=== PATIENT | male | born 1940 | race Caucasian/White ===

== ENCOUNTER → 2019-12-05 09:11 | Outpatient (BNVA) | payer MEDICARE, OTHER, SELFPAY | PROVIDERS: Family Provider Family Medicine; PCP Family Medicine; Visit Provider Internal Medicine Cardiovascular Disease | DX: I48.91 Unspecified atrial fibrillation (principal) | CPT/HCPCS: 85610 ==

== ENCOUNTER → 2019-12-12 08:08 | Outpatient (BNVA) | payer MEDICARE, OTHER, SELFPAY | PROVIDERS: Family Provider Family Medicine; PCP Family Medicine; Visit Provider Internal Medicine Cardiovascular Disease | DX: I48.91 Unspecified atrial fibrillation (principal) | CPT/HCPCS: 85610 ==

== ENCOUNTER → 2019-12-19 08:15 | Outpatient (BNVA) | payer MEDICARE, OTHER, SELFPAY | PROVIDERS: Family Provider Family Medicine; PCP Family Medicine; Visit Provider Internal Medicine Cardiovascular Disease | DX: I48.91 Unspecified atrial fibrillation (principal) | CPT/HCPCS: 85610 ==

== ENCOUNTER → 2020-01-09 08:13 | Outpatient (BNVA) | payer MEDICARE, OTHER, SELFPAY | PROVIDERS: Family Provider Family Medicine; PCP Family Medicine; Visit Provider Internal Medicine Cardiovascular Disease | DX: I48.91 Unspecified atrial fibrillation (principal) | CPT/HCPCS: 85610 ==

== ENCOUNTER → 2020-01-23 08:30 | Outpatient (BNVA) | payer MEDICARE, OTHER, SELFPAY | PROVIDERS: Family Provider Family Medicine; PCP Family Medicine; Visit Provider Internal Medicine Cardiovascular Disease | DX: I48.91 Unspecified atrial fibrillation (principal); Z79.01 Long term (current) use of anticoagulants | CPT/HCPCS: 85610 ==

== ENCOUNTER → 2020-05-21 08:57 | Outpatient (BNVA) | payer MEDICARE, OTHER, SELFPAY | PROVIDERS: Family Provider Family Medicine; PCP Family Medicine; Visit Provider Internal Medicine Cardiovascular Disease | DX: I48.91 Unspecified atrial fibrillation (principal); Z79.01 Long term (current) use of anticoagulants | CPT/HCPCS: 85610 ==

== ENCOUNTER 2020-05-26 08:16 | Outpatient (CLI) | payer MEDICARE, OTHER, SELFPAY ==
--- NOTE | 2020-05-26 | US_ITS ---
WS: [id number] ULTRASOUND ABDOMEN CLINICAL INFORMATION: ABD PAIN COMPARISON: None. FINDINGS: Hepatic cyst measuring 1.7 x 1.5 cm Size: Normal. Craniocaudal length: 17.1 cm. Echogenicity: Normal. Surface nodularity: None. Mass (size and location): None. Bile ducts Intrahepatic ducts: Normal. Common bile duct diameter: 0.6 cm. Gallbladder Removed Pancreas Not well seen Spleen Splenomegaly: None. Craniocaudal length: 9.2 cm. Right kidney: Normal. Hydronephrosis: None. Size: 11.2 cm x 6.0 cm x 5.4 cm Left kidney: Normal. Hydronephrosis: None. Size: 12.8 cm x 6.4 cm x 5.8 cm. Abdominal aorta and IVC Visualized portions are normal. Ascites: None. US/US abdomen complete* [id number] IMPRESSION: 1. Hepatic cyst measuring 1.7 x 1.5 CM. 2. Cholecystectomy. 3. No hydronephrosis in either kidney. 4. Normal spleen.
== END 2020-05-26 08:17 | disposition home or self-care (01) ==
LOC: RAD 08:20
PROVIDERS: PCP Family Medicine; Visit Provider Family Medicine
DX: R10.84 Generalized abdominal pain (principal)
CPT/HCPCS: 76700

== ENCOUNTER → 2020-06-04 08:39 | Outpatient (BNVA) | payer MEDICARE, OTHER, SELFPAY | PROVIDERS: PCP Family Medicine; Visit Provider Internal Medicine Cardiovascular Disease | DX: I48.91 Unspecified atrial fibrillation (principal) | CPT/HCPCS: 85610 ==

== ENCOUNTER 2020-06-08 10:21 | Inpatient (IN) | payer MEDICARE, OTHER, SELFPAY ==
[2020-06-08] VITALS (10 sets, daily range): BP systolic 93–128; BP diastolic 60–78; PULSE 90–116; RESP 15–24; TEMP 36.6; O2SAT 92–97; BMI 27.4
--- NOTE | 2020-06-08 10:38 | XRR_ITS ---
PROCEDURE INFORMATION: Exam: XR Chest, 1 View Exam date and time: 06/08/2020 10:55 AM Age: 80 years old Clinical indication: Chest pain; Type not specified; Prior surgery; Surgery date: 6+ months; Surgery type: 3x bypass in 2004; Additional info: Cp TECHNIQUE: Imaging protocol: XR of the chest Views: 1 view. COMPARISON: CR Chest 2 views* [id number] 08/31/2018 12:47 PM FINDINGS: Tubes, catheters and devices: There is a pacemaker present over the left chest . Lungs: No consolidation. Pleural space: No pleural effusion. No pneumothorax. Heart/Mediastinum: Previous CABG. Diaphragm: Chronic elevation of the right hemidiaphragm. Bones/joints: Previous median sternotomy. XR/XR chest 1V portable [id number] IMPRESSION: No acute findings.
--- NOTE | 2020-06-08 10:38 | ECG_ITS ---
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 Measurements Intervals [place] Rate: 114 P: 64 AL: 178 QRS: -6 QRSD: 77 T: 44 QT: 332 QTc: 458 Interpretive Statements SINUS TACHYCARDIA NONSPECIFIC ST & T-WAVE ABNORMALITY ABNORMAL RHYTHM ECG Compared to ECG 02/05/2019 21:29:30 T-wave abnormality now present Sinus rhythm no longer present Electronically Signed On 06-08-2020 19:05:16 CDT by Shawn Brown M.D. [id number]
--- NOTE | 2020-06-08 10:45 | ED_ITS ---
HPI - Chest Pain General: Chief Complaint: Chest Pain Stated Complaint: cp Time Seen by Provider: 06/08/20 10:27 History of Present Illness: HPI narrative: Patient complains of substernal chest pain that radiates to both shoulders and down both arms. There was some shortness of breath. Patient denies nausea and diaphoresis. Patient has a remote history of CABG and states that the pain he is experiencing now is identical to before his bypass. MD complaint: chest pain, chest heaviness and chest discomfort Pertinent past history: coronary artery disease and CABG Onset (ago): day(s) (1) Timing of current episode: constant Prior episodes: No Onset: during rest and during exertion Pain location: substernal Pain radiation: right arm and left arm Severity: severe Quality: tightness and heaviness Relieving factors: nothing Exacerbating factors: exertion Review of Systems General: Reports: 10 or more systems reviewed and unremarkable except in HPI and below PFSH ED PFSH: Medical History Atrial fibrillation Surgical History S/P CABG (coronary artery bypass graft) S/P cardiac pacemaker procedure Physical Exam Const: COMMON NORMALS: no acute distress, patient oriented x3, no limitations and alert HENMT: COMMON NORMALS: normocephalic, atraumatic, external ears normal and Normal external nose present HEAD & SCALP: normocephalic and atraumatic FACE & SINUS: normal facial exam NOSE: Normal external nose present EXTERNAL EAR: Yes external ears normal MOUTH: Normal oral and palatal mucosa present Neck/C-Spine: COMMON NORMALS: full ROM, no lymphadenopathy, supple, no meningeal signs and no JVD GENERAL: Yes normal visual inspection Resp: COMMON NORMALS: normal respiratory effort, No retractions, No use of accessory muscles and clear to auscultation bilaterally AUSCULTATION: clear to auscultation bilaterally Cardio: COMMON NORMALS: no JVD, regular rate and regular rhythm RATE: regular rate RHYTHM: regular rhythm GI: COMMON NORMALS: Normal to inspection, nondistended, normoactive bowel sounds present, Soft to palpation, non-tender, No hepatosplenomegaly present and no masses INSPECTION: Yes normal to inspection AUSCULTATION: Yes normoactive bowel sounds PALPATION: Yes Soft to palpation and Yes No hepatosplenomegaly present PERCUSSION: normal to percussion : COMMON NORMALS: Yes no CVA tenderness BLADDER/KIDNEY EXAM: Yes no CVA tenderness Back/Pelvis: COMMON NORMALS: no CVA tenderness, thoracic and lumbar spine normal to inspection, no thoracic nor lumbar tenderness, thoraco-lumbar ROM normal and straight leg raise negative bilaterally Extremity: COMMON NORMALS: normal to inspection, full ROM, capillary refill normal, no joint enlargement, no clubbing, cyanosis or edema, no calf tenderness and no pedal edema Neuro: COMMON NORMALS: patient oriented x3, moves all extremities, no focal motor deficits and no sensory deficits noted SENSORIUM/ORIENTATION: Yes alert MENINGEAL SIGNS: Yes no meningeal signs Psych: COMMON NORMALS: mental status grossly normal, Normal thought process present, cooperative, normal affect and speech normal SPEECH: Yes normal speech THOUGHT PROCESS: Normal thought process present Skin: COMMON NORMALS: no rashes or lesions noted, no wounds, turgor normal, no jaundice, no petechiae and no mottling GENERAL SKIN EXAM: no rashes or lesions noted and turgor normal Course Vital Signs: Vital signs: Vital Signs Temperature 97.9 F 06/08/20 10:25 Pulse Rate 116 H 06/08/20 10:25 Respiratory Rate 24 H 06/08/20 10:25 Blood Pressure 107/68 06/08/20 10:25 Pulse Oximetry 96 06/08/20 10:25 MDM - Chest Pain Lab Data: Labs: Lab Results 06/08/20 06/08/20 06/08/20 Range/Units 10:46 10:46 10:46 WBC 7.9 (4.0-10.0) 10^3/ uL RBC 5.16 (4.1-5.3) 10^6/u L Hgb 15.3 (11.7-16.6) g/dL Hct 47.4 (42.0-52.0) % MCV 91.9 (80-94) fL MCH 29.7 (28.0-34.0) pg MCHC 32.3 (30.0-36.0) g/dL RDW 13.3 (12.1-15.1) % Plt Count 204 (130-400) 10^3/c mm MPV 10.1 (7.4-10.4) fL Neut % (Auto) 45.9 % Lymph % (Auto) 36.5 % [place] % (Auto) 8.8 % Eos % (Auto) 8.0 % Baso % (Auto) 0.5 % Neut # (Auto) 3.62 (1.8-7.7) 10^3/u L Lymph # (Auto) 2.9 (0.8-4.8) 10^3/u L [place] # (Auto) 0.7 (0.2-0.9) 10^3/u L Eos # (Auto) 0.6 (0.0-0.8) 10^3/u L Baso # (Auto) 0.0 (0.0-0.1) 10^3/u L Nucleated RBC % (a uto) 0 % Nucleated RBCs # 0.0 /100WBC PT 23.10 H (10.5-13.3) SECO NDS INR 1.97 H (0.8-1.2) Sodium 137 (136-145) mmol/L Potassium 3.8 (3.5-5.1) mmol/L Chloride 100 (98-107) mmol/L Carbon Dioxide 25 (22-29) mmol/L Anion Gap 15.8 (5-19) BUN 15 (8-23) mg/dL Creatinine 1.1 (0.7-1.2) mg/dL Glucose 125 H (65-115) mg/dL Calculated Osmolal ity 282 L (285-295) mOsm/k g Calcium 9.6 (8.5-10.5) mg/dL Total Bilirubin 0.4 (0.15-1.2) mg/dL AST 22 (0-40) U/L ALT 22 (0-41) U/L Alkaline Phosphata se 67 (40-130) IU/L Troponin T Baselin e (0-15) ng/L NT-Pro-B Natriuret Pep 260 (0-450) pg/mL Total Protein 7.1 (6.6-8.7) g/dL Albumin 4.2 (3.5-5.2) g/dL Globulin 2.9 (1.3-4.6) g/dL 06/08/20 Range/Units 10:46 WBC (4.0-10.0) 10^3/ uL RBC (4.1-5.3) 10^6/u L Hgb (11.7-16.6) g/dL Hct (42.0-52.0) % MCV (80-94) fL MCH (28.0-34.0) pg MCHC (30.0-36.0) g/dL RDW (12.1-15.1) % Plt Count (130-400) 10^3/c mm MPV (7.4-10.4) fL Neut % (Auto) % Lymph % (Auto) % [place] % (Auto) % Eos % (Auto) % Baso % (Auto) % Neut # (Auto) (1.8-7.7) 10^3/u L Lymph # (Auto) (0.8-4.8) 10^3/u L [place] # (Auto) (0.2-0.9) 10^3/u L Eos # (Auto) (0.0-0.8) 10^3/u L Baso # (Auto) (0.0-0.1) 10^3/u L Nucleated RBC % (a uto) % Nucleated RBCs # /100WBC PT (10.5-13.3) SECO NDS INR (0.8-1.2) Sodium (136-145) mmol/L Potassium (3.5-5.1) mmol/L Chloride (98-107) mmol/L Carbon Dioxide (22-29) mmol/L Anion Gap (5-19) BUN (8-23) mg/dL Creatinine (0.7-1.2) mg/dL Glucose (65-115) mg/dL Calculated Osmolal ity (285-295) mOsm/k g Calcium (8.5-10.5) mg/dL Total Bilirubin (0.15-1.2) mg/dL AST (0-40) U/L ALT (0-41) U/L Alkaline Phosphata se (40-130) IU/L Troponin T Baselin e 16 H (0-15) ng/L NT-Pro-B Natriuret Pep (0-450) pg/mL Total Protein (6.6-8.7) g/dL Albumin (3.5-5.2) g/dL Globulin (1.3-4.6) g/dL Discharge Plan Discharge Patient Disposition: Admitted As Inpatient Clinical Impression: Unstable angina pectoris Condition: Fair Referrals: Uziel Iverson MD [Primary Care Provider] - Coding Level of Care Code ED 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
[2020-06-08 10:57] LABS: Basophils % 0.5 %; Eosinophils # 0.6 10^3/uL (0.0-0.8); Hematocrit 47.4 % (42.0-52.0); Hemoglobin 15.3 g/dL (11.7-16.6); Lymphocytes # 2.9 10^3/uL (0.8-4.8); Lymphocytes % 36.5 %; Mean Corpuscular HGB Conc 32.3 g/dL (30.0-36.0); Mean Corpuscular Hemoglobin 29.7 pg (28.0-34.0); Mean Corpuscular Volume 91.9 fL (80-94); Mean Platelet Volume 10.1 fL (7.4-10.4); Monocytes # 0.7 10^3/uL (0.2-0.9); Monocytes % 8.8 %; Neutrophils # 3.62 10^3/uL (1.8-7.7); Neutrophils % 45.9 %; Nucleated Red Blood Cells % 0 %; Platelet Count 204 10^3/cmm (130-400); Red Blood Count 5.16 10^6/uL (4.1-5.3); Red Cell Distribution Width 13.3 % (12.1-15.1); White Blood Count 7.9 10^3/uL (4.0-10.0)
[2020-06-08 11:08] LABS: INR 1.97 (0.8-1.2)
[2020-06-08 11:14] LABS: Troponin(5th) Baseline 16 ng/L (0-15)
[2020-06-08 11:23] LABS: Alanine Aminotransferase 22 U/L (0-41); Albumin Level 4.2 g/dL (3.5-5.2); Alkaline Phosphatase 67 IU/L (40-130); Anion Gap 15.8 (5-19); Aspartate Amino Transferase 22 U/L (0-40); Blood Urea Nitrogen 15 mg/dL (8-23); Calcium 9.6 mg/dL (8.5-10.5); Carbon Dioxide 25 mmol/L (22-29); Chloride 100 mmol/L (98-107); Globulin 2.9 g/dL (1.3-4.6); Glucose 125 mg/dL (65-115); NT Pro B Type Natriuretic Pept 260 pg/mL (0-450); Osmolality Calculated 282 mOsm/kg (285-295); Potassium 3.8 mmol/L (3.5-5.1); Sodium 137 mmol/L (136-145); Total Bilirubin 0.4 mg/dL (0.15-1.2); Total Protein 7.1 g/dL (6.6-8.7)
--- NOTE | 2020-06-08 12:28 | PM.HP ---
Providers/Chief Complaint Primary Care Provider: Uziel Iverson MD Chief Complaint: cp History of Present Illness Toni Quintanilla is a 80 year old male that presents with complaints of chest discomfort. Patient reports he has been having episodes of chest discomfort for the last several weeks. He describes this as sharp, central, with discomfort down both arms. He reports it is a pressure as well. He reports the pain this morning was very severe lasting 15 to 20 minutes, where it normally lasts about 5. This morning the discomfort occurred at rest. It was so severe he could not remember any associated features but does not remember any diaphoresis, shortness of breath or nausea. He denies any issues with reflux lately. He reports no blood in his stool nor black or tarry stools. He reports no fever, cough or exposure to COVID. He reports his discomfort today is very similar to chest discomfort associated with coronary disease he had in the past. He believes his last angiogram was 6 to [address] Phelps but is not absolutely sure. He reports no coronary stenting. Review of Systems General: Reports: 10 or more systems reviewed and unremarkable except in HPI and below Const: Denies: fever(s) or chills Eyes: Denies: change in vision ENMT: Denies: throat pain Card: Reports: chest pain; Denies: palpitations Resp: Reports: dyspnea (Has occasional wheezing but shortness of breath with exertion) GI: Denies: abdominal pain : Denies: flank pain Musc: Denies: neck pain Skin/Breast: Denies: rash Neuro: Denies: headache(s) Psych: Denies: anxiety Endo: Denies: polyuria Jose/Lymph: Denies: easy bruising All/Imm: Denies: urticaria Medications/Allergies Home Medications Medication Instructions Recorded Confirmed Last Taken Type warfarin 1 mg tablet 1 mg PO DAILY tab 12/05/19 06/08/20 06/08/20 History warfarin 5 mg tablet 5 mg PO DAILY tab 12/05/19 06/08/20 06/08/20 History metoprolol succinate 100 mg 100 mg PO DAILY 90 Days #90 tab 12/12/19 06/08/20 06/07/20 Rx tablet,extended release 24 hr aspirin 81 mg tablet,delayed 81 mg PO DAILY 03/03/20 06/08/20 06/08/20 History release bumetanide 1 mg tablet 1 mg PO DAILY 03/03/20 06/08/20 06/08/20 History cholecalciferol (vitamin D3) 10 400 unit PO DAILY 03/03/20 06/08/20 06/07/20 History mcg (400 unit) capsule lisinopril 2.5 mg tablet 2.5 mg PO DAILY 03/03/20 06/08/20 06/07/20 History nitroglycerin 0.4 mg sublingual 0.4 mg SUBLINGUAL Q5M PRN 03/03/20 06/08/20 06/07/20 History tablet omeprazole 20 mg capsule,delayed 20 mg PO DAILY 03/03/20 06/08/20 06/08/20 History release simvastatin 40 mg tablet 40 mg PO DAILY 03/03/20 06/08/20 06/07/20 History spironolactone 25 mg tablet 12.5 mg PO DAILY tab 03/03/20 06/08/20 06/08/20 History Allergies Allergy/AdvReac Type Severity Reaction Status Date / Time No Known Allergies Allergy Verified 06/08/20 11:16 PFSH Acute PFSH: Medical History (Updated 06/08/20 @ 12:40 by Asael Rose MD) Atrial fibrillation BPH (benign prostatic hyperplasia) Coronary artery disease Last echocardiogram January 2019 with EF 55 to 60% GERD (gastroesophageal reflux disease) Hyperlipidemia Hypertension Sick sinus syndrome Surgical History (Updated 06/08/20 @ 12:36 by Asael Rose MD) History of hemorrhoidectomy S/P CABG (coronary artery bypass graft) S/P cardiac pacemaker procedure S/P cholecystectomy S/P TURP Family History (Updated 06/08/20 @ 12:36 by Asael Rose MD) Other CAD (coronary artery disease) Social History (Updated 06/08/20 @ 12:37 by Asael Rose MD) Smoking and tobacco status: former smoker Alcohol intake: never Substance/Drug Use: never Vitals/I&O/Wt Last Vital Signs Temp 97.9 F 06/08/20 10:25 Pulse 116 H 06/08/20 10:25 Resp 24 H 06/08/20 10:25 BP 107/68 06/08/20 10:25 Pulse Ox 96 06/08/20 10:25 Weight last 48 hrs Weight 83.007 kg Physical Exam Narrative: EXAM NARRATIVE: General exam is a white male, no obvious distress HEENT: Pupils equally round. Oropharynx clear. Neck is supple no lymphadenopathy or thyromegaly Cardiovascular regular rate and rhythm with 2/6 systolic murmur Lungs clear but with diminished breath sounds bilaterally. Increased expiratory phase. Abdomen is soft positive bowel sounds. No obvious organomegaly was deferred Extremities no cyanosis clubbing or edema, cap refill brisk Skin no rash Neuro no obvious focal deficits Data : 06/08/20 10:46 06/08/20 10:46 Other data: Chest x-ray demonstrates pacemaker, previous bypass, elevated right hemidiaphragm. EKG demonstrates sinus rhythm, normal axis no acute changes. LFTs are normal Baseline troponin 16, awaiting serials. A&P Assessment and plan (1) Chest pain: History somewhat concerning secondary to exertional component, relief with nitroglycerin. Has known history of coronary disease. We will try to get last angiogram results Serial troponins Repeat echocardiogram for any wall motion abnormalities Hold Coumadin in case angiogram is needed Continue aspirin, statin, beta-geri Arrange for nuclear stress test. Status: Acute (2) Elevated troponin: Serial troponins See notations above Status: Acute (3) Coronary artery disease: See documentations under chest discomfort Status: Acute (4) Atrial fibrillation: Currently sinus History of pacemaker On anticoagulation with near therapeutic INR. Will hold in case angiogram is needed. Status: Acute Additional A&P Information Probable COPD. Start DuoNeb as needed Hypertension. Continue home medications Hyperlipidemia. Continue statin BPH History of sick sinus syndrome/cardiac arrhythmia status post pacemaker placement Lovenox for DVT prophylaxis Full code. Attestations Medical Necessity Statement*: May need less than 2 midnight stay for evaluation of chest discomfort. 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
--- NOTE | 2020-06-08 12:38 | ECG_ITS ---
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 Measurements Intervals [place] Rate: 98 P: 36 MN: 172 QRS: 4 QRSD: 96 T: 38 QT: 359 QTc: 460 Interpretive Statements SINUS RHYTHM WITH OCCASIONAL SUPRAVENTRICULAR PREMATURE COMPLEXES ST DEVIATION AND MODERATE T-WAVE ABNORMALITY, CONSIDER ANTERIOR ISCHEMIA [-0.1+ mV T WAVE IN V3/V4] Compared to ECG 06/08/2020 10:40:40 Possible ischemia now present Sinus tachycardia no longer present T-wave abnormality still present Electronically Signed On 06-08-2020 19:09:57 CDT by Shawn Brown M.D. [id number]
--- NOTE | 2020-06-08 13:14 | USCV_ITS ---
Toni Quintanilla Age: 80 Gender: M : 1940 Exam Date: 06/08/2020 14:37 Ordering Phys: Asael Rose MD Technologist: Julia Guillen Exam Location: [facility] [place] Indication: Chest pain BP: 93 / 78 HR: 100 Rhythm: Sinus Technical Quality: Technically difficult study MEASUREMENTS (Male / Female) Normal Values 2D ECHO LV Diastolic Diameter PLAX 2.9 cm 4.2 - 5.9 / 3.9 - 5.3 cm LV Systolic Diameter PLAX 2.2 cm LV Chamber Size 3.6 cm IVS Diastolic Thickness 1.5 cm 0.6 - 1.0 / 0.6 - 0.9 cm IVS Systolic Thickness 1.6 cm LVPW Diastolic Thickness 1.3 cm 0.6 - 1.0 / 0.6 - 0.9 cm LVPW Systolic Thickness 1.4 cm RV Chamber Size 2.5 cm LVOT Diameter 2.1 cm LV Ejection Fraction 2D Teich 53.9 % LA Diameter 5.3 cm LA Width 2.3 cm LA Height 5.6 cm Aorta at Sinotubular Diameter 2.4 cm M-MODE Aortic Annulus Diameter 3.5 cm LA Ao Ratio MM 1.5 DOPPLER AV Peak Velocity 143.0 cm/s LVOT Peak Velocity 82.0 cm/s AV Area Cont Eq vti 2.2 cm squared AV Area Cont Eq pk 2.0 cm squared MV Area PHT 5.0 cm squared MV E' Velocity 92.0 cm/s TR Peak Velocity 241.0 cm/s TR Peak Gradient 23.3 mmHg TV Peak E Velocity 57.0 cm/s Right Atrial Pressure 3.0 mmHg Pulmonary Artery Systolic Pressu 26.2 mmHg PV Peak Velocity 71.0 cm/s RV Acceleration Time 0.0 s RV Ejection Time 0.2 s RV AcT/ET 0.2 FINDINGS Left Ventricle This is a poor quality study. The ventricle is probably normal in size and function. The ejection fraction is probably in the 55% range. Grade 1 diastolic dysfunction. Unable to assess wall motion disturbances. Right Ventricle Normal right ventricular size and systolic function. Normal right ventricular systolic pressure. Right Atrium Right atrium not well visualized. Left Atrium Mildly increased left atrial size. Mitral Valve Mitral valve not well visualized. Aortic Valve Aortic valve is not well seen. There is some degree of aortic insufficiency however its severity cannot be determined. Tricuspid Valve Tricuspid valve not well visualized. Pulmonic Valve Pulmonic valve not well visualized. Pericardium Normal pericardium without effusion. Aorta Normal ascending aorta dimension. CONCLUSIONS This is a poor quality study. The ventricle is probably normal in size and function. The ejection fraction is probably in the 55% range. Grade 1 diastolic dysfunction. Unable to assess wall motion disturbances. Aortic valve is not well seen. There is some degree of aortic insufficiency however its severity cannot be determined. Previous study dated 02/06/2019 was similarly poor in quality. There appears to be no change. Dr. Shawn Brown MD (Electronically Signed) Final Date: 08 June 2020 19:02 S
--- NOTE | 2020-06-08 13:14 | ECG_ITS ---
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 Interpretive Statements NAME OF STUDY: LEXISCAN SESTAMIBI STRESS TEST INDICATION: Chest Pain NOTE: Please note that this is the electrocardiogram portion of the Lexiscan/Sestamibi stress test. The perfusion scan will be documented separately. DATA: Baseline heart rate was 91 beats per minute. Baseline blood pressure was 156/84 millimeters of mercury. Target heart rate was 142. Maximum heart rate achieved was 104. which was 73 % of the predicted target heart rate. Maximum blood pressure was 156/84 millimeters of mercury. The reason for ending the test was completion of the protocol. The patient did not experience any symptoms. ELECTROCARDIOGRAM: Baseline: Sinus rhythm, normal axis, mild anteroseptal ST depression After Lexiscan injection, more than 1mm anterolateral ST-T depression noted. No arrhythmia noted. CONCLUSION: Please note due to baseline abnormality of the EKG specificity and sensitivity of the EKG portion of LexiScan MIBI stress test will be low 1. EKG is suggestive of ischemia 2. Lexiscan injection unremarkable. 3. Perfusion scan will be documented separately. Electronically Signed On 06-11-2020 20:08:23 CDT by Gabriela Real M.D. [id number]
[2020-06-08 13:27] LABS: Troponin 5 2HR 16.77 ng/L (0-15); Troponin 5 2HR Delta 0.77 ABS# (0-10)
[2020-06-08 14:11] LABS: Thyroid Stimulating Hormone 1.87 uIU/mL (0.27-4.20)
[2020-06-08] MEDS: enoxaparin 40 mg/0.4 mL Syringe SUBCUT (14:13)
--- NOTE | 2020-06-08 16:38 | ECG_ITS ---
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 Measurements Intervals [place] Rate: 98 P: 46 FL: 191 QRS: -25 QRSD: 90 T: 29 QT: 365 QTc: 468 Interpretive Statements SINUS RHYTHM WITH OCCASIONAL VENTRICULAR PREMATURE COMPLEXES WITH OCCASIONAL SUPRAVENTRICULAR PREMATURE COMPLEXES BORDERLINE LEFT AXIS DEVIATION [QRS AXIS < -20] ST & T-WAVE ABNORMALITY, anterior ischemia Compared to ECG 06/08/2020 12:54:48 Ventricular premature complex(es) now present T-wave abnormality still present Electronically Signed On 06-08-2020 19:11:32 CDT by Shawn Brown M.D. [id number]
[2020-06-08 17:11] LABS: Troponin 5 6HR 14.57 ng/L (0-15)
[2020-06-08 17:32] LABS: Troponin 5 6HR Delta -1.43 ng/L (0-12)
[2020-06-08] MEDS: pantoprazole DR 40 mg Tablet PO (19:08)
--- NOTE | 2020-06-08 20:05 | PC.NURSE ---
Pt resting in bed. No complaints of chest pain at this time. Pt states, I feel so much better. States he lives at home with spouse and has no difficulties getting around. Noted mild small unraised rash on face. Pt reports this as a chronic issue at times due to allergies. Denies cough or shortness of breath. Call light in reach. Educated pt to call if he needs any assistance or develops further chest pain.
[2020-06-09] VITALS (8 sets, daily range): BP systolic 77–147; BP diastolic 45–98; PULSE 81–92; RESP 15–23; TEMP 36.4–36.8; O2SAT 94–97
[2020-06-09 04:12] LABS: Basophils # 0.1 10^3/uL (0.0-0.1); Basophils % 0.8 %; Eosinophils # 0.9 10^3/uL (0.0-0.8); Eosinophils % 13.5 %; Hemoglobin 14.5 g/dL (11.7-16.6); Lymphocytes # 2.5 10^3/uL (0.8-4.8); Lymphocytes % 39.2 %; Mean Corpuscular HGB Conc 31.5 g/dL (30.0-36.0); Mean Corpuscular Hemoglobin 29.4 pg (28.0-34.0); Mean Corpuscular Volume 93.1 fL (80-94); Monocytes # 0.6 10^3/uL (0.2-0.9); Monocytes % 9.2 %; Neutrophils # 2.39 10^3/uL (1.8-7.7); Neutrophils % 37.1 %; Nucleated Red Blood Cells % 0 %; Platelet Count 172 10^3/cmm (130-400); Red Blood Count 4.94 10^6/uL (4.1-5.3); Red Cell Distribution Width 13.6 % (12.1-15.1); White Blood Count 6.4 10^3/uL (4.0-10.0)
[2020-06-09 04:23] LABS: INR 1.96 (0.8-1.2)
[2020-06-09 04:32] LABS: Anion Gap 14.8 (5-19); Blood Urea Nitrogen 16 mg/dL (8-23); Calcium 8.8 mg/dL (8.5-10.5); Carbon Dioxide 24 mmol/L (22-29); Chloride 101 mmol/L (98-107); Glucose 113 mg/dL (65-115); Osmolality Calculated 279 mOsm/kg (285-295); Potassium 3.8 mmol/L (3.5-5.1); Sodium 136 mmol/L (136-145)
--- NOTE | 2020-06-09 06:22 | PC.NURSE ---
No acute events through out the night. No chest pain. Stress test today. Pt NPO excepts sips of water since midnight.
--- NOTE | 2020-06-09 07:03 | PM.PN ---
Subjective Subjective: Interval history: Patient still having little bit of chest pain this morning. No fevers or chills. He reports that his pain is similar to his previous cardiac pain prior to his bypass. He has had it for several months but is gotten significantly worse with activity over the past couple weeks. Vitals/I&O/Wt Last Vital Signs Temp 97.5 F L 06/09/20 06:48 Pulse 83 06/09/20 06:48 Resp 18 06/09/20 06:48 BP 119/74 06/09/20 06:48 Pulse Ox 94 06/09/20 06:48 06/08/20 06/09/20 06/09/20 22:59 06:59 14:59 Intake Total 240 / 1516 680 / 1516 Balance 240 / 1516 680 / 1516 Weight last 48 hrs Weight 181 lb 1.6 oz Weight 183 lb Physical Exam Narrative: EXAM NARRATIVE: General: No acute distress, Alert. Well nourished. Heart: Regular rate and rhythm. No murmurs, rubs or gallops. Normal capillary refill. Lungs: Clear to auscultation. No wheezes, rhonchi or rales. Abdomen: Positive bowel sounds. Non-tender, non-distended. No hepatosplenomegaly. No gaurding. Extremities: No clubbing, cyanosis, or edema. Negative Keven's Data : 06/09/20 04:02 06/09/20 04:02 A&P Assessment and plan (1) Coronary artery disease: Status: Acute (2) Elevated troponin: Status: Acute (3) Unstable angina pectoris: -We will go ahead and consult cardiology for angiogram and further treatment and evaluation. Status: Acute (4) S/P CABG (coronary artery bypass graft): Status: Acute Attestations Medical Necessity Statement*: 80-year-old gentleman with known history of coronary disease with unstable angina requiring angiogram and inpatient treatment. 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
--- NOTE | 2020-06-09 07:42 | PC.NURSE ---
Physician Rounding Dr Iverson verbally ordered to hold stress test until Dr. Real sees the pt. Notified Nuc Med and CDL. They are aware. Hilario at [facility] said that pt has been injected with the chemical medicine this morning already. Dr Iverson and Addie notified on this.
--- NOTE | 2020-06-09 07:52 | NMCV_ITS ---
NM ellie perf SPECT r/s* [id number] Toni Quintanilla Age: 80 Gender: M : 1940 Exam Date: 06/09/2020 07:41 Ordering Phys: Gabriela Real MD ([email or web address]) Technologist: CECILIA Chacon Exam Location: [facility] Indications: CHEST PAIN STRESS TEST Please see separate stress test report in [facility] for full findings IMAGE PROTOCOL Rest/Stress 1 Lexiscan Day Radiopharmaceutical Dose (mCi) Administration Site Administered by Rest: Tc-99m 10.9 IV CECILIA Ribera Sestamibi Stress:Tc-99m 32.9 IV CECILIA Ribera Sestamibi Rest: 09-Jun-2020 60 Discovery 630 Stress: 09-Jun-2020 30 Discovery 630 0.4mg Lexiscan. Images obtained in supine and prone position. SPECT RESULTS Technical Quality: Excellent Raw Data Analysis: Normal Image Corrections: No attenuation or motion correction applied Summed Stress Score: 12 Summed Rest Score: 6 Summed Difference Score: 6 PERFUSION FINDINGS Medium-sized area of fixed perfusion defect noted in basal to distal inferior and inferolateral wall surrounded by small area of mild reversibility suggestive of ana m-infarct ischemia in the RCA or circumflex territory. FUNCTIONAL RESULTS (calculated via Gated SPECT) Stress Image LV EF (%): 51 Stress EDV (mL):88 TID: 0.93 Stress ESV (mL):43 Rest Image LV EF (%): 51 FUNCTIONAL FINDINGS: Inferior wall hypokinesis IMPRESSIONS Medium-sized area of old myocardial infarction versus scarring noted basal to distal inferior and inferolateral wall surrounded by small area of mild reversibility suggestive of ana m-infarct ischemia in the RCA or circumflex territory. EKG segment will be documented separately. Gabriela Real MD (Electronically Signed) Final Date: 09 June 2020 17:32 S
--- NOTE | 2020-06-09 08:34 | SUR.PREOP ---
Patient reports no pain or discomfort prior to the start of the procedure.
[2020-06-09] MEDS: regadenoson 0.4 Mg/5 ml Syringe IVP (08:35)
--- NOTE | 2020-06-09 08:56 | PC.NURSE ---
At [facility] for stress test
[2020-06-09] MEDS: metoprolol succinate ER (24 HR) 100 mg Tablet PO (10:07)
[2020-06-09] MEDS: lisinopril 2.5 mg Tablet PO (10:07)
[2020-06-09] MEDS: spironolactone 25 mg Tablet 12.5 MG PO (10:07)
[2020-06-09] MEDS: atorvastatin 40 mg Tablet 20 MG PO (10:07)
[2020-06-09] MEDS: aspirin 81 mg EC Tablet PO (10:08)
[2020-06-09] MEDS: bumetanide 1 mg Tablet PO (10:08)
[2020-06-09] MEDS: pantoprazole DR 40 mg Tablet PO ×2 (10:08→17:22)
--- NOTE | 2020-06-09 10:20 | PC.CHAP ---
Pastoral Care Encounter/Spiritual Assessment Type of Contact [] Declined dry goods inspector visit [] Patient/Family/Request visit [] Outpatient visit [] Follow-up visit [] Physician referral [] Code/Alert [x] Routine visit [] Staff referral [] Actively dying [] Patient sleeping [] Family support [] [] Out of room [] Palliative care [] [] Receiving care in room [] Pre-surgical visit [] Trauma [] Long length of stay [] ICU visit [] Other: Relational/Emotional Strength [] Patient feels connected with others/family/visitors/staff [] Distress [] Loneliness/isolation [] Abandonment Spirituality of Patient [] Person of Rosie [] Attends Lutheran of their Rosie [] Believes in Prayer [] Reads Bible or Methodist materials [] There are Spiritual issues to be addressed Wood Window And Door Craftsman Interventions [] Prayer [] Active listening [] Non-anxious presence [] Spiritual/emotional support [] Crisis/trauma care [] Spiritual counseling [] Bereavement support [] Provided bereavement packet [] Provided Bible/devotional materials [] Provided toy/stuffed animal, coloring book to patient or family member [] Provided Communion [] Anointing/[place] [] Salvation [] Completed spiritual assessment [] Other: Impact on Illness or Injury [] Angry [] Fearful [] Anxious [] Often cries [] Exhaustion [] Unable to work [] Unable to attend episcopalian [] Unable to walk/stand [] Unable to read [] Unable to drive [] Unable to eat/drink [] Unable to sleep [] Unable to be with family [] Patient intubated [] Other: Summary out of room Time spent with patient
--- NOTE | 2020-06-09 12:00 | DCPLANNER ---
Physician Rounding Dr Real in room. Discussion on an angiogram tomorrow at 4 pm. Received verbal orders to give Plavix 300 mg now and Imdur 30 mg first dose now then daily. RBVO to Dr. Real.
--- NOTE | 2020-06-09 12:02 | PC.NURSE ---
Physician notification Notified Dr Iverson to put an order for cardiology consult- Dr. Real. He spoke with him this morning and Dr. Real has seen and assessed the pt at bedside with this nurse. Discussion made for an angiogram tomorrow.
[2020-06-09] MEDS: clopidogrel 300 mg Tablet PO (13:15)
[2020-06-09] MEDS: isosorbide mononitrate ER 30 mg Tablet PO (13:16)
--- NOTE | 2020-06-09 13:17 | PC.NURSE ---
Urvashi Quintanilla would be requested visitor per patient. Phone number is [phone]
[2020-06-09] MEDS: enoxaparin 40 mg/0.4 mL Syringe SUBCUT (13:19)
--- NOTE | 2020-06-09 17:36 | P.CONIM_ITS ---
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 He was ruled out for acute coronary syndrome. He underwent stress test which was suggestive of ischemia in the inferior inferolateral region, ischemic burden is small however patient symptoms are pretty suggestive of angina despite of optimization of medicine. It has been 15 years since his bypass therefore we decided to further explore with left heart cath/angiogram of the graft. I detailed discussion with the patient regarding all risk benefit and alternative for the procedure. He would like to proceed with it. Patient has history of atrial fibrillation for which he is on warfarin today INR is 1.9 we will recheck the INR warfarin is on hold, in case of drug-eluting stent clopidogrel would be used. I will load him with clopidogrel tonight. We will plan to proceed with angiogram 4:30 PM tomorrow since we have pretty booked schedule in the morning. Review of Systems General: Reports: 10 or more systems reviewed and unremarkable except in HPI and below Const: Denies: fever(s) or chills Eyes: Denies: change in vision ENMT: Denies: throat pain Card: Reports: chest pain; Denies: palpitations Resp: Reports: dyspnea (Has occasional wheezing but shortness of breath with exertion) GI: Denies: abdominal pain : Denies: flank pain Musc: Denies: neck pain Skin/Breast: Denies: rash Neuro: Denies: headache(s) Psych: Denies: anxiety Endo: Denies: polyuria Jose/Lymph: Denies: easy bruising All/Imm: Denies: urticaria Meds/Allergies Home Medications and Allergies Home Medications Medication Instructions Recorded Confirmed Last Taken Type warfarin 1 mg tablet 1 mg PO DAILY tab 12/05/19 06/08/20 06/08/20 History warfarin 5 mg tablet 5 mg PO DAILY tab 12/05/19 06/08/20 06/08/20 History metoprolol succinate 100 mg 100 mg PO DAILY 90 Days #90 tab 12/12/19 06/08/20 06/07/20 Rx tablet,extended release 24 hr aspirin 81 mg tablet,delayed 81 mg PO DAILY 03/03/20 06/08/20 06/08/20 History release bumetanide 1 mg tablet 1 mg PO DAILY 03/03/20 06/08/20 06/08/20 History cholecalciferol (vitamin D3) 10 400 unit PO DAILY 03/03/20 06/08/20 06/07/20 History mcg (400 unit) capsule lisinopril 2.5 mg tablet 2.5 mg PO DAILY 03/03/20 06/08/20 06/07/20 History nitroglycerin 0.4 mg sublingual 0.4 mg SUBLINGUAL Q5M PRN 03/03/20 06/08/20 06/07/20 History tablet omeprazole 20 mg capsule,delayed 20 mg PO DAILY 03/03/20 06/08/20 06/08/20 History release simvastatin 40 mg tablet 40 mg PO DAILY 03/03/20 06/08/20 06/07/20 History spironolactone 25 mg tablet 12.5 mg PO DAILY tab 03/03/20 06/08/20 06/08/20 History Allergies Allergy/AdvReac Type Severity Reaction Status Date / Time No Known Allergies Allergy Verified 06/08/20 11:16 Current Medications Current Medications Generic Name Dose Route Start Last Admin Trade Name Freq PRN Reason Stop Dose Admin Aspirin 81 mg 06/09/20 09:00 06/09/20 10:08 Aspirin Ec PO 81 mg DAILY FEDERICO Administration Atorvastatin Calcium 20 mg 06/09/20 09:00 06/09/20 10:07 Lipitor PO 20 mg DAILY FEDERICO Administration Bumetanide 1 mg 06/09/20 09:00 06/09/20 10:08 Bumex PO 1 mg DAILY FEDERICO Administration Enoxaparin Sodium 40 mg 06/08/20 14:00 06/09/20 13:19 Lovenox SUBCUT 40 mg Q24H FEDERICO Administration Isosorbide Mononitrate 30 mg 06/09/20 12:02 06/09/20 13:16 Imdur PO 30 mg DAILY FEDERICO Administration Lisinopril 2.5 mg 06/09/20 09:00 06/09/20 10:07 Prinivil PO 2.5 mg DAILY FEDERICO Administration Metoprolol Succinate 100 mg 06/09/20 09:00 06/09/20 10:07 Toprol Xl PO 100 mg DAILY FEDERICO Administration Pantoprazole Sodium 40 mg 06/08/20 18:00 06/09/20 17:22 Protonix PO 40 mg BID FEDERICO Administration Spironolactone 12.5 mg 06/09/20 09:00 06/09/20 10:07 Aldactone PO 12.5 mg DAILY FEDERICO Administration PFSH Acute PFSH: Medical History (Updated 06/09/20 @ 19:00 by Gabriela Real MD) Atrial fibrillation BPH (benign prostatic hyperplasia) Coronary artery disease Last echocardiogram January 2019 with EF 55 to 60% GERD (gastroesophageal reflux disease) Hyperlipidemia Hypertension Sick sinus syndrome Surgical History (Updated 06/08/20 @ 12:36 by Asael Rose MD) History of hemorrhoidectomy S/P CABG (coronary artery bypass graft) S/P cardiac pacemaker procedure S/P cholecystectomy S/P TURP Family History (Updated 06/08/20 @ 12:36 by Asael Rose MD) Other CAD (coronary artery disease) Social History (Updated 06/08/20 @ 12:37 by Asael Rose MD) Smoking and tobacco status: former smoker Alcohol intake: never Substance/Drug Use: never Vitals/I&O/Wt Last Vital Signs Temp 97.8 F 06/09/20 14:51 Pulse 88 06/09/20 14:51 Resp 19 H 06/09/20 14:51 BP 98/61 06/09/20 14:51 Pulse Ox 94 06/09/20 14:51 06/09/20 06/09/20 06/09/20 06:59 14:59 22:59 Intake Total 680 / 1516 720 / 720 236 / 956 Balance 680 / 1516 720 / 720 236 / 956 Weight last 48 hrs Weight 181 lb 1.6 oz Weight 183 lb Physical Exam Narrative: EXAM NARRATIVE: GENERAL: Patient is alert, awake and oriented x3. NECK: No jugular vein distension. HEENT: No cyanosis. No icterus. No pallor. HEART: Regular S1 and S2. No murmur, rub or gallop. LUNGS: Clear to auscultate bilaterally. ABDOMEN: Soft, nontender and nondistended. Positive bowel sounds. No guarding, rebound or tenderness. CENTRAL NERVOUS SYSTEM: Grossly nonfocal. EXTREMITIES: Lower extremities without edema bilaterally. A&P Assessment and plan (1) Chest pain: Patient has worsening of chest pressure which has increased in frequency and duration over the last few weeks despite of optimization of medicine. Echocardiogram shows normal ejection fraction, stress test is abnormal for ischemia. Patient has prior history of CABG 15 years ago therefore we will proceed with left heart cath in the morning. Patient has been explained all risk benefit and alternative for the procedure. He would like to proceed with it. I will load him with 300 mg of clopidogrel per Status: Acute Qualifiers: Chest pain type: precordial pain Qualified Code(s): R07.2 - Precordial pain (2) S/P CABG (coronary artery bypass graft): History of CABG 15 years ago will ask for CABG report. Status: Acute (3) Atrial fibrillation: Rate controlled on anticoagulation we will hold warfarin. Lovenox on board. Recheck INR in the morning Status: Acute Consult Attestations Medical Necessity Statement: Patient requires continuation of hospitalization for above defined care Coding Level of Care Code New Pt Acute Speech Therapist Early Intervention for Chg Fwd Patient Type New History Expanded Problem Focused Exam Expanded Problem Focused Medical Decision Making Moderate Complexity Diagnoses Chest pain R07.2 Chest pain type: precordial pain S/P CABG (coronary artery bypass graft) Z95.1 Atrial fibrillation I48.91
--- NOTE | 2020-06-09 20:22 | PC.NURSE ---
BEDSIDE REPORT WAS RECEIVED FROM OFF GOING NURSE. PT IS RESTING IN BED AND DENIES PAIN AT THIS TIME. WILL CONTINUE TO MONITOR.
--- NOTE | 2020-06-09 23:46 | PC.NURSE ---
PT BLOOD PRESSURE WAS 77/45. PT IS ASYMPTOMATIC. DR ROWLAND WAS NOTIFIED AND SAID TO CALL DR LORENZO. DR LORENZO WANTS FLUIDS RAN AT 100ML/HR.
[2020-06-10] VITALS (18 sets, daily range): BP systolic 90–118; BP diastolic 55–73; PULSE 71–82; RESP 1–26; TEMP 36.4–36.9; O2SAT 91–98
[2020-06-10] MEDS: sodium chloride 0.9% 1,000 ML 100 ML IV ×2 (02:15→09:14)
--- NOTE | 2020-06-10 02:16 | PC.NURSE ---
IV FLUIDS WERE STARTED ON TIME. COMPUTER DIDN'T SAVE SCAN.
--- NOTE | 2020-06-10 02:17 | PC.NURSE ---
PT BP 92/62 IMPROVING. FOLLOW UP FROM LOW BP.
--- NOTE | 2020-06-10 04:18 | PC.NURSE ---
THIS NURSE AND [facility] ROUTEMAN NURSE NOTICED CRACKLES IN THE RIGHT BASE DURING THE ASSESSMENT. THIS IS A CHANGE FROM EARLIER. DR ROWLAND WAS NOTIFIED OF FINDING AND NO CHANGE TO ORDERS WAS GIVEN.
--- NOTE | 2020-06-10 06:41 | PC.NURSE ---
PT IS IN A PLEASANT MOOD. IV FLUIDS STARTED PER DR ORDER. LAST BP WAS 94/54. WILL GIVE REPORT TO ON COMING NURSE.
--- NOTE | 2020-06-10 07:33 | P.PN_ITS ---
Subjective Subjective: Interval history: Patient had some hypotension overnight. IV fluids was started. No significant chest pain this morning. Scheduled for angiogram later today. Stress test was positive yesterday. No fevers or chills. Vitals/I&O/Wt Last Vital Signs Temp 97.9 F 06/10/20 23:20 Pulse 83 06/11/20 04:29 Resp 18 06/11/20 04:29 BP 106/67 06/11/20 04:00 Pulse Ox 95 06/11/20 04:29 06/10/20 06/11/20 06/11/20 22:59 06:59 14:59 Intake Total 1000 / 1938.333 Output Total 400 / 1100 350 / 1100 Balance -400 / 838.333 650 / 838.333 Physical Exam Narrative: EXAM NARRATIVE: General: No acute distress, Alert. Well nourished. Heart: Regular rate and rhythm. No murmurs, rubs or gallops. Normal capillary refill. Lungs: Clear to auscultation. No wheezes, rhonchi or rales. Abdomen: Positive bowel sounds. Non-tender, non-distended. No hepatosplenomegaly. No gaurding. Extremities: No clubbing, cyanosis, or edema. Negative Keven's Data : 06/09/20 04:02 06/09/20 04:02 A&P Assessment and plan (1) Coronary artery disease: -Appreciate cardiology's consultation. -Proceed with angiogram and further care per cardiology. Status: Acute (2) Elevated troponin: Status: Acute (3) Unstable angina pectoris: Status: Acute (4) S/P CABG (coronary artery bypass graft): Status: Acute Attestations Medical Necessity Statement*: 80-year-old gentleman with unstable angina requiring continued inpatient treatment and angiogram in the inpatient setting. Coding Level of Care Code Acute Bush And Vine Farmer Fruit Crops for Karen Nuñez Diagnoses Coronary artery disease I25.10 Elevated troponin R79.89 Unstable angina pectoris I20.0 S/P CABG (coronary artery bypass graft) Z95.1
[2020-06-10] MEDS: metoprolol succinate ER (24 HR) 100 mg Tablet PO (09:12)
[2020-06-10] MEDS: spironolactone 25 mg Tablet 12.5 MG PO (09:12)
[2020-06-10] MEDS: pantoprazole DR 40 mg Tablet PO ×2 (09:12→19:07)
[2020-06-10] MEDS: isosorbide mononitrate ER 30 mg Tablet PO (09:12)
[2020-06-10] MEDS: aspirin 81 mg EC Tablet PO (09:12)
[2020-06-10] MEDS: bumetanide 1 mg Tablet PO (09:12)
[2020-06-10] MEDS: lisinopril 2.5 mg Tablet PO (09:13)
[2020-06-10] MEDS: atorvastatin 40 mg Tablet 20 MG PO (09:13)
--- NOTE | 2020-06-10 11:24 | PC.CHAP ---
Pastoral Care Encounter/Spiritual Assessment Type of Contact [] Declined paper and prints restorer visit [] Patient/Family/Request visit [] Outpatient visit [] Follow-up visit [] Physician referral [] Code/Alert [x] Routine visit [] Staff referral [] Actively dying [] Patient sleeping [] Family support [] [] Out of room [] Palliative care [] [x] Receiving care in room [] Pre-surgical visit [] Trauma [] Long length of stay [] ICU visit [] Other: Relational/Emotional Strength [x] Patient feels connected with others/family/visitors/staff [] Distress [] Loneliness/isolation [] Abandonment Spirituality of Patient [] Person of Rosie [] Attends Anabaptist of their [place] [] Believes in Prayer [] Reads Bible or Protestant materials [] There are Spiritual issues to be addressed Case Filler Interventions [x Prayer [x] Active listening [x] Non-anxious presence [x] Spiritual/emotional support [] Crisis/trauma care [x] Spiritual counseling [] Bereavement support [] Provided bereavement packet [] Provided Bible/devotional materials [] Provided toy/stuffed animal, coloring book to patient or family member [] Provided Communion [] Anointing/[place] [] Salvation [x] Completed spiritual assessment [] Other: Impact on Illness or Injury [] Angry [] Fearful [] Anxious [] Often cries [] Exhaustion [] Unable to work [] Unable to attend orthodox [] Unable to walk/stand [] Unable to read [] Unable to drive [] Unable to eat/drink [] Unable to sleep [] Unable to be with family [] Patient intubated [] Other: Summary more test on heart may be blockage, feels good has a good attitude` Time spent with patient 10 mins
--- NOTE | 2020-06-10 13:50 | PC.NURSE ---
Nurse called to room. Patient had pulled out IV catheter while getting out of bed. Pressure applied to site to stop bleeding. Patient bathed, linens changed. EVS contacted to mop floor.
--- NOTE | 2020-06-10 14:30 | PC.NURSE ---
Clarified orders with Dr joyce instruction to hold medication prior to procedure
--- NOTE | 2020-06-10 14:53 | PM.PN ---
Subjective Subjective: Interval history: Patient had episode of hypotension last night treated with IV fluid most likely it was due to dehydration. Denies any more chest pain Vitals/I&O/Wt Last Vital Signs Temp 97.8 F 06/10/20 10:57 Pulse 78 06/10/20 10:57 Resp 19 H 06/10/20 10:57 BP 98/62 06/10/20 10:57 Pulse Ox 96 06/10/20 10:57 06/09/20 06/10/20 06/10/20 22:59 06:59 14:59 Intake Total 236 / 956 200 / 1156 938.333 / 938.333 Output Total 150 / 150 350 / 350 Balance 86 / 806 200 / 1006 588.333 / 588.333 Weight last 48 hrs Weight 181 lb 1.6 oz Physical Exam Narrative: EXAM NARRATIVE: GENERAL: Patient is alert, awake and oriented x3. NECK: No jugular vein distension. HEENT: No cyanosis. No icterus. No pallor. HEART: Regular S1 and S2. No murmur, rub or gallop. LUNGS: Clear to auscultate bilaterally. ABDOMEN: Soft, nontender and nondistended. Positive bowel sounds. No guarding, rebound or tenderness. CENTRAL NERVOUS SYSTEM: Grossly nonfocal. EXTREMITIES: Lower extremities without edema bilaterally. Data : 06/09/20 04:02 06/09/20 04:02 A&P Assessment and plan (1) Chest pain: Patient chest pain worsening with shortness of breath suspicious for angina he also has a positive stress test today we will proceed with left heart cath at 4:30 PM. Continue current medicine. Hold Lovenox in the afternoon dose. Status: Acute Qualifiers: Chest pain type: precordial pain Qualified Code(s): R07.2 - Precordial pain (2) S/P CABG (coronary artery bypass graft): Patient has history of CABG 15 years ago will obtain previous record. Stress test was suggestive of ischemia in the inferolateral region. We will proceed with left heart cath today Status: Acute (3) Atrial fibrillation: Rate controlled continue meds. Warfarin is on hold INR is 1.5. Status: Acute Qualifiers: Atrial fibrillation type: longstanding persistent Qualified Code(s): I48.11 - Longstanding persistent atrial fibrillation Attestations Medical Necessity Statement*: Require continuation hospitalization for above defined care. Coding Level of Care Code Established Pt Acute Building Services Engineer for Chg Fwd Patient Type Established History Expanded Problem Focused Exam Expanded Problem Focused Medical Decision Making Moderate Complexity Diagnoses Chest pain R07.2 Chest pain type: precordial pain S/P CABG (coronary artery bypass graft) Z95.1 Atrial fibrillation I48.11 Atrial fibrillation type: longstanding persistent
[2020-06-10] MEDS: diphenhydrAMINE 50 mg Capsule PO (15:59)
--- NOTE | 2020-06-10 16:45 | XACV_ITS ---
Exam Room: [facility] Ht: 173 cm Wt: 82 kg BSA: 2.00 m2 Gender: Male : 1940 Any Known Allergies: No known allergies Exam Priority: Routine Procedure(s): Procedure Description: Diagnostic procedure Procedure Description: Coronary Angiography Diagnostic Cath Status: Elective Diagnostic Findings LM has 0% stenosis. mLAD: Severe 100% stenosis, RUI: 0 flow. pCIRC: Severe 99% stenosis, RUI: 2 flow. First Obtuse Marginal Branch Segment: Severe 100% stenosis, RUI: 2 flow. RPDA: Severe 90% stenosis, RUI: 3 flow. aMarg2: Severe 90% stenosis, RUI: 3 flow. Two grafts visualized. SVG to dLAD: patent. SVG to RPDA: patent. Coronary angiography shows right dominance. Interventional Findings pCIRC: 99% stenosis treated with Drug Eluting Stent. 0% residual stenosis, RUI: 3 flow. First Obtuse Marginal Branch Segment: 100% stenosis treated with AB TREK 2.50X12 RX BALLOON, ASIA Koch INDU 2.5X12 YOVANA, and MDT ALLYSON EUPHORA RX [id number] BALLOON. 0% residual stenosis, RUI: 3 flow. Conclusions There is severe coronary artery disease with three vessel disease. All grafts patent. Patient has prior CABG. pCIRC was treated with Drug Eluting Stent. First Obtuse Marginal Branch Segment was treated with two Balloon and Drug Eluting Stent. For unstable angina patient underwent left heart cath. Patient has history of SVG to LAD and SVG to PDA skip graft to circumflex.Patent SVG to LAD and patent SVG to RCA was noted however graft to circumflex was chronically occluded. According to the patient it is known to be occluded in the past. BRIZUELA was not used. Recommendations 1-Return to inpatient for close monitoring and routine cath care 2-Risk factor modification for secondary prevention 3-Statin and aspirin 81 mg life--long, if tolerated 4-Patient was pre-loaded with 300 mg of Plavix, continue Plavix 75mg p.o. daily for at least one year. We will assess at the end of one year again to continue if further or not 5-Continue optimal medical management 6-Follow up with Dr. Real in four weeks and your primary care in 10 days . Interventional RX Recommendation: PCI w/o planned CABG Diagnostic RX Recommendation: PCI w/o planned CABG Clinical Evaluation EBL: 5mL-10mL Procedural Details Procedure Consent Obtained. Pre-Procedure Time Out. Identified patient by full name and date of as verbalized by the patient/guarantor. Does the consent match the physician's order: Yes. Accurate & Complete Informed Consent: Yes. Inpatient/Outpatient History & Physical on Chart: Yes. If H&P is completed, is and addenduem needed: No; If yes, is the addendum complete: N/A. Visualize and Verify Site with Patient/Guarantor: N/A. Relevant Radiology Images available: Yes. Pre-op teaching completed and patient verbalized understanding. The risks, benefits, and alternatives of sedation and/or procedure were discussed by physician. The patient agrees to continue. Procedure started. Correct patient, site and procedure confirmed by cath team. Current diagnosis: Chest Pain. PERRLA. Strong, equal hand supervisor pit and auxiliaries bilaterally. Lungs clear x 5 lobes. IV Site on Arrival: 18 gauge in the right anticubital. IV Fluids: 0.9% NaCl at KVO. 0 mL infused prior to cardiac catheterization technologist. Pre Procedural Pulses: bilateral dorsalis pedis was 2+. Pre Procedural Pulses: bilateral posterior tibial was 2+. Oxygen started at 2liters/min via nasal canula. bilateral groins was prepped with chloroprep then draped in the usual sterile fashion. Physician notified. Baseline sample Acquired. HR: 68 BPM. Equipment: 6F - Femoral. Cardiac Cath Pack. ACIST Manifold Kit Model BT 2000. Heparinized Saline (2 units/mL), 1000 mL bag. Kit, Micropuncture. Baseline sample Acquired. HR: 64 BPM. Physician arrived. Physician scrubbed in. Immediate Pre-Procedure Time Out. Correct Patient: Yes; Correct Procedure: Yes; Correct Site: Yes; Correct Patient Position: Yes; Correct Supplies: Yes; Dried Flammable Prep: Yes; Blood Products Available: No;. Lidocaine 1% infiltrated to the right groin. Arterial access obtained with micropuncture set. Kellwire inserted. 6FR sheath exchanged for 6FR Flexor sheath. A 5 malagasy JL4 catheter in over wire. Multiple views taken of left coronary artery. Catheter out. A 5 malagasy JR4 catheter in over wire. Multiple views taken of right coronary artery. SVG's to LAD visualized and patent. SVG's to PDA visualized and patent. 6 malagasy XB 3 guide catheter was inserted over the wire. [place] guidewire was advanced through the guide catheter to lesion in the OM. Inflation number : 1 A AB TREK 2.50X12 RX BALLOON was prepped and advanced across the 1st Ob [place] , then inflated to 16 CHRIS for 0:33 seconds. Inflation number: 1 The AB TREK 2.50X12 RX BALLOON was reinflated across the 1st Ob Marg1, to 14 CHRIS for 0:25 seconds. Balloon out. Inflation Number : 2 A MDT R INDU 2.5X12 YOVANA -Lot Number# [id number] was prepped and advanced across the 1st Ob [place]. The stent was deployed at 14 CHRIS for 0:15 seconds. Stent expiration date: 11-11-2021. Inflation Number : 2 A MDT R INDU 3.0X12 YOVANA -Lot Number# [id number] was prepped and advanced across the 1st Ob Marg1. The stent was deployed at 10 CHRIS for 0:16 seconds. Stent expiration date: 12-24-2021. Stent balloon out over wire. ACT drawn. Results 391 seconds. Therapeutic limits - pre-heparin administration 90-150 seconds and monitoring heparin during a vascular procedure >250 seconds. Inflation number : 3 A MDT NC EUPHORA RX [id number] BALLOON was prepped and advanced across the 1st Ob [place] , then inflated to 12 CHRIS for 0:09 seconds. Inflation number: 4 The MDT NC EUPHORA RX [id number] BALLOON was reinflated across the 1st Ob [place], to 12 CHRIS for 0:10 seconds. Inflation number: 5 The MDT NC EUPHORA RX 3.08P91NB BALLOON was reinflated across the 1st Ob Marg1, to 14 CHRIS for 0:20 seconds. [place] wire out. 6Flexor exchanged for 6FR regular sheath. Guide catheter out. Hand injection performed. Sheath(s) sutured into position with 2-0 silk and sterile 4x4's and Op-site applied over the site. No oozing or signs and symptoms of hematoma noted. Arterial sheath flushed and connected to tranducer and pressure bag with heparinized saline. PERRLA. Strong, equal hand supervisor pit and auxiliaries bilaterally. No VTE prophylaxis required. Medication's Wasted: Other = Fentanyl 50mcg. Medication's Wasted: Lidocaine 1% = 5 mL. Total IV fluids: 111 mL. Contrast type used: Omnipaque 300 mgI/mL, 500 mL bottle. [facility] Clinical Fraility Score: 4: Vulnerable. 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 Chest Pain Symptom Assessment: Typical Angina Symptoms. Cardiovascular Instability: No. PCI Indication: New Onset Angina. Post-op diagnosis: Multivessel CAD. Complications: None. Estimated blood loss: 5mL-10mL. Procedure completed. Patient transferred by bed to 1st floor. Vital chart was stopped. Site: Right Femoral artery Sheath Size: 6 Fr Hemostasis Success: Unsuccessful Procedure Medications Start: 5:10 PM Stop: 5:10 PM Medication: Versed 1 mg and Fentanyl 25 mcg Amount: 1 Route: I.V. Start: 5:25 PM Stop: 5:25 PM Medication: Versed Amount: 1 mg Route: I.V. Start: 5:26 PM Stop: 5:26 PM Medication: Fentanyl Amount: 25 mcg Route: I.V. Start: 5:51 PM Stop: 5:51 PM Medication: Versed Amount: 1 mg Route: I.V. Start: 5:53 PM Stop: 5:53 PM Medication: Heparin Amount: 7000 units Route: I.V. Start: 6:02 PM Stop: 6:02 PM Medication: Heparin Amount: 2000 units Route: I.V. Start: 6:11 PM Stop: 6:11 PM Medication: Versed Amount: 1 mg Route: I.V. I, the attending physician, have reviewed and verified all procedure medications. Yes, all medications given per verbal order History/Risk Factors Hypertension: Yes Dyslipidemia: Yes Peripheral Arterial Disease (PAD): No Myocardial Infarction (OK): No Obesity: No Renal Disease: No Tobacco Use: Former Prior Interventions PCI: No CABG: Yes Valve Surgery: No Report Signatures Finalized by:Gabriela Real MD on 06/26/2020 1:43:06 AM
--- NOTE | 2020-06-10 18:05 | PC.NURSE ---
Uravshi at bedside during visiting hours patient then take to pathology laboratory aide for procedure; patient still not in room when visiting hours ended Dr joyce notified and permission given to get approval for patient Urvashi to stay in room with mask on until patient is back from procedure security notified approval given for Urvashi to stay in room with mask on at all times.
--- NOTE | 2020-06-10 19:00 | PC.NURSE ---
Patient back from crime lab analyst. Site accessed with Saundra PARNELL and Dr. Real. Dressing dry and intact. Patient alert oriented and denies pain. Vitals Q15 and telemetry in place.
--- NOTE | 2020-06-10 19:40 | PC.NURSE ---
Doing my full head to toe assessment. Patient had dopplarable pulse to both legs voided per urinal. stable vital signs and when assessing patients groin. Patients site previously looked swollen and now he had developed a large hematoma, brusing and was the dressing was 3/[address] Real was called at 1942 which he stated he would come in and assess the patient. About 1999 Dr. Real arrived at bedside where he exchanged the sheaths for a larger gauge. Patient received 50mcg of fentyl per Dr. Real. Dr. Real put in a 8F sheath and the bleeding around the site stopped. Hematoma was much softer after being drained. Dr. Real stated it was ok to leave disconnected from pressure bag since it was 2114 and patient PTT was due to be drawn at 2152. Sheath is to be pulled after PTT is under 45 and hold pressure for 20mins. Will continue to [facility].
[2020-06-10] MEDS: fentaNYL 50 mcg/mL INJ 2mL IVP (20:01)
--- NOTE | 2020-06-10 21:53 | PC.NURSE ---
Patients blood pressure 80/60. Dr. Real notified and updated on all other vitals. Heart rate 73bpm, oxygen is 93% on room air patient respirations is 19. Site is clean dry and intact, Site is puffy but hematoma is soft and not growing. Patient is alert and oriented. Orders to monitor patient and his blood pressure is cycling every [address] Real that patient was not wanting me to stick him for another IV when he was complaining of it hurting earlier. I explained to the patient the risk of infection and what could happen. He told me to leave it in there. Dr. Real told me to keep trying to convince to let me chance it incase he needs fluids. WIll continue to monitor.
[2020-06-10 22:30] LABS: Partial Thromboplastin Time 85.9 SECONDS (23.9-36.7)
--- NOTE | 2020-06-10 22:42 | PC.NURSE ---
Called Dr. Real with PTT results of. Orders to redraw in a hour. Order placed and verbal order read back. Asked if he still wanted to leave the pressured bag off the sheath he stated that he did. Updated on vital signs 86/57 blood pressure, pulse ox 94, heart rate 70 and respirations 14. Will continue to monitor.
[2020-06-10 23:59] LABS: Partial Thromboplastin Time 37.8 SECONDS (23.9-36.7)
[2020-06-11] VITALS (47 sets, daily range): BP systolic 84–122; BP diastolic 56–82; PULSE 73–98; RESP 6–30; TEMP 36.4; O2SAT 90–97
--- NOTE | 2020-06-11 03:05 | PC.NURSE ---
At 0208 PAtients R groin sheath was removed. Held pressure for 20 minutes. Brusing and swelling noted to site. Patient states it feels much better than it did earlier. Very small if any hematoma noted. No back pain. Patient has good pulses and cap refill. vitals taken. Will continue to monitor.
--- NOTE | 2020-06-11 05:22 | PC.NURSE ---
End of shift: See events in notes above. Patient has done well since having his sheath out. Bedrest will be complete about 0830. Patient R groin has bruising and swelling but no complaints of pain upon palpation or in his back. Patient has doppalable pedal and tibal pulses. Will continue to monitor.
--- NOTE | 2020-06-11 06:45 | PM.DCS ---
Discharge Providers Date of Admission: 06/09/20 15:17 Date of Discharge: June 11, 2020 Attending Provider at Admission: Asael Rose MD Attending Provider at Discharge: Uziel Iverson MD Primary Care Provider: Uziel Iverson MD Diagnoses at Discharge Discharge Diagnosis (1) Coronary artery disease: Status: Acute Problem details: Last echocardiogram January 2019 with EF 55 to 60% Qualifiers: Coronary Disease-Associated Artery/Lesion type: bypass graft [place] vs. transplanted heart: [place] heart Associated angina: with unstable angina Qualified Code(s): I25.700 - Atherosclerosis of coronary artery bypass graft(s), unspecified, with unstable angina pectoris (2) S/P CABG (coronary artery bypass graft): Status: Acute (3) Atrial fibrillation: Status: Acute Qualifiers: Atrial fibrillation type: longstanding persistent Qualified Code(s): I48.11 - Longstanding persistent atrial fibrillation Reason for Visit Reason for Visit: cp Hospital Course Discharge Summary: Patient admitted to the hospital with unstable angina. Cardiology was consulted. He subsequently had an angiogram performed which showed 2 high degree blockages which received stents. Patient done well postoperatively. He was discharged home in good condition was feeling much better. Discharge Data Data Completed and Pending: Completed Studies During Hospitalization Category Date Time Status Sestamibi Stress Test Request Routi ne Exams 06/08/20 13:14 Completed XR chest 1V deepali ble 36514 Stat Exams 06/08/20 10:38 Completed NM ellie perf SPECT r/s* [id number] Routin e Nuc Med 06/09/20 07:52 Completed CV echo complete* [id number] Routine Ultrasound 06/08/20 13:14 Completed Pending at discharge Category Date Time Status CHEMISTRY TECHNICAL OFFICER request for service Routin e Exams 06/10/20 16:45 Taken Vitals: Last Vital Signs Temp 97.6 F 06/11/20 12:18 Pulse 98 06/11/20 12:18 Resp 16 06/11/20 12:18 BP 122/80 06/11/20 12:18 Pulse Ox 93 06/11/20 12:18 Discharge Plan Discharge Patient Disposition: Home, Self-Care Condition: Fair Prescriptions: Continued cholecalciferol (vitamin D3) 400 unit capsule 400 unit PO DAILY RF: 0 spironolactone 25 mg tablet 12.5 mg PO DAILY RF: 0 nitroglycerin [Nitrostat] 0.4 mg tablet, sublingual 0.4 mg SUBLINGUAL Q5M PRN (Reason: chest pains) RF: 0 warfarin [Coumadin] 1 mg tablet 1 mg PO DAILY RF: 0 warfarin [Coumadin] 5 mg tablet 5 mg PO DAILY RF: 0 Discontinued omeprazole 20 mg capsule,delayed release(DR/EC) 20 mg PO DAILY RF: 0 aspirin [Adult Low Dose Aspirin] 81 mg tablet,delayed release (DR/EC) 81 mg PO DAILY RF: 0 lisinopril 2.5 mg tablet 2.5 mg PO DAILY RF: 0 bumetanide 1 mg tablet 1 mg PO DAILY RF: 0 metoprolol succinate 100 mg tablet extended release 24 hr 100 mg PO DAILY 90 Days Qty: 90 RF: 3 No Action Plavix 75 mg tablet 75 mg PO DAILY Qty: 90 RF: 4 metoprolol succinate 100 mg tablet extended release 24 hr 75 mg PO DAILY 90 Days Qty: 90 RF: 3 pantoprazole 40 mg tablet,delayed release (DR/EC) 40 mg PO DAILY Qty: 30 RF: 4 simvastatin 40 mg tablet 40 mg PO DAILY Qty: 30 RF: 6 Discharge Orders: Discharge Order (Routine); Ordered 06/11/20 Ordered By: Gabriela Real Referrals: Gabriela Real MD [Physician] - (You have an follow-up appointment with Mirtha Hui on June 18 at 11:00A.M. ) Uziel Iverson MD [Primary Care Provider] - (You have an follow-up appointment with Dr. Iverson on June 26 at 10:00A.M. If you have any questions or need to reschedule. Please call ) Discharge Diet: Cardiac Discharge Activity: Increase activity as tolerated Patient Instructions: Clopidogrel (By mouth), Pantoprazole (By mouth), Coronary Artery Disease (DC), Atrial Fibrillation (DC), Left Heart Catheterization (DC), Chest Pain Stoplight, Post Angiogram Home Care Instructions Activity Restrictions/Additional Instructions: Please follow-up with Mirtha Hui cardiology nurse practitioner in 7 days. If you notice pain in the right groin or swelling or pulsatile mass please call Dr. Real's office. You can start taking warfarin from Tuesday. You will be taking Plavix regularly along with warfarin. Your aspirin has been discontinued. Discharge Date/Time: 06/11/20 12:52 Discharge Attestations Time Spent in Discharge Care*: less than 30 min Quality Metrics Clinical Quality Measures During this hospital stay, did patient experience: None Coding Level of Care Code Acute Material Preparation Worker for Karen Nuñez Diagnoses Coronary artery disease I25.700 Coronary Disease-Associated Artery/Lesion type: bypass graft [place] vs. transplanted heart: [place] heart Associated angina: with unstable angina S/P CABG (coronary artery bypass graft) Z95.1 Atrial fibrillation I48.11 Atrial fibrillation type: longstanding persistent
[2020-06-11] MEDS: pantoprazole DR 40 mg Tablet PO (09:17)
[2020-06-11] MEDS: bumetanide 1 mg Tablet PO (09:17)
--- NOTE | 2020-06-11 10:42 | PC.NURSE ---
PATIENT AMBULATED WITH ASSISTANCE FROM [facility] STINSON. PATIENT HAS NO COMPLAINTS, SHEATH SITE IS BRUISED PREVIOUSLY DISCUSSED WITH DR. LORENZO. PATIENT'S BLOOD PRESSURE PRIOR TO AMBULATION WAS 124/79, POST AMBULATION WAS 122/80. NO COMPLAINTS WITH SHEATH SITE OR CHEST PAIN. MEDICATIONS PATIENT WISHES TO TAKE HIS HOME MEDICATIONS IN THE EVENING, EXCEPT HIS BUMEX AND PROTONIX. DR. LORENZO NOTIFIED.
--- NOTE | 2020-06-11 11:28 | PM.PN ---
Subjective Subjective: Interval history: Patient is status post PCI to ostial circumflex and proximal obtuse marginal. He has patent SVG to LAD and SVG to PDA. Skip graft to OM appeared to be chronically occluded it is the reason we treated the [place] artery. Post PCI course was complicated with the right groin hematoma which was milked out properly. He has big bruise in the right groin otherwise no significant complication. Vitals/I&O/Wt Last Vital Signs Temp 97.6 F 06/11/20 11:26 Pulse 98 06/11/20 11:26 Resp 16 06/11/20 11:26 BP 110/73 06/11/20 11:26 Pulse Ox 93 06/11/20 11:26 06/10/20 06/11/20 06/11/20 22:59 06:59 14:59 Intake Total 1000 / 1938.333 240 / 240 Output Total 400 / 750 350 / 1100 Balance -400 / 188.333 650 / 838.333 240 / 240 Physical Exam Narrative: EXAM NARRATIVE: GENERAL: Patient is alert, awake and oriented x3. NECK: No jugular vein distension. HEENT: No cyanosis. No icterus. No pallor. HEART: Irregularly irregular S1 and S2. No murmur, rub or gallop. LUNGS: Clear to auscultate bilaterally. ABDOMEN: Soft, nontender and nondistended. Positive bowel sounds. No guarding, rebound or tenderness. CENTRAL NERVOUS SYSTEM: Grossly nonfocal. EXTREMITIES: Lower extremities without edema bilaterally. Right groin large bruising. No remnants of hematoma otherwise. Data : 06/09/20 04:02 06/09/20 04:02 A&P Assessment and plan (1) Coronary artery disease: Status post PCI to ostial left circumflex and proximal obtuse marginal secondary to chronically occluded SVG to OM through skip graft from PDA. Continue Plavix for 6-month at least with warfarin after that we will decide regarding discontinuing Plavix and bringing back aspirin. No more aspirin for next 6-month until Plavix will be combined with warfarin. Patient blood pressure is on the lower side since his admission he appeared to be dry therefore I will discontinue Bumex, JONATHAN inhibitor for hypotension. I will reduce metoprolol to 75 mg once a day for A. fib and also due to blood pressure Status: Acute Qualifiers: Coronary Disease-Associated Artery/Lesion type: bypass graft [place] vs. transplanted heart: [place] heart Associated angina: with unstable angina Qualified Code(s): I25.700 - Atherosclerosis of coronary artery bypass graft(s), unspecified, with unstable angina pectoris (2) S/P CABG (coronary artery bypass graft): SVG to LAD was patent, SVG to PDA is patent, SVG skip graft to OM from PDA was chronically occluded. Patient has triple-vessel disease with proximal 100% occluded LAD 99% ostial circumflex and 80% proximal obtuse marginal 1. RCA is chronically occluded and distal PDA segment Status: Acute (3) Atrial fibrillation: Rate controlled on anticoagulation. Due to hematoma we will resume anticoagulation in couple of days. Status: Acute Qualifiers: Atrial fibrillation type: longstanding persistent Qualified Code(s): I48.11 - Longstanding persistent atrial fibrillation Attestations Medical Necessity Statement*: Patient will be discharged home today. Coding Level of Care Code Established Pt Acute Contracts Paralegal for ryan Nuñez Patient Type Established History Detailed Exam Detailed Medical Decision Making Moderate Complexity Diagnoses Coronary artery disease I25.700 Coronary Disease-Associated Artery/Lesion type: bypass graft [place] vs. transplanted heart: [place] heart Associated angina: with unstable angina S/P CABG (coronary artery bypass graft) Z95.1 Atrial fibrillation I48.11 Atrial fibrillation type: longstanding persistent
[2020-06-11] MEDS: clopidogrel 300 mg Tablet PO (12:04)
== END 2020-06-11 12:52 | disposition home or self-care (01) | DRG 247 ==
LOC: ER 12:08 → CSU 12:46
PROVIDERS: Family Medicine; Internal Medicine Cardiovascular Disease; Admitting Provider Internal Medicine; PCP Family Medicine; Visit Provider Family Medicine
PROC: 027035Z Dilation of Coronary Artery, One Artery with Two Drug-eluting Intraluminal Devices, Percutaneous Approach (ICD-10-PCS; principal; 2020-06-10 16:30)
PROC: 027035Z Dilation of Coronary Artery, One Artery with Two Drug-eluting Intraluminal Devices, Percutaneous Approach (ICD-10-PCS; 2020-06-10 16:30)
DX: I25.700 Atherosclerosis of coronary artery bypass graft(s), unspecified, with unstable angina pectoris (principal); I48.11 Longstanding persistent atrial fibrillation; Z95.1 Presence of aortocoronary bypass graft; Z79.82 Long term (current) use of aspirin; Z79.02 Long term (current) use of antithrombotics/antiplatelets; N40.0 Benign prostatic hyperplasia without lower urinary tract symptoms; E78.5 Hyperlipidemia, unspecified; I10 Essential (primary) hypertension; Z95.0 Presence of cardiac pacemaker; I49.5 Sick sinus syndrome; Z87.891 Personal history of nicotine dependence; J44.9 Chronic obstructive pulmonary disease, unspecified
CPT/HCPCS: 12345; 36415; 71045; 78452; 80048; 80053; 83880; 84443; 84484; 85025; 85347; 85610; 85730; 93005; 93017; 93306; 93455; 96372; 99283; A9500; C1725; C1769; C1874; C1887; C1894; C9600; G0378; J1644; J1650; J2250; J2785; J3010; J7030; Q0163; Q9967

== ENCOUNTER → 2020-06-18 11:28 | Outpatient (BNVA) | payer MEDICARE, OTHER, SELFPAY | PROVIDERS: PCP Family Medicine; Visit Provider Nurse Practitioner Family | DX: I25.700 Atherosclerosis of coronary artery bypass graft(s), unspecified, with unstable angina pectoris (principal) | CPT/HCPCS: 80048 ==

== ENCOUNTER → 2020-06-24 08:56 | Outpatient (BNVA) | payer MEDICARE, OTHER, SELFPAY | PROVIDERS: PCP Family Medicine; Visit Provider Internal Medicine Cardiovascular Disease | DX: I48.11 Longstanding persistent atrial fibrillation (principal) | CPT/HCPCS: 85610 ==

== ENCOUNTER → 2020-07-01 10:12 | Outpatient (BNVA) | payer MEDICARE, OTHER, SELFPAY | PROVIDERS: PCP Family Medicine; Visit Provider Internal Medicine Cardiovascular Disease | DX: I48.11 Longstanding persistent atrial fibrillation (principal) | CPT/HCPCS: 85610 ==

== ENCOUNTER → 2020-07-15 08:13 | Outpatient (BNVA) | payer MEDICARE, OTHER, SELFPAY | PROVIDERS: PCP Family Medicine; Visit Provider Internal Medicine Cardiovascular Disease | DX: I48.11 Longstanding persistent atrial fibrillation (principal) | CPT/HCPCS: 85610 ==

== ENCOUNTER → 2020-07-22 08:41 | Outpatient (BNVA) | payer MEDICARE, OTHER, SELFPAY | PROVIDERS: PCP Family Medicine; Visit Provider Internal Medicine Cardiovascular Disease | DX: I48.11 Longstanding persistent atrial fibrillation (principal) | CPT/HCPCS: 85610 ==

== ENCOUNTER → 2020-08-05 08:19 | Outpatient (BNVA) | payer MEDICARE, OTHER, SELFPAY | PROVIDERS: PCP Family Medicine; Visit Provider Internal Medicine Cardiovascular Disease | DX: I48.11 Longstanding persistent atrial fibrillation (principal) | CPT/HCPCS: 85610 ==

== ENCOUNTER → 2020-08-13 08:39 | Outpatient (BNVA) | payer MEDICARE, OTHER, SELFPAY | PROVIDERS: PCP Family Medicine; Visit Provider Internal Medicine Cardiovascular Disease | DX: I48.11 Longstanding persistent atrial fibrillation (principal) | CPT/HCPCS: 85610 ==

== ENCOUNTER → 2020-08-26 15:05 | Outpatient (BNVA) | payer MEDICARE, OTHER, SELFPAY | PROVIDERS: Family Provider Family Medicine; PCP Family Medicine; Visit Provider Internal Medicine Cardiovascular Disease | DX: I48.11 Longstanding persistent atrial fibrillation (principal) | CPT/HCPCS: 85610 ==

== ENCOUNTER → 2020-09-05 12:53 | Outpatient (BNVA) | payer MEDICARE, OTHER, SELFPAY | PROVIDERS: Family Provider Family Medicine; PCP Family Medicine; Visit Provider Family Medicine | DX: Z11.59 Encounter for screening for other viral diseases (principal) | CPT/HCPCS: 87635 ==

== ENCOUNTER → 2020-09-23 08:39 | Outpatient (BNVA) | payer MEDICARE, OTHER, SELFPAY | PROVIDERS: Family Provider Family Medicine; PCP Family Medicine; Visit Provider Internal Medicine Cardiovascular Disease | DX: I48.11 Longstanding persistent atrial fibrillation (principal) | CPT/HCPCS: 85610 ==

== ENCOUNTER → 2020-09-30 12:08 | Outpatient (BNVA) | payer MEDICARE, OTHER, SELFPAY | PROVIDERS: Family Provider Family Medicine; PCP Family Medicine; Visit Provider Internal Medicine Cardiovascular Disease | DX: I48.11 Longstanding persistent atrial fibrillation (principal) | CPT/HCPCS: 85610 ==

== ENCOUNTER → 2020-10-07 08:17 | Outpatient (BNVA) | payer MEDICARE, OTHER, SELFPAY | PROVIDERS: Family Provider Family Medicine; PCP Family Medicine; Visit Provider Internal Medicine Cardiovascular Disease | DX: I48.11 Longstanding persistent atrial fibrillation (principal) | CPT/HCPCS: 85610 ==

== ENCOUNTER → 2020-10-21 08:31 | Outpatient (BNVA) | payer MEDICARE, OTHER, SELFPAY | PROVIDERS: Family Provider Family Medicine; PCP Family Medicine; Visit Provider Internal Medicine Cardiovascular Disease | DX: I48.11 Longstanding persistent atrial fibrillation (principal) | CPT/HCPCS: 85610 ==

== ENCOUNTER 2020-10-22 21:30 | Emergency (ER) | payer MEDICARE, OTHER, SELFPAY ==
[2020-10-22 21:35] VITALS: BP 131/74; PULSE 89; RESP 18; O2SAT 97; BMI 27.8
--- NOTE | 2020-10-22 21:48 | XRR_ITS ---
PROCEDURE INFORMATION: Exam: XR Left Knee Exam date and time: 10/22/2020 10:26 PM Age: 80 years old Clinical indication: Injury or trauma; Fall; Blunt trauma; Knee; Left; Injury date: 10/22/20 TECHNIQUE: Imaging protocol: XR Left knee. Views: 3 views. COMPARISON: No relevant prior studies available. FINDINGS: Bones/joints: Normal. Soft tissues: Multiple vascular clips are noted. Vasculature: There are atherosclerotic changes in regional vessels. XR/XR knee LT 3V* [id number] IMPRESSION: No acute findings.
--- NOTE | 2020-10-22 21:48 | XRR_ITS ---
PROCEDURE INFORMATION: Exam: XR Left Hip with Pelvis when Performed Exam date and time: 10/22/2020 10:34 PM Age: 80 years old Clinical indication: Injury or trauma; Fall; Blunt trauma (contusions or hematomas); Left; Hip; Injury date: 10/22/20 TECHNIQUE: Imaging protocol: XR Left hip with pelvis when performed. Views: 2 or 3 views. COMPARISON: No relevant prior studies available. FINDINGS: Bones/joints: Bones are moderately osteopenic. There is degenerative change in the lower lumbar spine. No fracture is identified. Soft tissues: Unremarkable. Vasculature: Atherosclerotic calcifications are seen in the femoral vessels on both sides. XR/XR hip LT 2-3V wo/w pel* [id number] IMPRESSION: No fracture is identified.
--- NOTE | 2020-10-22 21:55 | ED_ITS ---
HPI - Extremity Problem General: Chief complaint: Extremity Injury, Lower Stated complaint: fall hip and knee pain Time Seen by Provider: 10/22/20 21:54 History of Present Illness: HPI Narrative: Patient is a 80-year-old male who comes to the ED via EMS after having a fall. He is complaining of having left knee and left hip pain. Patient says he was walking up a step and slipped. He says his left knee hit the steps and his left hip hit the steps as well. He was able to stand on left leg but it did cause pain. Says he rates his pain currently a 4 out of 10 and does not want any pain meds. He says his pain is worse if he tries to lift his left leg. Denies any head trauma or loss of consciousness. Associated symptoms: Deny chest pain, fever(s) or rash Review of Systems Const: Denies: fever(s), chills or fatigue Eyes: Denies: change in vision or eye discomfort ENMT: Denies: throat pain, odynophagia, nasal discharge or nasal congestion Card: Denies: chest pain, palpitations, edema, swelling of feet/ankles, dyspnea on exertion or orthopnea Resp: Denies: dyspnea, productive cough or non-productive cough GI: Denies: abdominal pain, nausea, vomiting, diarrhea, constipation or hematochezia : Denies: flank pain, difficulty urinating, dysuria or hematuria Musc: Denies: neck pain, back pain or extremity swelling Skin/Breast: Denies: rash or new lesions Neuro: Denies: headache(s), numbness in extremities or weakness in extremities PFS ED PFSH: Medical History Atrial fibrillation BPH (benign prostatic hyperplasia) Chest pain Coronary artery disease Last echocardiogram January 2019 with EF 55 to 60% Elevated troponin GERD (gastroesophageal reflux disease) Hyperlipidemia Hypertension Sick sinus syndrome Unstable angina pectoris Surgical History History of hemorrhoidectomy S/P CABG (coronary artery bypass graft) S/P cardiac pacemaker procedure S/P cholecystectomy S/P TURP Family History Other CAD (coronary artery disease) Social History Smoking and tobacco status: former smoker Alcohol intake: never Physical Exam Const: COMMON NORMALS: no acute distress, patient oriented x3 and alert GENERAL APPEARANCE: cooperative and comfortable HENMT: COMMON NORMALS: normocephalic HEAD & SCALP: normocephalic MOUTH: Normal oral and palatal mucosa present THROAT: posterior oropharynx normal and uvula midline Neck/C-Spine: COMMON NORMALS: supple GENERAL: Yes normal visual inspection Resp: COMMON NORMALS: normal respiratory effort, No retractions, No use of accessory muscles and clear to auscultation bilaterally AUSCULTATION: clear to auscultation bilaterally Cardio: COMMON NORMALS: regular rate, regular rhythm, S1 normal heart sound present, S2 normal heart sound present, No gallops present (Cardio), No clicks present (Cardio) and No murmurs present (Cardio) RATE: regular rate RHYTHM: regular rhythm HEART SOUNDS: S1 normal heart sound present and S2 normal heart sound present PERIPHERAL PULSES: radial pulses present positive bilateral 2+ and dorsalis pedis present positive left 1+ GI: COMMON NORMALS: Normal to inspection, nondistended, normoactive bowel sounds present, Soft to palpation, non-tender and no masses PALPATION: Yes Soft to palpation : COMMON NORMALS: Yes no CVA tenderness BLADDER/KIDNEY EXAM: Yes no CVA tenderness Back/Pelvis: COMMON NORMALS: no CVA tenderness Extremity: GENERAL: Yes normal exam except as noted LEFT LOWER EXTREMITY: Yes knee joint Left knee: Yes inspection (No deformity or edema seen.), Yes palpation (Tenderness to palpation over patella region.), Yes ROM (Limited due to pain.) and Yes neurovascular exam (Intact with pedal pulse of 1+. Sensation intact.) Neuro: COMMON NORMALS: patient oriented x3 and moves all extremities SENSORIUM/ORIENTATION: Yes alert Skin: GENERAL SKIN EXAM: dry skin Course Vital Signs: Vital signs: Vital Signs Pulse Rate 93 10/22/20 23:39 Respiratory Rate 18 10/22/20 21:35 Blood Pressure 111/72 10/22/20 23:39 Pulse Oximetry 95 10/22/20 23:39 MDM - Extremity (Nontraumatic) 2 MDM Narrative: Medical decision making narrative: Patient is a 80-year-old male comes to the ED via EMS with left hip and left knee pain after having a fall. Patient denies any head trauma or loss of consciousness. He is able to bear weight on left leg but says does cause pain of his knee. Patient just had tenderness over the left knee but no other remarkable exam findings. X-ray of left knee and left hip showed no acute fractures or findings. Patient has a walker at home he will use to help ambulate. He was told to rest, ice and elevate left leg for the next couple days to allow for healing. Follow-up with PCP in 5 to 7 days for reevaluation. Return to ED precautions given. Patient understood and agreed with plan. Imaging Data^: Xray Ortho: Attestation: I personally reviewed and interpreted this imaging study as follows: Radiologist's impression: [employer] [address] [place] [address] XRay Report Signed Patient: Toni Quintanilla Sr Unit #: [id number] : 1940 Age/Sex: 80 / M ADM Date: 10/22/20 Loc: ER Room/Bed: Attending Dr: Ordering Provider/Ordering MD: George Vergara Date of Service: 10/22/20 Procedure(s): XR knee LT 3V* 20442 Accession Number(s): [id number] Report Number: [id number] PROCEDURE INFORMATION: Exam: XR Left Knee Exam date and time: 10/22/2020 10:26 PM Age: 80 years old Clinical indication: Injury or trauma; Fall; Blunt trauma; Knee; Left; Injury date: 10/22/20 TECHNIQUE: Imaging protocol: XR Left knee. Views: 3 views. COMPARISON: No relevant prior studies available. FINDINGS: Bones/joints: Normal. Soft tissues: Multiple vascular clips are noted. Vasculature: There are atherosclerotic changes in regional vessels. XR/XR knee LT 3V* [id number] IMPRESSION: No acute findings. Dictated By: Frankie Capone Signed By: Frankie Capone Signed Date/Time: 10/22/202247 DD/ 46 [employer] [address] [place] [address] XRay Report Signed Patient: Toni Quintanilla Sr Unit #: [id number] : 1940 Age/Sex: 80 / M ADM Date: 10/22/20 Loc: ER Room/Bed: Attending Dr: Ordering Provider/Ordering MD: George Vergara Date of Service: 10/22/20 Procedure(s): XR hip LT 2-3V wo/w pel* [id number] Accession Number(s): [id number] Report Number: [id number] PROCEDURE INFORMATION: Exam: XR Left Hip with Pelvis when Performed Exam date and time: 10/22/2020 10:34 PM Age: 80 years old Clinical indication: Injury or trauma; Fall; Blunt trauma (contusions or hematomas); Left; Hip; Injury date: 10/22/20 TECHNIQUE: Imaging protocol: XR Left hip with pelvis when performed. Views: 2 or 3 views. COMPARISON: No relevant prior studies available. FINDINGS: Bones/joints: Bones are moderately osteopenic. There is degenerative change in the lower lumbar spine. No fracture is identified. Soft tissues: Unremarkable. Vasculature: Atherosclerotic calcifications are seen in the femoral vessels on both sides. XR/XR hip LT 2-3V wo/w pel* [id number] IMPRESSION: No fracture is identified. Dictated By: Frankie Capone Signed By: Frankie Capone Signed Date/Time: 10/22/202246 DD/ 45 Discharge Plan Discharge Patient Disposition: Home Clinical Impression: Left knee pain Qualifiers: Chronicity: acute Qualified Code(s): M25.562 - Pain in left knee Condition: Stable Prescriptions: No Action cholecalciferol (vitamin D3) 400 unit capsule 400 unit PO DAILY RF: 0 spironolactone 25 mg tablet 12.5 mg PO DAILY RF: 0 nitroglycerin [Nitrostat] 0.4 mg tablet, sublingual 0.4 mg SUBLINGUAL Q5M PRN (Reason: chest pains) RF: 0 warfarin [Coumadin] 1 mg tablet 1 mg PO DAILY RF: 0 warfarin [Coumadin] 5 mg tablet 5 mg PO DAILY RF: 0 Plavix 75 mg tablet 75 mg PO DAILY Qty: 90 RF: 4 metoprolol succinate 100 mg tablet extended release 24 hr 75 mg PO DAILY 90 Days Qty: 90 RF: 3 pantoprazole 40 mg tablet,delayed release (DR/EC) 40 mg PO DAILY Qty: 30 RF: 4 simvastatin 40 mg tablet 40 mg PO DAILY Qty: 30 RF: 6 warfarin 4 mg tablet 4 mg PO DAILY Qty: 30 RF: 3 Discharge Orders: Discharge Order (Routine); Ordered 10/22/20 Ordered By: George Vergara Referrals: Uziel Iverson MD [Primary Care Provider] - Discharge Diet: Regular Discharge Activity: Use walker/crutches as instructed Patient Instructions: Knee Pain (ED) Activity Restrictions/Additional Instructions: Follow-up with medical provider as directed in 5 to 7 days. Continue taking all home medications. Use a walker at home to help ambulate. Rest, ice and elevate left leg. Take [id number] Tylenol for pain. Return to the ER or your ma dical provider if condition worsens. Please read and understand discharge instructions. If any questions, please ask. Coding Level of Care Code ED Moss Gatherer for Karen Fwd Exam Comprehensive
[2020-10-22 23:39] VITALS: BP 111/72; PULSE 93; O2SAT 95
== END 2020-10-22 23:39 | disposition home or self-care (01) ==
PROVIDERS: Emergency Provider Physician Assistant; PCP Family Medicine
DX: M25.562 Pain in left knee (principal); Z79.01 Long term (current) use of anticoagulants; Z79.02 Long term (current) use of antithrombotics/antiplatelets; I48.91 Unspecified atrial fibrillation; I25.10 Atherosclerotic heart disease of native coronary artery without angina pectoris; E78.5 Hyperlipidemia, unspecified; I10 Essential (primary) hypertension; Z95.1 Presence of aortocoronary bypass graft; Z95.0 Presence of cardiac pacemaker; Z87.891 Personal history of nicotine dependence
CPT/HCPCS: 12345; 73502; 73562; 99281; 99283

== ENCOUNTER → 2020-10-28 08:23 | Outpatient (BNVA) | payer MEDICARE, OTHER, SELFPAY | PROVIDERS: PCP Family Medicine; Visit Provider Internal Medicine Cardiovascular Disease | DX: I48.11 Longstanding persistent atrial fibrillation (principal) | CPT/HCPCS: 85610 ==

== ENCOUNTER → 2020-11-26 14:40 | Outpatient (BNVA) | payer MEDICARE, OTHER, SELFPAY | PROVIDERS: PCP Family Medicine; Visit Provider Internal Medicine Cardiovascular Disease | DX: I48.11 Longstanding persistent atrial fibrillation (principal) | CPT/HCPCS: 85610 ==

== ENCOUNTER 2020-12-03 11:32 | Outpatient (CLI) | payer MEDICARE, OTHER, SELFPAY ==
--- NOTE | 2020-12-03 11:37 | CT_ITS ---
WS: [id number] NONCONTRAST CT OF THE LEFT KNEE TECHNIQUE: Noncontrast CT of the left knee with coronal and sagittal reformatted images. CLINICAL INFORMATION: LEFT KNEE PAIN COMPARISON: None. DLP: 1447.[address] scans at [facility] use at least one of these dose optimization techniques: automat ed exposure control; mA and/or kV adjustment per patient size (includes targeted exams where dose is matched to clinical indication); or iterative reconstruction. FINDINGS: Normal anatomic alignment. Mild tricompartmental arthritis worse in the medial joint compartment. Hyp ertrophic patella. Proximal fibula is normal in appearance. Normal fibula head. Medial and lateral ti bial plateau appears normal. Femoral condyles appear normal. Normal intercondylar notch. Distal femur and proximal tibial shafts are normal. Small moderate suprapatellar effusion. No patellar fractures. Tiny amount of irregularity suspicious for nondisplaced fracture involving the anterior medial femoral condyle. No other suspicious findings . CT/CT knee LT wo con* [id number] IMPRESSION: 1. Small moderate suprapatellar effusion. 2. Suggestion of very tiny nondisplaced osteochondral fracture involving the a nterior medial femoral condyle. No other visualized fractures. 3. Mild tricompartmental arthritis. 4. Mild soft tissue edema about the knee. 5. Normal popliteal fossa.
== END 2020-12-03 11:33 | disposition home or self-care (01) ==
LOC: RADWPI 11:36
PROVIDERS: PCP Family Medicine; Visit Provider Family Medicine
DX: R60.0 Localized edema (principal); M13.862 Other specified arthritis, left knee; M25.462 Effusion, left knee
CPT/HCPCS: 73700

== ENCOUNTER → 2021-01-19 08:11 | Outpatient (BNVA) | payer MEDICARE, OTHER, SELFPAY | PROVIDERS: PCP Family Medicine; Visit Provider Internal Medicine Cardiovascular Disease | DX: I48.11 Longstanding persistent atrial fibrillation (principal) | CPT/HCPCS: 85610 ==

== ENCOUNTER → 2021-02-27 09:53 | Outpatient (BNVA) | payer MEDICARE, OTHER, SELFPAY | PROVIDERS: PCP Family Medicine; Visit Provider Internal Medicine Cardiovascular Disease | DX: I48.11 Longstanding persistent atrial fibrillation (principal) | CPT/HCPCS: 85610 ==

== ENCOUNTER → 2021-03-30 08:09 | Outpatient (BNVA) | payer MEDICARE, OTHER, SELFPAY | PROVIDERS: PCP Family Medicine; Visit Provider Internal Medicine Cardiovascular Disease | DX: I48.11 Longstanding persistent atrial fibrillation (principal) | CPT/HCPCS: 85610 ==

== ENCOUNTER → 2021-04-23 08:13 | Outpatient (BNVA) | payer MEDICARE, OTHER, SELFPAY | PROVIDERS: PCP Family Medicine; Visit Provider Internal Medicine Cardiovascular Disease | DX: I48.11 Longstanding persistent atrial fibrillation (principal) | CPT/HCPCS: 85610 ==

== ENCOUNTER → 2021-04-30 08:32 | Outpatient (BNVA) | payer MEDICARE, OTHER, SELFPAY | PROVIDERS: PCP Family Medicine; Visit Provider Internal Medicine Cardiovascular Disease | DX: I48.11 Longstanding persistent atrial fibrillation (principal) | CPT/HCPCS: 85610 ==

== ENCOUNTER → 2021-05-07 08:33 | Outpatient (BNVA) | payer MEDICARE, OTHER, SELFPAY | PROVIDERS: PCP Family Medicine; Visit Provider Internal Medicine Cardiovascular Disease | DX: I48.11 Longstanding persistent atrial fibrillation (principal) | CPT/HCPCS: 85610 ==

== ENCOUNTER → 2021-05-21 08:07 | Outpatient (BNVA) | payer MEDICARE, OTHER, SELFPAY | PROVIDERS: PCP Family Medicine; Visit Provider Internal Medicine Cardiovascular Disease | DX: I48.11 Longstanding persistent atrial fibrillation (principal) | CPT/HCPCS: 85610 ==

== ENCOUNTER → 2021-06-18 08:47 | Outpatient (BNVA) | payer MEDICARE, OTHER, SELFPAY | PROVIDERS: PCP Family Medicine; Visit Provider Internal Medicine Cardiovascular Disease | DX: I48.11 Longstanding persistent atrial fibrillation (principal); Z79.01 Long term (current) use of anticoagulants | CPT/HCPCS: 85610 ==

== ENCOUNTER → 2021-07-16 08:22 | Outpatient (BNVA) | payer MEDICARE, OTHER, SELFPAY | PROVIDERS: PCP Family Medicine; Visit Provider Internal Medicine Cardiovascular Disease | DX: I48.11 Longstanding persistent atrial fibrillation (principal); Z79.01 Long term (current) use of anticoagulants | CPT/HCPCS: 85610 ==

== ENCOUNTER → 2021-08-13 08:25 | Outpatient (BNVA) | payer MEDICARE, OTHER, SELFPAY | PROVIDERS: PCP Family Medicine; Visit Provider Internal Medicine Cardiovascular Disease | DX: I48.11 Longstanding persistent atrial fibrillation (principal); Z79.01 Long term (current) use of anticoagulants | CPT/HCPCS: 85610 ==

== ENCOUNTER → 2021-08-20 08:26 | Outpatient (BNVA) | payer MEDICARE, OTHER, SELFPAY | PROVIDERS: PCP Family Medicine; Visit Provider Internal Medicine Cardiovascular Disease | DX: I48.11 Longstanding persistent atrial fibrillation (principal) | CPT/HCPCS: 85610 ==

== ENCOUNTER → 2021-09-17 08:35 | Outpatient (BNVA) | payer MEDICARE, OTHER, SELFPAY | PROVIDERS: PCP Family Medicine; Visit Provider Internal Medicine Cardiovascular Disease | DX: I48.11 Longstanding persistent atrial fibrillation (principal); Z79.01 Long term (current) use of anticoagulants | CPT/HCPCS: 85610 ==

== ENCOUNTER → 2021-10-21 08:23 | Outpatient (BNVA) | payer MEDICARE, OTHER, SELFPAY | PROVIDERS: PCP Family Medicine; Visit Provider Internal Medicine Cardiovascular Disease | DX: I48.11 Longstanding persistent atrial fibrillation (principal); Z79.01 Long term (current) use of anticoagulants | CPT/HCPCS: 85610 ==

== ENCOUNTER → 2021-11-18 09:00 | Outpatient (BNVA) | payer MEDICARE, OTHER, SELFPAY | PROVIDERS: PCP Family Medicine; Visit Provider Internal Medicine Cardiovascular Disease | DX: I48.11 Longstanding persistent atrial fibrillation (principal); Z79.01 Long term (current) use of anticoagulants | CPT/HCPCS: 85610 ==

== ENCOUNTER → 2021-11-25 08:13 | Outpatient (BNVA) | payer MEDICARE, OTHER, SELFPAY | PROVIDERS: PCP Family Medicine; Visit Provider Internal Medicine Cardiovascular Disease | DX: I48.11 Longstanding persistent atrial fibrillation (principal) | CPT/HCPCS: 85610 ==

== ENCOUNTER → 2021-11-30 13:21 | Outpatient (BNVA) | payer OTHER, MEDICARE, SELFPAY | PROVIDERS: PCP Family Medicine; Visit Provider Specialist | DX: G50.0 Trigeminal neuralgia (principal); G24.4 Idiopathic orofacial dystonia; R26.89 Other abnormalities of gait and mobility | CPT/HCPCS: 99204 ==

== ENCOUNTER → 2021-12-02 08:28 | Outpatient (BNVA) | payer MEDICARE, OTHER, SELFPAY | PROVIDERS: PCP Family Medicine; Visit Provider Internal Medicine Cardiovascular Disease | DX: I48.11 Longstanding persistent atrial fibrillation (principal) | CPT/HCPCS: 85610 ==

== ENCOUNTER → 2021-12-28 09:34 | Outpatient (BNVA) | payer OTHER, MEDICARE, SELFPAY | PROVIDERS: PCP Family Medicine; Visit Provider Specialist | DX: G50.0 Trigeminal neuralgia (principal); G24.4 Idiopathic orofacial dystonia; J44.9 Chronic obstructive pulmonary disease, unspecified; Z87.891 Personal history of nicotine dependence; F40.231 Fear of injections and transfusions | CPT/HCPCS: 99213; 99214 ==

== ENCOUNTER → 2021-12-29 08:39 | Outpatient (BNVA) | payer OTHER, SELFPAY | PROVIDERS: PCP Family Medicine; Visit Provider Internal Medicine Cardiovascular Disease | DX: I48.11 Longstanding persistent atrial fibrillation (principal) | CPT/HCPCS: 85610 ==

== ENCOUNTER → 2022-01-05 08:16 | Outpatient (BNVA) | payer OTHER, SELFPAY | PROVIDERS: PCP Family Medicine; Visit Provider Internal Medicine Cardiovascular Disease | DX: I48.91 Unspecified atrial fibrillation (principal); I48.11 Longstanding persistent atrial fibrillation | CPT/HCPCS: 85610 ==

== ENCOUNTER → 2022-02-09 11:24 | Outpatient (BNVA) | payer OTHER, SELFPAY | PROVIDERS: PCP Family Medicine; Visit Provider Specialist | DX: G24.4 Idiopathic orofacial dystonia (principal) | CPT/HCPCS: 99213; 99214 ==

== ENCOUNTER → 2023-01-13 12:45 | Outpatient (BNVA) | payer OTHER, SELFPAY | PROVIDERS: PCP Family Medicine; Visit Provider Internal Medicine | DX: I48.11 Longstanding persistent atrial fibrillation (principal); Z79.01 Long term (current) use of anticoagulants; I25.700 Atherosclerosis of coronary artery bypass graft(s), unspecified, with unstable angina pectoris; I10 Essential (primary) hypertension; Z95.0 Presence of cardiac pacemaker; Z95.1 Presence of aortocoronary bypass graft | CPT/HCPCS: 99214 ==

== ENCOUNTER 2023-02-07 06:06 | Outpatient (CLI) | payer OTHER, SELFPAY ==
--- NOTE | 2023-02-07 06:37 | ECG_ITS ---
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 Interpretive Statements NAME OF STUDY: LEXISCAN SESTAMIBI STRESS TEST INDICATION: SOB/CP, PROCEDURE: At the baseline, the EKG revealed normal sinus rhythm with normal ST Ts. The baseline heart was 80-bpm with a blood pressue of 132/76 mm of Hg Lexiscan was infused over a period of 20 seconds. A total of 0.4 milligrams of Lexiscan was infused. The stress phase was continued for a total of 5 minutes. Heart rate at the end of the stress phase was 87 bpm with a blood pressure 113/64 mm of Hg. The EKG at the peak infusion revealed no significant changes. Sestamibi was injected 20 seconds after the Lexiscan infusion. Heart rate at the end of the recovery phase was 86 bpm with a blood pressure of 120/64 mm of Hg. CONCLUSION: 1. No significant EKG changes with the LexiScan infusion 2. No LexiScan induced chest pain or cardiac arrhythmia 3. Normal blood pressure and heart rate response 4. Sestamibi/sestamibi perfusion scan pending; see separate report. Electronically Signed On 02-08-2023 0:22:18 CDT by Hong Calhoun M.D. [id number]
--- NOTE | 2023-02-07 06:38 | NMCV_ITS ---
NM ellie perf SPECT r/s* [id number] Toni Quintanilla Age: 83 Gender: M : 1940 Exam Date: 02/07/2023 08:34 Ordering Phys: Jose Martin Chester M.D ([email or web address]) Technologist: CECILIA Chacon Exam Location: [facility] Indications: SHORTNESS OF BREATH STRESS TEST Please see separate stress test report in [facility] for full findings IMAGE PROTOCOL Rest/Stress 1 Lexiscan Day Radiopharmaceutical Dose (mCi) Administration Site Administered by Rest: Tc-99m 10.8 IV CECILIA Ribera Sestamibi Stress:Tc-99m 32.9 IV CECILIA Ribera Sestamibi Rest: 07-Feb-2023 60 Discovery 630 Stress: 07-Feb-2023 30 Discovery 630 0.4mg Lexiscan. Images obtained in supine and prone position. SPECT RESULTS Technical Quality: Excellent Raw Data Analysis: Normal Image Corrections: No attenuation or motion correction applied Summed Stress Score: 9 Summed Rest Score: 7 Summed Difference Score: 4 PERFUSION FINDINGS Moderate to severely decreased tracer uptake in the basal, mid and apical inferior wall region. Slightly decreased visit is also was noted in the apical lateral and LV apex. significant reversibility was noted in the basal and mid inferior and apical lateral regions FUNCTIONAL RESULTS (calculated via Gated SPECT) Stress Image LV EF (%): 34 Stress EDV (mL):162 TID: 1.08 Stress ESV (mL):107 FUNCTIONAL FINDINGS: Segmental wall motion analysis revealed diffuse hypokinesia of the septum, LV apex and inferior wall region. The LV cavity was found to be moderately dilated. IMPRESSIONS 1. Myocardial perfusion imaging revealing areas of persistent decreased tracer uptake in the inferior wall and apical region with significant reversibility, suggesting myocardial scarring with ischemia in the distribution of the right coronary artery predominantly with some circumflex artery involvement. 2. Diminished LV ejection fraction of 34%. 3. Wall motion abnormalities as mentioned above. 4. Moderately dilated LV cavity with an end-systolic volume of 107ml Dr Hong Calhoun MD FACC (Electronically Signed) Final Date: 07 February 2023 16:33 S
[2023-02-07 06:53] VITALS: BMI 25.9
[2023-02-07] MEDS: regadenoson 0.4 Mg/5 ml Syringe IVP (08:17)
[2023-02-07 08:43] VITALS: BP 120/64; PULSE 83
== END 2023-02-07 06:07 | disposition home or self-care (01) ==
LOC: CDL 06:08
PROVIDERS: PCP Family Medicine; Visit Provider Internal Medicine
DX: R06.02 Shortness of breath (principal); R07.9 Chest pain, unspecified
CPT/HCPCS: 36415; 78452; 93017; 96374; A9500; J2785

== ENCOUNTER → 2023-03-03 15:09 | Outpatient (BNVA) | payer OTHER, SELFPAY | PROVIDERS: PCP Family Medicine; Visit Provider Nurse Practitioner Family | DX: I25.700 Atherosclerosis of coronary artery bypass graft(s), unspecified, with unstable angina pectoris (principal); I10 Essential (primary) hypertension; I48.11 Longstanding persistent atrial fibrillation; Z79.01 Long term (current) use of anticoagulants; Z79.82 Long term (current) use of aspirin | CPT/HCPCS: 99214 ==

== ENCOUNTER 2023-05-31 00:59 | Inpatient (IN) | payer OTHER, SELFPAY ==
[2023-05-31] VITALS (49 sets, daily range): BP systolic 100–147; BP diastolic 60–90; PULSE 73–88; RESP 14–25; TEMP 36.5–36.9; O2SAT 92–96; BMI 26.1
--- NOTE | 2023-05-31 01:03 | XRR_ITS ---
PROCEDURE INFORMATION: Exam: XR Chest Exam date and time: 05/31/2023 1:21 AM Age: 83 years old Clinical indication: Pain; Chest pressure; Prior surgery; Surgery date: 6+ months; Surgery type: Cabg, pacemaker; Additional info: Chest pain TECHNIQUE: Imaging protocol: Radiologic exam of the chest. Views: 1 view. COMPARISON: CR XR chest 1V portable [id number] 06/08/2020 10:46 AM FINDINGS: Tubes, catheters and devices: Left-sided pacing device. Lungs: Sitt-zz-[id number] COPD. No consolidation. Pleural spaces: Unremarkable. No pleural effusion. No pneumothorax. Heart/Mediastinum: The heart is mildly enlarged. Previous CABG. Vasculature: Advanced diffuse vascular calcification noted. Diaphragm: Mild right hemidiaphragm elevation. Bones/joints: Unremarkable. XR/XR chest 1V portable [id number] IMPRESSION: Postop and chronic findings above, no acute process noted.
--- NOTE | 2023-05-31 01:03 | ECG_ITS ---
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 Measurements Intervals [place] Rate: 84 P: 52 NV: 189 QRS: -14 QRSD: 86 T: 50 QT: 390 QTc: 463 Interpretive Statements SINUS RHYTHM MODERATE ST DEPRESSION [0.05+ mV ST DEPRESSION] Compared to ECG 06/08/2020 17:39:29 ST (T wave) deviation now present Ventricular premature complex(es) no longer present T-wave abnormality no longer present Possible ischemia no longer present Electronically Signed On 05-31-2023 8:28:57 CDT by Jose Martin Chester M.D. [id number]
--- NOTE | 2023-05-31 01:09 | ED_ITS ---
HPI - Chest Pain General: Chief Complaint: Chest Pain Stated Complaint: chest pain Time Seen by Provider: 05/31/23 01:09 History of Present Illness: 83-year-old gentleman with history of heart disease presenting to the emergency department for chest pain. He notes onset of symptoms woke him from sleep approximately 30 minutes prior to arrival. There is radiation down the right ar m and across his shoulder blades. Moderate to severe in intensity. Unrelieved by nitroglycerin. Does endorse an episode 4 nights ago that was relieved by nitroglycerin. Otherwise no typical cardiac features. No other specific changes in health, exacerbating, or alleviating factors identified. Onset (ago): minute(s) Onset: awoke with symptoms Severity: severe Review of Systems General: Reports: 10 or more systems reviewed and unremarkable except in HPI and below PFSH ED PFSH: Medical History Atrial fibrillation BPH (benign prostatic hyperplasia) Chest pain Coronary artery disease Last echocardiogram January 2019 with EF 55 to 60% Elevated troponin GERD (gastroesophageal reflux disease) Hyperlipidemia Hypertension Sick sinus syndrome Unstable angina pectoris Surgical History History of hemorrhoidectomy S/P CABG (coronary artery bypass graft) S/P cardiac pacemaker procedure S/P cholecystectomy S/P TURP Family History Other CAD (coronary artery disease) Social History Smoking and tobacco status: never smoked Alcohol intake: never Substance/Drug Use: never Physical Exam Const: COMMON NORMALS: alert GENERAL APPEARANCE: cooperative and well developed HENMT: COMMON NORMALS: normocephalic and atraumatic HEAD & SCALP: normocephalic and atraumatic Eye: COMMON NORMALS: conjunctivae normal CONJUNCTIVA: Yes conjunctivae normal SCLERA: sclerae normal Neck/C-Spine: COMMON NORMALS: supple GENERAL: Yes trachea midline Resp: COMMON NORMALS: normal respiratory effort EFFORT & INSPECTION: Yes able to speak in complete sentences Cardio: COMMON NORMALS: regular rate and regular rhythm RATE: regular rate RHYTHM: regular rhythm GI: COMMON NORMALS: Soft to palpation PALPATION: Yes Soft to palpation and No Tenderness to palpation present (GI) Extremity: GENERAL: Yes normal exam except as noted and No edema Neuro: COMMON NORMALS: moves all extremities SENSORIUM/ORIENTATION: Yes alert and No Orientation impaired Psych: COMMON NORMALS: mental status grossly normal and Normal thought process present THOUGHT PROCESS: Normal thought process present Course Vital Signs: Vital signs: Vital Signs Temperature 98.9 F 06/02/23 10:59 Pulse Rate 90 06/02/23 10:59 Respiratory Rate 16 06/02/23 10:59 Blood Pressure 141/72 06/02/23 10:59 Pulse Oximetry 95 06/02/23 10:59 Oxygen Delivery Me thod Room Air 06/02/23 08:00 MDM - Chest Pain Medical Decision Making 83-year-old gentleman presenting with chest pain. Exam as above. Nontoxic. EKG demonstrates sinus rhythm with borderline prolonged QT interval, normal axis, no STEMI. Labs with hemoconcentration compared to prior. Unremarkable metabolic panel. Positive range 2-hour delta troponin. Chest x-ray with no lobar consolidation or pneumothorax. Patient treated with aspirin during ED course. The results of ED evaluation were discussed with the patient including plan for admission due to requirement for level of care not available if discharged to prevent significant worsening/deterioration. Patient agreeable with plan. Discussed with hospitalist service who was agreeable to admit patient. Medical Records I reviewed the patient's medical records. Lab Data I reviewed the patient's lab results. 06/02/23 03:55 06/02/23 03:55 Radiology Impressions Chest X-Ray 05/31/23 01:03 IMPRESSION: Postop and chronic findings above, no acute process noted. Laboratory Results WBC 10.1 10^3/uL (4.0-10.0) H 05/31/23 01:15 RBC 5.76 10^6/uL (4.1-5.3) H 05/31/23 01:15 Hgb 17.3 g/dL (11.7-16.6) H 05/31/23 01:15 Hct 53.5 % (42.0-52.0) H 05/31/23 01:15 MCV 92.9 fl (80-94) 05/31/23 01:15 MCH 30.0 pg (28.0-34.0) 05/31/23 01:15 MCHC 32.3 g/dL (30.0-36.0) 05/31/23 01:15 RDW 14.0 % (12.1-15.1) 05/31/23 01:15 Plt Count 184 10^3/cmm (130-400) 05/31/23 01:15 MPV 9.7 fL (7.4-10.4) 05/31/23 01:15 Neut % (Auto) 40.8 % 05/31/23 01:15 Lymph % (Auto) 40.9 % 05/31/23 01:15 Davie % (Auto) 6.3 % 05/31/23 01:15 Eos % (Auto) 11.1 % 05/31/23 01:15 Baso % (Auto) 0.6 % 05/31/23 01:15 Neut # (Auto) 4.11 10^3/uL (1.8-7.7) 05/31/23 01:15 Lymph # (Auto) 4.1 10^3/uL (0.8-4.8) 05/31/23 01:15 Davie # (Auto) 0.6 10^3/uL (0.2-0.9) 05/31/23 01:15 Eos # (Auto) 1.1 10^3/uL (0.0-0.8) H 05/31/23 01:15 Baso # (Auto) 0.1 10^3/uL (0.0-0.1) 05/31/23 01:15 Nucleated RBC % (auto) 0 % 05/31/23 01:15 Nucleated RBCs # 0.0 /100WBC 05/31/23 01:15 Sodium 142 mmol/L (136-145) 05/31/23 01:15 Potassium 4.4 mmol/L (3.5-5.1) 05/31/23 01:15 Chloride 105 mmol/L (98-107) 05/31/23 01:15 Carbon Dioxide 27 mmol/L (22-29) 05/31/23 01:15 Anion Gap 14.4 (5-19) 05/31/23 01:15 BUN 14 mg/dL (8-23) 05/31/23 01:15 Creatinine 0.8 mg/dL (0.7-1.2) 05/31/23 01:15 GFR Calculation Not Reportable 05/31/23 01:15 Glucose 106 mg/dL (65-115) 05/31/23 01:15 Estimat Average Glucose 123 05/31/23 01:15 Hemoglobin A1c 5.9 % (4.0-6.0) 05/31/23 01:15 Calculated Osmolality 295 mOsm/kg (285-295) 05/31/23 01:15 Calcium 8.9 mg/dL (8.5-10.5) 05/31/23 01:15 Total Bilirubin 0.4 mg/dL (0.15-1.2) 05/31/23 01:15 AST 18 U/L (0-40) 05/31/23 01:15 ALT 12 U/L (0-41) 05/31/23 01:15 Alkaline Phosphatase 83 U/L (40-130) 05/31/23 01:15 Troponin T Baseline 88 ng/L (0-15) H 05/31/23 01:15 Troponin T 120 Minute 102.1 ng/L (0-15) H 05/31/23 03:22 Delta Troponin T 14.1 ABS# (0-10) H* 05/31/23 03:22 NT-Pro-B Natriuret Pep 809 pg/mL (0-450) H 05/31/23 01:15 Total Protein 6.8 g/dL (6.6-8.7) 05/31/23 01:15 Albumin 4.1 g/dL (3.5-5.2) 05/31/23 01:15 Globulin 2.7 g/dL (1.3-4.6) 05/31/23 01:15 Triglycerides 102 mg/dL (0-150) 05/31/23 03:22 Cholesterol 133 mg/dL (0-200) 05/31/23 03:22 LDL Cholesterol, Calc 73 mg/dL (50-129) 05/31/23 03:22 HDL Cholesterol 40 mg/dL (60-100) L 05/31/23 03:22 LDL/HDL Ratio 1.83 RATIO (0.00-3.22) 05/31/23 03:22 Cholesterol/HDL Ratio 3.33 mg/dL (1.0-5.00) 05/31/23 03:22 TSH 1.74 uIU/mL (0.27-4.20) 05/31/23 03:22 Discharge Plan Discharge Patient Disposition: Admitted As Inpatient Admit Provider: Joyce Joel Clinical Impression: Chest pain, Acute non-ST elevation myocardial infarction (NSTEMI) Condition: Stable Discharge Diet: Cardiac Discharge Activity: Increase activity as tolerated and Limit activity as instructed Coding Level of Care Code ED Nurseryman Assistant for Karen Nuñez
[2023-05-31] MEDS: aspirin 81 mg Chew Tablet 324 MG PO (01:13)
[2023-05-31 01:22] LABS: Basophils # 0.1 10^3/uL (0.0-0.1); Basophils % 0.6 %; Eosinophils # 1.1 10^3/uL (0.0-0.8); Eosinophils % 11.1 %; Hematocrit 53.5 % (42.0-52.0); Hemoglobin 17.3 g/dL (11.7-16.6); Lymphocytes # 4.1 10^3/uL (0.8-4.8); Lymphocytes % 40.9 %; Mean Corpuscular HGB Conc 32.3 g/dL (30.0-36.0); Mean Corpuscular Volume 92.9 fl (80-94); Mean Platelet Volume 9.7 fL (7.4-10.4); Monocytes # 0.6 10^3/uL (0.2-0.9); Monocytes % 6.3 %; Neutrophils # 4.11 10^3/uL (1.8-7.7); Neutrophils % 40.8 %; Nucleated Red Blood Cells % 0 %; Platelet Count 184 10^3/cmm (130-400); Red Blood Count 5.76 10^6/uL (4.1-5.3); White Blood Count 10.1 10^3/uL (4.0-10.0)
[2023-05-31 01:58] LABS: Troponin(5th) Baseline 88 ng/L (0-15)
[2023-05-31 02:37] LABS: NT Pro B Type Natriuretic Pept 809 pg/mL (0-450)
[2023-05-31 02:53] LABS: Alanine Aminotransferase 12 U/L (0-41); Albumin Level 4.1 g/dL (3.5-5.2); Alkaline Phosphatase 83 U/L (40-130); Blood Urea Nitrogen 14 mg/dL (8-23); Calcium 8.9 mg/dL (8.5-10.5); Carbon Dioxide 27 mmol/L (22-29); Chloride 105 mmol/L (98-107); Globulin 2.7 g/dL (1.3-4.6); Glucose 106 mg/dL (65-115); Osmolality Calculated 295 mOsm/kg (285-295); Sodium 142 mmol/L (136-145); Total Bilirubin 0.4 mg/dL (0.15-1.2); Total Protein 6.8 g/dL (6.6-8.7)
[2023-05-31 02:54] LABS: Anion Gap 14.4 (5-19); Aspartate Amino Transferase 18 U/L (0-40); Potassium 4.4 mmol/L (3.5-5.1)
--- NOTE | 2023-05-31 03:03 | ECG_ITS ---
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 Measurements Intervals [place] Rate: 80 P: 49 CA: 182 QRS: -6 QRSD: 95 T: 56 QT: 425 QTc: 491 Interpretive Statements SINUS RHYTHM PROLONGED QT INTERVAL Compared to ECG 05/31/2023 01:06:08 Prolonged QT interval now present ST (T wave) deviation no longer present Electronically Signed On 05-31-2023 8:30:36 CDT by Jose Martin Chester M.D. [id number]
--- NOTE | 2023-05-31 03:42 | P.HP_ITS ---
Providers/Chief Complaint Primary Care Provider: Uziel Iverson MD Chief Complaint: chest pain History of Present Illness Toni Quintanilla Sr is a 83 year old male With past medical history of atrial fibrillation chronically on anticoagulation with apixaban, coronary artery disease status post CABG x3 in 2004, hyperlipidemia, GERD, hyperlipidemia, hypertension, sick sinus syndrome status post pacemaker, unstable angina, presented to the hospital today for complaint of chest pain. He states this woke him up from sleep and started around 30 minutes before he came to the ER. The pain radiates down his right arm and across his shoulder blades. Normally he takes nitro that takes care of the pain but this time it did not. He did have a similar episode 4 days ago at which point he took nitroglycerin which helped the pain at the time. At this time chest pain is better. Denies nausea, vomiting, diarrhea, constipation, abdominal pain. On arrival to ER blood pressure 139/82, respirate 18, pulse 87, temperature 97.7, saturating 96% on room air. Patient recently saw cardiology in February 2023 and was asked to come to the hospital if he had any more chest pain after being on Imdur as he would require an angiogram at that point. Of note patient was following [facility] previously but then transferred care here to [place]. He did have a stress test done in December 2022 which showed areas of persistent decreased tracer uptake in inferior wall and apical region with significant reversibility suggesting myocardial scarring with ischemia in distribution of right coronary artery predominantly with some circumflex artery involvement. Diminished LV ejection fraction of 34%.His previous stress test in 2019 showed reversibility in the distribution of the RCA or circumflex, the subsequent left heart cath showed patent SVG to distal LAD, patent SVG to RPDA, severe stenosis of the proximal circumflex which was treated with YOVANA, first obtuse marginal stenosis treated with balloon angioplasty and YOVANA. Medications/Allergies Home Medications Medication Instructions Recorded Confirmed Last Taken Type aspirin 81 mg tablet,delayed 81 mg PO DAILY 01/13/23 03/03/23 Unknown History release cholecalciferol (vitamin D3) 50 50 mcg PO DAILY 01/13/23 03/03/23 Unknown History mcg (2,000 unit) capsule duloxetine 60 mg capsule,delayed 60 mg PO DAILY 01/13/23 03/03/23 Unknown History release apixaban 5 mg tablet (Eliquis) 5 mg PO BID #180 tabs 02/10/23 03/03/23 Unknown Rx nitroglycerin 0.4 mg sublingual 0.4 mg sublingual Q5M PRN chest 02/10/23 03/03/23 Unknown Rx tablet (Nitrostat) pains #25 tabs pantoprazole 40 mg tablet,delayed 40 mg PO DAILY #90 tabs 02/10/23 03/03/23 Unknown Rx release simvastatin 40 mg tablet 40 mg PO DAILY #90 tabs 02/10/23 03/03/23 Unknown Rx spironolactone 25 mg tablet 12.5 mg PO DAILY #45 tabs 02/10/23 03/03/23 Unknown Rx metoprolol succinate 25 mg 25 mg PO BID #180 tabs 02/14/23 03/03/23 Unknown Rx tablet,extended release 24 hr isosorbide mononitrate 30 mg 30 mg PO DAILY #90 tabs 02/17/23 03/03/23 Unknown Rx tablet,extended release 24 hr Allergies Allergy/AdvReac Type Severity Reaction Status Date / Time No Known Allergies Allergy Verified 03/03/23 07:30 PFSH Acute PFSH: Medical History (Updated 05/31/23 @ 04:16 by Joyce Joel MD) Atrial fibrillation BPH (benign prostatic hyperplasia) Chest pain Coronary artery disease Last echocardiogram January 2019 with EF 55 to 60% Elevated troponin GERD (gastroesophageal reflux disease) Hyperlipidemia Hypertension Sick sinus syndrome Unstable angina pectoris Surgical History (Updated 05/31/23 @ 04:16 by Joyce Joel MD) History of hemorrhoidectomy S/P CABG (coronary artery bypass graft) S/P cardiac pacemaker procedure S/P cholecystectomy S/P TURP Family History Other CAD (coronary artery disease) Social History Smoking and tobacco status: never smoked Alcohol intake: never Substance/Drug Use: never Vitals/I&O/Wt Last Vital Signs Temp 97.7 F 05/31/23 01:02 Pulse 83 05/31/23 03:25 Resp 23 H 05/31/23 03:25 BP 147/86 05/31/23 03:25 Pulse Ox 94 05/31/23 03:25 O2 Del Method Room Air 05/31/23 01:30 Weight last 48 hrs Weight 78.018 kg Physical Exam Narrative: General: Alert oriented x3, patient seen laying in bed at this time no acute distress. HEENT: Normocephalic, atraumatic, EOMI, breathing room air. Cardio: Regular rate rhythm, normal S1-S2, Respiratory: wheezing throughout lung moody b/l GI: Abdomen soft, nontender, bowel sounds + Behavior: Appropriate and cooperative Extremities: no edema, no cyanosis Data 05/31/23 01:15 05/31/23 01:15 A&P Assessment and plan (1) Acute non-ST elevation myocardial infarction (NSTEMI): (2) Atrial fibrillation: Qualifiers: Atrial fibrillation type: longstanding persistent Qualified Code(s): I48.11 - Longstanding persistent atrial fibrillation (3) Chest pain: (4) Coronary artery disease: Qualifiers: Associated angina: with unstable angina Coronary Disease-Associated Artery/Lesion type: bypass graft [place] vs. transplanted heart: [place] heart Qualified Code(s): I25.700 - Atherosclerosis of coronary artery bypass graft(s), unspecified, with unstable angina pectoris (5) Hypertension: Qualifiers: Hypertension type: essential hypertension Qualified Code(s): I10 - Essential (primary) hypertension (6) S/P cardiac pacemaker procedure: (7) Hx of CABG: (8) Sick sinus syndrome: Plan #NSTEMI #Coronary disease status post CABG times 01/2005 #Hyperlipidemia #Heart failure with reduced ejection fraction 34% EF #Atrial fibrillation chronically on anticoagulation with apixaban #GERD #Hypertension ? Delta troponin +14. 2-hour troponin 104. ? Presents with unstable angina, NSTEMI. We will continue current home medications aspirin, Imdur, metoprolol, statin, spironolactone ? Check echocardiogram for wall motion abnormalities ? patient will most likely require an angiogram at this point. We will consult cardiology for further instructions. ? Hold apixaban at this time ? Cover with therapeutic Lovenox ? We will check serial EKGs. ? If chest pain recurs may consider nitroglycerin drip. ? We will admit to cardiac stepdown unit ? Place in cardiac telemetry Full code SCDs, therapeutic Lovenox Attestations Medical Necessity Statement*: >2 midnight stay for NSTEMI Coding Level of Care Code G0426 (50 min) TH Encounter Time (min): 50 Patient seen via Telehealth in the acute care setting (hospital or ED location) by agreement and consent of patient or patient contracts representative. Telehealth technology used during the visit includes video and audio. This patient encounter is appropriate and reasonable under the circumstances given the patient?s particular presentation at this time. The patient has been advised of the potential risks and limitations of this mode of treatment (including but not limited to the absence of in-person examination at this time) and has agreed to be treated by an off-site physician for this visit. If deemed clinically necessary from this telehealth visit, or if condition or consent for telehealth visit changes, an in-person visit will be arranged. For this encounter, total time for the origination of telehealth care on this date is as shown. Diagnoses Acute non-ST elevation myocardial infarction (NSTEMI) I21.4 Atrial fibrillation I48.11 Atrial fibrillation type: longstanding persistent Chest pain R07.9 Coronary artery disease I25.700 Associated angina: with unstable angina Coronary Disease-Associated Artery/Lesion type: bypass graft [place] vs. transplanted heart: [place] heart Hypertension I10 Hypertension type: essential hypertension S/P cardiac pacemaker procedure Z95.0 Hx of CABG Z95.1 Sick sinus syndrome I49.5
[2023-05-31 03:54] LABS: Troponin 5 2HR 102.1 ng/L (0-15)
[2023-05-31 03:55] LABS: Troponin 5 2HR Delta 14.1 ABS# (0-10)
--- NOTE | 2023-05-31 04:05 | USCV_ITS ---
Toni Quintanilla Age: 83 Gender: M : 1940 Exam Date: 05/31/2023 07:40 Ordering Phys: Joyce Joel MD Technologist: BRENDEN Exam Location: [facility] Indication: NSTEMI BP: 140 / 83 HR: 77 Rhythm: Sinus Technical Quality: Adequate MEASUREMENTS (Male / Female) Normal Values 2D ECHO LVOT Diameter 2.0 cm LV Ejection Fraction MOD 2C 36.6 % LV Ejection Fraction 2C AL 36.2 % LA Diameter 4.2 cm LA Width 3.8 cm LA Height 4.8 cm RA Width 4.0 cm RA Height 4.4 cm Aorta at Sinotubular Diameter 2.1 cm M-MODE Aortic Annulus Diameter 3.3 cm LA Ao Ratio MM 1.3 MV E Point Septal Separation 2.4 cm DOPPLER AV Peak Velocity 123.0 cm/s LVOT Peak Velocity 68.0 cm/s AV Area Cont Eq vti 2.0 cm squared AV Area Cont Eq pk 1.8 cm squared MV Peak Velocity 114.0 cm/s MV Area PHT 5.0 cm squared Mitral E to A Ratio 0.7 MV E' Velocity 44.0 cm/s Mitral E to MV E' Ratio 10.5 Mitral E to LV E' Lateral Ratio 9.5 Mitral E to LV E' Septal Ratio 11.9 TR Peak Velocity 281.0 cm/s TR Peak Gradient 31.6 mmHg TR Mean Velocity 222.9 cm/s TR Mean Gradient 20.8 mmHg TR Velocity Time Integral 110.5 cm TV Peak E Velocity 43.0 cm/s Right Atrial Pressure 8.0 mmHg Pulmonary Artery Systolic Pressu 39.6 mmHg PV Peak Velocity 88.0 cm/s RV Acceleration Time 0.1 s RV Ejection Time 0.3 s RV AcT/ET 0.3 FINDINGS Left Ventricle Mildly increased left ventricular cavity size. Severely decreased left ventricular systolic function. Left ventricular ejection fraction is estimated at 30 %. Severe global left ventricular hypokinesis. Grade I diastolic dysfunction (abnormal relaxation filling pattern), normal to mildly elevated filling pressures. Right Ventricle Normal right ventricular size and systolic function. Right ventricular systolic pressure 39.6 mmHg. Catheter/pacemaker wire visualized in the right ventricle. Right Atrium Normal right atrial size. Left Atrium Mildly increased left atrial size. Mitral Valve Structurally normal mitral valve. No mitral valve stenosis. No significant mitral valve regurgitation. Aortic Valve Structurally normal trileaflet aortic valve. No aortic valve stenosis. Trace aortic valve regurgitation. Tricuspid Valve Structurally normal tricuspid valve. No tricuspid valve stenosis. Trace tricuspid valve regurgitation. Pulmonic Valve Pulmonic valve not well visualized. No pulmonary valve stenosis. Trace pulmonary valve regurgitation. Pericardium No pericardial effusion. Aorta Normal size aortic root and proximal ascending aorta. IVC Inferior vena cava not visualized. CONCLUSIONS 1. Mildly increased left ventricular cavity size. Severely decreased left ventricular systolic function. Left ventricular ejection fraction is estimated at 30 %. Severe global left ventricular hypokinesis. Grade I diastolic dysfunction (abnormal relaxation filling pattern), normal to mildly elevated filling pressures. 2. Direct comparison to previous study is not possible due to previous technocally very difficult study. Krissy Ling MD (Electronically Signed) Final Date: 31 May 2023 11:50 S
[2023-05-31] MEDS: enoxaparin 80 mg/0.8 mL Syringe SUBCUT ×2 (04:56→17:55)
[2023-05-31 05:19] LABS: Chol HDL Ratio 3.33 mg/dL (1.0-5.00); Cholesterol 133 mg/dL (0-200); HDL Cholesterol 40 mg/dL (60-100); LDL Cholesterol Calculated 73 mg/dL (50-129); LDL HDL Ratio 1.83 RATIO (0.00-3.22); Thyroid Stimulating Hormone 1.74 uIU/mL (0.27-4.20); Triglycerides 102 mg/dL (0-150)
--- NOTE | 2023-05-31 07:03 | ECG_ITS ---
[facility] Test Date: 2023-05-31 Pat Name: Toni Quintanilla Department: Room: 112 Gender: Male Beta Tester: : 1940 Requested By: Asaf Mehta Order Number: [id number] Missy MD: Jose Martin Chester M.D. Measurements Intervals Outlook Rate: 75 P: 47 CT: 186 QRS: 9 QRSD: 94 T: 42 QT: 428 QTc: 481 Interpretive Statements SINUS RHYTHM Compared to ECG 05/31/2023 03:21:03 Prolonged QT interval no longer present Electronically Signed On 05-31-2023 8:30:24 CDT by Jose Martin Chester M.D. [id number]
[2023-05-31 07:36] LABS: Troponin 5 6HR 123.4 ng/L (0-15); Troponin 5 6HR Delta 35.4 ng/L (0-12)
--- NOTE | 2023-05-31 08:35 | PM.CONSULT ---
Providers/Reason For Consult Consulting Physician/Specialty*: Jose Martin Chester MD/ Cardiology Reason for Consult*: NSTEMI Requesting Physician: Dr Joel Attending Physician: Joyce Joel MD Primary Care Provider: Uziel Iverson MD History of Present Illness History of Present Illness Toni Quintanilla Sr is a 83 year old male with past medical history of CAD s/p CABG in 2004 and PCI in 2019 left circumflex artery, had patent SVG to LAD and SVG to RPDA. He has presented with chest pain symptoms for 30 minutes prior to ER arrival. It was severe and radiated to the back and arms. Had similar episode about 4 days ago. As chest pain was not relieving with nitros, he decided to come to the hospital. His initial troponin was 88 that has trended up to 123 at 6 hours. He has been started on NSTEMI protocol. He has history of atrial fibrillation and currently on Eliquis.EKG shows normal sinus rhythm with non-specific ST-T wave changes Review of Systems Const: Denies: fever(s) or chills Eyes: Denies: change in vision ENMT: Denies: bleeding gums Card: Reports: chest pain, lightheadedness and dyspnea on exertion; Denies: palpitations, irregular heart rhythm, swelling of feet/ankles, syncope, pre-syncope or orthopnea Resp: Reports: wheezing and chest congestion; Denies: dyspnea or hemoptysis GI: Denies: hematochezia : Denies: hematuria Musc: Denies: neck pain or back pain Skin/Breast: Reports: dry skin Neuro: Reports: headache(s) and dizziness Psych: Denies: anxiety or depression Endo: Reports: tired all the time Jose/Lymph: Reports: easy bruising and easy bleeding All/Imm: Reports: seasonal rhinorrhea Medications/Allergies Home Medications Medication Instructions Recorded Confirmed Last Taken Type aspirin 81 mg tablet,delayed 81 mg PO DAILY 01/13/23 03/03/23 Unknown History release cholecalciferol (vitamin D3) 50 50 mcg PO DAILY 01/13/23 03/03/23 Unknown History mcg (2,000 unit) capsule duloxetine 60 mg capsule,delayed 60 mg PO DAILY 01/13/23 03/03/23 Unknown History release apixaban 5 mg tablet (Eliquis) 5 mg PO BID #180 tabs 02/10/23 03/03/23 Unknown Rx nitroglycerin 0.4 mg sublingual 0.4 mg sublingual Q5M PRN chest 02/10/23 03/03/23 Unknown Rx tablet (Nitrostat) pains #25 tabs pantoprazole 40 mg tablet,delayed 40 mg PO DAILY #90 tabs 02/10/23 03/03/23 Unknown Rx release simvastatin 40 mg tablet 40 mg PO DAILY #90 tabs 02/10/23 03/03/23 Unknown Rx spironolactone 25 mg tablet 12.5 mg PO DAILY #45 tabs 02/10/23 03/03/23 Unknown Rx metoprolol succinate 25 mg 25 mg PO BID #180 tabs 02/14/23 03/03/23 Unknown Rx tablet,extended release 24 hr isosorbide mononitrate 30 mg 30 mg PO DAILY #90 tabs 02/17/23 03/03/23 Unknown Rx tablet,extended release 24 hr Allergies Allergy/AdvReac Type Severity Reaction Status Date / Time No Known Allergies Allergy Verified 03/03/23 07:30 Current Medications Generic Name Dose Route Start Last Admin Trade Name Freq PRN Reason Stop Dose Admin Enoxaparin Sodium 80 mg 05/31/23 04:15 05/31/23 04:56 Enoxaparin 80 Mg/0.8 Ml Syringe SUBCUT 80 mg Q12H FEDER[place] Administration PFSH Acute PFSH: Medical History Atrial fibrillation BPH (benign prostatic hyperplasia) Chest pain Coronary artery disease Last echocardiogram January 2019 with EF 55 to 60% Elevated troponin GERD (gastroesophageal reflux disease) Hyperlipidemia Hypertension Sick sinus syndrome Unstable angina pectoris Surgical History History of hemorrhoidectomy S/P CABG (coronary artery bypass graft) S/P cardiac pacemaker procedure S/P cholecystectomy S/P TURP Family History Other CAD (coronary artery disease) Social History Smoking and tobacco status: never smoked Alcohol intake: never Substance/Drug Use: never Vitals/I&O/Wt Last Vital Signs Temp 97.7 F 05/31/23 01:02 Pulse 79 05/31/23 05:37 Resp 23 H 05/31/23 04:33 BP 147/86 05/31/23 04:33 Pulse Ox 94 05/31/23 06:00 O2 Del Method Room Air 05/31/23 06:00 Weight last 48 hrs Weight 172 lb Physical Exam Narrative: GENERAL: Patient is alert, awake and oriented x3. [] NECK: No jugular vein distension. [] HEENT: No cyanosis. No icterus. No pallor. [] HEART: Regular S1 and S2. LUNGS: Clear to auscultate bilaterally. [] ABDOMEN: Soft, nontender and nondistended. Positive bowel sounds. No guarding, rebound or tenderness. [] CENTRAL NERVOUS SYSTEM: Grossly nonfocal. [] EXTREMITIES: Lower extremities with 1+ edema bilaterally. Pulses palpable in the lower extremities, both dorsalis pedis and posterior tibial. [] Data 06/01/23 03:07 06/01/23 03:07 A&P Assessment and plan (1) Acute non-ST elevation myocardial infarction (NSTEMI): (2) Atrial fibrillation: Qualifiers: Atrial fibrillation type: longstanding persistent Qualified Code(s): I48.11 - Longstanding persistent atrial fibrillation (3) Chest pain: (4) Coronary artery disease: Qualifiers: Coronary Disease-Associated Artery/Lesion type: bypass graft [place] vs. transplanted heart: [place] heart Associated angina: with unstable angina Qualified Code(s): I25.700 - Atherosclerosis of coronary artery bypass graft(s), unspecified, with unstable angina pectoris (5) Hypertension: Qualifiers: Hypertension type: essential hypertension Qualified Code(s): I10 - Essential (primary) hypertension (6) S/P cardiac pacemaker procedure: (7) Hx of CABG: (8) Sick sinus syndrome: Plan Patient has presented with NSTEMI. We will proceed with coronary angiogram with possible percutaneous coronary intervention. Risks and benefits of procedure been discussed with the patient. He understands the risks and benefits and wants to proceed. Given he had Eliquis last night, will hold off procedure till tomorrow. N.p.o. past midnight Continue Eliquis. Echocardiogram ordered. Thank you for involving us with care of this patient. We will continue to follow. Please call with questions. Consult Attestations Medical Necessity Statement: Care expected to cross 2 midnights. Coding Level of Care Code Acute Code for [facility] Fwd Diagnoses Acute non-ST elevation myocardial infarction (NSTEMI) I21.4 Atrial fibrillation I48.11 Atrial fibrillation type: longstanding persistent Chest pain R07.9 Coronary artery disease I25.700 Coronary Disease-Associated Artery/Lesion type: bypass graft [place] vs. transplanted heart: [place] heart Associated angina: with unstable angina Hypertension I10 Hypertension type: essential hypertension S/P cardiac pacemaker procedure Z95.0 Hx of CABG Z95.1 Sick sinus syndrome I49.5
[2023-05-31] MEDS: ipratropium-albuterol 3 mL Neb INHALATION ×3 (08:51→14:59)
[2023-05-31] MEDS: aspirin 81 mg EC Tablet PO (08:58)
[2023-05-31] MEDS: atorvastatin 40 mg Tablet 20 MG PO (08:59)
[2023-05-31] MEDS: duloxetine 60 mg Capsule PO (08:59)
[2023-05-31] MEDS: metoprolol succinate ER (24 HR) 25 mg Tablet PO ×2 (08:59→17:55)
[2023-05-31] MEDS: isosorbide mononitrate ER 30 mg Tablet PO (08:59)
[2023-05-31 10:55] LABS: Estmated Average Glucose 123; Hemoglobin A1C 5.9 % (4.0-6.0)
--- NOTE | 2023-05-31 13:18 | P.PN_ITS ---
Subjective Subjective: He states he is doing okay. Denies current chest pain or pressure. Vitals/I&O/Wt Last Vital Signs Temp 97.7 F 05/31/23 08:00 Pulse 79 05/31/23 12:05 Resp 14 05/31/23 11:59 BP 122/76 05/31/23 08:00 Pulse Ox 95 05/31/23 11:59 O2 Del Method Room Air 05/31/23 11:59 05/30/23 05/31/23 05/31/23 22:59 06:59 14:59 Intake Total 240 / 240 Balance 240 / 240 Weight last 48 hrs Weight 78.018 kg Physical Exam Narrative: Accompanied by his Const: COMMON NORMALS: patient oriented x3 and alert GENERAL APPEARANCE: cooperative ORIENTATION/CONSCIOUSNESS: Yes awake HENMT: COMMON NORMALS: oropharynx normal Neck/C-Spine: COMMON NORMALS: no JVD Resp: COMMON NORMALS: normal respiratory effort and clear to auscultation bilaterally AUSCULTATION: clear to auscultation bilaterally Cardio: COMMON NORMALS: no JVD, regular rhythm, S1 normal heart sound present, S2 normal heart sound present and No murmurs present (Cardio) RHYTHM: regular rhythm HEART SOUNDS: S1 normal heart sound present and S2 normal heart sound present GI: COMMON NORMALS: Normal to inspection, nondistended, normoactive bowel sounds present, Soft to palpation and non-tender PALPATION: Yes Soft to palpation Extremity: COMMON NORMALS: no joint enlargement and no pedal edema Neuro: COMMON NORMALS: patient oriented x3 and moves all extremities SENSORIUM/ORIENTATION: Yes alert Skin: COMMON NORMALS: no rashes or lesions noted GENERAL SKIN EXAM: no rashes or lesions noted Data 05/31/23 01:15 05/31/23 01:15 A&P Assessment and plan (1) Acute non-ST elevation myocardial infarction (NSTEMI): (2) Atrial fibrillation: Qualifiers: Atrial fibrillation type: longstanding persistent Qualified Code(s): I48.11 - Longstanding persistent atrial fibrillation (3) Chest pain: (4) Coronary artery disease: Qualifiers: Coronary Disease-Associated Artery/Lesion type: bypass graft [place] vs. transplanted heart: [place] heart Associated angina: with unstable angina Qualified Code(s): I25.700 - Atherosclerosis of coronary artery bypass graft(s), unspecified, with unstable angina pectoris (5) Hypertension: Qualifiers: Hypertension type: essential hypertension Qualified Code(s): I10 - Essential (primary) hypertension (6) S/P cardiac pacemaker procedure: (7) Hx of CABG: (8) Sick sinus syndrome: Plan #NSTEMI #Coronary disease status post CABG times 01/2005 #Hyperlipidemia #Heart failure with reduced ejection fraction 34% EF #Atrial fibrillation chronically on anticoagulation with apixaban #GERD #Hypertension Discussed with cardiology. Needs to be off Eliquis. Continue treatment for NSTEMI, at this time continue anticoagulation, continue aspirin. Beta-geri. Statin. Plans for further assessment with coronary angiography planned for tomorrow. N.p.o. after midnight. Hold off on Plavix for now. Troponin noted as high as up to 123 this morning. NT proBNP 809. Currently does not show signs of congestive heart failure. Monitor, at risk of deterioration, CHF, arrhythmia. Echocardiogram noted with low ejection fraction, 30%, grade 1 diastolic dysfunction. Unable to compare to prior. ? Hold apixaban at this time ? Cover with therapeutic Lovenox ?Continue cardiac telemetry Full code SCDs, therapeutic Lovenox Attestations Medical Necessity Statement*: Continue admission for assessment management of NSTEMI. Diagnoses Acute non-ST elevation myocardial infarction (NSTEMI) I21.4 Atrial fibrillation I48.11 Atrial fibrillation type: longstanding persistent Chest pain R07.9 Coronary artery disease I25.700 Coronary Disease-Associated Artery/Lesion type: bypass graft [place] vs. transplanted heart: [place] heart Associated angina: with unstable angina Hypertension I10 Hypertension type: essential hypertension S/P cardiac pacemaker procedure Z95.0 Hx of CABG Z95.1 Sick sinus syndrome I49.5
--- NOTE | 2023-05-31 16:55 | PC.NURSE ---
Patients refused accu checks. His personal dexcom read 154 at 1645.
[2023-06-01] VITALS (21 sets, daily range): BP systolic 105–133; BP diastolic 58–81; PULSE 66–83; RESP 15–26; TEMP 36.4–36.9; O2SAT 90–96
[2023-06-01] MEDS: enoxaparin 80 mg/0.8 mL Syringe SUBCUT (03:31)
[2023-06-01 04:20] LABS: Basophils # 0.1 10^3/uL (0.0-0.1); Basophils % 0.7 %; Eosinophils % 10.8 %; Hematocrit 51.4 % (42.0-52.0); Hemoglobin 16.4 g/dL (11.7-16.6); Lymphocytes % 42.7 %; Mean Corpuscular HGB Conc 31.9 g/dL (30.0-36.0); Mean Corpuscular Hemoglobin 29.9 pg (28.0-34.0); Mean Corpuscular Volume 93.8 fl (80-94); Mean Platelet Volume 10.1 fL (7.4-10.4); Monocytes # 0.7 10^3/uL (0.2-0.9); Monocytes % 7.3 %; Neutrophils # 3.59 10^3/uL (1.8-7.7); Neutrophils % 38.3 %; Nucleated Red Blood Cells % 0 %; Platelet Count 188 10^3/cmm (130-400); Red Blood Count 5.48 10^6/uL (4.1-5.3); Red Cell Distribution Width 14.1 % (12.1-15.1); White Blood Count 9.4 10^3/uL (4.0-10.0)
[2023-06-01 04:43] LABS: Anion Gap 12.9 (5-19); Blood Urea Nitrogen 15 mg/dL (8-23); Carbon Dioxide 29 mmol/L (22-29); Chloride 103 mmol/L (98-107); Glucose 101 mg/dL (65-115); Magnesium 2.2 mg/dL (1.7-2.3); Osmolality Calculated 291 mOsm/kg (285-295); Potassium 4.9 mmol/L (3.5-5.1); Sodium 140 mmol/L (136-145)
--- NOTE | 2023-06-01 05:51 | XACV_ITS ---
Exam Room: [facility] Ht: 173 cm Wt: 78 kg BSA: 1.95 m2 Gender: Male : 1940 Any Known Allergies: No known allergies Exam Priority: Routine Procedure(s): Procedure Description: Diagnostic procedure Procedure Description: PCI procedure Procedure Description: Venous Graft Catheterization Procedure Description: Drug Eluting Coronary Stent Procedure Description: PTCA Procedure Description: Coronary Angiography Diagnostic Cath Status: Urgent Diagnostic Findings * Left Main has 60-70% stenosis in the distal segment. * Left Anterior Descending has subtotal occlusion of the ostial vessel. After giving diagonal artery, LAD is totally occluded. * Ostial Circumflex: severe 80% stenosis, RUI: 3 flow. * Bypass grafts: SVG to LAD is patent. SVG to RPDA is patent. This grafts jump segment to OM is known occluded. * Right Coronary Artery has diffuse luminal irregularities. * Coronary angiography shows right dominance. PCI Status: Urgent PCI Indication: NSTE - ACS Interventional Findings * PROCEDURE DETAIL: We engaged left main artery with XB 3.5 guide catheter. Patient was on therapeutic Lovenox given within 8 hours of procedure. 0.014 run-through guidewire was used to cross the stenosis and was put in distal vessel. We then predilated the stenosis with a 3.0 x 12 mm semicompliant balloon. This was followed by placement of 3.0 x 15 mm resolute Indu drug-eluting stent from left main into left circumflex artery. We then postdilated this stent with 3.5 x 12 mm NC balloon at high pressure. At this time we noted a loss of flow in ostial LAD that already had subtotal occlusion. We wired the ostial LAD with a run-through wire. 2.25 x 6 mm semi-compliant balloon was used to dilate the ostium through the stent strut. This restored the flow. At this time final angiogram was performed that showed excellent expansion of left main to left circumflex artery stent, no residual stenosis and RUI-3 flow.Guidewire and guide catheter were removed. Patient left the laborer tan house in a stable condition. . * Proximal Circumflex: 80% stenosis treated with a AB TREK 3.00X12 RX BALLOON, ASIA R INDU 3.0X15 YOVANA, and ASIA VALADEZ EUPHORA RX 3.67Q60OH BALLOON. 0% residual stenosis, RUI: 3 flow. * Ostial LAD: 99% stenosis treated with a AB TREK 2.25X6 RX BALLOON. 90% residual stenosis, RIU: 2flow. Conclusions 1. Severe stenosis of distal left main into 2. proximal left circumflex artery 3. . S/p successful revascularization with 1 stent.. 4. Ostial LAD was treated with a Balloon. 5. Left main artery to proximal Circumflex was treated with a Balloon, Drug Eluting Stent, and Balloon. 6. Patient has prior CABG. Recommendations * We will load with plavix. At time of discharge, he will need plavix and eliquis. * Statin therapy. * Outpatient cardiology follow up in 2-4 weeks. Interventional RX Recommendation: PCI w/o planned CABG Diagnostic RX Recommendation: PCI w/o planned CABG Pressures Phase:Rest AO : / ( 52 ) @ 10:14:00 AM 109 / 56 ( 75 ) @ 10:28:00 AM 92 / 73 ( 82 ) @ 10:37:00 AM 90 / 74 ( 82 ) @ 10:39:00 AM 94 / 65 ( 78 ) @ 10:46:00 AM 97 / 71 ( 84 ) @ 11:00:00 AM Clinical Evaluation EBL: 5mL-10mL Procedural Details Procedure Consent Obtained. Current Diagnosis : NSTEMI. Pre-Procedure Time Out. Identified patient by full name and date of as verbalized by the patient/guarantor. Does the consent match the physician's order: Yes. Accurate & Complete Informed Consent: Yes. Inpatient/Outpatient History & Physical on Chart: Yes. If H&P is completed, is and addenduem needed: No; If yes, is the addendum complete: N/A. Visualize and Verify Site with Patient/Guarantor: N/A. Relevant Radiology Images available: Yes. Pre-op teaching completed and patient verbalized understanding. The risks, benefits, and alternatives of sedation and/or procedure were discussed by physician. The patient agrees to continue. Procedure started. [facility] Clinical Fraility Score: 4: Vulnerable. Associate Veterinarian Indications: ACS > 24 hours. Chest Pain Symptom Assessment: Atypical Angina. Correct patient, site and procedure confirmed by cath team. Current diagnosis: NSTEMI. PERRLA. Strong, equal hand newspaper correspondent bilaterally. Lungs clear x 5 lobes. IV Site on Arrival: 20 gauge in the left hand. IV Fluids: 0.9% NaCl at KVO. 0 mL infused prior to laborer tan house. Pre Procedural Pulses: bilateral dorsalis pedis was Doppled. Pre Procedural Pulses: bilateral posterior tibial was Doppled. Oxygen started at 2liters/min via nasal canula. bilateral groins was prepped with chloroprep then draped in the usual sterile fashion. Physician notified. Baseline sample Acquired. HR: 77 BPM. Baseline sample Acquired. HR: 74 BPM. Physician arrived. Physician scrubbed in. Immediate Pre-Procedure Time Out. Correct Patient: Yes; Correct Procedure: Yes; Correct Site: Yes; Correct Patient Position: Yes; Correct Supplies: Yes; Dried Flammable Prep: Yes; Blood Products Available: N/A;. Lidocaine 1% infiltrated to the right groin. Arterial access obtained with micropuncture set. Micropuncture wire out. Standard J wire inserted. A 6 moroccan JL4 catheter in over wire. Catheter removed over the exchange wire. A 5 moroccan JL4.5 catheter in over wire. Multiple views taken of left coronary artery. Catheter removed over the exchange wire. A 5 moroccan JR4 catheter in over wire. Multiple views taken of right coronary artery. SVG's to LAD visualized and patent. SVG's to PDA visualized and patent. Catheter removed over the exchange wire. Physician review of cine films. 6 moroccan CLS 3.5 guide catheter was inserted over the wire. Runthrough guidewire was advanced through the guide catheter to lesion in the prox Circ. Inflation number : 1 A AB TREK 3.00X12 RX BALLOON was prepped and advanced across the Prox CX , then inflated to 12 CHRIS for 0:19 seconds. Balloon out. Inflation Number : 2 A MDT R INDU 3.0X15 YOVANA -Lot Number# _[id number] EXP: 11/16/2025 was prepped and advanced across the Prox CX. The stent was deployed at 12 CHRIS for 0:21 seconds. Stent balloon out over wire. Inflation number : 3 A MDT NC EUPHORA RX [id number] BALLOON was prepped and advanced across the Prox CX , then inflated to 18 CHRIS for 0:24 seconds. Inflation number: 4 The MDT NC EUPHORA RX [id number] BALLOON was reinflated across the Prox CX, to 20 CHRIS for 0:19 seconds. Balloon out. Results checked. A second Runthrough wire inserted through the catheter to the Diag. CX wire removed. Inflation number : 1 A AB TREK 2.25X6 RX BALLOON was prepped and advanced across the 1st Diag , then inflated to 4 CHRIS for 0:22 seconds. Inflation number: 2 The AB TREK 2.25X6 RX BALLOON was reinflated across the 1st Diag, to 6 CHRIS for 0:19 seconds. Inflation number: 3 The AB TREK 2.25X6 RX BALLOON was reinflated across the 1st Diag, to 8 CHRIS for 0:20 seconds. Balloon out. Results checked. Wire out. Guide catheter out. A Suture was successful obtaining hemostatsis at the Right Femoral artery insertion site. Vital chart was stopped. Sheath(s) sutured into position with 2-0 silk and sterile 4x4's and Op-site applied over the site. No oozing or signs and symptoms of hematoma noted. Arterial sheath flushed and connected to tranducer and pressure bag with heparinized saline. Post Procedure: Pulses reassessed and unchanged. PERRLA. Strong, equal hand newspaper correspondent bilaterally. No VTE prophylaxis required. Medication's Wasted: Heparin = 4000 units. Medication's Wasted: Other = Fentanyl 75 mcg Versed 1 mg. Total IV fluids: 70 mL. Post-op diagnosis: CAD. Complications: None. Estimated blood loss: 5mL-10mL. Responsiveness - Normal response to verbal stimuli; alert and oriented, PERRLA. Airway - Unaffected, no intervention required; spontaneous ventilation. Circulation: W/N/L, pulses unchanged. Nausea/Vomiting: No. Procedure completed. Patient transferred by bed to CPRU. Vital chart was stopped. Access Site Site: Right Femoral artery Sheath Size: 6 Fr Hemostasis Method: Suture Hemostasis Success: Successful Procedure Medications Start: 9:16 AM Stop: 9:16 AM Medication: Fentanyl Amount: 25 mcg Route: I.V. Start: 9:24 AM Stop: 9:24 AM Medication: Versed Amount: 1 mg Route: I.V. Start: 10:09 AM Stop: 10:09 AM Medication: Plavix Amount: 600 mg Route: P.O. Start: 10:09 AM Stop: 10:09 AM Medication: Aspirin Amount: 325 mg Route: P.O. I, the attending physician, have reviewed and verified all procedure medications. Yes, all medications given per verbal order History/Risk Factors Hypertension: Yes Dyslipidemia: Yes Peripheral Arterial Disease (PAD): No Myocardial Infarction (CT): No Obesity: No Renal Disease: No Prior Interventions PCI: No CABG: Yes Valve Surgery: No Report Signatures Finalized by Jose Martin Chester MD on 06/01/2023 12:00 PM
--- NOTE | 2023-06-01 07:42 | PC.PHAR ---
[facility]XED [facility] AT 7:45 AM FOR MED LIST
[2023-06-01] MEDS: ipratropium-albuterol 3 mL Neb INHALATION ×2 (07:53→16:13)
[2023-06-01] MEDS: atorvastatin 40 mg Tablet 20 MG PO (08:05)
[2023-06-01] MEDS: metoprolol succinate ER (24 HR) 25 mg Tablet PO ×2 (08:05→18:08)
[2023-06-01] MEDS: duloxetine 60 mg Capsule PO (08:05)
[2023-06-01] MEDS: aspirin 81 mg EC Tablet PO (08:05)
[2023-06-01] MEDS: isosorbide mononitrate ER 30 mg Tablet PO (08:06)
[2023-06-01] MEDS: diphenhydrAMINE 50 mg Capsule PO (08:17)
[2023-06-01] MEDS: sodium chloride 0.9% 1,000 ML 50 ML IV (08:17)
--- NOTE | 2023-06-01 09:02 | PC.CHAP ---
Pastoral Care Encounter/Spiritual Assessment Type of Contact [] Declined hoof and shoe inspector visit [] Patient/Family/Request visit [] Outpatient visit [] Follow-up visit [] Physician referral [] Code/Alert [x] Routine visit [] Staff referral [] Actively dying [] Patient sleeping [x] Family support [] [] Out of room [] Palliative care [] [] Receiving care in room [] Pre-surgical visit [] Trauma [] Long length of stay [] ICU visit [] Other: Relational/Emotional Strength [x] Patient feels connected with others/family/visitors/staff [] Distress [] Loneliness/isolation [] Abandonment Spirituality of Patient [x] Person of Rosie [] Attends Caodaism of their Rosie [x] Believes in Prayer [] Reads Bible or Buddhism materials [] There are Spiritual issues to be addressed Impregnator Helper Interventions [x] Prayer [] Active listening [] Non-anxious presence [x] Spiritual/emotional support [] Crisis/trauma care [] Spiritual counseling [] Bereavement support [] Provided bereavement packet [] Provided Bible/devotional materials [] Provided toy/stuffed animal, coloring book to patient or family member [] Provided Communion [] Anointing/Beacon [] Salvation [x] Completed spiritual assessment [] Other: Impact on Illness or Injury [] Angry [] Fearful [] Anxious [] Often cries [] Exhaustion [] Unable to work [] Unable to attend rastafarian [] Unable to walk/stand [] Unable to read [] Unable to drive [] Unable to eat/drink [] Unable to sleep [] Unable to be with family [] Patient intubated [] Other: Summary Time spent with patient 5 min
--- NOTE | 2023-06-01 09:18 | W.PM.OPSUD ---
Surgery/Procedure H&P Update DATE OF PROCEDURE: June 01, 2023 DATE H&P PERFORMED: 05/31/23 H&P UPDATE INFORMATION: I have reviewed H&P completed within last 30 days, I have examined patient prior to procedure and No changes to prior documentation PREOP DIAGNOSIS: NSTEMI PRIMARY INDICATION FOR PROCEDURE: NSTEMI PLANNED PROCEDURE: Operation Date: 06/01/23 10:00 Proposed Procedures p Cardiac Catheterization(Left) - Jose Martin Chester M.D Possible percutaneous coronary intervention PATIENT REASSESSED PRIOR TO SEDATION, WITH NO CHANGE NOTED: Yes PHYSICAL EXAM: alert, oriented x 3, clear to auscultation bilaterally and regular rate & rhythm AIRWAY EVAL/ANESTHESIA PLAN: normal airway, ASA III, Local Anesthesia, Risks, benefits & alternatives of sedation and/or procedure discussed and Patient agrees to continue as planned ADDITIONAL INFORMATION: Moderate sedation
--- NOTE | 2023-06-01 10:19 | PM.PN ---
Subjective Subjective: Patient underwent coronary angiogram today that showed severe distal left main into ostial left circumflex artery stenosis. SVG to LAD and SVG to RPDA are patent. SVG to left circumflex artery is known occluded. He underwent successful revascularization of ostial left circumflex artery stenosis with 1 stent from left main into circumflex. Vitals/I&O/Wt Last Vital Signs Temp 97.5 F L 06/01/23 07:29 Pulse 78 06/01/23 07:55 Resp 16 06/01/23 07:55 BP 120/70 06/01/23 07:29 Pulse Ox 95 06/01/23 07:55 O2 Del Method Room Air 06/01/23 07:55 05/31/23 06/01/23 06/01/23 22:59 06:59 14:59 Intake Total 540 / 780 Output Total 250 / 250 300 / 550 Balance 290 / 530 -300 / 230 Weight last 48 hrs Weight 172 lb Physical Exam Narrative: GENERAL: Patient is alert, awake and oriented x3. [] NECK: No jugular vein distension. [] HEENT: No cyanosis. No icterus. No pallor. [] HEART: Regular S1 and S2. LUNGS: Clear to auscultate bilaterally. [] CENTRAL NERVOUS SYSTEM: Grossly nonfocal. [] EXTREMITIES: Lower extremities with 1+ edema bilaterally. Pulses palpable in the lower extremities, both dorsalis pedis and posterior tibial. [] Data 06/01/23 03:07 06/01/23 03:07 A&P Assessment and plan (1) Acute non-ST elevation myocardial infarction (NSTEMI): (2) Atrial fibrillation: Qualifiers: Atrial fibrillation type: longstanding persistent Qualified Code(s): I48.11 - Longstanding persistent atrial fibrillation (3) Chest pain: (4) Coronary artery disease: Qualifiers: Coronary Disease-Associated Artery/Lesion type: bypass graft [place] vs. transplanted heart: [place] heart Associated angina: with unstable angina Qualified Code(s): I25.700 - Atherosclerosis of coronary artery bypass graft(s), unspecified, with unstable angina pectoris (5) Hypertension: Qualifiers: Hypertension type: essential hypertension Qualified Code(s): I10 - Essential (primary) hypertension (6) S/P cardiac pacemaker procedure: (7) Hx of CABG: (8) Sick sinus syndrome: Plan Above-mentioned coronary anatomy. He is status post PCI with 1 stent of left main into left circumflex artery. We will load with Plavix 600mg daily. Continue aspirin. At time of discharge tomorrow we will send him home on Eliquis and Plavix. ECHO shows LVEF is 30% Uptitrate metoprolol. Can start low dose losartan. Thank you for involving us with care of this patient. We will continue to follow. If stays stable, plan for discharge tomorrow. Please call with questions. Attestations Medical Necessity Statement*: Care expected to cross 2 midnights. Coding Level of Care Code Acute Code for [facility] Fwd Diagnoses Acute non-ST elevation myocardial infarction (NSTEMI) I21.4 Atrial fibrillation I48.11 Atrial fibrillation type: longstanding persistent Chest pain R07.9 Coronary artery disease I25.700 Coronary Disease-Associated Artery/Lesion type: bypass graft [place] vs. transplanted heart: [place] heart Associated angina: with unstable angina Hypertension I10 Hypertension type: essential hypertension S/P cardiac pacemaker procedure Z95.0 Hx of CABG Z95.1 Sick sinus syndrome I49.5
--- NOTE | 2023-06-01 10:24 | PC.NURSE ---
cpru nurse received pt from vp lab post stent. right femoral access point with sheath still attached to pressure bag. no bruising or hematoma noted. pt complains of no pain. pt to recover in cpru for approximately 30 mins and will return to his room.
--- NOTE | 2023-06-01 11:00 | ECG_ITS ---
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 Measurements Intervals [place] Rate: 68 P: 38 AL: 180 QRS: -36 QRSD: 107 T: 38 QT: 461 QTc: 493 Interpretive Statements SINUS RHYTHM LEFT AXIS DEVIATION [QRS AXIS < -30] PROLONGED QT INTERVAL Compared to ECG 05/31/2023 06:37:17 Left-axis deviation now present Prolonged QT interval now present Electronically Signed On 06-01-2023 11:09:13 CDT by Krissy Ling M.D. [email or web address]
[2023-06-01] MEDS: lidocaine 2% viscous 15 ML, aluminum-mag hydrox-simethicon 30 ML, sucralfate oral liq 1 GM PO (11:05)
[2023-06-01] MEDS: nitroglycerin 0.4 mg sublingual Tablet SUBLINGUAL (11:09)
--- NOTE | 2023-06-01 11:13 | PC.NURSE ---
around 1050 pt started complaining of chest pain. called physician and received orders for sublingual nitro, gi cocktail and ekg. will call dr back after administration.
--- NOTE | 2023-06-01 13:08 | PM.PN ---
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 He states he is feeling well. Denies chest pain or pressure. No trouble breathing. No pain in his right groin. He is is by his bedside making sure he is laying supine and not crossing his legs. Discussed with them to avoid any lifting over the next 3 days or so, and monitor right groin to make sure there is no swelling, bleeding or pulsatile mass. His states will seek medical attention immediately in case of any of those or other concerning symptoms. Vitals/I&O/Wt Last Vital Signs Temp 97.5 F L 06/01/23 07:29 Pulse 71 06/01/23 12:58 Resp 26 H 06/01/23 12:58 BP 130/74 06/01/23 12:58 Pulse Ox 91 06/01/23 12:58 O2 Del Method Room Air 06/01/23 12:58 05/31/23 06/01/23 06/01/23 22:59 06:59 14:59 Intake Total 540 / 780 Output Total 250 / 250 300 / 550 Balance 290 / 530 -300 / 230 Weight last 48 hrs Weight 78.018 kg Physical Exam Narrative: Accompanied by his Const: COMMON NORMALS: patient oriented x3 and alert GENERAL APPEARANCE: cooperative ORIENTATION/CONSCIOUSNESS: Yes awake HENMT: COMMON NORMALS: oropharynx normal Neck/C-Spine: COMMON NORMALS: no JVD Resp: COMMON NORMALS: normal respiratory effort and clear to auscultation bilaterally AUSCULTATION: clear to auscultation bilaterally Cardio: COMMON NORMALS: no JVD, regular rhythm, S1 normal heart sound present, S2 normal heart sound present and No murmurs present (Cardio) RHYTHM: regular rhythm HEART SOUNDS: S1 normal heart sound present and S2 normal heart sound present GI: COMMON NORMALS: Normal to inspection, nondistended, normoactive bowel sounds present, Soft to palpation and non-tender PALPATION: Yes Soft to palpation Extremity: COMMON NORMALS: no joint enlargement and no pedal edema NARRATIVE EXTREMITY EXAM: Introducer sheath in right groin, no bleeding, no surrounding bruising or swelling. Neuro: COMMON NORMALS: patient oriented x3 and moves all extremities SENSORIUM/ORIENTATION: Yes alert Skin: COMMON NORMALS: no rashes or lesions noted GENERAL SKIN EXAM: no rashes or lesions noted Data 06/01/23 03:07 06/01/23 03:07 A&P Assessment and plan (1) Acute non-ST elevation myocardial infarction (NSTEMI): (2) Atrial fibrillation: Qualifiers: Atrial fibrillation type: longstanding persistent Qualified Code(s): I48.11 - Longstanding persistent atrial fibrillation (3) Chest pain: (4) Coronary artery disease: Qualifiers: Coronary Disease-Associated Artery/Lesion type: bypass graft [place] vs. transplanted heart: [place] heart Associated angina: with unstable angina Qualified Code(s): I25.700 - Atherosclerosis of coronary artery bypass graft(s), unspecified, with unstable angina pectoris (5) Hypertension: Qualifiers: Hypertension type: essential hypertension Qualified Code(s): I10 - Essential (primary) hypertension (6) S/P cardiac pacemaker procedure: (7) Hx of CABG: (8) Sick sinus syndrome: Plan #NSTEMI #Coronary disease status post CABG times 01/2005 #Hyperlipidemia #Heart failure with reduced ejection fraction 34% EF #Atrial fibrillation chronically on anticoagulation with apixaban #GERD #Hypertension Cardiology documentation reviewed. Status post coronary angiography this morning. Per report status post PCI with stent placement. Currently postintraventricular. Monitor on telemetry for any reperfusion injury, at risk of arrhythmia. Reassess chemistry for renal function, electrolytes. Reassess CBC for anemia. Continue aspirin. Beta-geri. Statin. Echocardiogram noted with low ejection fraction, 30%, grade 1 diastolic dysfunction. Unable to compare to prior. ? Hold apixaban at this time ? Cover with therapeutic Lovenox ?Continue cardiac telemetry Discussed with case management. Full code SCDs, therapeutic Lovenox Attestations Medical Necessity Statement*: Continue admission for assessment management of NSTEMI Diagnoses Acute non-ST elevation myocardial infarction (NSTEMI) I21.4 Atrial fibrillation I48.11 Atrial fibrillation type: longstanding persistent Chest pain R07.9 Coronary artery disease I25.700 Coronary Disease-Associated Artery/Lesion type: bypass graft [place] vs. transplanted heart: [place] heart Associated angina: with unstable angina Hypertension I10 Hypertension type: essential hypertension S/P cardiac pacemaker procedure Z95.0 Hx of CABG Z95.1 Sick sinus syndrome I49.5
--- NOTE | 2023-06-01 18:20 | PC.NURSE ---
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 Dr. Chester wanted his sheath pulled at 1200. Myself and PARMJIT Mazariegos were present in the room at time of sheath pull. The sheath was pulled at 1220 and homeostasis was obtained immediately. Manual pressure was held x 20 minutes. No hematoma was noted at site. Vitals were stable throughout. Dressing was applied. Patient had no symptoms. Patient laid at 30 degrees x 6 hours after the sheath was pulled. Dressing remained dry.
[2023-06-02] VITALS: BP 107/60; PULSE 79; RESP 19; TEMP 36.8; O2SAT 96
[2023-06-02 02:16] VITALS: PULSE 76; RESP 16; O2SAT 94
[2023-06-02 04:00] VITALS: BP 129/71; PULSE 83; RESP 17; TEMP 36.6; O2SAT 94
[2023-06-02 04:18] LABS: Basophils % 0.4 %; Eosinophils % 10.5 %; Hematocrit 52.9 % (42.0-52.0); Lymphocytes % 30.8 %; Mean Corpuscular HGB Conc 32.1 g/dL (30.0-36.0); Mean Corpuscular Hemoglobin 30.5 pg (28.0-34.0); Mean Platelet Volume 9.8 fL (7.4-10.4); Monocytes # 0.6 10^3/uL (0.2-0.9); Monocytes % 6.6 %; Neutrophils # 5.03 10^3/uL (1.8-7.7); Neutrophils % 51.5 %; Nucleated Red Blood Cells % 0 %; Platelet Count 214 10^3/cmm (130-400); Red Blood Count 5.57 10^6/uL (4.1-5.3); White Blood Count 9.8 10^3/uL (4.0-10.0)
[2023-06-02 04:40] LABS: Anion Gap 14.9 (5-19); Blood Urea Nitrogen 17 mg/dL (8-23); Calcium 9.1 mg/dL (8.5-10.5); Carbon Dioxide 29 mmol/L (22-29); Chloride 103 mmol/L (98-107); Glucose 112 mg/dL (65-115); Osmolality Calculated 296 mOsm/kg (285-295); Potassium 4.9 mmol/L (3.5-5.1); Sodium 142 mmol/L (136-145)
[2023-06-02 06:00] VITALS: PULSE 82
--- NOTE | 2023-06-02 07:49 | P.PN_ITS ---
Subjective Subjective: Patient is doing well. No chest pain. Vitals/I&O/Wt Last Vital Signs Temp 97.8 F 06/02/23 04:00 Pulse 82 06/02/23 06:00 Resp 17 06/02/23 04:00 BP 129/71 06/02/23 04:00 Pulse Ox 94 06/02/23 04:00 O2 Del Method Room Air 06/02/23 04:00 06/01/23 06/02/23 06/02/23 22:59 06:59 14:59 Intake Total 1050 / 1270 150 / 1420 Output Total 870 / 870 75 / 945 Balance 180 / 400 75 / 475 Physical Exam 2 Narrative: GENERAL: Patient is alert, awake and oriented x3. [] NECK: No jugular vein distension. [] HEENT: No cyanosis. No icterus. No pallor. [] HEART: Regular S1 and S2. LUNGS: Clear to auscultate bilaterally. [] CENTRAL NERVOUS SYSTEM: Grossly nonfocal. [] EXTREMITIES: Lower extremities with no edema Data 06/02/23 03:55 06/02/23 03:55 A&P Assessment and plan (1) Acute non-ST elevation myocardial infarction (NSTEMI): (2) Atrial fibrillation: Qualifiers: Atrial fibrillation type: longstanding persistent Qualified Code(s): I48.11 - Longstanding persistent atrial fibrillation (3) Chest pain: (4) Coronary artery disease: Qualifiers: Coronary Disease-Associated Artery/Lesion type: bypass graft [place] vs. transplanted heart: [place] heart Associated angina: with unstable angina Qualified Code(s): I25.700 - Atherosclerosis of coronary artery bypass graft(s), unspecified, with unstable angina pectoris (5) Hypertension: Qualifiers: Hypertension type: essential hypertension Qualified Code(s): I10 - Essential (primary) hypertension (6) S/P cardiac pacemaker procedure: (7) Hx of CABG: (8) Sick sinus syndrome: Plan He is status post PCI with 1 stent of left main into left circumflex artery. Continue Eliquis and Plavix daily. LV systolic function is significantly low with EF of 30%. Uptitrate metoprolol. Can start low dose losartan. Thank you for involving us with care of this patient. Patient is stable to be discharged from cardiology standpoint. Please call with questions. Attestations Medical Necessity Statement*: Care expected to cross 2 midnights. Coding Level of Care Code Acute Code for [facility] Fwd Diagnoses Acute non-ST elevation myocardial infarction (NSTEMI) I21.4 Atrial fibrillation I48.11 Atrial fibrillation type: longstanding persistent Chest pain R07.9 Coronary artery disease I25.700 Coronary Disease-Associated Artery/Lesion type: bypass graft [place] vs. transplanted heart: [place] heart Associated angina: with unstable angina Hypertension I10 Hypertension type: essential hypertension S/P cardiac pacemaker procedure Z95.0 Hx of CABG Z95.1 Sick sinus syndrome I49.5
[2023-06-02 08:00] VITALS: BP 141/72; PULSE 80; PULSE 90; RESP 16; TEMP 37.2; O2SAT 95; O2SAT 96
[2023-06-02] MEDS: ipratropium-albuterol 3 mL Neb INHALATION (08:26)
[2023-06-02] MEDS: atorvastatin 40 mg Tablet 20 MG PO (10:13)
[2023-06-02] MEDS: isosorbide mononitrate ER 30 mg Tablet PO (10:14)
[2023-06-02] MEDS: aspirin 81 mg EC Tablet PO (10:14)
[2023-06-02] MEDS: clopidogrel 75 mg Tablet PO (10:15)
[2023-06-02] MEDS: metoprolol succinate ER (24 HR) 25 mg Tablet PO (10:15)
[2023-06-02] MEDS: duloxetine 60 mg Capsule PO (10:15)
--- NOTE | 2023-06-02 10:58 | P.DS_ITS ---
Discharge Providers Date of Admission: 05/31/23 04:09 Date of Discharge: June 02, 2023 Attending Provider at Admission: Joyce Joel MD Attending Provider at Discharge: Efraín Mckenzie Primary Care Provider: Uziel Iverson MD Diagnoses at Discharge Discharge Diagnosis (1) Acute non-ST elevation myocardial infarction (NSTEMI): Status: Acute (2) Atrial fibrillation: Status: Acute Qualifiers: Atrial fibrillation type: longstanding persistent Qualified Code(s): I48.11 - Longstanding persistent atrial fibrillation (3) Chest pain: Status: Acute (4) Coronary artery disease: Status: Acute Qualifiers: Coronary Disease-Associated Artery/Lesion type: bypass graft [place] vs. transplanted heart: [place] heart Associated angina: with unstable angina Qualified Code(s): I25.700 - Atherosclerosis of coronary artery bypass graft(s), unspecified, with unstable angina pectoris Permanent problem details: Last echocardiogram January 2019 with EF 55 to 60% (5) Hypertension: Status: Acute Qualifiers: Hypertension type: essential hypertension Qualified Code(s): I10 - Essential (primary) hypertension (6) S/P cardiac pacemaker procedure: Status: Acute (7) Hx of CABG: Status: Acute (8) Sick sinus syndrome: Status: Acute Reason for Visit Reason for Visit: chest pain Hospital Course Hospital Course Pleasant 83-year-old gentleman with history of CAD, CABG in 2004, PCI of LAD in 2019, at that time noted painted SVG to LAD and SVG to RPDA, was admitted after presenting with chest pain, with finding of NSTEMI with noted troponin elevation up to 123 at 6 hours. With history of atrial fibrillation he is on Eliquis. He was treated with aspirin in the hospital, did not wish to switch to Lovenox. Eliquis was held off. Assessment by TTE showed severely decreased LV systolic function, EF 30%, severe global left ventricular hypokinesis, grade 1 diastolic dysfunction. He underwent further assessment with coronary angiography with 1 stent placement to left main into left circumflex artery. As per cardiology he is instructed to continue on Eliquis and Plavix daily. Continue to uptitrate metoprolol. He is started on low-dose losartan. He is feeling much better, has not had any recurrence of chest pain. He is eagerly anticipating to go home. Discussed with him and his importance of antiplatelet, they know to seek reassessment in case of any concerning symptoms. Follow-up with cardiology. Physical Exam Narrative: Accompanied by his Const: COMMON NORMALS: patient oriented x3 and alert GENERAL APPEARANCE: cooperative ORIENTATION/CONSCIOUSNESS: Yes awake HENMT: COMMON NORMALS: oropharynx normal Neck/C-Spine: COMMON NORMALS: no JVD Resp: COMMON NORMALS: normal respiratory effort and clear to auscultation bila terally AUSCULTATION: clear to auscultation bilaterally Cardio: COMMON NORMALS: no JVD, regular rhythm, S1 normal heart sound present, S2 normal heart sound present and No murmurs present (Cardio) RHYTHM: regular rhythm HEART SOUNDS: S1 normal heart sound present and S2 normal heart sound present GI: COMMON NORMALS: Normal to inspection, nondistended, normoactive bowel sounds present, Soft to palpation and non-tender PALPATION: Yes Soft to palpation Extremity: COMMON NORMALS: no joint enlargement and no pedal edema NARRATIVE EXTREMITY EXAM: Right groin access site dressing clean, no bleeding, no bruising, no redness, no tenderness, no pulsatile mass. 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 echo complete* [id number] Stat Ultrasound 05/31/23 04:05 Completed Pending at discharge Category Date Time Status Basic Metabolic Panel AM LABS Lab 06/03/23 04:00 Ordered Basic Metabolic Panel AM LABS Lab 06/04/23 04:00 Ordered Complete Blood Count w/Auto AM LABS Lab 06/03/23 04:00 Ordered Complete Blood Count w/Auto AM LABS Lab 06/04/23 04:00 Ordered Radiology Impressions Chest X-Ray 05/31/23 01:03 IMPRESSION: Postop and chronic findings above, no acute process noted. Laboratory Results WBC 9.8 10^3/uL (4.0-10.0) 06/02/23 03:55 RBC 5.57 10^6/uL (4.1-5.3) H 06/02/23 03:55 Hgb 17.0 g/dL (11.7-16.6) H 06/02/23 03:55 Hct 52.9 % (42.0-52.0) H 06/02/23 03:55 MCV 95.0 fl (80-94) H 06/02/23 03:55 MCH 30.5 pg (28.0-34.0) 06/02/23 03:55 MCHC 32.1 g/dL (30.0-36.0) 06/02/23 03:55 RDW 14.0 % (12.1-15.1) 06/02/23 03:55 Plt Count 214 10^3/cmm (130-400) 06/02/23 03:55 MPV 9.8 fL (7.4-10.4) 06/02/23 03:55 Neut % (Auto) 51.5 % 06/02/23 03:55 Lymph % (Auto) 30.8 % 06/02/23 03:55 [place] % (Auto) 6.6 % 06/02/23 03:55 Eos % (Auto) 10.5 % 06/02/23 03:55 Baso % (Auto) 0.4 % 06/02/23 03:55 Neut # (Auto) 5.03 10^3/uL (1.8-7.7) 06/02/23 03:55 Lymph # (Auto) 3.0 10^3/uL (0.8-4.8) 06/02/23 03:55 [place] # (Auto) 0.6 10^3/uL (0.2-0.9) 06/02/23 03:55 Eos # (Auto) 1.0 10^3/uL (0.0-0.8) H 06/02/23 03:55 Baso # (Auto) 0.0 10^3/uL (0.0-0.1) 06/02/23 03:55 Nucleated RBC % (auto) 0 % 06/02/23 03:55 Nucleated RBCs # 0.0 /100WBC 06/02/23 03:55 Sodium 142 mmol/L (136-145) 06/02/23 03:55 Potassium 4.9 mmol/L (3.5-5.1) 06/02/23 03:55 Chloride 103 mmol/L (98-107) 06/02/23 03:55 Carbon Dioxide 29 mmol/L (22-29) 06/02/23 03:55 Anion Gap 14.9 (5-19) 06/02/23 03:55 BUN 17 mg/dL (8-23) 06/02/23 03:55 Creatinine 0.9 mg/dL (0.7-1.2) 06/02/23 03:55 GFR Calculation Not Reportable 06/02/23 03:55 Glucose 112 mg/dL (65-115) 06/02/23 03:55 Estimat Average Glucose 123 05/31/23 01:15 Hemoglobin A1c 5.9 % (4.0-6.0) 05/31/23 01:15 Calculated Osmolality 296 mOsm/kg (285-295) H 06/02/23 03:55 Calcium 9.1 mg/dL (8.5-10.5) 06/02/23 03:55 Magnesium 2.2 mg/dL (1.7-2.3) 06/01/23 03:07 Total Bilirubin 0.4 mg/dL (0.15-1.2) 05/31/23 01:15 AST 18 U/L (0-40) 05/31/23 01:15 ALT 12 U/L (0-41) 05/31/23 01:15 Alkaline Phosphatase 83 U/L (40-130) 05/31/23 01:15 Troponin T Baseline 88 ng/L (0-15) H 05/31/23 01:15 Troponin T 120 Minute 102.1 ng/L (0-15) H 05/31/23 03:22 Delta Troponin T 14.1 ABS# (0-10) H* 05/31/23 03:22 Troponin T Hi Sens 6Hr 123.4 ng/L (0-15) H 05/31/23 06:58 Troponin T Hi Sens 6Hr Delta 35.4 ng/L (0-12) H* 05/31/23 06:58 NT-Pro-B Natriuret Pep 809 pg/mL (0-450) H 05/31/23 01:15 Total Protein 6.8 g/dL (6.6-8.7) 05/31/23 01:15 Albumin 4.1 g/dL (3.5-5.2) 05/31/23 01:15 Globulin 2.7 g/dL (1.3-4.6) 05/31/23 01:15 Triglycerides 102 mg/dL (0-150) 05/31/23 03:22 Cholesterol 133 mg/dL (0-200) 05/31/23 03:22 LDL Cholesterol, Calc 73 mg/dL (50-129) 05/31/23 03:22 HDL Cholesterol 40 mg/dL (60-100) L 05/31/23 03:22 LDL/HDL Ratio 1.83 RATIO (0.00-3.22) 05/31/23 03:22 Cholesterol/HDL Ratio 3.33 mg/dL (1.0-5.00) 05/31/23 03:22 TSH 1.74 uIU/mL (0.27-4.20) 05/31/23 03:22 Vitals Last Vital Signs Temp 98.9 F 06/02/23 08:00 Pulse 90 06/02/23 08:00 Resp 16 06/02/23 08:00 BP 141/72 06/02/23 08:00 Pulse Ox 95 06/02/23 08:00 O2 Del Method Room Air 06/02/23 08:00 Discharge Plan Discharge Patient Disposition: Home Condition: Stable Prescriptions: New losartan 25 mg tablet 25 mg PO DAILY Qty: 10 0RF clopidogrel 75 mg Tablet 75 mg PO DAILY Qty: 90 0RF clopidogrel 75 mg tablet 75 mg PO DAILY Qty: 10 0RF losartan 25 mg tablet 25 mg PO DAILY Qty: 90 0RF Continued duloxetine 60 mg capsule,delayed release(DR/EC) 60 mg PO DAILY cholecalciferol (vitamin D3) 50 mcg (2,000 unit) capsule 50 mcg PO DAILY nitroglycerin [Nitrostat] 0.4 mg tablet, sublingual 0.4 mg SUBLINGUAL Q5M PRN (Reason: chest pains) Qty: 25 3RF spironolactone 25 mg tablet 12.5 mg PO DAILY Qty: 45 3RF simvastatin 40 mg tablet 40 mg PO DAILY Qty: 90 3RF pantoprazole 40 mg tablet,delayed release (DR/EC) 40 mg PO DAILY Qty: 90 3RF Eliquis 5 mg tablet 5 mg PO BID Qty: 180 3RF metoprolol succinate 25 mg tablet extended release 24 hr 25 mg PO BID Qty: 180 3RF isosorbide mononitrate 30 mg tablet extended release 24 hr 30 mg PO DAILY Qty: 90 1RF Discontinued aspirin 81 mg tablet,delayed release (DR/EC) 81 mg PO DAILY Discharge Orders: Discharge Order (Routine); Ordered 06/02/23 Ordered By: Efraín Mckenzie Referrals: Jose Martin Chester M.D [Physician] - (Your Dr. Chester follow up appointment will be scheduled while you are at your Mirtha Hui appointment. Thank you.) Mirtha Hui FNP [Nurse Practitioner] - 06/15/23 9:30 am Uziel Iverson MD [Primary Care Provider] - 06/09/23 11:10 am Discharge Diet: Cardiac Discharge Activity: Increase activity as tolerated and Limit activity as instructed Patient Instructions: Clopidogrel (By mouth), Coronary Angioplasty (DC), Chest Pain Stoplight, Post Angiogram Home Care Instructions, Post Heart Attack Stoplight Activity Restrictions/Additional Instructions: Continue Eliquis and Plavix daily. Do not stop or change medications unless instructed to do so by her doctor. Particular do not miss any Plavix doses as that may lead to closure of the stent and a heart attack. Plavix dosing is 75 mg daily. Supply of 10 tablets will be sent to the local [facility] until you can obtain the prescription from [facility]. Similarly asked cardiology recommendation restarted on losartan, a small prescription of 10 tablets was sent to local [facility] until he can get her pre scription from [place]. Follow-up with your primary doctor and cardiology, continue to optimize risk factors of coronary artery disease. Lasix, a diuretic, JONATHAN given as needed in case of edema as you may be at risk of developing congestive heart failure due to decreased strength of your left ventricle with ejection fraction down to 30%. Seek medical attention immediately in case you experience chest pain or pressure, difficulty breathing, feeling faint, nonresolving bleeding, worsening pain, bleeding or pulsatile mass in your right groin or loss of strength or sensation or color change in the right leg or any other concerning symptoms. Discharge Attestations Time Spent in Discharge Care*: greater than 30 min Quality Metrics Clinical Quality Measures [ Acute Myocardial Infaction { Clinical Trial Participant: No; Contraindication to aspirin: Treatment changed; Contraindication to statin: None; Statin prescribed; Contraindication to PCI: None; PCI performed;}] Coding Level of Care Code 54417 Total time (in minutes) for Discharge: 40 Diagnoses Acute non-ST elevation myocardial infarction (NSTEMI) I21.4 Atrial fibrillation I48.11 Atrial fibrillation type: longstanding persistent Chest pain R07.9 Coronary artery disease I25.700 Coronary Disease-Associated Artery/Lesion type: bypass graft [place] vs. transplanted heart: [place] heart Associated angina: with unstable angina Hypertension I10 Hypertension type: essential hypertension S/P cardiac pacemaker procedure Z95.0 Hx of CABG Z95.1 Sick sinus syndrome I49.5
[2023-06-02 10:59] VITALS: BP 141/72; PULSE 90; RESP 16; TEMP 37.2; O2SAT 95
--- NOTE | 2023-06-03 14:39 | PC.SOCIAL ---
TCM call attempted, unable to reach patient or leave message. Message sent to Dr. Iverson office to schedule follow up.
== END 2023-06-02 11:16 | disposition home or self-care (01) | DRG 247 ==
LOC: ER 03:55 → CSU 04:09
PROVIDERS: Internal Medicine; Nurse Practitioner Family; Admitting Provider Internal Medicine; Emergency Provider Emergency Medicine; PCP Family Medicine; Visit Provider Internal Medicine
PROC: 027034Z Dilation of Coronary Artery, One Artery with Drug-eluting Intraluminal Device, Percutaneous Approach (ICD-10-PCS; principal; 2023-06-01 10:00)
PROC: 027034Z Dilation of Coronary Artery, One Artery with Drug-eluting Intraluminal Device, Percutaneous Approach (ICD-10-PCS; 2023-06-01 10:00)
DX: I21.4 Non-ST elevation (NSTEMI) myocardial infarction (principal); I48.11 Longstanding persistent atrial fibrillation; I50.22 Chronic systolic (congestive) heart failure; I25.110 Atherosclerotic heart disease of native coronary artery with unstable angina pectoris; I25.710 Atherosclerosis of autologous vein coronary artery bypass graft(s) with unstable angina pectoris; I11.0 Hypertensive heart disease with heart failure; I49.5 Sick sinus syndrome; Z79.01 Long term (current) use of anticoagulants; Z95.0 Presence of cardiac pacemaker; E78.5 Hyperlipidemia, unspecified; K21.9 Gastro-esophageal reflux disease without esophagitis
CPT/HCPCS: 36415; 71045; 80048; 80053; 80061; 83036; 83735; 83880; 84443; 84484; 85025; 92920; 93005; 93306; 93455; 94640; 94664; 96372; 99152; 99153; 99285; C1725; C1769; C1874; C1887; C1894; C9600; J1644; J1650; J2250; J3010; J7030; Q0163; Q9967

== ENCOUNTER → 2023-06-15 09:12 | Outpatient (BNVA) | payer OTHER, SELFPAY | PROVIDERS: PCP Family Medicine; Visit Provider Nurse Practitioner Family | DX: I25.700 Atherosclerosis of coronary artery bypass graft(s), unspecified, with unstable angina pectoris (principal); Z95.0 Presence of cardiac pacemaker; F17.210 Nicotine dependence, cigarettes, uncomplicated; I10 Essential (primary) hypertension | CPT/HCPCS: 36415; 80048; 93288; 99214 ==

== ENCOUNTER → 2023-07-22 09:00 | Outpatient (BNVA) | payer OTHER, SELFPAY | PROVIDERS: PCP Family Medicine; Visit Provider Internal Medicine | DX: I48.11 Longstanding persistent atrial fibrillation (principal); I25.700 Atherosclerosis of coronary artery bypass graft(s), unspecified, with unstable angina pectoris; I10 Essential (primary) hypertension; Z95.0 Presence of cardiac pacemaker; Z79.01 Long term (current) use of anticoagulants; F17.210 Nicotine dependence, cigarettes, uncomplicated | CPT/HCPCS: 99214 ==

== ENCOUNTER 2024-01-27 09:13 | Emergency (ER) | payer OTHER, SELFPAY ==
--- NOTE | 2024-01-27 09:17 | ECG_ITS ---
[facility] Test Date: 2024-01-27 Pat Name: Toni Quintanilla Department: Room: Gender: Male Manager Transportation: : 1940 Requested By: Yun [place] Order Number: [id number] Missy MD: Hong Calhoun M.D. Measurements Intervals [place] Rate: 92 P: 36 [place]: 181 QRS: -55 QRSD: 152 T: 53 QT: 428 QTc: 531 Interpretive Statements SINUS RHYTHM POSSIBLE LEFT ATRIAL ENLARGEMENT [-0.1mV P-WAVE IN V1/V2] RIGHT BUNDLE BRANCH BLOCK [120+ ms QRS DURATION, UPRIGHT V1, 40+ ms S IN I/aVL/V4/V5/V6] LEFT ANTERIOR FASCICULAR BLOCK [QRS AXIS <= -45, QR IN I, RS IN II] INTERPRETATION BASED ON A DEFAULT AGE OF 40 YEARS Compared to ECG 06/01/2023 11:00:01 Right bundle-branch block now present Left anterior fascicular block now present Left-axis deviation no longer present Prolonged QT interval no longer present Electronically Signed On 01-27-2024 17:56:48 WEAPONS AND TACTICS INSTRUCTOR by Hong Calhoun M.D. [id number]
[2024-01-27 09:20] VITALS: BP 119/73; PULSE 89; RESP 16; TEMP 36.3; O2SAT 96
--- NOTE | 2024-01-27 09:24 | XR_ITS ---
WS: [id number] Exam: XR chest 1V portable [id number] Date/Time of Exam: 01/27/2024 9:36 AM Reason For Exam: chest pain Comparison 05/31/2023. The lungs are fully expanded. No consolidating infiltrates. Chronic interstitial changes. Mild cardia c enlargement unchanged. Chronic elevation of the RIGHT diaphragm. Signs of previous CABG surgery. Le ft-sided cardiac pacer noted. Trace bibasal pleural effusions. IMPRESSION: 1. No acute cardiopulmonary finding. 2. Chronic changes as noted above. 3. Trace bibasal pleural effusions.
--- NOTE | 2024-01-27 09:27 | ED_ITS ---
HPI - Chest Pain 2 General: Chief Complaint: Chest Pain Stated Complaint: chest pain Time Seen by Provider: 01/27/24 09:27 Source: patient Mode of arrival: ambulatory History of Present Illness: 84-year-old presents emergency room with intermittent chest pain for the last week. He does have some orthopnea. Known history of coronary artery disease. He also has a known history of atrial fibrillation he is on apixaban. He has noticed some mild orthopnea but no swelling in his legs. MD complaint: chest pain Pertinent past history: coronary artery disease and prior PR Onset (ago): week(s) Timing of current episode: episodic Prior episodes: Yes Onset: during rest Pain location: left chest Pain radiation: none Associated symptoms: Reports dyspnea, nausea and palpitations; Deny abdominal pain, diaphoresis, fever(s), leg edema, sense of impending doom, syncope or vomiting Review of Systems 2 Const: Denies: fever(s), chills or diaphoresis Card: Reports: chest pain and palpitations; Denies: edema, swelling of feet/ankles or syncope Resp: Reports: dyspnea GI: Reports: nausea; Denies: abdominal pain or vomiting : Denies: dysuria, urinary frequency or urinary urgency Musc: Denies: neck pain or back pain Skin/Breast: Denies: rash PFSH ED 2 PFSH: Medical History Elevated troponin Chest pain GERD (gastroesophageal reflux disease) Sick sinus syndrome BPH (benign prostatic hyperplasia) Hyperlipidemia Hypertension Coronary artery disease Last echocardiogram 05/31/23 with EF 30% Unstable angina pectoris Atrial fibrillation Surgical History History of hemorrhoidectomy S/P cholecystectomy S/P TURP S/P CABG (coronary artery bypass graft) S/P cardiac pacemaker procedure Family History Other CAD (coronary artery disease) Social History Smoking and tobacco/nicotine status: current every day tobacco/nicotine user cigarettes Packs smoked per day: 0.5 Years cigarettes smoked: 55 Alcohol intake: never Substance/Drug Use: never Lives independently: Yes Household members: spouse Housing: House Marital status: Number of children: 4 Pets and animals: Yes Pets & animals: dog(s) Physical Exam 2 Const: GENERAL APPEARANCE: cooperative and comfortable O RIENTATION/CONSCIOUSNESS: Yes awake, Yes oriented to person, Yes oriented to place and Yes oriented to time HENMT: COMMON NORMALS: normocephalic, atraumatic and hearing grossly normal bilaterally HEAD & SCALP: normocephalic and atraumatic Resp: COMMON NORMALS: normal respiratory effort, No retractions, No use of accessory muscles and clear to auscultation bilaterally AUSCULTATION: clear to auscultation bilaterally Cardio: COMMON NORMALS: regular rate, regular rhythm and No murmurs present (Cardio) RATE: regular rate RHYTHM: regular rhythm GI: COMMON NORMALS: Soft to palpation and No hepatosplenomegaly present A USCULTATION: Yes normoactive bowel sounds PALPATION: Yes Soft to palpation, No Tenderness to palpation present (GI), No Guarding due to palpation present (GI) and Yes No hepatosplenomegaly present Extremity: COMMON NORMALS: normal to inspection, capillary refill normal, no clubbing, cyanosis or edema, no calf tenderness and no pedal edema Neuro: SENSORIUM/ORIENTATION: Yes oriented to person, Yes oriented to place and Yes oriented to time Skin: COMMON NORMALS: no rashes or lesions noted GENERAL SKIN EXAM: no rashes or lesions noted Course 2 Vital Signs: Vital signs: Vital Signs Temperature 97.3 F L 01/27/24 09:20 Pulse Rate 90 01/27/24 12:10 Respiratory Rate 24 H 01/27/24 12:10 Blood Pressure 112/66 01/27/24 10:50 Pulse Oximetry 92 01/27/24 12:10 Oxygen Delivery Me thod Room Air 01/27/24 10:50 MDM - Chest Pain Medical Decision Making Troponins EKG did not show any acute changes. Do believe patient is in mild heart failure. I feel improvement with Lasix given here. Will stop the spironolactone and instead put him on Lasix 20 mg daily. He will need to follow-up next week with his primary care doctor to repeat BMP and reevaluate blood pressure and symptoms. Return if has further problems. Medical Records I reviewed the patient's medical records. Lab Data I reviewed the patient's lab results. 01/27/24 09:34 01/27/24 09:34 Laboratory Results WBC 8.67 10^3/uL (3.29-11.43) 01/27/24 09:34 RBC 5.05 10^6/uL (3.85-5.65) 01/27/24 09:34 Hgb 15.60 g/dL (11.27-16.99) 01/27/24 09:34 Hct 48.8 % (37-53) 01/27/24 09:34 MCV 96.6 fl (82-101) 01/27/24 09:34 MCH 30.9 pg (27-33) 01/27/24 09:34 MCHC 32.0 g/dL (30-55) 01/27/24 09:34 RDW 14.8 % (12.1-15.1) 01/27/24 09:34 Plt Count 173 10^3/cmm (157-399) 01/27/24 09:34 MPV 10.4 fL (7.4-10.4) 01/27/24 09:34 Neut % (Auto) 59.2 % 01/27/24 09:34 Lymph % (Auto) 26.9 % 01/27/24 09:34 [place] % (Auto) 6.8 % 01/27/24 09:34 Eos % (Auto) 6.3 % 01/27/24 09:34 Baso % (Auto) 0.6 % 01/27/24 09:34 Neut # (Auto) 5.13 10^3/uL (1.8-7.7) 01/27/24 09:34 Lymph # (Auto) 2.3 10^3/uL (0.8-4.8) 01/27/24 09:34 [place] # (Auto) 0.6 10^3/uL (0.2-0.9) 01/27/24 09:34 Eos # (Auto) 0.6 10^3/uL (0.0-0.8) 01/27/24 09:34 Baso # (Auto) 0.1 10^3/uL (0.0-0.1) 01/27/24 09:34 Nucleated RBC % (auto) 0 % 01/27/24 09:34 Nucleated RBCs # 0.0 /100WBC 01/27/24 09:34 Sodium 143 mmol/L (136-145) 01/27/24 09:34 Potassium 4.5 mmol/L (3.5-5.1) 01/27/24 09:34 Chloride 106 mmol/L (98-107) 01/27/24 09:34 Carbon Dioxide 28 mmol/L (22-29) 01/27/24 09:34 Anion Gap 13.5 (5-19) 01/27/24 09:34 BUN 17 mg/dL (8-23) 01/27/24 09:34 Creatinine 1.0 mg/dL (0.7-1.2) 01/27/24 09:34 GFR Calculation Not Reportable 01/27/24 09:34 Glucose 113 mg/dL (65-115) 01/27/24 09:34 Calculated Osmolality 298 mOsm/kg (285-295) H 01/27/24 09:34 Calcium 8.7 mg/dL (8.5-10.5) 01/27/24 09:34 Total Bilirubin 0.4 mg/dL (0.15-1.2) 01/27/24 09:34 AST 15 U/L (0-40) 01/27/24 09:34 ALT 10 U/L (0-41) 01/27/24 09:34 Alkaline Phosphatase 68 U/L (40-130) 01/27/24 09:34 Troponin T Baseline 22 ng/L (0-15) H 01/27/24 09:34 Troponin T 120 Minute 19.92 ng/L (0-15) H 01/27/24 11:41 Delta Troponin T -2.08 ABS# (0-10) L 01/27/24 11:41 NT-Pro-B Natriuret Pep 2882 pg/mL (0-450) H 01/27/24 09:34 Total Protein 7.2 g/dL (6.6-8.7) 01/27/24 09:34 Albumin 4.0 g/dL (3.5-5.2) 01/27/24 09:34 Globulin 3.2 g/dL (1.3-4.6) 01/27/24 09:34 All radiology interpretation(s) finalized by discharge Discharge Plan Discharge Patient Disposition: Home Clinical Impression: Congestive heart failure (CHF) Atrial fibrillation Qualifiers: Atrial fibrillation type: longstanding persistent Qualified Code(s): I48.11 - Longstanding persistent atrial fibrillation Condition: Stable Prescriptions: New furosemide 20 mg tablet 20 mg PO DAILY Qty: 30 0RF Discontinued spironolactone 25 mg tablet 25 mg PO DAILY No Action losartan 25 mg tablet 12.5 mg PO DAILY Rx Instructions: when BP is greater than 110 systolic, take 1/2 tablet (12.5mg) daily. duloxetine 60 mg capsule,delayed release(DR/EC) 60 mg PO DAILY cholecalciferol (vitamin D3) 50 mcg (2,000 unit) capsule 50 mcg PO DAILY nitroglycerin [Nitrostat] 0.4 mg tablet, sublingual 0.4 mg SUBLINGUAL Q5M PRN (Reason: chest pains) Qty: 25 3RF simvastatin 40 mg tablet 40 mg PO DAILY Qty: 90 3RF pantoprazole 40 mg tablet,delayed release (DR/EC) 40 mg PO DAILY Qty: 90 3RF Eliquis 5 mg tablet 5 mg PO BID Qty: 180 3RF metoprolol succinate 25 mg tablet extended release 24 hr 25 mg PO BID Qty: 180 3RF isosorbide mononitrate 30 mg tablet extended release 24 hr 30 mg PO DAILY Qty: 90 1RF clopidogrel 75 mg Tablet 75 mg PO DAILY Qty: 90 0RF Discharge Orders: Discharge ED (Routine); Ordered 01/27/24 Ordered By: Colin Pacheco Referrals: Sunny Vega DO [Primary Care Provider] - Discharge Diet: Cardiac Discharge Activity: Increase activity as tolerated Patient Instructions: Heart Failure (ED), Opioid Safety, Pain Management Activity Restrictions/Additional Instructions: Thank you for choosing [facility] for your healthcare needs today. Please realize this is an emergency room and that we are providing you with a medical screening exam and this may not be complete and all inclusive of all the testing and or work up that you may need to determine your ailment or severity of your illness. It is very important that you follow up as instructed or that you return to the Emergency Department should you have concerns or if your condition changes or worsens in any way. You were seen today for congestive heart failure. Recommend you stop spironolactone and start Lasix 20 mg daily you should see your primary care doctor in the next 4 to 5 days to reevaluate your symptoms and repeat a basic metabolic profile to check kidney function and electrolytes. Coding Level of Care Code ED Button Grader for Karen Nuñez
[2024-01-27 09:43] LABS: Basophils # 0.1 10^3/uL (0.0-0.1); Basophils % 0.6 %; Eosinophils # 0.6 10^3/uL (0.0-0.8); Eosinophils % 6.3 %; Hematocrit 48.8 % (37-53); Lymphocytes # 2.3 10^3/uL (0.8-4.8); Lymphocytes % 26.9 %; Mean Corpuscular Hemoglobin 30.9 pg (27-33); Mean Corpuscular Volume 96.6 fl (82-101); Mean Platelet Volume 10.4 fL (7.4-10.4); Monocytes # 0.6 10^3/uL (0.2-0.9); Monocytes % 6.8 %; Neutrophils # 5.13 10^3/uL (1.8-7.7); Neutrophils % 59.2 %; Nucleated Red Blood Cells % 0 %; Platelet Count 173 10^3/cmm (157-399); Red Blood Count 5.05 10^6/uL (3.85-5.65); Red Cell Distribution Width 14.8 % (12.1-15.1); White Blood Count 8.67 10^3/uL (3.29-11.43)
[2024-01-27 10:07] LABS: Troponin(5th) Baseline 22 ng/L (0-15)
[2024-01-27 10:14] LABS: Alanine Aminotransferase 10 U/L (0-41); Alkaline Phosphatase 68 U/L (40-130); Anion Gap 13.5 (5-19); Aspartate Amino Transferase 15 U/L (0-40); Blood Urea Nitrogen 17 mg/dL (8-23); Calcium 8.7 mg/dL (8.5-10.5); Carbon Dioxide 28 mmol/L (22-29); Chloride 106 mmol/L (98-107); Creatinine Clr Calc Pharmacy 57.9069; Globulin 3.2 g/dL (1.3-4.6); Glucose 113 mg/dL (65-115); NT Pro B Type Natriuretic Pept 2882 pg/mL (0-450); Osmolality Calculated 298 mOsm/kg (285-295); Potassium 4.5 mmol/L (3.5-5.1); Sodium 143 mmol/L (136-145); Total Bilirubin 0.4 mg/dL (0.15-1.2); Total Protein 7.2 g/dL (6.6-8.7)
[2024-01-27] MEDS: FUROsemide 10 mg/mL SDV 2mL 20 MG IVP (10:49)
[2024-01-27 10:50] VITALS: BP 112/66; PULSE 85; RESP 23; O2SAT 92
--- NOTE | 2024-01-27 11:24 | ECG_ITS ---
[facility] Test Date: 2024-01-27 Pat Name: Toni Quintanilla Department: Room: Gender: Male Web Content Executive: : 1940 Requested By: Yun [place] Order Number: [id number] Missy MD: Hong Calhoun M.D. Measurements Intervals [place] Rate: 84 P: 37 DE: 189 QRS: -55 QRSD: 151 T: 38 QT: 437 QTc: 517 Interpretive Statements SINUS RHYTHM WITH OCCASIONAL VENTRICULAR PREMATURE COMPLEXES POSSIBLE LEFT ATRIAL ENLARGEMENT [-0.1mV P-WAVE IN V1/V2] RIGHT BUNDLE BRANCH BLOCK [120+ ms QRS DURATION, UPRIGHT V1, 40+ ms S IN I/aVL/V4/V5/V6] LEFT ANTERIOR FASCICULAR BLOCK [QRS AXIS <= -45, QR IN I, RS IN II] Compared to ECG 01/27/2024 09:17:23 Ventricular premature complex(es) now present Electronically Signed On 01-27-2024 18:03:31 COMMUNITY SERVICE ORGANIZATION DIRECTOR by Hong Calhoun M.D. [id number]
[2024-01-27 12:10] VITALS: PULSE 90; RESP 24; O2SAT 92
[2024-01-27 12:10] LABS: Troponin 5 2HR 19.92 ng/L (0-15)
[2024-01-27 12:11] LABS: Troponin 5 2HR Delta -2.08 ABS# (0-10)
[2024-01-27 13:04] VITALS: BP 115/78; PULSE 90; RESP 24; O2SAT 92
== END 2024-01-27 13:05 | disposition home or self-care (01) ==
PROVIDERS: Physician Assistant; Emergency Provider Family Medicine; PCP Emergency Medicine Emergency Medical Services
DX: I11.0 Hypertensive heart disease with heart failure (principal); I50.9 Heart failure, unspecified; I48.11 Longstanding persistent atrial fibrillation; Z79.01 Long term (current) use of anticoagulants; Z79.02 Long term (current) use of antithrombotics/antiplatelets; F17.210 Nicotine dependence, cigarettes, uncomplicated; E78.5 Hyperlipidemia, unspecified; I25.10 Atherosclerotic heart disease of native coronary artery without angina pectoris; Z95.1 Presence of aortocoronary bypass graft
CPT/HCPCS: 71045; 80053; 83880; 84484; 85025; 93005; 96374; 99285; J1940

== ENCOUNTER → 2024-02-09 15:41 | Outpatient (BNVA) | payer OTHER, SELFPAY | PROVIDERS: PCP Emergency Medicine Emergency Medical Services; Visit Provider Internal Medicine | DX: R07.9 Chest pain, unspecified (principal); I10 Essential (primary) hypertension | CPT/HCPCS: 36415; 80048; 83880; 99214 ==

== ENCOUNTER 2024-02-22 07:08 | Outpatient (CLI) | payer OTHER, SELFPAY ==
[2024-02-22 07:18] VITALS: BMI 25.5
--- NOTE | 2024-02-22 07:32 | NMCV_ITS ---
NM ellie perf SPECT r/s* [id number] Toni Quintanilla Age: 84 Gender: M : 1940 Exam Date: 02/22/2024 08:41 Ordering Phys: Jose Martin Chester M.D ([email or web address]) Technologist: CECILIA Chacon Exam Location: [facility] Indications: CHEST PAIN STRESS TEST [facility] IMAGE PROTOCOL Rest/Stress 1 Lexiscan Day Radiopharmaceutical Dose (mCi) Administration Site Administered by Rest: Tc-99m 10.8 IV CECILIA Chacon Sestamibi Stress:Tc-99m 32.5 IV CECILIA Chacon Sestamibi Rest: 22-Feb-2024 60 Discovery 630 Stress: 22-Feb-2024 30 Discovery 630 0.4mg Lexiscan. Images obtained in supine and prone position. SPECT RESULTS Technical Quality: Excellent Raw Data Analysis: Normal Image Corrections: No attenuation or motion correction applied Summed Stress Score: 3 Summed Rest Score: 11 Summed Difference Score: 0 PERFUSION FINDINGS There is a medium sized area of fixed perfusion defect of mild intensity in the inferior wall. 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 Attenuation artifact can not be ruled out. Small area of fixed perfusion defect noted in the apical wall. This is consistent with small area of prior infarct in the LAD territory. No evidence of ischemia. FUNCTIONAL RESULTS (calculated via Gated SPECT) Stress Image LV EF (%): 20 Stress EDV (mL):259 TID: 1.14 Stress ESV (mL):207 FUNCTIONAL FINDINGS: LV systolic function is severely reduced with EF of 20%. Severe global hypokinesis seen. IMPRESSIONS 1. Abnormal myocardial perfusion imaging with medium sized area of prior infarct in the RCA territory 2. Small area of prior infarct seen in the apical wall. 3. LV systolic function is severely reduced with EF of 20%. Jose Martin Chester MD (Electronically Signed) Final Date: 25 February 2024 07:29 S
--- NOTE | 2024-02-22 07:32 | ECG_ITS ---
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 Interpretive Statements NAME OF STUDY: LEXISCAN SESTAMIBI STRESS TEST INDICATION: [Chest Pain; Shortness of Breath] Procedure: At the baseline, the blood pressure was 114/74 mmHg with a heart rate of 99 bpm. The electrocardiogram showed normal sinus rhythm, right bundle branch block. The Lexiscan was infused over a period of 20 seconds. A total of 0.4 mg of Lexiscan was infused. The stress phase was continued for a total of 5 minutes. Heart rate was at the end of stress phase was 98 bpm and a blood pressure of 104/55 mmHg. The EKG at the peak infusion revealed normal sinus rhythm with no significant ST-T wave changes. Sestamibi was injected 20 seconds after the Lexiscan infusion. Blood pressure at the end of recovery phase was 103/69 mmHg with a heart rate of 100 bpm. Conclusion: 1. Normal EKG response to Lexiscan infusion 2. No Lexiscan induced chest pain or cardiac arrhythmia. 3. Normal blood pressure and heart rate response. 4. Sestamibi/sestamibi perfusion scan pending; see separate report. Electronically Signed On 03-01-2024 12:18:59 CDT by Jose Martin Chester M.D. [email or web address] [email or web address] | [id number]"
[2024-02-22] MEDS: regadenoson 0.4 Mg/5 ml Syringe 0.400000000000000022 MG IVP (09:23)
[2024-02-22 09:56] VITALS: BP 112/64; PULSE 99
--- NOTE | 2024-02-22 11:15 | USCV_ITS ---
Toni Quintanilla Age: 84 Gender: M : 1940 Exam Date: 02/22/2024 07:27 Ordering Phys: Jose Martin Chester M.D ([email or web address]) Technologist: BRENDEN Exam Location: [facility] Indication: CHEST PAIN AND SHORTNESS OF BREATH BP: 104 / 54 HR: 71 Rhythm: Sinus Technical Quality: Adequate MEASUREMENTS (Male / Female) Normal Values 2D ECHO LV Diastolic Diameter PLAX 6.2 cm 4.2 - 5.9 / 3.9 - 5.3 cm IVS Diastolic Thickness 1.1 cm 0.6 - 1.0 / 0.6 - 0.9 cm IVS Systolic Thickness 1.2 cm LVPW Diastolic Thickness 2.0 cm 0.6 - 1.0 / 0.6 - 0.9 cm LVPW Systolic Thickness 2.7 cm LVOT Diameter 2.0 cm LV Ejection Fraction 2D Teich 71.2 % LV Ejection Fraction MOD 2C 25.2 % LV Ejection Fraction 2C AL 26.1 % LA Diameter 4.5 cm RA Systolic Volume 4C AL 63.5 ml RA Systolic Volume 4C MOD 61.5 ml Aorta at Sinotubular Diameter 2.4 cm IVC Diameter 1.4 cm M-MODE LA Ao Ratio MM 1.1 AV Cusp Separation MM 1.6 cm DOPPLER AV Peak Velocity 269.3 cm/s LVOT Peak Velocity 77.0 cm/s AV Area Cont Eq vti 2.1 cm squared AV Area Cont Eq pk 0.9 cm squared MV Peak Velocity 120.0 cm/s MV Area PHT 5.2 cm squared Mitral E to A Ratio 1.5 TR Peak Velocity 311.0 cm/s TR Peak Gradient 38.7 mmHg TR Mean Velocity 236.0 cm/s TR Mean Gradient 24.5 mmHg TR Velocity Time Integral 105.5 cm TV Peak E Velocity 70.0 cm/s Right Atrial Pressure 3.0 mmHg Pulmonary Artery Systolic Pressu 41.7 mmHg PV Peak Velocity 106.0 cm/s RV Ejection Time 0.3 s FINDINGS Left Ventricle Left ventricle is dilated. LV systolic function is severely reduced with EF of 25-30%. Severe global hypokinesis. Right Ventricle Mildly hypokinetic. Pacemaker lead is seen. Right Atrium Normal in size. Pacemaker lead is seen Left Atrium Dilated Mitral Valve Structurally normal mitral valve. Moderate to severe mitral regurgitation. Aortic Valve Aortic valve is thickened. No significant stenosis. Moderate aortic regurgitation. Tricuspid Valve Mild tricuspid regurgitation. RVSP is 40 to 45 mmHg. This is consistent with mild pulmonary hypertension Pulmonic Valve Mild pulmonic regurgitation. Pericardium Normal Aorta Normal in size IVC Appears to be normal CONCLUSIONS Left ventricle is dilated. LV systolic function is severely reduced with EF of 25 to 30%. Mildly hypokinetic RV. Left atrial dilation Moderate to severe mitral regurgitation Moderate aortic regurgitation Mild tricuspid regurgitation Mild pulmonary hypertension Mild pulmonic regurgitation Compared to prior echocardiogram from 2022, mitral regurgitation is significantly worse and is moderate to severe now. Aortic regurgitation is also worse and is moderate now. Jose Martin Chester MD (Electronically Signed) Final Date: 26 February 2024 12:56 S
== END 2024-02-22 07:09 | disposition home or self-care (01) ==
PROVIDERS: PCP Emergency Medicine Emergency Medical Services; Visit Provider Internal Medicine
DX: I08.3 Combined rheumatic disorders of mitral, aortic and tricuspid valves (principal); R07.9 Chest pain, unspecified; R06.02 Shortness of breath
CPT/HCPCS: 36415; 78452; 93017; 93306; 96374; A9500; J2785

== ENCOUNTER 2024-02-24 11:05 | Outpatient (CLI) | payer OTHER, SELFPAY ==
[2024-02-24 12:04] LABS: Anion Gap 14.3 (5-19); Blood Urea Nitrogen 21 mg/dL (8-23); Calcium 9.4 mg/dL (8.5-10.5); Carbon Dioxide 30 mmol/L (22-29); Chloride 104 mmol/L (98-107); Glucose 104 mg/dL (65-115); NT Pro B Type Natriuretic Pept 2253 pg/mL (0-450); Osmolality Calculated 301 mOsm/kg (285-295); Potassium 4.3 mmol/L (3.5-5.1); Sodium 144 mmol/L (136-145)
== END 2024-02-24 11:06 | disposition home or self-care (01) ==
LOC: LAB 11:05
PROVIDERS: PCP Emergency Medicine Emergency Medical Services; Visit Provider Internal Medicine
DX: I25.700 Atherosclerosis of coronary artery bypass graft(s), unspecified, with unstable angina pectoris (principal); I48.11 Longstanding persistent atrial fibrillation; I10 Essential (primary) hypertension
CPT/HCPCS: 36415; 80048; 83880

== ENCOUNTER 2024-03-05 05:15 | Inpatient (IN) | payer OTHER, SELFPAY ==
[2024-03-05] VITALS (18 sets, daily range): BP systolic 75–127; BP diastolic 46–81; PULSE 73–102; RESP 17–25; TEMP 36.4–36.8; O2SAT 90–98; BMI 24.3
--- NOTE | 2024-03-05 05:32 | XRR_ITS ---
PROCEDURE INFORMATION: Exam: XR Chest Exam date and time: 03/05/2024 5:38 AM Age: 84 years old Clinical indication: Other: Syncope; Prior surgery; Surgery date: 6+ months; Surgery type: Open heart pacer TECHNIQUE: Imaging protocol: Radiologic exam of the chest. Views: 1 view. COMPARISON: CR XR chest 1V portable [id number] 01/27/2024 9:42 AM FINDINGS: Tubes, catheters and devices: Dual lead electronic cardiac device implanted in the left chest. Lungs: No large focal consolidation. Pleural spaces: No large pleural effusion. No distinct pneumothorax. Heart/Mediastinum: Cardiomediastinal silhouette is midline and stable in size. Vasculature: Calcifications of the aortic knob. Bones/joints: Postsurgical changes of prior median sternotomy. No acute osseous findings. XR/XR chest 1V portable [id number] IMPRESSION: No acute cardiopulmonary findings.
--- NOTE | 2024-03-05 05:32 | CTR_ITS ---
PROCEDURE INFORMATION: Exam: CT Head Without Contrast Exam date and time: 03/05/2024 5:50 AM Age: 84 years old Clinical indication: Injury or trauma; Fall; Concussion/head injury; Consciousness not specified; Additional info: Syncope fall TECHNIQUE: Imaging protocol: Computed tomography of the head without contrast. Radiation optimization: All CT scans at this facility use at least one of these dose optimization techniques: automated exposure control; mA and/or kV adjustment per patient size (includes targeted exams where dose is matched to clinical indication); or iterative reconstruction. COMPARISON: CT head wo con* [id number] 02/05/2019 8:21 PM RADIATION DOSE METRICS: Total DLP (mGy-cm): 1176.18 FINDINGS: Brain: Moderate to severe cerebral and cerebellar atrophy. Minimal chronic calcification of the bilateral basal ganglia. No acute intracranial hemorrhage. Normal differentiation of zapien-white matter. No midline shift. Cerebral ventricles: Compensatory enlargement of the ventricles secondary to atrophy, not significantly changed compared to 02/05/2019. Paranasal sinuses: Visualized paranasal sinuses are clear. Mastoid air cells: Mastoid air cells are clear. Bones/joints: No acute osseous findings. Soft tissues: Superficial soft tissues are normal in appearance. Other findings: Intracranial atherosclerosis. CT/CT head wo con* [id number] IMPRESSION: No acute intracranial findings.
--- NOTE | 2024-03-05 05:48 | W.ED.SYNCOPE ---
HPI - Syncope General: Chief Complaint: Syncope Stated Complaint: SYNCOPE Time Seen by Provider: 03/05/24 05:31 Source: patient Mode of arrival: EMS History of Present Illness: 84-year-old male to the known history of ischemic cardiomyopathy with a very poor ejection fraction between 20 and 30%. Presents to the emergency room after near syncopal episode. He was at home and got up this morning a little lightheaded and dizzy he said he made some coffee and then sat down when he got back up again he passed out or nearly passed out. He denies striking his head he had a single episode of vomiting. No chest pain. He is awake and alert at this time has poor hearing but is generally able to offer good history family is at the bedside is good assistance. His only injury from the fall is a small abrasion on the right elbow MD complaint: almost passed out Prodromal symptoms: lightheaded Witnessed: Yes - by Bystander Context: standing up Associated symptoms: Reports short of breath; Deny abdominal pain, chest pain, fever(s), headache(s), lightheadedness, nausea, vertigo or weakness Treatments prior to arrival: none Review of Systems Const: Denies: fever(s) or chills Card: Denies: chest pain or lightheadedness Resp: Denies: dyspnea GI: Denies: abdominal pain or nausea : Denies: dysuria, urinary frequency or urinary urgency Musc: Denies: neck pain or back pain Skin/Breast: Denies: rash Neuro: Denies: headache(s) or vertigo PFS ED PFSH: Medical History Chronic systolic CHF (congestive heart failure), NYHA class 2 Ischemic cardiomyopathy ICD (implantable cardioverter-defibrillator) in place GERD (gastroesophageal reflux disease) Sick sinus syndrome BPH (benign prostatic hyperplasia) Hyperlipidemia Hypertension Coronary artery disease Last echocardiogram 05/31/23 with EF 30% Unstable angina pectoris Atrial fibrillation Surgical History History of hemorrhoidectomy S/P cholecystectomy S/P TURP S/P CABG (coronary artery bypass graft) S/P cardiac pacemaker procedure Family History Other CAD (coronary artery disease) Social History Smoking and tobacco/nicotine status: current every day tobacco/nicotine user cigarettes Packs smoked per day: 0.5 Years cigarettes smoked: 55 Alcohol intake: never Substance/Drug Use: never Lives independently: Yes Household members: spouse Housing: House Marital status: Number of children: 4 Pets and animals: Yes Pets & animals: dog(s) Physical Exam Const: COMMON NORMALS: no acute distress GENERAL APPEARANCE: cooperative and comfortable ORIENTATION/CONSCIOUSNESS: Yes awake, Yes oriented to person, Yes oriented to place and Yes oriented to time HENMT: COMMON NORMALS: normocephalic, atraumatic and hearing grossly normal bilaterally HEAD & SCALP: normocephalic and atraumatic Resp: COMMON NORMALS: normal respiratory effort, No retractions, No use of accessory muscles and clear to auscultation bilaterally AUSCULTATION: clear to auscultation bilaterally Cardio: COMMON NORMALS: regular rate, regular rhythm and No murmurs present (Cardio) RATE: regular rate RHYTHM: regular rhythm GI: COMMON NORMALS: Soft to palpation and No hepatosplenomegaly present AUSCULTATION: Yes normoactive bowel sounds PALPATION: Yes Soft to palpation, No Tenderness to palpation present (GI), No Guarding due to palpation present (GI) and Yes No hepatosplenomegaly present Extremity: COMMON NORMALS: normal to inspection, capillary refill normal, no clubbing, cyanosis or edema, no calf tenderness and no pedal edema Neuro: SENSORIUM/ORIENTATION: Yes oriented to person, Yes oriented to place and Yes oriented to time Skin: COMMON NORMALS: no rashes or lesions noted GENERAL SKIN EXAM: no rashes or lesions noted Course Vital Signs: Vital signs: Vital Signs Temperature 97.5 F L 03/05/24 05:16 Pulse Rate 93 03/05/24 11:47 Respiratory Rate 18 03/05/24 05:56 Blood Pressure 118/79 03/05/24 11:47 Pulse Oximetry 91 03/05/24 11:47 Oxygen Delivery Me thod Room Air 03/05/24 11:47 MDM - Syncope Medical Decision Making Patient hemoconcentrated hemoglobin of 17 9. His anion gap is 20.2 BUN is 38. Reviewed his previous laboratory studies. He does appear to be slightly volume depleted. Patient given 500 normal saline over an hour. Initial troponin 31. After fluid bolus patient still remains significantly hypotensive. Will admit for further rehydration given his very low ejection fraction will have to be done very measured just fashion. Differential Diagnosis Likely syncope due to orthostatic hypotension Medical Records I reviewed the patient's medical records. Lab Data I reviewed the patient's lab results. 03/05/24 05:45 03/05/24 05:45 Radiology Impressions Chest X-Ray 03/05/24 05:32 IMPRESSION: No acute cardiopulmonary findings. Head CT 03/05/24 05:32 IMPRESSION: No acute intracranial findings. Laboratory Results WBC 9.29 10^3/uL (3.29-11.43) 03/05/24 05:45 RBC 5.96 10^6/uL (3.85-5.65) H 03/05/24 05:45 Hgb 17.90 g/dL (11.27-16.99) H 03/05/24 05:45 Hct 56.2 % (37-53) H 03/05/24 05:45 MCV 94.3 fl (82-101) 03/05/24 05:45 MCH 30.0 pg (27-33) 03/05/24 05:45 MCHC 31.9 g/dL (30-55) 03/05/24 05:45 RDW 13.9 % (12.1-15.1) 03/05/24 05:45 Plt Count 224 10^3/cmm (157-399) 03/05/24 05:45 MPV 10.4 fL (7.4-10.4) 03/05/24 05:45 Neut % (Auto) 56.9 % 03/05/24 05:45 Lymph % (Auto) 28.1 % 03/05/24 05:45 [place] % (Auto) 7.0 % 03/05/24 05:45 Eos % (Auto) 7.2 % 03/05/24 05:45 Baso % (Auto) 0.5 % 03/05/24 05:45 Neut # (Auto) 5.28 10^3/uL (1.8-7.7) 03/05/24 05:45 Lymph # (Auto) 2.6 10^3/uL (0.8-4.8) 03/05/24 05:45 [place] # (Auto) 0.7 10^3/uL (0.2-0.9) 03/05/24 05:45 Eos # (Auto) 0.7 10^3/uL (0.0-0.8) 03/05/24 05:45 Baso # (Auto) 0.1 10^3/uL (0.0-0.1) 03/05/24 05:45 Nucleated RBC % (auto) 0 % 03/05/24 05:45 Nucleated RBCs # 0.0 /100WBC 03/05/24 05:45 PT 15.60 SECONDS (12.1-14.9) H 03/05/24 05:45 INR 1.20 (0.8-1.2) 03/05/24 05:45 APTT 25.2 SECONDS (23.9-36.7) 03/05/24 05:45 Sodium 139 mmol/L (136-145) 03/05/24 05:45 Potassium 3.2 mmol/L (3.5-5.1) L 03/05/24 05:45 Chloride 91 mmol/L (98-107) L 03/05/24 05:45 Carbon Dioxide 31 mmol/L (22-29) H 03/05/24 05:45 Anion Gap 20.2 (5-19) H 03/05/24 05:45 BUN 38 mg/dL (8-23) H 03/05/24 05:45 Creatinine 1.2 mg/dL (0.7-1.2) 03/05/24 05:45 GFR Calculation Not Reportable 03/05/24 05:45 Glucose 153 mg/dL (65-115) H 03/05/24 05:45 Calculated Osmolality 300 mOsm/kg (285-295) H 03/05/24 05:45 Calcium 9.6 mg/dL (8.5-10.5) 03/05/24 05:45 Magnesium 2.2 mg/dL (1.7-2.3) 03/05/24 07:55 Total Bilirubin 0.7 mg/dL (0.15-1.2) 03/05/24 05:45 AST 23 U/L (0-40) 03/05/24 05:45 ALT 17 U/L (0-41) 03/05/24 05:45 Alkaline Phosphatase 82 U/L (40-130) 03/05/24 05:45 Creatine Kinase 127 U/L (39-308) 03/05/24 05:45 Troponin T Baseline 31 ng/L (0-15) H 03/05/24 05:45 Troponin T 120 Minute 28.10 ng/L (0-15) H 03/05/24 07:55 Delta Troponin T -2.90 ABS# (0-10) L 03/05/24 07:55 NT-Pro-B Natriuret Pep 1688 pg/mL (0-450) H 03/05/24 05:45 Total Protein 8.2 g/dL (6.6-8.7) 03/05/24 05:45 Albumin 4.6 g/dL (3.5-5.2) 03/05/24 05:45 Globulin 3.6 g/dL (1.3-4.6) 03/05/24 05:45 TSH 1.45 uIU/mL (0.27-4.20) 03/05/24 07:55 Urine Color Yellow (Yellow) 03/05/24 06:17 Urine Appearance Clear (CLEAR) 03/05/24 06:17 Urine pH 5 (5-7) 03/05/24 06:17 Ur Specific [place] 1.020 (1.005-1.030) 03/05/24 06:17 Urine Protein 1+ (Negative) H 03/05/24 06:17 Urine Glucose (UA) Norm (Normal) 03/05/24 06:17 Urine Ketones Negative (Negative) 03/05/24 06:17 Urine Blood 2+ (Negative) H 03/05/24 06:17 Urine Nitrate Negative (Negative) 03/05/24 06:17 Urine Bilirubin Neg (Negative) 03/05/24 06:17 Urine Urobilinogen Norm mg/dL (Negative) 03/05/24 06:17 Ur Leukocyte Esterase Negative (Negative) 03/05/24 06:17 Urine RBC Rare /hpf (0-2) 03/05/24 06:17 Urine WBC None /hpf (0-5) 03/05/24 06:17 Ur Squamous Epith Cells 0-4 /hpf (0-5) H 03/05/24 06:17 Amorphous Sediment Not Reportable 03/05/24 06:17 Urine Bacteria Trace /hpf (NONE) 03/05/24 06:17 Hyaline Casts 0-4 /lpf H 03/05/24 06:17 All radiology interpretation(s) finalized by discharge Discharge Plan Discharge Patient Disposition: Admitted As Inpatient Admit Provider: Asael Rose Clinical Impression: Hypotension, Atrial fibrillation, Ischemic cardiomyopathy, Chronic systolic CHF (congestive heart failure), NYHA class 2 Condition: Stable Coding Level of Care Code ED 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
[2024-03-05 05:55] LABS: Basophils # 0.1 10^3/uL (0.0-0.1); Basophils % 0.5 %; Eosinophils # 0.7 10^3/uL (0.0-0.8); Eosinophils % 7.2 %; Hematocrit 56.2 % (37-53); Lymphocytes # 2.6 10^3/uL (0.8-4.8); Lymphocytes % 28.1 %; Mean Corpuscular HGB Conc 31.9 g/dL (30-55); Mean Corpuscular Volume 94.3 fl (82-101); Mean Platelet Volume 10.4 fL (7.4-10.4); Monocytes # 0.7 10^3/uL (0.2-0.9); Neutrophils # 5.28 10^3/uL (1.8-7.7); Neutrophils % 56.9 %; Nucleated Red Blood Cells % 0 %; Platelet Count 224 10^3/cmm (157-399); Red Blood Count 5.96 10^6/uL (3.85-5.65); Red Cell Distribution Width 13.9 % (12.1-15.1); White Blood Count 9.29 10^3/uL (3.29-11.43)
--- NOTE | 2024-03-05 06:00 | ECG_ITS ---
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 Measurements Intervals [place] Rate: 86 P: 0 KS: 0 QRS: -83 QRSD: 190 T: 91 QT: 512 QTc: 614 Interpretive Statements ELECTRONIC VENTRICULAR PACEMAKER Compared to ECG 01/27/2024 12:12:24 Sinus rhythm no longer present Ventricular premature complex(es) no longer present Right bundle-branch block no longer present Left anterior fascicular block no longer present Electronically Signed On 03-05-2024 13:13:26 CDT by Jose Martin Chester M.D. [id number]
[2024-03-05 06:06] LABS: Partial Thromboplastin Time 25.2 SECONDS (23.9-36.7)
[2024-03-05 06:14] LABS: Troponin(5th) Baseline 31 ng/L (0-15)
[2024-03-05 06:19] LABS: Alanine Aminotransferase 17 U/L (0-41); Albumin Level 4.6 g/dL (3.5-5.2); Alkaline Phosphatase 82 U/L (40-130); Anion Gap 20.2 (5-19); Aspartate Amino Transferase 23 U/L (0-40); Blood Urea Nitrogen 38 mg/dL (8-23); Calcium 9.6 mg/dL (8.5-10.5); Carbon Dioxide 31 mmol/L (22-29); Chloride 91 mmol/L (98-107); Creatine Phosphokinase 127 U/L (39-308); Creatinine Clr Calc Pharmacy 47.0377; Globulin 3.6 g/dL (1.3-4.6); Glucose 153 mg/dL (65-115); NT Pro B Type Natriuretic Pept 1688 pg/mL (0-450); Osmolality Calculated 300 mOsm/kg (285-295); Potassium 3.2 mmol/L (3.5-5.1); Sodium 139 mmol/L (136-145); Total Bilirubin 0.7 mg/dL (0.15-1.2); Total Protein 8.2 g/dL (6.6-8.7)
--- NOTE | 2024-03-05 07:38 | ECG_ITS ---
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 Measurements Intervals [place] Rate: 100 P: 47 DE: 179 QRS: -56 QRSD: 158 T: 60 QT: 487 QTc: 630 Interpretive Statements SINUS TACHYCARDIA POSSIBLE LEFT ATRIAL ENLARGEMENT [-0.1mV P-WAVE IN V1/V2] RIGHT BUNDLE BRANCH BLOCK [120+ ms QRS DURATION, UPRIGHT V1, 40+ ms S IN I/aVL/V4/V5/V6] LEFT ANTERIOR FASCICULAR BLOCK [QRS AXIS <= -45, QR IN I, RS IN II] POSSIBLE LEFT VENTRICULAR HYPERTROPHY [VOLTAGE CRITERIA PLUS LAE OR QRS WIDENING] Compared to ECG 03/05/2024 06:00:35 Right bundle-branch block now present Left anterior fascicular block now present Ventricular-paced complex(es) or rhythm no longer present Prolonged QT interval no longer present Electronically Signed On 03-05-2024 13:20:13 CDT by Jose Martin Chester M.D. [id number]
--- NOTE | 2024-03-05 07:45 | PC.PHAR ---
Addendum entered by Molly Richard 03/05/24 08:45: pts states pt takes lasix 40mg bid [facility] med [facility] 40mg qam and 20mg qpm-pts states pt takes 20meq tid va med list has kcl 20meq bid-pts va med list has advair diskus 100-50-pts va med list has spironolactone 25mg take 12.5mg daily as dced- Original Note: faxed [facility] for med list-pts verified pts medications and states the pt has a round zapien inhaler one puff bid waiting for [facility] to fax med list back and will input correct inhaler
[2024-03-05] MEDS: tetanus-dipt-pertussis 0.5 mL SDV IM (08:24)
[2024-03-05] MEDS: sodium chloride 0.9% 500 ML IV (08:30)
[2024-03-05 08:59] LABS: Add Urine Microscopic? YES; Bilirubin Urine Neg (Negative); Blood Urine 2+ (Negative); Glucose Urine UA Norm (Normal); Ketones Urine Negative (Negative); Leukocyte Esterase Urine Negative (Negative); Nitrate Urine Negative (Negative); Protein Urine 1+ (Negative); Urine Appearance Clear (CLEAR); Urine Color Yellow (Yellow); Urobilinogen Urine Norm (Negative); pH Urine 5 (5-7)
[2024-03-05 09:01] LABS: Bacteria Urine TRACE /hpf; Squamous Epithelial Cell Urine 0-4 /hpf (0-5)
[2024-03-05 09:02] LABS: Add Urine Culture? No; Hyaline Casts Urine 0-4 /lpf
[2024-03-05 09:03] LABS: RBC Urine RARE /hpf (0-2)
[2024-03-05] MEDS: potassium chloride oral liq 20 mEq/15 mL UDC 40 MEQ PO (10:14)
--- NOTE | 2024-03-05 10:56 | P.HP_ITS ---
Providers/Chief Complaint 2 Admitting Physician: Asael Rose MD Primary Care Provider: Sunny Vega DO Chief Complaint: SYNCOPE History of Present Illness Toni Quintanilla Sr is a 84 year old male presenting to the emergency department with concerns of syncope. Earlier this morning, apparently he was lightheaded and dizzy and had a syncopal episode. This was not witnessed. He does not think he struck his head. responded, and found that he was somewhat confused but responsive when she approached him. He did not eat and drink well yesterday, and was having some upper abdominal discomfort. He denies any abdominal pain now. He did vomit 1 time with the episode. There has been no blood in his stool or black or tarry stool. He has not had any fever. He occasionally will have an intermittent chest pain which is not unusual. He does get short of breath with minimal exertion secondary to his heart failure. In the emergency department he received some IV fluids, a dose of potassium, and a tetanus shot. He also sustained a small abrasion to his arm. Review of Systems 2 General: Reports: 10 or more systems reviewed and unremarkable except in HPI and below Card: Reports: chest pain Resp: Reports: dyspnea GI: Reports: abdominal pain, nausea and vomiting; Denies: hematochezia or melena Medications/Allergies Home Medications Medication Instructions Recorded Confirmed Last Taken Type cholecalciferol (vitamin D3) 50 50 mcg PO QPM 01/13/23 03/05/24 01/27/24 History mcg (2,000 unit) capsule duloxetine 60 mg capsule,delayed 60 mg PO BEDTIME 01/13/23 03/05/24 01/27/24 History release apixaban 5 mg tablet (Eliquis) 5 mg PO BID #180 tabs 02/10/23 03/05/24 01/27/24 Rx metoprolol succinate 25 mg 25 mg PO BID #180 tabs 02/14/23 03/05/24 01/27/24 Rx tablet,extended release 24 hr losartan 25 mg tablet 12.5 mg PO DAILY PRN Blood Pressure 02/09/24 03/05/24 Unknown History clopidogrel 75 mg tablet 75 mg PO QAM 03/05/24 03/05/24 Unknown History fluticasone 100 mcg-salmeterol 50 1 inh inhalation BID 03/05/24 03/05/24 Unknown History mcg/dose blistr powdr for inhalation furosemide 20 mg tablet 40 mg PO BID 03/05/24 03/05/24 Unknown History isosorbide mononitrate 30 mg 30 mg PO QAM 03/05/24 03/05/24 Unknown History tablet,extended release 24 hr metolazone 2.5 mg tablet 2.5 mg PO EVERY OTHER DAY 03/05/24 03/05/24 03/03/24 History nitroglycerin 0.4 mg sublingual 0.4 mg sublingual Q5M PRN Chest 03/05/24 03/05/24 Unknown History tablet (Nitrostat) Pain pantoprazole 40 mg tablet,delayed 40 mg PO QAM 03/05/24 03/05/24 Unknown History release potassium chloride 20 mEq 20 meq PO TID 03/05/24 03/05/24 Unknown History tablet,extended release simvastatin 40 mg tablet 40 mg PO QPM 03/05/24 03/05/24 Unknown History Allergies Allergy/AdvReac Type Severity Reaction Status Date / Time No Known Allergies Allergy Verified 03/05/24 07:38 PFSH Acute 2 PFSH: Medical History Chronic systolic CHF (congestive heart failure), NYHA class 2 Ischemic cardiomyopathy ICD (implantable cardioverter-defibrillator) in place GERD (gastroesophageal reflux disease) Sick sinus syndrome BPH (benign prostatic hyperplasia) Hyperlipidemia Hypertension Coronary artery disease Last echocardiogram 05/31/23 with EF 30% Unstable angina pectoris Atrial fibrillation Surgical History History of hemorrhoidectomy S/P cholecystectomy S/P TURP S/P CABG (coronary artery bypass graft) S/P cardiac pacemaker procedure Family History Other CAD (coronary artery disease) Social History Smoking and tobacco/nicotine status: current every day tobacco/nicotine user cigarettes Packs smoked per day: 0.5 Years cigarettes smoked: 55 Alcohol intake: never Substance/Drug Use: never Lives independently: Yes Household members: spouse Housing: House Marital status: Number of children: 4 Pets and animals: Yes Pets & animals: dog(s) Vitals/I&O/Wt Last Vital Signs Temp 97.5 F L 03/05/24 05:16 Pulse 101 H 03/05/24 10:00 Resp 18 03/05/24 05:56 BP 114/76 03/05/24 10:00 Pulse Ox 90 03/05/24 10:00 O2 Del Method Room Air 03/05/24 10:00 03/04/24 03/05/24 03/05/24 22:59 06:59 14:59 Intake Total 500 / 500 Balance 500 / 500 Weight last 48 hrs Weight 72.575 kg Physical Exam 2 Narrative: General exam is white conversive male, eating some biscuits and gravy currently. HEENT: Atraumatic normocephalic. Pupils equally round. Oropharynx clear. Neck is supple no lymphadenopathy thyromegaly Cardiovascular regular rhythm with a 2/6 systolic murmur Lungs clear no wheezing or crackles Abdomen soft. Nontender. No obvious organomegaly exams deferred Extremities no cyanosis, edema, cap refill brisk Skin no rash, small abrasion right elbow Neuro no obvious focal deficits Data 03/05/24 05:45 03/05/24 05:45 Other Labs: Initial EKG demonstrates a ventricularly paced rhythm, left axis deviation Repeat EKG demonstrates sinus rhythm, left axis deviation, right bundle branch block and left anterior fascicular block CT, which I reviewed no acute findings Chest x-ray which I reviewed demonstrates atherosclerotic disease, previous bypass surgery, cardiomegaly, pacemaker/defibrillator, no infiltrate INR 1.2, PTT 25 LFTs normal Troponin 31 with repeat of 28 Albumin and calcium normal Urinalysis negative A&P Assessment and plan (1) Syncope: Patient had an episode of syncope this morning. He is on anticoagulation, and chance of pulmonary embolism is very unlikely. He is hemoconcentrated, and likely with his EF and diminished p.o. intake yesterday dehydration is playing a role Telemetry Cautious hydration Hold antihypertensives, with the exception of metoprolol which we will continue 12.5 mg twice daily Reassess in the morning Orthostatic blood pressures When appropriate, consider restarting medicines that are needed and perhaps lower dose of diuretic. Observation, on telemetry (2) Orthostatic hypotension: See above (3) Ischemic cardiomyopathy: Patient with history of ischemic cardiomyopathy Last EF around 25% No need to repeat echo currently (4) Coronary artery disease: Continue Plavix, statin Restart metoprolol at lower dose Qualifiers: Coronary Disease-Associated Artery/Lesion type: bypass graft [place] vs. transplanted heart: [place] heart Associated angina: with unstable angina Qualified Code(s): I25.700 - Atherosclerosis of coronary artery bypass graft(s), unspecified, with unstable angina pectoris (5) Atrial fibrillation: Patient with history of A-fib Continue anticoagulation in the form of apixaban Restart metoprolol, increase as tolerated Qualifiers: Atrial fibrillation type: longstanding persistent Qualified Code(s): I 48.11 - Longstanding persistent atrial fibrillation Plan Mild dehydration. Other medical problems as outlined by his past medical history Attestations 2 Medical Necessity Statement*: Will need less than 2 midnight stay for evaluation and treatment of syncope, orthostatic hypotension Diagnoses Syncope R55 Orthostatic hypotension I95.1 Ischemic cardiomyopathy I25.5 Coronary artery disease involving coronary bypass graft of [place] heart with unstable angina pectoris I25.700 Coronary Disease-Associated Artery/Lesion type: bypass graft [place] vs. transplanted heart: [place] heart Associated angina: with unstable angina Longstanding persistent atrial fibrillation I48.11 Atrial fibrillation type: longstanding persistent Time Spent (min) 48
--- NOTE | 2024-03-05 11:32 | ECG_ITS ---
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 Measurements Intervals [place] Rate: 100 P: 76 [place]: 183 QRS: -53 QRSD: 157 T: 52 QT: 424 QTc: 549 Interpretive Statements SINUS TACHYCARDIA WITH OCCASIONAL VENTRICULAR PREMATURE COMPLEXES WITH OCCASIONAL SUPRAVENTRICULAR PREMATURE COMPLEXES RIGHT BUNDLE BRANCH BLOCK [120+ ms QRS DURATION, UPRIGHT V1, 40+ ms S IN I/aVL/V4/V5/V6] LEFT ANTERIOR FASCICULAR BLOCK [QRS AXIS <= -45, QR IN I, RS IN II] POSSIBLE LEFT VENTRICULAR HYPERTROPHY [VOLTAGE CRITERIA PLUS LAE OR QRS WIDENING] Compared to ECG 03/05/2024 07:38:44 Ventricular premature complex(es) now present Electronically Signed On 03-05-2024 13:18:53 CDT by Jose Martin Chester M.D. [email or web address]
[2024-03-05 11:41] LABS: Magnesium 2.2 mg/dL (1.7-2.3); Thyroid Stimulating Hormone 1.45 uIU/mL (0.27-4.20)
[2024-03-05 13:28] LABS: Troponin 5 6HR 23.94 ng/L (0-15)
[2024-03-05 13:29] LABS: Troponin 5 6HR Delta -7.06 ng/L (0-12)
[2024-03-05] MEDS: sodium chloride 0.9% 1,000 ML 50 ML IV (14:07)
[2024-03-05] MEDS: pantoprazole 40 mg SDV IVP (14:07)
[2024-03-05] MEDS: apixaban 5 mg Tablet PO (17:19)
[2024-03-05] MEDS: atorvastatin 40 mg Tablet PO (17:19)
[2024-03-05] MEDS: metoprolol tartrate 25 mg Tablet 12.5 MG PO (20:43)
[2024-03-05] MEDS: duloxetine 60 mg Capsule PO (20:43)
[2024-03-06] VITALS (14 sets, daily range): BP systolic 65–148; BP diastolic 48–72; PULSE 74–115; RESP 18–23; TEMP 36.5–36.8; O2SAT 92–98
[2024-03-06] MEDS: pantoprazole 40 mg SDV IVP ×2 (01:14→12:33)
[2024-03-06 03:54] LABS: Basophils # 0.1 10^3/uL (0.0-0.1); Basophils % 0.6 %; Eosinophils # 0.6 10^3/uL (0.0-0.8); Eosinophils % 7.3 %; Hematocrit 51.3 % (37-53); Lymphocytes # 2.7 10^3/uL (0.8-4.8); Lymphocytes % 32.8 %; Mean Corpuscular Hemoglobin 30.8 pg (27-33); Mean Corpuscular Volume 96.2 fl (82-101); Mean Platelet Volume 10.5 fL (7.4-10.4); Monocytes # 0.7 10^3/uL (0.2-0.9); Monocytes % 8.4 %; Neutrophils # 4.11 10^3/uL (1.8-7.7); Neutrophils % 50.5 %; Nucleated Red Blood Cells % 0 %; Platelet Count 181 10^3/cmm (157-399); Red Blood Count 5.33 10^6/uL (3.85-5.65); Red Cell Distribution Width 14.1 % (12.1-15.1); White Blood Count 8.12 10^3/uL (3.29-11.43)
[2024-03-06 04:15] LABS: Alanine Aminotransferase 16 U/L (0-41); Albumin Level 3.9 g/dL (3.5-5.2); Alkaline Phosphatase 69 U/L (40-130); Blood Urea Nitrogen 31 mg/dL (8-23); Carbon Dioxide 30 mmol/L (22-29); Chloride 99 mmol/L (98-107); Creatinine Clr Calc Pharmacy 56.4453; Globulin 3.5 g/dL (1.3-4.6); Glucose 117 mg/dL (65-115); Magnesium 2.4 mg/dL (1.7-2.3); Osmolality Calculated 300 mOsm/kg (285-295); Sodium 141 mmol/L (136-145); Total Bilirubin 0.8 mg/dL (0.15-1.2); Total Protein 7.4 g/dL (6.6-8.7)
[2024-03-06 04:30] LABS: Anion Gap 15.4 (5-19); Aspartate Amino Transferase 24 U/L (0-40); Potassium 3.4 mmol/L (3.5-5.1)
[2024-03-06] MEDS: clopidogrel 75 mg Tablet PO (05:49)
[2024-03-06] MEDS: isosorbide mononitrate ER 30 mg Tablet 15 MG PO (08:56)
[2024-03-06] MEDS: apixaban 5 mg Tablet PO ×2 (08:56→17:09)
[2024-03-06] MEDS: potassium chloride ER 20 mEq Tablet 40 MEQ PO (08:56)
[2024-03-06] MEDS: metoprolol tartrate 25 mg Tablet 12.5 MG PO ×2 (08:56→20:36)
--- NOTE | 2024-03-06 09:10 | PC.CHAP ---
Pastoral Care Encounter/Spiritual Assessment Type of Contact [] Declined manufacturing applications engineer visit [] Patient/Family/Request visit [] Outpatient visit [] Follow-up visit [] Physician referral [] Code/Alert [x] Routine visit [] Staff referral [] Actively dying [] Patient sleeping [x] Family support [] [] Out of room [] Palliative care [] [] Receiving care in room [] Pre-surgical visit [] Trauma [] Long length of stay [] ICU visit [] Other: Relational/Emotional Strength [x] Patient feels connected with others/family/visitors/staff [] Distress [] Loneliness/isolation [] Abandonment Spirituality of Patient [x] Person of Rosie [] Attends Rastafari of their Rosie [x] Believes in Prayer [] Reads Bible or Presybeterian materials [] There are Spiritual issues to be addressed Vending Manager Interventions [x] Prayer [] Active listening [x] Non-anxious presence [x] Spiritual/emotional support [] Crisis/trauma care [] Spiritual counseling [] Bereavement support [] Provided bereavement packet [] Provided Bible/devotional materials [] Provided toy/stuffed animal, coloring book to patient or family member [] Provided Communion [] Anointing/Bluejacket [] Salvation [x] Completed spiritual assessment [] Other: Impact on Illness or Injury [] Angry [] Fearful [] Anxious [] Often cries [] Exhaustion [] Unable to work [] Unable to attend oriental orthodox [] Unable to walk/stand [] Unable to read [] Unable to drive [] Unable to eat/drink [] Unable to sleep [] Unable to be with family [] Patient intubated [] Other: Summary Time spent with patient 5 min
--- NOTE | 2024-03-06 12:09 | P.PN_ITS ---
Subjective 2 Subjective: Toni reports he feels much better. Not short of breath. No chest pain. Does not feel dizzy when he stands up but his systolic is around 75-80 when he does so. A little over 100 with sitting. Medications: Reviewed: Yes Vitals/I&O/Wt Last Vital Signs Temp 97.9 F 03/06/24 11:50 Pulse 88 03/06/24 11:50 Resp 18 03/06/24 11:50 BP 65/48 03/06/24 11:52 Pulse Ox 92 03/06/24 11:50 O2 Del Method Room Air 03/06/24 11:50 03/05/24 03/06/24 03/06/24 22:59 06:59 14:59 Intake Total 450 / 950 400 / 1350 240 / 240 Output Total 400 / 400 Balance 50 / 550 400 / 950 240 / 240 Weight last 48 hrs Weight 70.125 kg Weight 72.575 kg Weight 72.575 kg Physical Exam 2 Narrative: General exam no distress Neck is supple no lymphadenopathy thyromegaly Cardiovascular regular rhythm with a 2/6 systolic murmur Lungs clear no wheezing or crackles Abdomen soft. Nontender. No obvious organomegaly Extremities no cyanosis, edema, cap refill brisk Data 03/06/24 03:12 03/06/24 03:12 A&P Assessment and plan (1) Syncope: No syncope or arrhythmia since admission. Orthostatic with reinitiation of about half of his medication. Hold any further Imdur or Lasix until recheck tomorrow. Encourage oral fluids. Not appropriate for discharge home with a systolic blood pressure less than 80 with standing. He is on anticoagulation, and chance of pulmonary embolism is very unlikely. Continue telemetry Oral hydration currently Hold antihypertensives, with the exception of metoprolol which we will continue 12.5 mg twice daily Reassess in the morning Orthostatic blood pressures twice daily Changed to regular admission (2) Orthostatic hypotension: See above If does not improve with further medicine reductions consider midodrine (3) Ischemic cardiomyopathy: Patient with history of ischemic cardiomyopathy Last EF around 25% No need to repeat echo currently (4) Coronary artery disease: Continue Plavix, statin Restart metoprolol at lower dose Qualifiers: Coronary Disease-Associated Artery/Lesion type: bypass graft [place] vs. transplanted heart: [place] heart Associated angina: with unstable angina Qualified Code(s): I25.700 - Atherosclerosis of coronary artery bypass graft(s), unspecified, with unstable angina pectoris (5) Atrial fibrillation: Patient with history of A-fib Continue anticoagulation in the form of apixaban Metoprolol 12.5 mg twice daily Qualifiers: Atrial fibrillation type: longstanding persistent Qualified Code(s): I 48.11 - Longstanding persistent atrial fibrillation Plan Mild dehydration. Resolved Other medical problems as outlined by his past medical history Attestations 2 Medical Necessity Statement*: Needs continued hospitalization for adjustment of medication secondary to profound orthostatic hypotension, syncope, and risk for poor outcome with fall Diagnoses Syncope R55 Orthostatic hypotension I95.1 Ischemic cardiomyopathy I25.5 Coronary artery disease involving coronary bypass graft of [place] heart with unstable angina pectoris I25.700 Coronary Disease-Associated Artery/Lesion type: bypass graft [place] vs. transplanted heart: [place] heart Associated angina: with unstable angina Longstanding persistent atrial fibrillation I48.11 Atrial fibrillation type: longstanding persistent Time Spent (min) 20
[2024-03-06] MEDS: atorvastatin 40 mg Tablet PO (17:09)
[2024-03-06] MEDS: midodrine 5 mg TABLET PO (20:36)
[2024-03-06] MEDS: duloxetine 60 mg Capsule PO (20:36)
[2024-03-07 00:21] VITALS: BP 102/66; PULSE 105; RESP 22; TEMP 36.3; O2SAT 90
[2024-03-07] MEDS: pantoprazole 40 mg SDV IVP (01:10)
[2024-03-07 03:50] LABS: Basophils # 0.1 10^3/uL (0.0-0.1); Basophils % 0.6 %; Eosinophils # 0.6 10^3/uL (0.0-0.8); Eosinophils % 7.1 %; Hematocrit 48.1 % (37-53); Lymphocytes # 2.8 10^3/uL (0.8-4.8); Lymphocytes % 33.6 %; Mean Corpuscular Hemoglobin 30.9 pg (27-33); Mean Corpuscular Volume 96.4 fl (82-101); Mean Platelet Volume 10.4 fL (7.4-10.4); Monocytes # 0.7 10^3/uL (0.2-0.9); Monocytes % 7.9 %; Neutrophils # 4.15 10^3/uL (1.8-7.7); Neutrophils % 50.6 %; Nucleated Red Blood Cells % 0 %; Platelet Count 176 10^3/cmm (157-399); Red Blood Count 4.99 10^6/uL (3.85-5.65); Red Cell Distribution Width 13.9 % (12.1-15.1); White Blood Count 8.21 10^3/uL (3.29-11.43)
[2024-03-07 04:18] LABS: Anion Gap 11.3 (5-19); Blood Urea Nitrogen 21 mg/dL (8-23); Carbon Dioxide 33 mmol/L (22-29); Chloride 99 mmol/L (98-107); Creatinine Clr Calc Pharmacy 61.8398; Glucose 114 mg/dL (65-115); Osmolality Calculated 294 mOsm/kg (285-295); Potassium 3.3 mmol/L (3.5-5.1); Sodium 140 mmol/L (136-145)
[2024-03-07 04:48] VITALS: BP 102/66; PULSE 103; RESP 13; O2SAT 93
[2024-03-07 05:12] VITALS: BMI 23.3
[2024-03-07 05:13] VITALS: PULSE 103
[2024-03-07] MEDS: clopidogrel 75 mg Tablet PO (05:23)
[2024-03-07 08:00] VITALS: BP 108/59; BP 129/76; BP 95/65
[2024-03-07] MEDS: metoprolol tartrate 25 mg Tablet 12.5 MG PO (08:24)
[2024-03-07] MEDS: potassium chloride ER 20 mEq Tablet 40 MEQ PO (08:25)
[2024-03-07] MEDS: apixaban 5 mg Tablet PO (08:25)
[2024-03-07] MEDS: potassium chloride ER 20 mEq Tablet PO (08:25)
[2024-03-07] MEDS: midodrine 5 mg TABLET PO (08:25)
[2024-03-07] MEDS: FUROsemide 40 mg Tablet PO (09:04)
[2024-03-07 09:10] VITALS: BP 129/76; PULSE 101; RESP 14; O2SAT 91
--- NOTE | 2024-03-07 10:34 | PM.DCS ---
Discharge Providers Date of Admission: 03/06/24 12:11 Date of Discharge: March 07, 2024 Attending Provider at Admission: Asael Rose MD Attending Provider at Discharge: Asael Rose MD Primary Care Provider: Sunny Vega DO Diagnoses at Discharge Discharge Diagnosis (1) Syncope: Status: Acute (2) Orthostatic hypotension: Status: Acute (3) Ischemic cardiomyopathy: Status: Acute (4) Coronary artery disease: Status: Acute Qualifiers: Coronary Disease-Associated Artery/Lesion type: bypass graft [place] vs. transplanted heart: [place] heart Associated angina: with unstable angina Qualified Code(s): I25.700 - Atherosclerosis of coronary artery bypass graft(s), unspecified, with unstable angina pectoris Permanent problem details: Last echocardiogram 05/31/23 with EF 30% (5) Atrial fibrillation: Status: Acute Qualifiers: Atrial fibrillation type: longstanding persistent Qualified Code(s): I48.11 - Longstanding persistent atrial fibrillation Reason for Visit Reason for Visit: SYNCOPE Hospital Course Hospital Course Toni is a 84-year-old white male who presented to the hospital with syncope. He was found to be significantly orthostatic. He has underlying severe ischemic cardiomyopathy with an EF of around 20%. Recent nuclear stress testing on February 21 demonstrated no obvious reversible ischemia. On admission he was slowly hydrated. Many of medications were decreased or stopped. The following day he was still significantly orthostatic, and a low-dose of midodrine was ordered. With this blood pressure came up nicely. Overall his metoprolol was reduced to 12.5 mg twice daily. Zaroxolyn discontinued. Lasix changed to 40 mg in the morning and 20 mg in the afternoon. He was instructed to weigh himself daily, and call if any significant weight gain, or short of breath so further adjustments can occur. Him and his agreed with the plan, and were able to ask questions. They will follow-up closely with cardiology as well as his primary care provider. 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 Physical Exam Narrative: General exam no distress Neck is supple Cardiovascular irregular, irregular rhythm with a 2/6 systolic murmur Lungs clear Abdomen is soft Extremities trace edema bilaterally Discharge Data Studies Completed and Pending Completed Studies During Hospitalization Category Date Time Status CT head wo con* [id number] Stat Cat Scan 03/05/24 05:32 Completed XR chest 1V portable [id number] Stat Exams 03/05/24 05:32 Completed Radiology Impressions Chest X-Ray 03/05/24 05:32 IMPRESSION: No acute cardiopulmonary findings. Head CT 03/05/24 05:32 IMPRESSION: No acute intracranial findings. Laboratory Results WBC 8.21 10^3/uL (3.29-11.43) 03/07/24 03:27 RBC 4.99 10^6/uL (3.85-5.65) 03/07/24 03:27 Hgb 15.40 g/dL (11.27-16.99) 03/07/24 03:27 Hct 48.1 % (37-53) 03/07/24 03:27 MCV 96.4 fl (82-101) 03/07/24 03:27 MCH 30.9 pg (27-33) 03/07/24 03:27 MCHC 32.0 g/dL (30-55) 03/07/24 03:27 RDW 13.9 % (12.1-15.1) 03/07/24 03:27 Plt Count 176 10^3/cmm (157-399) 03/07/24 03:27 MPV 10.4 fL (7.4-10.4) 03/07/24 03:27 Neut % (Auto) 50.6 % 03/07/24 03:27 Lymph % (Auto) 33.6 % 03/07/24 03:27 [place] % (Auto) 7.9 % 03/07/24 03:27 Eos % (Auto) 7.1 % 03/07/24 03:27 Baso % (Auto) 0.6 % 03/07/24 03:27 Neut # (Auto) 4.15 10^3/uL (1.8-7.7) 03/07/24 03:27 Lymph # (Auto) 2.8 10^3/uL (0.8-4.8) 03/07/24 03:27 [place] # (Auto) 0.7 10^3/uL (0.2-0.9) 03/07/24 03:27 Eos # (Auto) 0.6 10^3/uL (0.0-0.8) 03/07/24 03:27 Baso # (Auto) 0.1 10^3/uL (0.0-0.1) 03/07/24 03:27 Nucleated RBC % (auto) 0 % 03/07/24 03:27 Nucleated RBCs # 0.0 /100WBC 03/07/24 03:27 PT 15.60 SECONDS (12.1-14.9) H 03/05/24 05:45 INR 1.20 (0.8-1.2) 03/05/24 05:45 APTT 25.2 SECONDS (23.9-36.7) 03/05/24 05:45 Sodium 140 mmol/L (136-145) 03/07/24 03:27 Potassium 3.3 mmol/L (3.5-5.1) L 03/07/24 03:27 Chloride 99 mmol/L (98-107) 03/07/24 03:27 Carbon Dioxide 33 mmol/L (22-29) H 03/07/24 03:27 Anion Gap 11.3 (5-19) 03/07/24 03:27 BUN 21 mg/dL (8-23) 03/07/24 03:27 Creatinine 0.9 mg/dL (0.7-1.2) 03/07/24 03:27 GFR Calculation Not Reportable 03/07/24 03:27 Glucose 114 mg/dL (65-115) 03/07/24 03:27 Calculated Osmolality 294 mOsm/kg (285-295) 03/07/24 03:27 Calcium 9.0 mg/dL (8.5-10.5) 03/07/24 03:27 Magnesium 2.4 mg/dL (1.7-2.3) H 03/06/24 03:12 Total Bilirubin 0.8 mg/dL (0.15-1.2) 03/06/24 03:12 AST 24 U/L (0-40) 03/06/24 03:12 ALT 16 U/L (0-41) 03/06/24 03:12 Alkaline Phosphatase 69 U/L (40-130) 03/06/24 03:12 Creatine Kinase 127 U/L (39-308) 03/05/24 05:45 Troponin T Baseline 31 ng/L (0-15) H 03/05/24 05:45 Troponin T 120 Minute 28.10 ng/L (0-15) H 03/05/24 07:55 Delta Troponin T -2.90 ABS# (0-10) L 03/05/24 07:55 Troponin T Hi Sens 6Hr 23.94 ng/L (0-15) H 03/05/24 13:00 Troponin T Hi Sens 6Hr Delta -7.06 ng/L (0-12) L 03/05/24 13:00 NT-Pro-B Natriuret Pep 1688 pg/mL (0-450) H 03/05/24 05:45 Total Protein 7.4 g/dL (6.6-8.7) 03/06/24 03:12 Albumin 3.9 g/dL (3.5-5.2) 03/06/24 03:12 Globulin 3.5 g/dL (1.3-4.6) 03/06/24 03:12 TSH 1.45 uIU/mL (0.27-4.20) 03/05/24 07:55 Urine Color Yellow (Yellow) 03/05/24 06:17 Urine Appearance Clear (CLEAR) 03/05/24 06:17 Urine pH 5 (5-7) 03/05/24 06:17 Ur Specific [place] 1.020 (1.005-1.030) 03/05/24 06:17 Urine Protein 1+ (Negative) H 03/05/24 06:17 Urine Glucose (UA) Norm (Normal) 03/05/24 06:17 Urine Ketones Negative (Negative) 03/05/24 06:17 Urine Blood 2+ (Negative) H 03/05/24 06:17 Urine Nitrate Negative (Negative) 03/05/24 06:17 Urine Bilirubin Neg (Negative) 03/05/24 06:17 Urine Urobilinogen Norm mg/dL (Negative) 03/05/24 06:17 Ur Leukocyte Esterase Negative (Negative) 03/05/24 06:17 Urine RBC Rare /hpf (0-2) 03/05/24 06:17 Urine WBC None /hpf (0-5) 03/05/24 06:17 Ur Squamous Epith Cells 0-4 /hpf (0-5) H 03/05/24 06:17 Amorphous Sediment Not Reportable 03/05/24 06:17 Urine Bacteria Trace /hpf (NONE) 03/05/24 06:17 Hyaline Casts 0-4 /lpf H 03/05/24 06:17 Vitals Last Vital Signs Temp 97.4 F L 03/07/24 00:21 Pulse 101 H 03/07/24 09:10 Resp 14 03/07/24 09:10 BP 129/76 03/07/24 09:10 Pulse Ox 91 03/07/24 09:10 O2 Del Method Room Air 03/06/24 16:00 Discharge Plan Discharge Patient Disposition: Home Condition: Stable Prescriptions: New furosemide 40 mg Tablet 40 mg PO DAILY@0800 Qty: 30 0RF midodrine 5 mg Tablet 5 mg PO TID Qty: 45 0RF furosemide [Lasix] 20 mg tablet 20 mg PO .@1600 Qty: 30 0RF Continued duloxetine 60 mg capsule,delayed release(DR/EC) 60 mg PO BEDTIME cholecalciferol (vitamin D3) 50 mcg (2,000 unit) capsule 50 mcg PO QPM Eliquis 5 mg tablet 5 mg PO BID Qty: 180 3RF metoprolol succinate 25 mg tablet extended release 24 hr 25 mg PO BID Qty: 180 3RF Nitrostat 0.4 mg Tablet, Sublingual 0.4 mg SUBLINGUAL Q5M PRN (Reason: Chest Pain) Rx Instructions: do not exceed 3 doses per episode clopidogrel 75 mg tablet 75 mg PO QAM simvastatin 40 mg tablet 40 mg PO QPM pantoprazole 40 mg tablet,delayed release (DR/EC) 40 mg PO QAM fluticasone propion-salmeterol 100-50 mcg/dose Blister With Device 1 inh INHALATION BID potassium chloride 20 mEq tablet extended release 20 meq PO BID Qty: 60 0RF Discontinued losartan 25 mg tablet 12.5 mg PO DAILY PRN (Reason: Blood Pressure) Rx Instructions: when BP is greater than 110 systolic, take 1/2 tablet (12.5mg) daily. metolazone 2.5 mg tablet 2.5 mg PO EVERY OTHER DAY isosorbide mononitrate 30 mg tablet extended release 24 hr 30 mg PO QAM furosemide 20 mg tablet 40 mg PO BID Discharge Orders: Discharge Order (Routine); Ordered 03/07/24 Ordered By: Asael Rose Referrals: Sunny Vega DO [Primary Care Provider] - 03/14/24 9:30 am (BMP on follow-up) Mirtha Hui FNP [Nurse Practitioner] - 04/23/24 2:00 pm Discharge Diet: Cardiac Discharge Activity: Increase activity as tolerated Patient Instructions: CHF Stoplight, Opioid Safety Activity Restrictions/Additional Instructions: Take all medicine as prescribed BMP on follow-up with your primary care provider to check your potassium Return for any concerns Weigh yourself daily. If your weight increases more than 2 pounds in 2 days please call your primary care provider. If you have significant dizziness or low blood pressures please call your primary care provider. Do not throw your metolazone away. This medication may need to be readded depending upon your fluid status. Avoid salt. Discharge Attestations Time Spent in Discharge Care*: greater than 30 min Quality Metrics Clinical Quality Measures [ No reported AMI, CVA or VTE this stay] Coding Level of Care Code 88363 Total time (in minutes) for Discharge: 32 Diagnoses Syncope R55 Orthostatic hypotension I95.1 Ischemic cardiomyopathy I25.5 Coronary artery disease involving coronary bypass graft of [place] heart with unstable angina pectoris I25.700 Coronary Disease-Associated Artery/Lesion type: bypass graft [place] vs. transplanted heart: [place] heart Associated angina: with unstable angina Longstanding persistent atrial fibrillation I48.11 Atrial fibrillation type: longstanding persistent
[2024-03-07 11:43] VITALS: BP 129/76; PULSE 101; RESP 14; O2SAT 91
--- NOTE | 2024-03-07 11:44 | PC.NURSE ---
Discharge Note Patient discharged to home via POV accompanied by family. Discharge instructions reviewed with patient and/or underwriting service representative. Mobile pharmacy medications and/or prescriptions provided. Belongings/home medications returned.
== END 2024-03-07 11:44 | disposition home or self-care (01) | DRG 312 ==
LOC: ER 05:50 → CSU 13:24
PROVIDERS: Emergency Medicine; Admitting Provider Internal Medicine; Emergency Provider Family Medicine; PCP Emergency Medicine Emergency Medical Services; Visit Provider Internal Medicine
DX: I95.1 Orthostatic hypotension (principal); I25.110 Atherosclerotic heart disease of native coronary artery with unstable angina pectoris; I48.20 Chronic atrial fibrillation, unspecified; I50.22 Chronic systolic (congestive) heart failure; I25.5 Ischemic cardiomyopathy; Z79.01 Long term (current) use of anticoagulants; Z79.02 Long term (current) use of antithrombotics/antiplatelets; E86.0 Dehydration; K21.9 Gastro-esophageal reflux disease without esophagitis; E78.5 Hyperlipidemia, unspecified; I11.0 Hypertensive heart disease with heart failure; F17.210 Nicotine dependence, cigarettes, uncomplicated
CPT/HCPCS: 36415; 70450; 71045; 80048; 80053; 81001; 82550; 83735; 83880; 84443; 84484; 85025; 85610; 85730; 90471; 90715; 93005; 96376; 99285; A9270; C9113; G0378; J7030; J7040

== ENCOUNTER → 2024-03-20 13:33 | Outpatient (BNVA) | payer OTHER, SELFPAY | PROVIDERS: PCP Emergency Medicine Emergency Medical Services; Visit Provider Nurse Practitioner Family | DX: I11.0 Hypertensive heart disease with heart failure (principal); I50.22 Chronic systolic (congestive) heart failure; F17.210 Nicotine dependence, cigarettes, uncomplicated | CPT/HCPCS: 99213 ==

== ENCOUNTER 2024-03-21 00:15 | Emergency (ER) | payer OTHER, SELFPAY ==
[2024-03-21] VITALS (8 sets, daily range): BP systolic 112–124; BP diastolic 64–90; PULSE 94–104; RESP 16–24; TEMP 36.4; O2SAT 88–98; BMI 24.5
--- NOTE | 2024-03-21 00:17 | XRR_ITS ---
PROCEDURE INFORMATION: Exam: XR Chest Exam date and time: 03/21/2024 12:31 AM Age: 84 years old Clinical indication: Shortness of breath; Prior surgery; Surgery date: 6+ months; Surgery type: Pacemaker, cabg; Additional info: Dyspnea TECHNIQUE: Imaging protocol: Radiologic exam of the chest. Views: 1 view. COMPARISON: CR (CHEST, ) 03/05/2024 5:38 AM FINDINGS: Tubes, catheters and devices: Left chest wall implantable pacer/defibrillator. Lungs: Moderate interstitial coarsening, worsened compared to prior study. Pleural spaces: No pneumothorax. Small right pleural effusion, increased. Heart/Mediastinum: Stable. Vasculature: Atherosclerotic calcifications of the aorta are noted. Bones/joints: The patient is status post sternotomy. XR/XR chest 1V portable [id number] IMPRESSION: Worsening interstitial coarsening, likely related to pulmonary edema, particularly in the setting of mildly increased pleural effusion. Correlate with CHF.
--- NOTE | 2024-03-21 00:17 | ECG_ITS ---
[facility] Test Date: 2024-03-21 Pat Name: Toni Quintanilla Department: Room: Gender: Male Architect In Training: : 1940 Requested By: Douglas Tripathi Order Number: [id number] Missy MD: Hong Calhoun M.D. Measurements Intervals [place] Rate: 97 P: 234 [place]: 283 QRS: -54 QRSD: 146 T: 40 QT: 417 QTc: 530 Interpretive Statements ECTOPIC ATRIAL RHYTHM WITH FIRST DEGREE AV BLOCK LEFT AXIS DEVIATION [QRS AXIS < -30] INTRAVENTRICULAR CONDUCTION DELAY [130+ ms QRS DURATION] Compared to ECG 03/05/2024 11:40:11 Ectopic atrial rhythm now present First degree AV block now present Left-axis deviation now present Intraventricular conduction delay now present Sinus tachycardia no longer present Ventricular premature complex(es) no longer present Right bundle-branch block no longer present Left anterior fascicular block no longer present Electronically Signed On 03-21-2024 18:16:01 CDT by Hong Calhoun M.D. [id number] audra
--- NOTE | 2024-03-21 00:22 | ED_ITS ---
HPI - SOB/Dyspnea 2 General: Chief Complaint: Shortness of Breath/Dyspnea Stated Complaint: SOB Time Seen by Provider: 03/21/24 00:17 History of Present Illness: HPI Narrative: Patient presents to the ER with complaints of shortness of breath. Patient states he just feels like he just cannot get enough air. Patient states he has been short of breath ever since discharge from the hospital approximately week ago he may have had 1 good day but it has been all downhill since then. He did see his women's ministry director Mirtha Hui today who said he had wet sounding lungs and told him to increase his Lasix to double dosing for the next several days. He did do this today but it did not make any difference. During his last hospitalization he had a multiple medication changes including changes in diuretics and addition of midodrine secondary to to hypotension. Review of Systems 2 General: Reports: 10 or more systems reviewed and unremarkable except in HPI and below PFSH ED 2 PFSH: Medical History Chronic systolic CHF (congestive heart failure), NYHA class 2 Ischemic cardiomyopathy ICD (implantable cardioverter-defibrillator) in place GERD (gastroesophageal reflux disease) Sick sinus syndrome BPH (benign prostatic hyperplasia) Hyperlipidemia Hypertension Coronary artery disease Last echocardiogram 05/31/23 with EF 30% Unstable angina pectoris Atrial fibrillation Surgical History History of hemorrhoidectomy S/P cholecystectomy S/P TURP S/P CABG (coronary artery bypass graft) S/P cardiac pacemaker procedure Family History Other CAD (coronary artery disease) Social History Smoking and tobacco/nicotine status: current every day tobacco/nicotine user cigarettes Packs smoked per day: 0.5 Years cigarettes smoked: 55 Alcohol intake: never Substance/Drug Use: never Lives independently: Yes Household members: spouse Housing: House Marital status: Number of children: 4 Pets and animals: Yes Pets & animals: dog(s) Physical Exam 2 Const: COMMON NORMALS: no acute distress, average body habitus, patient oriented x3, no limitations, healthy appearing, alert and well nourished HENMT: COMMON NORMALS: normocephalic, atraumatic, hearing grossly normal bilaterally, external ears normal, Normal external nose present, moist oral mucous membranes and oropharynx normal HEAD & SCALP: normocephalic and atraumatic NOSE: Normal external nose present EXTERNAL EAR: Yes external ears normal Neck/C-Spine: COMMON NORMALS: full ROM, no lymphadenopathy, supple, no meningeal signs, no JVD and Thyroid normal THYROID: Thyroid normal Chest: COMMONS NORMALS: normal inspection of the chest and normal palpation of entire chest wall Resp: COMMON NORMALS: normal respiratory effort, No retractions and No use of accessory muscles; negative for clear to auscultation bilaterally (Occasional expiratory wheeze) AUSCULTATION: not clear to auscultation bilaterally (Occasional expiratory wheeze) Cardio: COMMON NORMALS: no JVD, regular rate, regular rhythm, S1 normal heart sound present, S2 normal heart sound present, No gallops present (Cardio), No clicks present (Cardio) and No rub (Cardio); negative for No murmurs present (Cardio) (2 out of 6 systolic ejection murmur) RATE: regular rate RHYTHM: regular rhythm HEART SOUNDS: S1 normal heart sound present and S2 normal heart sound present GI: COMMON NORMALS: Normal to inspection, nondistended, normoactive bowel sounds present, Soft to palpation, non-tender, No hepatosplenomegaly present and no masses PALPATION: Yes Soft to palpation and Yes No hepatosplenomegaly present Extremity: NARRATIVE EXTREMITY EXAM: Negative bilateral lower extremity edema Neuro: COMMON NORMALS: patient oriented x3 SENSORIUM/ORIENTATION: Yes alert MENINGEAL SIGNS: Yes no meningeal signs Course 2 Vital Signs: Vital signs: Vital Signs Temperature 97.6 F 03/21/24 00:18 Pulse Rate 98 03/21/24 02:58 Respiratory Rate 16 03/21/24 02:58 Blood Pressure 112/90 03/21/24 02:58 Pulse Oximetry 96 03/21/24 02:58 Oxygen Delivery Me thod Room Air 03/21/24 02:58 MDM - SOB/Dyspnea Medical Decision Making Patient Is oxygen saturation above 92% on room air but he said he felt better when he put him on 2 L. Lab work was obtained which revealed a slight bump in his creatinine to 1.3, BNP is now worsening elevated to 4956, and chest x-ray showed worsening interstitial pulmonary edema. Patient was given additional 40 mg Lasix IV which produced approximately a liter of urine diuresis, patient had a home oxygen evaluation where he got up and walked around the emergency room and only desaturated to 88%, RT said he would need to drop to 87% before he will qualify for home oxygen. These results was discussed with the patient and family. We will increase the patient's Lasix for the next 3 days. Patient has a follow-up appointment to the women's ministry director already scheduled for a week from today. Differential Diagnosis Likely congestive heart failure; Unlikely acute exacerbation of chronic obstructive airways disease, community acquired pneumonia, asthma with exacerbation or pulmonary embolism Medical Records I reviewed the patient's medical records. Lab Data I reviewed the patient's lab results. 03/21/24 00:22 03/21/24 00:22 Labs/Radiology: Radiology Impressions Chest X-Ray 03/21/24 00:17 IMPRESSION: Worsening interstitial coarsening, likely related to pulmonary edema, particularly in the setting of mildly increased pleural effusion. Correlate with CHF. Laboratory Results WBC 7.78 10^3/uL (3.29-11.43) 03/21/24 00:22 RBC 5.03 10^6/uL (3.85-5.65) 03/21/24 00:22 Hgb 15.50 g/dL (11.27-16.99) 03/21/24 00:22 Hct 47.9 % (37-53) 03/21/24 00:22 MCV 95.2 fl (82-101) 03/21/24 00:22 MCH 30.8 pg (27-33) 03/21/24 00:22 MCHC 32.4 g/dL (30-55) 03/21/24 00:22 RDW 13.7 % (12.1-15.1) 03/21/24 00:22 Plt Count 230 10^3/cmm (157-399) 03/21/24 00:22 MPV 10.1 fL (7.4-10.4) 03/21/24 00:22 Neut % (Auto) 56.4 % 03/21/24 00:22 Lymph % (Auto) 29.4 % 03/21/24 00:22 [place] % (Auto) 7.6 % 03/21/24 00:22 Eos % (Auto) 5.8 % 03/21/24 00:22 Baso % (Auto) 0.5 % 03/21/24 00:22 Neut # (Auto) 4.39 10^3/uL (1.8-7.7) 03/21/24 00:22 Lymph # (Auto) 2.3 10^3/uL (0.8-4.8) 03/21/24 00:22 [place] # (Auto) 0.6 10^3/uL (0.2-0.9) 03/21/24 00:22 Eos # (Auto) 0.5 10^3/uL (0.0-0.8) 03/21/24 00:22 Baso # (Auto) 0.0 10^3/uL (0.0-0.1) 03/21/24 00:22 Nucleated RBC % (auto) 0 % 03/21/24 00:22 Nucleated RBCs # 0.0 /100WBC 03/21/24 00:22 Sodium 139 mmol/L (136-145) 03/21/24 00:22 Potassium 4.6 mmol/L (3.5-5.1) 03/21/24 00:22 Chloride 97 mmol/L (98-107) L 03/21/24 00:22 Carbon Dioxide 30 mmol/L (22-29) H 03/21/24 00:22 Anion Gap 16.6 (5-19) 03/21/24 00:22 BUN 20 mg/dL (8-23) 03/21/24 00:22 Creatinine 1.3 mg/dL (0.7-1.2) H 03/21/24 00:22 GFR Calculation Not Reportable 03/21/24 00:22 Glucose 121 mg/dL (65-115) H 03/21/24 00:22 Calculated Osmolality 292 mOsm/kg (285-295) 03/21/24 00:22 Calcium 9.7 mg/dL (8.5-10.5) 03/21/24 00:22 Magnesium 2.3 mg/dL (1.7-2.3) 03/21/24 00:22 Total Bilirubin 0.4 mg/dL (0.15-1.2) 03/21/24 00:22 AST 20 U/L (0-40) 03/21/24 00:22 ALT 15 U/L (0-41) 03/21/24 00:22 Alkaline Phosphatase 72 U/L (40-130) 03/21/24 00:22 Troponin T Baseline 48 ng/L (0-15) H 03/21/24 00:22 Troponin T 120 Minute 41.83 ng/L (0-15) H 03/21/24 02:01 Delta Troponin T -6.17 ABS# (0-10) L 03/21/24 02:01 NT-Pro-B Natriuret Pep 4956 pg/mL (0-450) H 03/21/24 00:22 Total Protein 7.4 g/dL (6.6-8.7) 03/21/24 00:22 Albumin 4.1 g/dL (3.5-5.2) 03/21/24 00:22 Globulin 3.3 g/dL (1.3-4.6) 03/21/24 00:22 All radiology interpretation(s) finalized by discharge Discharge Plan Discharge Patient Disposition: Home Clinical Impression: Congestive heart failure Qualifiers: Heart failure type: unspecified Heart failure chronicity: acute on chronic Q ualified Code(s): I50.9 - Heart failure, unspecified Condition: Stable Prescriptions: No Action duloxetine 60 mg capsule,delayed release(DR/EC) 60 mg PO BEDTIME cholecalciferol (vitamin D3) 50 mcg (2,000 unit) capsule 50 mcg PO QPM Eliquis 5 mg tablet 5 mg PO BID Qty: 180 3RF metoprolol succinate 25 mg tablet extended release 24 hr 25 mg PO BID Qty: 180 3RF Nitrostat 0.4 mg Tablet, Sublingual 0.4 mg SUBLINGUAL Q5M PRN (Reason: Chest Pain) Rx Instructions: do not exceed 3 doses per episode clopidogrel 75 mg tablet 75 mg PO QAM simvastatin 40 mg tablet 40 mg PO QPM pantoprazole 40 mg tablet,delayed release (DR/EC) 40 mg PO QAM fluticasone propion-salmeterol 100-50 mcg/dose Blister With Device 1 inh INHALATION BID furosemide 40 mg Tablet 40 mg PO DAILY@0800 Qty: 30 0RF potassium chloride 20 mEq tablet extended release 20 meq PO BID Qty: 60 0RF midodrine 5 mg Tablet 5 mg PO TID Qty: 45 0RF Lasix 20 mg tablet 20 mg PO .@1600 Qty: 30 0RF Discharge Orders: Discharge ED (Routine); Ordered 03/21/24 Ordered By: Douglas Tripathi Referrals: Sunny Vega DO [Primary Care Provider] - 1 week Patient Instructions: Congestive Heart Failure Activity Restrictions/Additional Instructions: Your lab work in the ER showed you may have fluid in your lungs due to your congestive heart failure. I suggest increasing your Lasix and potassium for the next 3 days. I would double both of them for the next 3 days. Please keep your appointment previously scheduled for cardiology in 1 week. If this does not produce good diuresis and improve your breathing or your breathing worsens at any time please feel free to return to the ER. Coding Level of Care Code ED Drone Software Development Engineer for Karen Nuñez
[2024-03-21 00:29] LABS: Basophils % 0.5 %; Eosinophils # 0.5 10^3/uL (0.0-0.8); Eosinophils % 5.8 %; Hematocrit 47.9 % (37-53); Lymphocytes # 2.3 10^3/uL (0.8-4.8); Lymphocytes % 29.4 %; Mean Corpuscular HGB Conc 32.4 g/dL (30-55); Mean Corpuscular Hemoglobin 30.8 pg (27-33); Mean Corpuscular Volume 95.2 fl (82-101); Mean Platelet Volume 10.1 fL (7.4-10.4); Monocytes # 0.6 10^3/uL (0.2-0.9); Monocytes % 7.6 %; Neutrophils # 4.39 10^3/uL (1.8-7.7); Neutrophils % 56.4 %; Nucleated Red Blood Cells % 0 %; Platelet Count 230 10^3/cmm (157-399); Red Blood Count 5.03 10^6/uL (3.85-5.65); Red Cell Distribution Width 13.7 % (12.1-15.1); White Blood Count 7.78 10^3/uL (3.29-11.43)
[2024-03-21 00:46] LABS: Troponin(5th) Baseline 48 ng/L (0-15)
[2024-03-21 01:08] LABS: Alanine Aminotransferase 15 U/L (0-41); Albumin Level 4.1 g/dL (3.5-5.2); Alkaline Phosphatase 72 U/L (40-130); Aspartate Amino Transferase 20 U/L (0-40); Blood Urea Nitrogen 20 mg/dL (8-23); Calcium 9.7 mg/dL (8.5-10.5); Carbon Dioxide 30 mmol/L (22-29); Chloride 97 mmol/L (98-107); Creatinine Clr Calc Pharmacy 43.5317; Globulin 3.3 g/dL (1.3-4.6); Glucose 121 mg/dL (65-115); Magnesium 2.3 mg/dL (1.7-2.3); NT Pro B Type Natriuretic Pept 4956 pg/mL (0-450); Osmolality Calculated 292 mOsm/kg (285-295); Sodium 139 mmol/L (136-145); Total Bilirubin 0.4 mg/dL (0.15-1.2); Total Protein 7.4 g/dL (6.6-8.7)
[2024-03-21 01:20] LABS: Anion Gap 16.6 (5-19); Potassium 4.6 mmol/L (3.5-5.1)
[2024-03-21] MEDS: FUROsemide 10 mg/mL SDV 4mL 40 MG IVP (01:27)
[2024-03-21 02:25] LABS: Troponin 5 2HR 41.83 ng/L (0-15)
[2024-03-21 02:26] LABS: Troponin 5 2HR Delta -6.17 ABS# (0-10)
== END 2024-03-21 03:11 | disposition home or self-care (01) ==
PROVIDERS: Emergency Provider Emergency Medicine; PCP Emergency Medicine Emergency Medical Services
DX: I11.0 Hypertensive heart disease with heart failure (principal); I50.9 Heart failure, unspecified; Z79.01 Long term (current) use of anticoagulants; Z79.02 Long term (current) use of antithrombotics/antiplatelets; F17.210 Nicotine dependence, cigarettes, uncomplicated; I25.5 Ischemic cardiomyopathy; E78.5 Hyperlipidemia, unspecified; I25.10 Atherosclerotic heart disease of native coronary artery without angina pectoris; Z95.1 Presence of aortocoronary bypass graft; Z95.810 Presence of automatic (implantable) cardiac defibrillator
CPT/HCPCS: 71045; 80053; 83735; 83880; 84484; 85025; 93005; 96374; 99285; J1940

== ENCOUNTER 2024-03-28 14:02 | Inpatient (IN) | payer OTHER, SELFPAY ==
--- OUTSIDE RECORDS SUMMARY | 2024-03-28 14:08 | XMS_ITS | Patient Health Record ---
Author Name Unknown Organization [facility] Address [address] [place] [address] Care Team Providers Care Grinder Operator External Tool Name Role Phone Renard Bermudez Unavailable [phone] Reason For Referral No Information Medications Medication SIG (Take, Route, Frequency, Duration) Notes Start Date End Date Status Nitroglycerin 0.4 MG Dissolve 1 tablet(s) under the tongue may repeat every 5 minutes. Maximum of 3 doses in 15 minutes Sublingual for 30 Nitroglycerin 0.4mg Tablets, Sublingual 1 tab(s) sl may repeat every 5 minutes. Maximum of 3 doses in 15 minutes 05/04/2004 Active Bystolic 5 MG Take 1 tablet(s) by mouth daily Oral for 30 Bystolic 5mg Tablet Take 1 tablet(s) by mouth daily 10/29/2011 Active Lisinopril 20 MG 1 tab po QD Oral for 30 Lisinopril 20mg Tablet 1 tab po QD 05/02/2013 Active Coumadin 6 MG 1 tab(s) po qd with a 1 mg to equal 7 mg daily Oral for 30 Coumadin (Warfarin Sodium) 6mg Tablet 1 tab(s) po qd with a 1 mg to equal 7 mg daily #90 (Ninety) tablet(s) 06/10/2014 Active Spironolactone 25 MG Take 1 tablet(s) by mouth daily Oral for 30 Spironolactone 25mg Tablet 1 tab(s) po qd 01/27/2004 Active Omeprazole 20 MG Take 1 capsule(s) by mouth daily Oral for 30 Omeprazole 20mg Capsules, Extended Release 1 cap(s) po qd 01/27/2004 Active Coumadin 1 MG 1 tab(s) po qd with 6 mg/day for a total of 7 mg Oral for 30 Coumadin (Warfarin Sodium) 1mg Tablet 1 tab(s) po qd with 6 mg/day for a total of 7 mg #90 (Ninety) tablet(s) 02/21/2014 Active Pravastatin Sodium 40 MG Take 1 tablet(s) by mouth at bedtime Oral for 30 Pravastatin 40mg Tablet Take 1 tablet(s) by mouth at bedtime #90 (Ninety) tablet(s) 02/13/2014 Active Bumetanide 1 MG Take 1 tablet(s) by mouth daily Oral for 30 Bumetanide 1mg Tablet Take 1 tablet(s) by mouth daily 02/13/2014 Active Aspirin 81 MG 1 tab(s) po qd Oral for 30 Aspirin (ASA) 81mg Chewable Tablet 1 tab(s) po qd 05/02/2013 Active Problems Problem Type SNOMED Code ICD Code Onset Dates Problem Status W/U Status Risk Notes Problem Memory loss (72531396) Memory loss (780.93) 2014 Active confirmed [id number]- Problem Hypercholesterolemia (92425921) Hypercholesterolemia (272.0) 2008 Active confirmed [id number]- Problem Congestive heart failure (12555657) Congestive heart failure (428.0) 2016 Active confirmed [id number]- Problem Solitary nodule of lung (328878871) Lung nodule (518.89) 2015 Active confirmed [id number]- Problem Hypertension (29291778) HTN (401.1) 2015 Active confirmed [id number]- Problem Primary atypical pneumonia (00707902) Primary atypical pneumonia (486) 2015 Active confirmed [id number]- Problem Anemia (343343779) Unspecified a nemia (285.9) 2017 Problem resolved confirmed [id number]- Problem Atrial fibrillation (98140582) Atrial fibrillation (427.31) 2003 Problem resolved confirmed [id number]- Problem Acute maxillary sinusitis (36035556) Acute maxillary sinusitis (461.0) 2017 Problem resolved confirmed [id number]- Problem Acute sinusitis (36769095) Acute sinusitis, unspecified (461.9) 2003 Problem resolved confirmed [id number]- Problem Hematuria (68967753) Hematuria (599.7) 2005 Problem resolved confirmed [id number]- Problem Actinic keratosis (636808362) Actinic keratosis (702.0) 2006 Problem resolved confirmed [id number]- Problem Seborrhea (97915707) Seborrhea (706.3) 2010 Problem resolved confirmed [id number]-[id number]- Problem Headache (32551836) Headache (784.0) 01/26 Problem resolved confirmed [id number]- Problem Shortness of breath (648862585) Shortness of breath (786.05) 2013 Problem resolved confirmed [id number]-[id number]- Problem Cough (32754390) Cough (786.2) 2012 Problem resolved confirmed Lenard-[id number]- Problem Dysuria (24690551) Dysuria (788.1) 2008 Problem resolved confirmed Lenard-[id number]- Problem Urinary frequency (297969869) Urinary frequency (788.41) 2008 Problem resolved confirmed Lenard-[id number] [id number]- Problem Screening for malignant neoplasm of prostate (920943489) Screening for prostate cancer (V76.44) 2008 Problem resolved confirmed Lenard-98 [id number]- Problem Dizziness (645319748) Dizziness (780.4) 1 2008 Problem resolved confirmed Lenard-[id number]- Problem Low back pain (261168723) Low back pain (724.2) 2010 Problem resolved confirmed Lenard-[id number]- Problem Arthralgia of temporomandibular joint (77141841) TMJ arthralgias (524.62) 2010 Problem resolved confirmed Lenard-[id number]- Problem Mixed urinary incontinence (313075636) Mixed urinary incontinence (788.33) 2004 Problem resolved confirmed Lenard-98 [id number]- Problem Shortness of breath (861193783) Shortness of breath (786.09) 2013 Problem resolved confirmed Lenard-98 [id number]- Problem Shoulder pain (28317791) Shoulder pain (719.41) 2004 Problem resolved confirmed Lenard-[id number] [id number]- Problem Supraventricular tachycardia (1146340) Supraventricular tachycardia (427.0) 2003 Problem resolved confirmed Lenard-98 [id number]- Problem Right upper quadrant pain (621604277) Abdominal pain (RUQ) (789.01) 2003 Problem resolved confirmed Lenard-[id number]- Problem Inflamed seborrheic keratosis (786854861) Atypical seborrheic keratosis (702.11) 2007 Problem resolved confirmed Lenard-[id number]- Problem 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) Other abnormal laboratory result on blood (790.99) 2014 Problem resolved confirmed Lenard-98 [id number]- Problem Atypical mole syndrome (064724348) Atypical mole (238.2) 2003 Problem resolved confirmed Lenard-98 [id number]- Problem Carotid artery occlusion without infarction (793636910389775) Carotid artery stenosis, without cerebral infarction (433.10) 2008 Problem resolved confirmed Lenard-98 [id number]- Problem Generalized abdomina l pain (011996207) Generalized abdominal pain (789.07) 2014 Problem resolved confirmed Lenard-98 [id number]- Problem Hematochezia (875942981) Hematochezia (578.1) 2010 Problem resolved confirmed Lenard-98 [id number]- Problem Lymphadenopathy (70981978) Lymphadenopathy (785.6) 2008 Problem resolved confirmed Lenard-98 [id number]- Problem Ear ache (68873892) Ear ache (388.71) 2003 Problem resolved confirmed Lenard-98 [id number]- Problem Discharge of eye (87634996) Eye discharge (379.93) 2008 Problem resolved confirmed Lenard-98 [id number]- Problem Herpes simplex without complication (820128144) Herpes simplex, without complication (054.9) 2007 Problem resolved confirmed Lenard-98 [id number]- Problem Benign prostatic hypertrophy without outflow obstruction (599658223) Hypertrophy (benign) prostate, without urinary obstruction (600.00) 2004 Problem resolved confirmed Lenard-98 [id number]- Problem Lateral epicondyliti s (923325449) Lateral epicondylitis (726.32) 2013 Problem resolved confirmed Lenard-98 [id number]- Problem 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 Problem resolved confirmed Lenard-98 [id number]- Problem Precordial pain (82293548) Precordial chest pain (786.51) 2003 Problem resolved confirmed Lenard-98 [id number]- Problem Acute confusional state (1017422) Acute confusional state (293.0) 2006 Problem resolved confirmed Lenard-98 [id number]- Problem Acute sinusitis (disorder) (91029288) Acute sinusitis, other (461.8) 2003 Problem resolved confirmed Lenard-98 [id number]- Problem Arachnoid cyst (975134343) Arachnoid cyst (348.0) 2006 Problem resolved confirmed Lenard-98 [id number]- Problem Seborrheic dermatiti s (34533415) Seborrheic dermatitis (690.18) 2003 Problem resolved confirmed Lenard-98 5911- Problem Tremor (50231785) Tremor (781.0) 2014 Problem resolved confirmed Lenard-98 [id number]- Problem Needs influenza immunization (147506300) Vaccination against other viral diseases, Influenza (V04.81) 2016 Problem resolved confirmed Lenard-98 5911- Problem Acute upper respiratory infection (99960073) Acute upper respiratory infection (465.8) 2004 Problem resolved confirmed Lenard-98 [id number]- Problem Impacted cerumen (83551110) Cerumen impaction (380.4) 2008 Problem resolved confirmed Lenard-98 5911- Problem Neoplasm of uncertai n behavior of skin (85129520) Atypical skin lesion (238.2) 2011 Problem resolved confirmed Lenard-98 5911- Problem Constipation (71703751) Constipation (564.01) 2008 Problem resolved confirmed Lenard-98 5911- Problem Excessive salivation (55972555) Excessive salivation (527.7) 2007 Problem resolved confirmed Lenard-98 5911- Problem Pneumococcal pneumonia (780563997) Acute lobar pneumonia (481) 2016 Problem resolved confirmed Lenard-98 5911- Problem Urinary incontinence (175585039) urinary dribbling (788.30) 2009 Problem resolved confirmed Lenard-98 5911- Problem Wrist pain (54634102) Wrist pain (719.43) 2015 Problem resolved confirmed Lenard-98 5911- Problem Acute upper respiratory infection (54919952) Upper respiratory illness (465.8) 2007 Problem resolved confirmed Lenard-98 5911- Problem Varicose veins (063727140) Varicose veins NOS (454.9) 2010 Problem resolved confirmed Lenard-98 5911- Problem Impotence of organic origin (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) 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) 2003 Problem resolved confirmed Lenard-98 5911- Problem Leucoplakia of oral mucosa and tongue (0029998328994) 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 Problem resolved confirmed Lenard-98 5911- Problem Mouth ulcer (30412078) Mouth ulcer (528.2) 2007 Problem resolved confirmed Lenard-98 5911- Problem Atrial fibrillation (59644941) Established atrial fibrillation (427.31) 2010 Problem resolved confirmed Lenard-98 5911- Problem Impacted cerumen (65823588) External cerumen impaction (380.4) 2003 Problem resolved confirmed Lenard-98 5911- Problem 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
[2024-03-28 14:16] VITALS: BMI 23.8
--- NOTE | 2024-03-28 14:23 | ECG_ITS ---
[facility] Test Date: 2024-03-28 Pat Name: Toni Quintanilla Department: Room: 107 Gender: Male Second Cutter: : 1940 Requested By: Jose Martin Chester Order Number: [id number] Missy MD: Jose Martin Chester M.D. Measurements Intervals [place] Rate: 110 P: 0 GA: 0 QRS: -60 QRSD: 149 T: 49 QT: 387 QTc: 524 Interpretive Statements ATRIAL FLUTTER WITH RAPID VENTRICULAR RESPONSE RIGHT BUNDLE BRANCH BLOCK [120+ ms QRS DURATION, UPRIGHT V1, 40+ ms S IN I/aVL/V4/V5/V6] LEFT ANTERIOR FASCICULAR BLOCK [QRS AXIS <= -45, QR IN I, RS IN II] Compared to ECG 03/21/2024 00:16:40 Right bundle-branch block now present Left anterior fascicular block now present Ectopic atrial rhythm no longer present First degree AV block no longer present Left-axis deviation no longer present Intraventricular conduction delay no longer present Electronically Signed On 03-28-2024 16:54:43 CDT by Jose Martin Chester M.D. [id number]
[2024-03-28 14:26] VITALS: BP 105/67; PULSE 110; RESP 19; TEMP 36.7; O2SAT 90
--- NOTE | 2024-03-28 16:01 | PM.HP ---
Providers/Chief Complaint Admitting Physician: Jose Martin Chester M.D Primary Care Provider: Sunny Vega DO Chief Complaint: AFIB History of Present Illness Toni Quintanilla Sr is a 84 year old male with past medical history of coronary artery disease, atrial fibrillation, has ICD in place who is directly admitted from hospital as he has been having worsening shortness of breath over the last 1 month. He is also in atrial flutter/fibrillation with RVR. Patient says he cannot walk few steps without getting out of breath. Cannot lay down flat to sleep. He also says he has been having shortness of breath. Review of Systems Const: Denies: fever(s) or chills Card: Reports: chest pain, palpitations, irregular heart rhythm, swelling of feet/ankles, lightheadedness, syncope (3 week ago), pre-syncope, dyspnea on exertion and orthopnea; Denies: leg pain with exertion Resp: Reports: dyspnea; Denies: productive cough or non-productive cough Musc: Denies: neck pain or back pain Neuro: Reports: headache(s) and dizziness Psych: Denies: anxiety, depression, suicidal ideation or homicidal ideation Jose/Lymph: Reports: easy bruising and easy bleeding Medications/Allergies Home Medications Medication Instructions Recorded Confirmed Last Taken Type cholecalciferol (vitamin D3) 50 50 mcg PO QPM 01/13/23 03/28/24 01/27/24 History mcg (2,000 unit) capsule duloxetine 60 mg capsule,delayed 60 mg PO BEDTIME 01/13/23 03/28/24 01/27/24 History release apixaban 5 mg tablet (Eliquis) 5 mg PO BID #180 tabs 02/10/23 03/28/24 01/27/24 Rx metoprolol succinate 25 mg 25 mg PO BID #180 tabs 02/14/23 03/28/24 01/27/24 Rx tablet,extended release 24 hr clopidogrel 75 mg tablet 75 mg PO QAM 03/05/24 03/28/24 Unknown History fluticasone 100 mcg-salmeterol 50 1 inh inhalation BID 03/05/24 03/28/24 Unknown History mcg/dose blistr powdr for inhalation nitroglycerin 0.4 mg sublingual 0.4 mg sublingual Q5M PRN Chest 03/05/24 03/28/24 Unknown History tablet (Nitrostat) Pain pantoprazole 40 mg tablet,delayed 40 mg PO QAM 03/05/24 03/28/24 Unknown History release simvastatin 40 mg tablet 40 mg PO QPM 03/05/24 03/28/24 Unknown History furosemide 40 mg tablet 40 mg PO DAILY@0800 #30 tabs 03/06/24 03/28/24 Unknown Rx potassium chloride 20 mEq 20 meq PO BID #60 tabs 03/06/24 03/28/24 Unknown Rx tablet,extended release midodrine 5 mg tablet 5 mg PO TID #45 tabs 03/07/24 03/28/24 Unknown Rx furosemide 20 mg tablet (Lasix) 20 mg PO QPM 03/28/24 03/28/24 Unknown History mirtazapine 15 mg tablet 15 mg PO BEDTIME PRN unknown 03/28/24 03/28/24 Unknown History Allergies Allergy/AdvReac Type Severity Reaction Status Date / Time No Known Allergies Allergy Verified 03/28/24 16:33 PFSH Acute PFSH: Medical History Chronic systolic CHF (congestive heart failure), NYHA class 2 Ischemic cardiomyopathy ICD (implantable cardioverter-defibrillator) in place GERD (gastroesophageal reflux disease) Sick sinus syndrome BPH (benign prostatic hyperplasia) Hyperlipidemia Hypertension Coronary artery disease Last echocardiogram 05/31/23 with EF 30% Unstable angina pectoris Atrial fibrillation Surgical History History of hemorrhoidectomy S/P cholecystectomy S/P TURP S/P CABG (coronary artery bypass graft) S/P cardiac pacemaker procedure Family History Other CAD (coronary artery disease) Social History Smoking and tobacco/nicotine status: former use of tobacco/nicotine Alcohol intake: never Substance/Drug Use: never Lives independently: Yes Household members: spouse Housing: House Marital status: Number of children: 4 Pets and animals: Yes Pets & animals: dog(s) Vitals/I&O/Wt Last Vital Signs Temp 98.0 F 03/28/24 14:26 Pulse 110 H 03/28/24 14:26 Resp 19 H 03/28/24 14:26 BP 105/67 03/28/24 14:26 Pulse Ox 90 03/28/24 14:26 O2 Del Method Room Air 03/28/24 14:26 Physical Exam Narrative: GENERAL: Patient is alert, awake and oriented x3. [] NECK: No jugular vein distension. [] HEENT: No cyanosis. No icterus. No pallor. [] HEART: Tachycardia LUNGS: Diminished air entry with mild crackles CENTRAL NERVOUS SYSTEM: Grossly nonfocal. [] EXTREMITIES: Lower extremities with 1+ edema bilaterally. Data 03/28/24 16:37 03/29/24 05:06 A&P Assessment and plan (1) CHF exacerbation: (2) Atrial fibrillation: Qualifiers: Atrial fibrillation type: longstanding persistent Qualified Code(s): I48.11 - Longstanding persistent atrial fibrillation (3) S/P cardiac pacemaker procedure: (4) Coronary artery disease: Qualifiers: Coronary Disease-Associated Artery/Lesion type: bypass graft [place] vs. transplanted heart: [place] heart Associated angina: with unstable angina Qualified Code(s): I25.700 - Atherosclerosis of coronary artery bypass graft(s), unspecified, with unstable angina pectoris (5) Hypertension: Qualifiers: Hypertension type: essential hypertension Qualified Code(s): I10 - Essential (primary) hypertension (6) Hx of CABG: Plan Will start IV diuretics. Monitor renal function. Close I and Os. Will also start amiodarone drip. If patient does not convert to normal rhythm modest rate control, can consider cardioversion. We will interrogate pacemaker/ICD. Continue anticoagulation with Eliquis We will obtain chest x-ray Recent echo showed severely reduced LV systolic function with EF of 25 to 30%. Patient also has moderate to severe mitral regurgitation. May require OZIEL for further evaluation once stable. Attestations Medical Necessity Statement*: Care expected to cross 2 midnights. Patient admitted with congestive heart failure exacerbation and atrial fibrillation/flutter with RVR. Will need IV diuresis and A-fib flutter controlled. Coding Level of Care Code Acute Code for [facility] Fwd Diagnoses CHF exacerbation I50.9 Longstanding persistent atrial fibrillation I48.11 Atrial fibrillation type: longstanding persistent S/P cardiac pacemaker procedure Z95.0 Coronary artery disease involving coronary bypass graft of [place] heart with unstable angina pectoris I25.700 Coronary Disease-Associated Artery/Lesion type: bypass graft [place] vs. transplanted heart: [place] heart Associated angina: with unstable angina Essential hypertension I10 Hypertension type: essential hypertension Hx of CABG Z95.1
[2024-03-28 16:02] VITALS: BP 125/74; PULSE 117; RESP 26; TEMP 36.6; O2SAT 97
--- NOTE | 2024-03-28 16:02 | XR_ITS ---
WS: [id number] XR chest 1V portable [id number] REASON FOR EXAM: Congestive heart failure FINDINGS: Compared to the previous examination of 03/21/2024 the presumed interstitial edema from congestive hea rt failure shows significant resolution. There is also decreased fluid in the minor fissure and decre asing pleural fluid bilaterally with the costophrenic angles becoming more sharply defined. There continues to be more focal lung opacity in the posterior left lung base which may be atelectasi s. No new findings. XR/XR chest 1V portable [id number] IMPRESSION: Improving congestive heart failure.
--- NOTE | 2024-03-28 16:33 | PC.PHAR ---
[facility] called and ask med rec be completed today on pt-pt states his takes care of his medications-pts was in room and states she forget his med list at home-pts states she knows what medications he takes-[facility]-pts states the pt is taking the medications entered-ext shows metolazone 2.5mg one tab every other day filled 02/29/24 28d/s was dced-pts states pt is still taking midodrine 5mg tid filled 03/07/24 15d/s order had hold med adverse reaction-called ramez in [facility] told [facility] told [facility] we had to fax for med list-told ramez will enter med rec today based on what the pts states the pt takes-
[2024-03-28 16:46] LABS: Basophils # 0.1 10^3/uL (0.0-0.1); Basophils % 0.7 %; Eosinophils # 0.3 10^3/uL (0.0-0.8); Eosinophils % 3.6 %; Hematocrit 53.3 % (37-53); Lymphocytes # 2.8 10^3/uL (0.8-4.8); Lymphocytes % 30.1 %; Mean Corpuscular HGB Conc 31.9 g/dL (30-55); Mean Corpuscular Hemoglobin 30.9 pg (27-33); Mean Corpuscular Volume 96.7 fl (82-101); Monocytes # 0.6 10^3/uL (0.2-0.9); Monocytes % 6.2 %; Neutrophils % 59.1 %; Nucleated Red Blood Cells % 0 %; Platelet Count 219 10^3/cmm (157-399); Red Blood Count 5.51 10^6/uL (3.85-5.65); Red Cell Distribution Width 13.9 % (12.1-15.1); White Blood Count 9.14 10^3/uL (3.29-11.43)
[2024-03-28 17:11] LABS: Troponin(5th) Baseline 34 ng/L (0-15)
[2024-03-28] MEDS: metoprolol succinate ER (24 HR) 25 mg Tablet PO (17:16)
[2024-03-28] MEDS: apixaban 5 mg Tablet PO (17:16)
[2024-03-28] MEDS: atorvastatin 40 mg Tablet PO (17:16)
[2024-03-28] MEDS: amiodarone 150 MG/100 ML PREMIX 400 MG IV (17:16)
[2024-03-28 17:21] LABS: Alanine Aminotransferase 18 U/L (0-41); Albumin Level 4.5 g/dL (3.5-5.2); Alkaline Phosphatase 71 U/L (40-130); Blood Urea Nitrogen 24 mg/dL (8-23); Calcium 9.7 mg/dL (8.5-10.5); Carbon Dioxide 25 mmol/L (22-29); Chloride 98 mmol/L (98-107); Creatinine Clr Calc Pharmacy 46.6723; Glucose 109 mg/dL (65-115); NT Pro B Type Natriuretic Pept 4958 pg/mL (0-450); Osmolality Calculated 293 mOsm/kg (285-295); Sodium 139 mmol/L (136-145); Total Bilirubin 0.7 mg/dL (0.15-1.2); Total Protein 8.5 g/dL (6.6-8.7)
[2024-03-28 17:23] LABS: Aspartate Amino Transferase 24 U/L (0-40)
[2024-03-28] MEDS: FUROsemide 10 mg/mL SDV 10mL 60 MG IVP (18:08)
[2024-03-28 20:31] VITALS: BP 106/66; PULSE 104; RESP 32; TEMP 36.3; O2SAT 95
[2024-03-28] MEDS: mirtazapine 15 mg Tablet PO (21:17)
[2024-03-28 22:48] LABS: Troponin 5 6HR 48.27 ng/L (0-15)
[2024-03-28 23:02] LABS: Troponin 5 6HR Delta 14.27 ng/L (0-12)
[2024-03-29] VITALS (13 sets, daily range): BP systolic 89–118; BP diastolic 69–77; PULSE 89–108; RESP 18–32; TEMP 36.3–36.8; O2SAT 86–97; BMI 24.1
--- NOTE | 2024-03-29 03:58 | ECG_ITS ---
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 Measurements Intervals [place] Rate: 104 P: -22 RI: 148 QRS: -69 QRSD: 158 T: 50 QT: 437 QTc: 575 Interpretive Statements SINUS TACHYCARDIA RIGHT BUNDLE BRANCH BLOCK [120+ ms QRS DURATION, UPRIGHT V1, 40+ ms S IN I/aVL/V4/V5/V6] LEFT ANTERIOR FASCICULAR BLOCK [QRS AXIS <= -45, QR IN I, RS IN II] Compared to ECG 03/28/2024 15:05:57 Atrial flutter no longer present Electronically Signed On 03-29-2024 22:58:29 CDT by Hong Calhoun M.D. [email or web address]
[2024-03-29] MEDS: clopidogrel 75 mg Tablet PO (05:00)
[2024-03-29] MEDS: FUROsemide 10 mg/mL SDV 10mL 60 MG IVP (05:00)
--- NOTE | 2024-03-29 05:12 | PC.NURSE ---
Obtained Ekg due to patient complaint of chest pain. Spoke to Dr. Chester about patients complaints of chest pain 06/06. Given order to give one dose sublingual nitro, but not to give any further doses due to blood pressures being low. Also given orders to get an additional, one time, Troponin.
[2024-03-29] MEDS: nitroglycerin 0.4 mg sublingual Tablet 0.400000000000000022 MG SUBLINGUAL (05:39)
[2024-03-29 05:40] LABS: Anion Gap 19.6 (5-19); Blood Urea Nitrogen 31 mg/dL (8-23); Calcium 9.6 mg/dL (8.5-10.5); Carbon Dioxide 28 mmol/L (22-29); Chloride 96 mmol/L (98-107); Creatinine Clr Calc Pharmacy 37.3378; Glucose 185 mg/dL (65-115); Osmolality Calculated 297 mOsm/kg (285-295); Potassium 5.6 mmol/L (3.5-5.1); Sodium 138 mmol/L (136-145)
[2024-03-29 06:04] LABS: Troponin T (5th) Once 46 ng/L (0-15)
--- NOTE | 2024-03-29 06:41 | P.PN_ITS ---
Subjective 2 Subjective: Patient has converted back to normal sinus rhythm. Still short of breath. With diuresis has uptrending troponin. Vitals/I&O/Wt Last Vital Signs Temp 97.4 F L 03/29/24 03:40 Pulse 107 H 03/29/24 04:25 Resp 21 H 03/29/24 04:25 BP 89/69 03/29/24 04:25 Pulse Ox 89 L 03/29/24 04:25 O2 Del Method Nasal Cannula 03/29/24 04:25 03/28/24 03/28/24 03/29/24 14:59 22:59 06:59 Intake Total 240 / 240 215.281 / 455.281 Output Total 400 / 400 350 / 750 Balance -160 / -160 -134.719 / -294.719 Weight last 48 hrs Weight 159 lb Weight 157 lb Physical Exam 2 Narrative: GENERAL: Patient is alert, awake and oriented x3. [] NECK: No jugular vein distension. [] HEENT: No cyanosis. No icterus. No pallor. [] HEART: Tachycardia LUNGS: Diminished air entry with mild crackles CENTRAL NERVOUS SYSTEM: Grossly nonfocal. [] EXTREMITIES: Lower extremities with 1+ edema bilaterally. Data 03/30/24 04:17 03/30/24 04:17 A&P Assessment and plan (1) CHF exacerbation: (2) Atrial fibrillation: Qualifiers: Atrial fibrillation type: longstanding persistent Qualified Code(s): I 48.11 - Longstanding persistent atrial fibrillation (3) S/P cardiac pacemaker procedure: (4) Coronary artery disease: Qualifiers: Coronary Disease-Associated Artery/Lesion type: bypass graft [place] vs. transplanted heart: [place] heart Associated angina: with unstable angina Qualified Code(s): I25.700 - Atherosclerosis of coronary artery bypass graft(s), unspecified, with unstable angina pectoris (5) Hypertension: Qualifiers: Hypertension type: essential hypertension Qualified Code(s): I10 - Essential (primary) hypertension (6) Hx of CABG: Plan Patient's appears more flow-limiting today. His creatinine increased. Will switch IV diuretics to p.o. He has converted back to sinus rhythm. Continue p.o. amiodarone. ICD interrogation today. Monitor renal function. Close I and Os. He will need ischemic workup as well We will consult medicine team also to assess for noncardiac causes of shortness of breath and dyspnea. Attestations 2 Medical Necessity Statement*: Care expected to cross 2 midnights. Coding Level of Care Code Acute Code for [facility] Fwd Diagnoses CHF exacerbation I50.9 Longstanding persistent atrial fibrillation I48.11 Atrial fibrillation type: longstanding persistent S/P cardiac pacemaker procedure Z95.0 Coronary artery disease involving coronary bypass graft of [place] heart with unstable angina pectoris I25.700 Coronary Disease-Associated Artery/Lesion type: bypass graft [place] vs. transplanted heart: [place] heart Associated angina: with unstable angina Essential hypertension I10 Hypertension type: essential hypertension Hx of CABG Z95.1
[2024-03-29] MEDS: apixaban 5 mg Tablet PO ×2 (08:32→17:45)
[2024-03-29] MEDS: metoprolol succinate ER (24 HR) 25 mg Tablet PO ×2 (08:32→17:45)
--- NOTE | 2024-03-29 09:24 | PC.CHAP ---
Pastoral Care Encounter/Spiritual Assessment Type of Contact [] Declined infant teacher visit [] Patient/Family/Request visit [] Outpatient visit [] Follow-up visit [] Physician referral [] Code/Alert [x] Routine visit [] Staff referral [] Actively dying [] Patient sleeping [x] Family support [] [] Out of room [] Palliative care [] [] Receiving care in room [] Pre-surgical visit [] Trauma [] Long length of stay [] ICU visit [] Other: Relational/Emotional Strength [x] Patient feels connected with others/family/visitors/staff [] Distress [] Loneliness/isolation [] Abandonment Spirituality of Patient [x] Person of Rosie [] Attends Alevism of their Rosie [x] Believes in Prayer [] Reads Bible or Quaker materials [] There are Spiritual issues to be addressed Director Media Interventions [x] Prayer [x] Active listening [] Non-anxious presence [x] Spiritual/emotional support [] Crisis/trauma care [] Spiritual counseling [] Bereavement support [] Provided bereavement packet [] Provided Bible/devotional materials [] Provided toy/stuffed animal, coloring book to patient or family member [] Provided Communion [] Anointing/[place] [] Salvation [x] Completed spiritual assessment [] Other: Impact on Illness or Injury [] Angry [] Fearful [] Anxious [] Often cries [] Exhaustion [] Unable to work [] Unable to attend taoist [] Unable to walk/stand [] Unable to read [] Unable to drive [] Unable to eat/drink [] Unable to sleep [] Unable to be with family [] Patient intubated [] Other: Summary Time spent with patient 5 min
--- NOTE | 2024-03-29 09:30 | PC.PHAR ---
ELIQUIS 5 MG [facility] NOT [facility] BUT IS ON [facility] MED LIST FROM 03/07/24 AND 03/21/24. NOT REMOVED FROM LIST. PT IS STILL TAKING THIS MEDICATION.
[2024-03-29] MEDS: metOLazone 5 MG Tablet 2.5 MG PO (10:40)
[2024-03-29] MEDS: amiodarone 200 mg Tablet PO ×2 (10:40→17:46)
--- NOTE | 2024-03-29 11:33 | PC.NURSE ---
interrogated aicd/pacemaker per bridge repairer [employer] called to fax the report.
--- NOTE | 2024-03-29 13:04 | CTR_ITS ---
PROCEDURE INFORMATION: Exam: CT Chest Without Contrast; Diagnostic Exam date and time: 03/29/2024 2:36 PM Age: 84 years old Clinical indication: Other: Copd/pna TECHNIQUE: Imaging protocol: Diagnostic computed tomography of the chest without contrast. Radiation optimization: All CT scans at this facility use at least one of these dose optimization techniques: automated exposure control; mA and/or kV adjustment per patient size (includes targeted exams where dose is matched to clinical indication); or iterative reconstruction. COMPARISON: CR XR chest 1V portable [id number] 03/28/2024 4:14 PM RADIATION DOSE METRICS: Total DLP (mGy-cm): 481 FINDINGS: Thyroid: Grossly unremarkable. Lungs: No focal consolidation. No pneumothorax. Severe centrilobular emphysematous changes. No convincing imaging evidence of pneumonia. There is moderate interstitial pulmonary edema. Pleural spaces: Trace-small bilateral pleural effusions. Heart: No cardiomegaly. No pericardial effusion. Coronary arteries: There are incidental dense coronary artery calcifications with involvement of the left main. Suspected left circumflex coronary stent. Mediastinal space: Trachea and airway are grossly patent. Postsurgical changes of the mediastinum compatible with prior CABG. Left subclavian approach dual-chamber pacemaker ICD. Lymph nodes: There are few prominent and borderline enlarged mediastinal nodes, possibly secondary to lymphovascular congestion. Vasculature: No evidence of aneurysmal dilatation of the thoracic aorta. Evaluation for acute vascular injury or thrombosis is limited by lack of IV contrast. Bones/joints: No evidence of acute fracture or aggressive osseous lesion. Soft tissues: No evidence of fluid collection or hematoma in the superficial soft tissues. Other findings: No evidence of acute abnormality in the upper abdomen. CT/CT chest [facility] [id number] IMPRESSION: 1. Interstitial pulmonary edema and trace-small bilateral pleural effusions. 2. Severe emphysematous changes. The presence of pulmonary emphysema on CT is an independent risk factor for lung cancer. In the absence of a history or active diagnosis of lung cancer, it is recommended that this patient with emphysema be evaluated for enrollment in a low dose CT lung cancer screening program.
--- NOTE | 2024-03-29 13:05 | P.CONIM_ITS ---
Providers/Reason For Consult 2 Consulting Physician/Specialty*: Dr. Jara/internal medicine Reason for Consult*: Shortness of breath, CONRAD Attending Physician: Jose Martin Chester M.D Primary Care Provider: Sunny Vega DO History of Present Illness History of Present Illness Toni Quintanilla Sr is a 84 year old male with past medical history of CAD, CABG in 2004, PCI most recently within the last 1 year with history of ischemic cardiomyopathy and EF of 25 to 30%, congestive heart failure, chronic smoker who was admitted under cardiology team yesterday because of shortness of breath getting worse and on exertion along with orthopnea and PND and chest heaviness. On admission patient was in A-fib with RVR for which he was treated with amiodarone drip after which his heart rate has settled down. He was given IV diuresis with Lasix of 60 mg twice daily. Patient responded to the treatment well first. Heart rate has been stable and he did have good diuresis yesterday. He is saturating well over 95% on 2 L of oxygen supplementation but continues to feel subjectively out of breath, difficulty to catch air having a fear of going to sleep. Patient currently is in normal sinus rhythm heart rate in 70 to 90 bpm with blood pressure 110 systolic saturating more than 95% on 2 L. Sitting at the edge of the bed with spouse at bedside. Review of Systems 2 General: Reports: 10 or more systems reviewed and unremarkable except in HPI and below Const: Denies: fever(s), chills, body aches, change in appetite, change in weight, malaise, night sweats, diaphoresis, change in sleep pattern, daytime sleepiness or snoring Eyes: Denies: change in vision, blurry vision, photophobia, eye discomfort or eye discharge ENMT: Denies: throat pain, enlarged tonsils, hoarseness, mouth pain, oral sores, dry mouth, tinnitus, nasal congestion or post nasal drip Card: Denies: chest pain, palpitations, irregular heart rhythm, edema, swelling of feet/ankles, lightheadedness, syncope, pre-syncope, dyspnea on exertion, orthopnea, leg pain with exertion or acrocyanosis Resp: Denies: dyspnea, productive cough, non-productive cough, wheezing, stridor, pain on inspiration, change in phlegm color, hemoptysis or chest congestion GI: Denies: abdominal pain, nausea, vomiting, hematemesis, coffee ground emesis, dysphagia, heartburn, diarrhea, constipation, bloating, GI cramping, change in bowel habits, pain on defecation, hematochezia or melena : Denies: flank pain, difficulty urinating, dysuria, urinary frequency, urinary urgency, urinary hesitancy, urinary dribbling, difficulty starting urination, change in urine stream, nocturia or hematuria Musc: Denies: neck pain, back pain, extremity pain, joint pain, joint swelling, joint redness, joint stiffness or limited range of motion Neuro: Denies: headache(s), numbness in extremities, weakness in extremities, sensory changes, lack of coordination, difficulty walking, frequent falls, dizziness, vertigo, confusion, Slurred speech present, difficulty communicating thoughts or seizure-like activity Psych: Denies: anxiety, depression, mood swings, panic attacks, hopelessness or irritability Endo: Denies: polyuria, polydipsia, tired all the time, cold intolerance, excessive sweating, flushing or heat intolerance Jose/Lymph: Denies: easy bruising or easy bleeding All/Imm: Denies: tongue swelling, facial swelling or acute wheezing Medications/Allergies Home Medications Medication Instructions Recorded Confirmed Last Taken Type cholecalciferol (vitamin D3) 50 50 mcg PO QPM 01/13/23 03/28/24 01/27/24 History mcg (2,000 unit) capsule duloxetine 60 mg capsule,delayed 60 mg PO BEDTIME 01/13/23 03/28/24 01/27/24 History release apixaban 5 mg tablet (Eliquis) 5 mg PO BID #180 tabs 02/10/23 03/28/24 01/27/24 Rx metoprolol succinate 25 mg 25 mg PO BID #180 tabs 02/14/23 03/28/24 01/27/24 Rx tablet,extended release 24 hr clopidogrel 75 mg tablet 75 mg PO QAM 03/05/24 03/28/24 Unknown History fluticasone 100 mcg-salmeterol 50 1 inh inhalation BID 03/05/24 03/28/24 Unknown History mcg/dose blistr powdr for inhalation nitroglycerin 0.4 mg sublingual 0.4 mg sublingual Q5M PRN Chest 03/05/24 03/28/24 Unknown History tablet (Nitrostat) Pain pantoprazole 40 mg tablet,delayed 40 mg PO QAM 03/05/24 03/28/24 Unknown History release simvastatin 40 mg tablet 40 mg PO QPM 03/05/24 03/28/24 Unknown History furosemide 40 mg tablet 40 mg PO DAILY@0800 #30 tabs 03/06/24 03/28/24 Unknown Rx potassium chloride 20 mEq 20 meq PO BID #60 tabs 03/06/24 03/28/24 Unknown Rx tablet,extended release midodrine 5 mg tablet 5 mg PO TID #45 tabs 03/07/24 03/28/24 Unknown Rx furosemide 20 mg tablet (Lasix) 20 mg PO QPM 03/28/24 03/28/24 Unknown History mirtazapine 15 mg tablet 15 mg PO BEDTIME PRN unknown 03/28/24 03/28/24 Unknown History Allergies Allergy/AdvReac Type Severity Reaction Status Date / Time No Known Allergies Allergy Verified 03/28/24 16:33 Current Medications Generic Name Dose Route Start Last Admin Trade Name Freq PRN Reason Stop Dose Admin Apixaban 5 mg 03/28/24 18:00 03/29/24 08:32 Apixaban 5 Mg Tablet PO 5 mg BID FEDERICO Administration Atorvastatin Calcium 40 mg 03/28/24 18:00 03/28/24 17:16 Atorvastatin 40 Mg Tablet PO 40 mg QPM FEDERICO Administration Clopidogrel Bisulfate 75 mg 03/29/24 06:00 03/29/24 05:00 Clopidogrel 75 Mg Tablet PO 75 mg QAM FEDERICO Administration Furosemide 60 mg 03/28/24 17:30 03/29/24 05:00 Furosemide 10 Mg/Ml Sdv 10ml IVP 60 mg Q12H FEDERICO Administration Metolazone 2.5 mg 03/29/24 09:44 03/29/24 10:40 Metolazone 5 Mg Tablet PO 2.5 mg DAILY FEDERICO Administration Metoprolol Succinate 25 mg 03/28/24 18:00 03/29/24 08:32 Metoprolol Succinate Er (24 Hr) 25 Mg Tablet PO 25 mg BID FEDERICO Administration Mirtazapine 15 mg 03/28/24 16:37 03/28/24 21:17 Mirtazapine 15 Mg Tablet PO 15 mg BEDTIME PRN Administration unknown PFSH Acute 2 PFSH: Medical History Chronic systolic CHF (congestive heart failure), NYHA class 2 Ischemic cardiomyopathy ICD (implantable cardioverter-defibrillator) in place GERD (gastroesophageal reflux disease) Sick sinus syndrome BPH (benign prostatic hyperplasia) Hyperlipidemia Hypertension Coronary artery disease Last echocardiogram 05/31/23 with EF 30% Unstable angina pectoris Atrial fibrillation Surgical History History of hemorrhoidectomy S/P cholecystectomy S/P TURP S/P CABG (coronary artery bypass graft) S/P cardiac pacemaker procedure Family History Other CAD (coronary artery disease) Social History Smoking and tobacco/nicotine status: former use of tobacco/nicotine Alcohol intake: never Substance/Drug Use: never Lives independently: Yes Household members: spouse Housing: House Marital status: Number of children: 4 Pets and animals: Yes Pets & animals: dog(s) Vitals/I&O/Wt Last Vital Signs Temp 97.9 F 03/29/24 11:45 Pulse 96 03/29/24 11:45 Resp 29 H 03/29/24 11:45 BP 109/72 03/29/24 11:45 Pulse Ox 95 03/29/24 11:45 O2 Del Method Nasal Cannula 03/29/24 11:45 03/28/24 03/29/24 03/29/24 22:59 06:59 14:59 Intake Total 240 / 240 215.281 / 455.281 464.470 / 464.470 Output Total 400 / 400 350 / 750 300 / 300 Balance -160 / -160 -134.719 / -294.719 164.470 / 164.470 Weight last 48 hrs Weight 72.121 kg Weight 71.214 kg Physical Exam 2 Narrative: General: No acute distress, AO x3, anxious HEENT: PERRLA, pupils bilaterally equal and reactive Chest: Bilateral breath Corv[place] sounds with occasional rhonchi CVS: S1-S2 regular, soft pansystolic murmur present at apex, no tachycardia, no gallops, no rubs Abdomen: Soft, nontender, no organomegaly, bowel sounds present Neuro: No focal deficits, no facial deformity, AO x3, power 5/5 in all limbs Data 03/28/24 16:37 03/29/24 05:06 A&P Assessment and plan (1) Shortness of breath: Most likely a combination of congestive heart failure, COPD along with ischemic cardiomyopathy with EF of 25 to 30% leading to heart failure. Keep saturation over 92%. To decrease work of breathing for now we will switch over to high flow. Check sputum culture. Patient currently seems euvolemic. Symptoms might most likely be in setting of ischemic cardiomyopathy along with mild COPD. Check CT chest without contrast. Patient is already on anticoagulation with Eliquis 5 mg twice daily so concerns for PE is less. Moreover patient is in CONRAD now so we will hold off on contrast study. (2) COPD (chronic obstructive pulmonary disease): Chronic history of smoking. Restarted smoking over a year ago. Uses inhaler at home. Hemoglobin baseline seems to be from 15-17 even going as high as 18 consistent with polycythemia. Start on Pulmicort twice daily, DuoNeb every 6 hour. Solu-Medrol 125 mg one-time followed by 40 mg oral daily. Nicotine patch. Patient is agreeable with nicotine patch. (3) CHF exacerbation: Currently euvolemic. Was not congestive heart failure yesterday in setting of A-fib with RVR. History of ischemic cardiomyopathy with EF of 25 to 30% with last echocardiogram in the last 1 month. Continue with fluid restriction to 1500 cc. Will plan to switch from IV to oral Lasix 40 mg twice daily. For now we will hold off on metolazone given patient developing acute kidney injury. Echocardiogram done did show significant mitral regurgitation. Blood pressure tolerates might benefit with low-dose Imdur. (4) Ischemic cardiomyopathy: Continue with treatment as per cardiology team on Plavix, statin, beta-geri. Pacemaker interrogation appreciated. Goal blood pressure less than 140/90 mmHg with mean over 65. Blood pressures slightly soft. For now we will restart home dose of midodrine 5 mg 3 times daily. Will hold blood pressures. Will like to avoid high blood pressures given history of ischemic cardiomyopathy to avoid congestive heart failure. Troponin cycled negative. Patient might benefit from ACS workup going forward. (5) Coronary artery disease: Qualifiers: Coronary Disease-Associated Artery/Lesion type: bypass graft [place] vs. transplanted heart: [place] heart Associated angina: with unstable angina Qualified Code(s): I25.700 - Atherosclerosis of coronary artery bypass graft(s), unspecified, with unstable angina pectoris (6) Atrial fibrillation: Qualifiers: Atrial fibrillation type: longstanding persistent Qualified Code(s): I 48.11 - Longstanding persistent atrial fibrillation (7) S/P cardiac pacemaker procedure: (8) Hypertension: Qualifiers: Hypertension type: essential hypertension Qualified Code(s): I10 - Essential (primary) hypertension (9) Anxiety: Restart home dose of Cymbalta. Continue patch. (10) CONRAD (acute kidney injury): (11) Orthopnea: Plan CODE STATUS: Discussed with patient and at bedside. They do not want any kind of resuscitation. DNR/DNI. Cardiac diet. Fluid restriction. Protonix OPD prophylaxis Eliquis will be sufficient for DVT prophylaxis. Care discussed in detail with patient, family and nurse at bedside. All the questions were answered. Discussed in detail with patient's primary team. Thank you for involving us in care of Mr. Quintanilla Consult Attestations 2 Medical Necessity Statement: Requires further hospitalization for management of shortness of breath in setting of ischemic cardiomyopathy, COPD, history of heart failure in a patient who was admitted for atrial fibrillation with RVR. Diagnoses Shortness of breath R06.02 COPD (chronic obstructive pulmonary disease) J44.9 CHF exacerbation I50.9 Ischemic cardiomyopathy I25.5 Coronary artery disease involving coronary bypass graft of [place] heart with unstable angina pectoris I25.700 Coronary Disease-Associated Artery/Lesion type: bypass graft [place] vs. transplanted heart: [place] heart Associated angina: with unstable angina Longstanding persistent atrial fibrillation I48.11 Atrial fibrillation type: longstanding persistent S/P cardiac pacemaker procedure Z95.0 Essential hypertension I10 Hypertension type: essential hypertension Anxiety F41.9 CONRAD (acute kidney injury) N17.9 Orthopnea R06.01
[2024-03-29 13:07] LABS: ABG PCO2 39.5 mmHg (35-45); ABG PH Result 7.41 (7.35-7.45); Alveolar-Arterial Oxygen Gradi 8.8 mmHg (5-10); Arterial Blood Gas Hematocrit 49.6 % (42-52); Base Excess ABG 0.3 mmol/L (-2.0-2.0); Blood Gas Allen Test Pos; Blood Gas Operator Identificat GD; Blood Gas Sample Site Radial, left; Blood Gas Sample Type Arterial; Carboxyhemoglobin 1.2 %THgb (0.4-20.1); HCO3 ABG 24.9 mmol/L (22-26); HGB O2 Sat 95.1 % (95-100); Ionized Calcium Level - ABG 1.1 mmol/L (1.1-1.4); Methemoglobin 0.4 % (0.4-1.5); Oxygen Device NC; Oxygen Saturation ABG 96.7; PO2 ABG 81.6 mmHg (80.0-100.0); PO2 FiO2 Ratio Arterial Blood 0; Potassium Level - ABG 4.5 mmol/L (3.5-5.0); Total Hemoglobin 16.2 g/dL (14-18)
[2024-03-29] MEDS: levalbuterol 0.63 mg/3 mL Neb 0.630000000000000004 MG INHALATION ×2 (13:34→20:31)
[2024-03-29] MEDS: ipratropium 0.5 mg/2.5 mL Neb INHALATION ×2 (13:34→20:31)
[2024-03-29] MEDS: budesonide 0.5 mg/2 mL Neb INHALATION ×2 (13:34→20:31)
[2024-03-29 13:46] LABS: Iron 65 ug/dL (59-158); Percent Saturation 16.8 % (20-50); Total Iron Binding Capacity 385 mcg/dl; Unsaturated Iron Binding 320 ug/dL (112-347)
[2024-03-29 14:02] LABS: Procalcitonin 0.07 ng/mL (0-0.5); Vitamin B12 366 pg/mL (232-1245)
[2024-03-29] MEDS: midodrine 5 mg TABLET PO ×2 (15:18→20:10)
[2024-03-29] MEDS: nicotine 21 mg Patch 1 PATCH TRANSDERMA (15:18)
[2024-03-29] MEDS: methylPREDNISolone sod succ 125 mg/2 mL INJ IVP (15:18)
[2024-03-29] MEDS: FUROsemide 40 mg Tablet PO (16:15)
[2024-03-29 16:49] LABS: Reflex Lactate Order REFLEX LACTIC ORDERD
[2024-03-29] MEDS: atorvastatin 40 mg Tablet PO (17:45)
[2024-03-29 19:16] LABS: Anion Gap 20.2 (5-19); Blood Urea Nitrogen 38 mg/dL (8-23); Calcium 9.2 mg/dL (8.5-10.5); Carbon Dioxide 27 mmol/L (22-29); Chloride 95 mmol/L (98-107); Creatinine Clr Calc Pharmacy 33.1171; Glucose 158 mg/dL (65-115); Osmolality Calculated 296 mOsm/kg (285-295); Potassium 5.2 mmol/L (3.5-5.1); Sodium 137 mmol/L (136-145)
[2024-03-29] MEDS: duloxetine 60 mg Capsule PO (20:10)
--- NOTE | 2024-03-29 21:31 | PC.NURSE ---
IV access IV access gained but then had to DC iv due to pt complained I can't handle this anymore as this nurse flushed NS in new IV, only 1 ml was given when pt complained, no sign of infiltration or blowing the vein.
[2024-03-29 22:57] LABS: Add Urine Microscopic? NO; Charge for UA Resulting for Rev
[2024-03-29 22:58] LABS: Bilirubin Urine Neg (Negative); Blood Urine Neg (Negative); Glucose Urine UA Norm (Normal); Ketones Urine Negative (Negative); Leukocyte Esterase Urine Negative (Negative); Nitrate Urine Negative (Negative); Protein Urine Neg (Negative); Urine Appearance Clear (CLEAR); Urine Color Yellow (Yellow); Urobilinogen Urine Neg (Negative); pH Urine 5 (5-7)
[2024-03-30] VITALS (14 sets, daily range): BP systolic 101–112; BP diastolic 61–78; PULSE 87–100; RESP 18–70; TEMP 36.5–36.7; O2SAT 86–97
[2024-03-30] MEDS: levalbuterol 0.63 mg/3 mL Neb 0.630000000000000004 MG INHALATION ×4 (02:20→21:40)
[2024-03-30] MEDS: ipratropium 0.5 mg/2.5 mL Neb INHALATION ×4 (02:20→21:40)
[2024-03-30 04:51] LABS: Eosinophils % 0.2 %; Hematocrit 49.1 % (37-53); Lymphocytes # 1.2 10^3/uL (0.8-4.8); Mean Corpuscular HGB Conc 31.6 g/dL (30-55); Mean Corpuscular Volume 98.2 fl (82-101); Mean Platelet Volume 10.8 fL (7.4-10.4); Monocytes # 0.1 10^3/uL (0.2-0.9); Monocytes % 2.2 %; Neutrophils # 3.64 10^3/uL (1.8-7.7); Nucleated Red Blood Cells % 0 %; Platelet Count 194 10^3/cmm (157-399); Red Cell Distribution Width 14.1 % (12.1-15.1); White Blood Count 4.99 10^3/uL (3.29-11.43)
[2024-03-30 05:10] LABS: Blood Urea Nitrogen 43 mg/dL (8-23); Calcium 8.6 mg/dL (8.5-10.5); Carbon Dioxide 27 mmol/L (22-29); Chloride 94 mmol/L (98-107); Creatinine Clr Calc Pharmacy 35.1869; Glucose 174 mg/dL (65-115); Osmolality Calculated 299 mOsm/kg (285-295); Sodium 137 mmol/L (136-145)
[2024-03-30 05:14] LABS: Magnesium 2.6 mg/dL (1.7-2.3)
[2024-03-30 05:16] LABS: Anion Gap 20.6 (5-19); Potassium 4.6 mmol/L (3.5-5.1)
[2024-03-30 05:27] LABS: Folate Level 16.9 ng/mL (4.5-32.2)
[2024-03-30] MEDS: clopidogrel 75 mg Tablet PO (05:48)
[2024-03-30] MEDS: pantoprazole DR 40 mg Tablet PO (05:48)
--- NOTE | 2024-03-30 07:49 | PM.PN ---
Subjective Subjective: Patient is doing well. NO chest pain. Feels much better. Staying in normal sinus rhythm Vitals/I&O/Wt Last Vital Signs Temp 98.1 F 03/30/24 04:00 Pulse 89 03/30/24 06:00 Resp 20 H 03/30/24 04:00 BP 104/64 03/30/24 04:00 Pulse Ox 93 03/30/24 04:00 O2 Del Method Nasal Cannula 03/30/24 04:00 O2 Flow Rate 2 03/30/24 02:21 FiO2 40 03/29/24 14:23 03/29/24 03/30/24 03/30/24 22:59 06:59 14:59 Intake Total 360 / 1064.470 Output Total 350 / 850 550 / 1400 Balance .470 -550 / -335.530 Weight last 48 hrs Weight 156 lb 8 oz Weight 159 lb Weight 157 lb Physical Exam Narrative: GENERAL: Patient is alert, awake and oriented x3. [] NECK: No jugular vein distension. [] HEENT: No cyanosis. No icterus. No pallor. [] HEART: Tachycardia LUNGS: Diminished air entry with mild crackles CENTRAL NERVOUS SYSTEM: Grossly nonfocal. [] EXTREMITIES: Lower extremities with 1+ edema bilaterally. Data 03/31/24 04:42 03/31/24 04:42 A&P Assessment and plan (1) CHF exacerbation: (2) Atrial fibrillation: Qualifiers: Atrial fibrillation type: longstanding persistent Qualified Code(s): I48.11 - Longstanding persistent atrial fibrillation (3) S/P cardiac pacemaker procedure: (4) Coronary artery disease: Qualifiers: Coronary Disease-Associated Artery/Lesion type: bypass graft [place] vs. transplanted heart: [place] heart Associated angina: with unstable angina Qualified Code(s): I25.700 - Atherosclerosis of coronary artery bypass graft(s), unspecified, with unstable angina pectoris (5) Hypertension: Qualifiers: Hypertension type: essential hypertension Qualified Code(s): I10 - Essential (primary) hypertension (6) Hx of CABG: (7) COPD (chronic obstructive pulmonary disease): Plan Continue p.o. diuretics. If renal function worsens, we will hold diuretics. He is feeling much better after treatment for COPD started. Appreciate medicine team recommendations. Is staying in sinus rhythm. Continue amiodarone and Eliquis. Close I&O's. Monitor renal function. Attestations Medical Necessity Statement*: Care expected to cross 2 midnights. Coding Level of Care Code Acute Code for Chg Fwd Diagnoses CHF exacerbation I50.9 Longstanding persistent atrial fibrillation I48.11 Atrial fibrillation type: longstanding persistent S/P cardiac pacemaker procedure Z95.0 Coronary artery disease involving coronary bypass graft of [place] heart with unstable angina pectoris I25.700 Coronary Disease-Associated Artery/Lesion type: bypass graft [place] vs. transplanted heart: [place] heart Associated angina: with unstable angina Essential hypertension I10 Hypertension type: essential hypertension Hx of CABG Z95.1 COPD (chronic obstructive pulmonary disease) J44.9
[2024-03-30] MEDS: budesonide 0.5 mg/2 mL Neb INHALATION ×2 (08:15→21:41)
[2024-03-30] MEDS: midodrine 5 mg TABLET PO ×3 (08:45→21:06)
[2024-03-30] MEDS: metoprolol succinate ER (24 HR) 25 mg Tablet PO ×2 (08:45→17:05)
[2024-03-30] MEDS: FUROsemide 40 mg Tablet PO ×2 (08:45→15:47)
[2024-03-30] MEDS: amiodarone 200 mg Tablet PO ×2 (08:45→17:05)
[2024-03-30] MEDS: apixaban 5 mg Tablet PO ×2 (08:45→17:04)
[2024-03-30] MEDS: predniSONE 20 mg Tablet 40 MG PO (08:45)
[2024-03-30] MEDS: nicotine 21 mg Patch 1 PATCH TRANSDERMA (08:46)
--- NOTE | 2024-03-30 13:12 | P.PN_ITS ---
Subjective 2 Subjective: No acute events overnight. Patient states he is feeling a lot better. Was able to sleep for the first night yesterday in 2 weeks. Has been saturating well on 2 L. Has maintained on normal sinus rhythm. Vitals/I&O/Wt Last Vital Signs Temp 97.9 F 03/30/24 12:00 Pulse 96 03/30/24 12:00 Resp 31 H 03/30/24 12:00 BP 104/71 03/30/24 12:00 Pulse Ox 95 03/30/24 12:00 O2 Del Method Nasal Cannula 03/30/24 12:00 O2 Flow Rate 2 03/30/24 11:29 FiO2 40 03/29/24 14:23 03/29/24 03/30/24 03/30/24 22:59 06:59 14:59 Intake Total 360 / 1064.470 240 / 240 Output Total 350 / 850 550 / 1400 Balance .470 -550 / -335.530 240 / 240 Weight last 48 hrs Weight 70.987 kg Weight 72.121 kg Weight 71.214 kg Physical Exam 2 Narrative: General: No acute distress, AO x3, HEENT: PERRLA, pupils bilaterally equal and reactive Chest: Bilateral breath [place] sounds with occasional rhonchi CVS: S1-S2 regular, soft pansystolic murmur present at apex, no tachycardia, no gallops, no rubs Abdomen: Soft, nontender, no organomegaly, bowel sounds present Neuro: No focal deficits, no facial deformity, AO x3, power 5/5 in all limbs Data 03/30/24 04:17 03/30/24 04:17 A&P Assessment and plan (1) Shortness of breath: Most likely a combination of congestive heart failure, COPD exacerbation along with ischemic cardiomyopathy with EF of 25 to 30% leading to heart failure. Keep saturation over 92%. Patient currently seems euvolemic. Symptoms might most likely be in setting of ischemic cardiomyopathy along with mild COPD. Appreciate CT chest without contrast consistent with severe emphysema. (2) COPD (chronic obstructive pulmonary disease): Chronic history of smoking. Restarted smoking over a year ago. Uses inhaler at home. Hemoglobin baseline seems to be from 15-17 even going as high as [address] chest consistent with severe emphysema. Start on Pulmicort twice daily, DuoNeb every 6 hour. Continue with prednisone 40 mg oral daily. We will most likely discharge on slow taper as an outpatient. Nicotine patch. (3) CHF exacerbation: Currently euvolemic. Was not congestive heart failure yesterday in setting of A-fib with RVR. History of ischemic cardiomyopathy with EF of 25 to 30% with last echocardiogram in the last 1 month. Continue with fluid restriction to 1500 cc. Continue with Lasix 40 mg oral twice daily. Echocardiogram done did show significant mitral regurgitation. Blood pressure tolerates might benefit with low-dose Imdur. (4) Ischemic cardiomyopathy: Continue with treatment as per cardiology team on Plavix, statin, beta-geri. Pacemaker interrogation appreciated. Goal blood pressure less than 140/90 mmHg with mean over 65. Continue with midodrine 5 mg 3 times a day. Blood pressures have remained stable. Monitor blood pressures closely. Will like to avoid high blood pressures given history of ischemic cardiomyopathy to avoid congestive heart failure. Troponin cycled negative. Patient might benefit from ACS workup going forward. (5) Coronary artery disease: Qualifiers: Coronary Disease-Associated Artery/Lesion type: bypass graft [place] vs. transplanted heart: [place] heart Associated angina: with unstable angina Qualified Code(s): I25.700 - Atherosclerosis of coronary artery bypass graft(s), unspecified, with unstable angina pectoris (6) Atrial fibrillation: Qualifiers: Atrial fibrillation type: longstanding persistent Qualified Code(s): I 48.11 - Longstanding persistent atrial fibrillation (7) S/P cardiac pacemaker procedure: (8) Hypertension: Qualifiers: Hypertension type: essential hypertension Qualified Code(s): I10 - Essential (primary) hypertension (9) Anxiety: Restart home dose of Cymbalta. Continue patch. (10) CONRAD (acute kidney injury): Baseline creatinine normal. Creatinine 1.6 today. Most likely in setting of cardiomyopathy and aggressive diuresis. Trending down currently. Blood pressure is better. Strict input output charting. Monitor BMP daily. (11) Orthopnea: Plan CODE STATUS: Discussed with patient and at bedside. They do not want any kind of resuscitation. DNR/DNI. Cardiac diet. Fluid restriction. Protonix OPD prophylaxis Eliquis will be sufficient for DVT prophylaxis. Care discussed in detail with patient, family and nurse at bedside. All the questions were answered. Discussed in detail with patient's primary team. Thank you for involving us in care of Mr. Quintanilla Attestations 2 Medical Necessity Statement*: Requires further hospitalization for management of hypoxic respiratory failure in setting of COPD exacerbation, congestive heart failure in a patient with ischemic cardiopathy EF of 25 to 30%, acute kidney injury Diagnoses Shortness of breath R06.02 COPD (chronic obstructive pulmonary disease) J44.9 CHF exacerbation I50.9 Ischemic cardiomyopathy I25.5 Coronary artery disease involving coronary bypass graft of [place] heart with unstable angina pectoris I25.700 Coronary Disease-Associated Artery/Lesion type: bypass graft [place] vs. transplanted heart: [place] heart Associated angina: with unstable angina Longstanding persistent atrial fibrillation I48.11 Atrial fibrillation type: longstanding persistent S/P cardiac pacemaker procedure Z95.0 Essential hypertension I10 Hypertension type: essential hypertension Anxiety F41.9 CONRAD (acute kidney injury) N17.9 Orthopnea R06.01
--- NOTE | 2024-03-30 14:01 | PC.SOCIAL ---
Pg 2 IMM Explained to pt & , Pg 2 IMM. No questions voiced. Provided pt a copy. Initialed, dated, & timed a copy & placed in chart.
[2024-03-30] MEDS: atorvastatin 40 mg Tablet PO (17:05)
[2024-03-30 20:45] LABS: Potassium, Radom Urine 86 mmol/L; Urine Creatinine 63 mg/dL (39-259); Urine Random Chloride 66 mmol/L
[2024-03-30 20:46] LABS: Urine Random Sodium 17 mmol/L
[2024-03-30] MEDS: duloxetine 60 mg Capsule PO (21:06)
[2024-03-30] MEDS: mirtazapine 15 mg Tablet PO (21:06)
[2024-03-31] VITALS (12 sets, daily range): BP systolic 96–117; BP diastolic 22–81; PULSE 73–97; RESP 18–28; TEMP 36.4–36.5; O2SAT 93–98
[2024-03-31] MEDS: levalbuterol 0.63 mg/3 mL Neb 0.630000000000000004 MG INHALATION ×3 (02:46→19:38)
[2024-03-31] MEDS: ipratropium 0.5 mg/2.5 mL Neb INHALATION ×3 (02:46→19:38)
[2024-03-31 04:56] LABS: Basophils % 0.1 %; Eosinophils % 0.1 %; Hematocrit 46.9 % (37-53); Lymphocytes # 1.9 10^3/uL (0.8-4.8); Lymphocytes % 15.6 %; Mean Corpuscular Hemoglobin 31.2 pg (27-33); Mean Corpuscular Volume 94.4 fl (82-101); Mean Platelet Volume 10.5 fL (7.4-10.4); Monocytes # 0.8 10^3/uL (0.2-0.9); Monocytes % 6.6 %; Neutrophils # 9.54 10^3/uL (1.8-7.7); Neutrophils % 77.1 %; Nucleated Red Blood Cells % 0 %; Platelet Count 168 10^3/cmm (157-399); Red Blood Count 4.97 10^6/uL (3.85-5.65); Red Cell Distribution Width 13.9 % (12.1-15.1); White Blood Count 12.37 10^3/uL (3.29-11.43)
[2024-03-31 05:18] LABS: Blood Urea Nitrogen 51 mg/dL (8-23); Carbon Dioxide 35 mmol/L (22-29); Chloride 91 mmol/L (98-107); Creatinine Clr Calc Pharmacy 36.8506; Glucose 132 mg/dL (65-115); Osmolality Calculated 304 mOsm/kg (285-295); Sodium 139 mmol/L (136-145)
[2024-03-31 05:23] LABS: Magnesium 2.5 mg/dL (1.7-2.3)
[2024-03-31] MEDS: clopidogrel 75 mg Tablet PO (05:29)
[2024-03-31] MEDS: pantoprazole DR 40 mg Tablet PO (05:29)
[2024-03-31] MEDS: predniSONE 20 mg Tablet 40 MG PO (09:39)
[2024-03-31] MEDS: amiodarone 200 mg Tablet PO ×2 (09:39→18:24)
[2024-03-31] MEDS: metoprolol succinate ER (24 HR) 25 mg Tablet PO ×2 (09:45→18:23)
[2024-03-31] MEDS: apixaban 5 mg Tablet PO ×2 (09:45→18:23)
[2024-03-31] MEDS: midodrine 5 mg TABLET PO ×3 (09:45→21:19)
[2024-03-31] MEDS: budesonide 0.5 mg/2 mL Neb INHALATION ×2 (10:25→19:38)
[2024-03-31] MEDS: potassium chloride ER 20 mEq Tablet 80 MEQ PO (10:39)
--- NOTE | 2024-03-31 11:29 | P.PN_ITS ---
Subjective 2 Subjective: Patient feeling better. No chest pain Vitals/I&O/Wt Last Vital Signs Temp 97.6 F 03/31/24 04:00 Pulse 91 03/31/24 10:29 Resp 20 H 03/31/24 10:29 BP 106/73 03/31/24 07:25 Pulse Ox 97 03/31/24 10:29 O2 Del Method Nasal Cannula 03/31/24 10:29 O2 Flow Rate 2 03/31/24 10:29 FiO2 40 03/29/24 14:23 03/30/24 03/31/24 03/31/24 22:59 06:59 14:59 Intake Total 360 / 600 300 / 900 120 / 120 Output Total 900 / 900 400 / 1300 340 / 340 Balance -540 / -300 -100 / -400 -220 / -220 Weight last 48 hrs Weight 152 lb Weight 156 lb 8 oz Physical Exam 2 Narrative: GENERAL: Patient is alert, awake and oriented x3. [] NECK: No jugular vein distension. [] HEENT: No cyanosis. No icterus. No pallor. [] HEART: Tachycardia LUNGS: Diminished air entry with mild crackles CENTRAL NERVOUS SYSTEM: Grossly nonfocal. [] EXTREMITIES: Lower extremities with 1+ edema bilaterally. Data 03/31/24 04:42 03/31/24 04:42 Micro: Microbiology 03/30/24 19:55 Bacterial Antigens - Final Urine Kidney 03/30/24 19:55 Legionella Urinary Antigen - Final Unknown Source A&P Assessment and plan (1) CHF exacerbation: (2) Atrial fibrillation: Qualifiers: Atrial fibrillation type: longstanding persistent Qualified Code(s): I 48.11 - Longstanding persistent atrial fibrillation (3) S/P cardiac pacemaker procedure: (4) Coronary artery disease: Qualifiers: Coronary Disease-Associated Artery/Lesion type: bypass graft [place] vs. transplanted heart: [place] heart Associated angina: with unstable angina Qualified Code(s): I25.700 - Atherosclerosis of coronary artery bypass graft(s), unspecified, with unstable angina pectoris (5) Hypertension: Qualifiers: Hypertension type: essential hypertension Qualified Code(s): I10 - Essential (primary) hypertension (6) Hx of CABG: (7) COPD (chronic obstructive pulmonary disease): (8) CONRAD (acute kidney injury): Plan Patient staying in normal sinus rhythm. Has developed CONRAD. Will hold diuretics today. Will give gentle fluids. Monitor renal function today. He has hypokalemia. Will replace potassium level. Continue Eliquis and amiodarone. Appreciate medicine team recommendations. He is feeling much better since started on COPD therapy. Attestations 2 Medical Necessity Statement*: Care expected to cross 2 midnights. Patient has developed CONRAD and we are holding diuretics today. Will give gentle fluids. Coding Level of Care Code Acute Code for [facility] Fwd Diagnoses CHF exacerbation I50.9 Longstanding persistent atrial fibrillation I48.11 Atrial fibrillation type: longstanding persistent S/P cardiac pacemaker procedure Z95.0 Coronary artery disease involving coronary bypass graft of [place] heart with unstable angina pectoris I25.700 Coronary Disease-Associated Artery/Lesion type: bypass graft [place] vs. transplanted heart: [place] heart Associated angina: with unstable angina Essential hypertension I10 Hypertension type: essential hypertension Hx of CABG Z95.1 COPD (chronic obstructive pulmonary disease) J44.9 CONRAD (acute kidney injury) N17.9
[2024-03-31] MEDS: sodium chloride 0.9% 500 ML 30 ML IV (11:45)
--- NOTE | 2024-03-31 15:42 | P.PN_ITS ---
Subjective 2 Subjective: No acute vents overnight. Seen with multiple family member at bedside. Leg comfortably in bed. States he had a another restful night was able to sleep. Remains on 2 L of oxygen supplementation. Urine output of around 1600 cc in last 24 hours. Vitals/I&O/Wt Last Vital Signs Temp 97.6 F 03/31/24 04:00 Pulse 97 03/31/24 11:30 Resp 28 H 03/31/24 11:30 BP 96/69 03/31/24 11:30 Pulse Ox 98 03/31/24 11:30 O2 Del Method Nasal Cannula 03/31/24 11:30 O2 Flow Rate 2 03/31/24 10:29 FiO2 40 03/29/24 14:23 03/31/24 03/31/24 03/31/24 06:59 14:59 22:59 Intake Total 300 / 900 360 / 360 Output Total 400 / 1300 340 / 340 Balance -100 / -400 20 / 20 Weight last 48 hrs Weight 68.946 kg Weight 70.987 kg Physical Exam 2 Narrative: General: No acute distress, AO x3, HEENT: PERRLA, pupils bilaterally equal and reactive Chest: Bilateral breath [place] sounds with occasional rhonchi CVS: S1-S2 regular, soft pansystolic murmur present at apex, no tachycardia, no gallops, no rubs Abdomen: Soft, nontender, no organomegaly, bowel sounds present Neuro: No focal deficits, no facial deformity, AO x3, power 5/5 in all limbs Data 03/31/24 04:42 03/31/24 04:42 Micro: Microbiology 03/30/24 19:55 Bacterial Antigens - Final Urine Kidney 03/30/24 19:55 Legionella Urinary Antigen - Final Unknown Source A&P Assessment and plan (1) Shortness of breath: Most likely a combination of congestive heart failure, COPD exacerbation along with ischemic cardiomyopathy with EF of 25 to 30% leading to heart failure. Keep saturation over 92%. Patient currently seems euvolemic. Symptoms might most likely be in setting of ischemic cardiomyopathy along with mild COPD. Appreciate CT chest without contrast consistent with severe emphysema. (2) COPD (chronic obstructive pulmonary disease): Chronic history of smoking. Restarted smoking over a year ago. Uses inhaler at home. Hemoglobin baseline seems to be from 15-17 even going as high as [address] chest consistent with severe emphysema. Start on Pulmicort twice daily, DuoNeb every 6 hour. Continue with prednisone 40 mg oral daily. We will most likely discharge on slow taper as an outpatient. Nicotine patch. (3) CHF exacerbation: Currently euvolemic. Was not congestive heart failure yesterday in setting of A-fib with RVR. History of ischemic cardiomyopathy with EF of 25 to 30% with last echocardiogram in the last 1 month. Continue with fluid restriction to 1500 cc. Continue with Lasix 40 mg oral twice daily. Echocardiogram done did show significant mitral regurgitation. Blood pressure tolerates might benefit with low-dose Imdur. (4) Ischemic cardiomyopathy: Continue with treatment as per cardiology team on Plavix, statin, beta-geri. Pacemaker interrogation appreciated. Goal blood pressure less than 140/90 mmHg with mean over 65. Continue with midodrine 5 mg 3 times a day. Blood pressures have remained stable. Monitor blood pressures closely. Will like to avoid high blood pressures given history of ischemic cardiomyopathy to avoid congestive heart failure. Troponin cycled negative. Patient might benefit from ACS workup going forward. (5) Coronary artery disease: Qualifiers: Coronary Disease-Associated Artery/Lesion type: bypass graft [place] vs. transplanted heart: [place] heart Associated angina: with unstable angina Qualified Code(s): I25.700 - Atherosclerosis of coronary artery bypass graft(s), unspecified, with unstable angina pectoris (6) Atrial fibrillation: Qualifiers: Atrial fibrillation type: longstanding persistent Qualified Code(s): I 48.11 - Longstanding persistent atrial fibrillation (7) S/P cardiac pacemaker procedure: (8) Hypertension: Qualifiers: Hypertension type: essential hypertension Qualified Code(s): I10 - Essential (primary) hypertension (9) Anxiety: Restart home dose of Cymbalta. Continue patch. (10) CONRAD (acute kidney injury): Baseline creatinine normal. Creatinine 1.6 today. Most likely in setting of cardiomyopathy and aggressive diuresis. Trending down currently. Blood pressure is better. Strict input output charting. Monitor BMP daily. (11) Orthopnea: Plan CODE STATUS: Discussed with patient and at bedside. They do not want any kind of resuscitation. DNR/DNI. Cardiac diet. Fluid restriction. Protonix OPD prophylaxis Eliquis will be sufficient for DVT prophylaxis. Plan for the day: Patient continues to do better. Continue with nebulization treatment and oral steroids. Most likely will discharge on nebulization as an outpatient. Renal function stable though BUN trending up. Contraction alkalosis. Gentle IV hydration with normal saline at 50 cc/h for 500 cc while watching for fluid overload. Potassium repletion with 80 mg orally. Repeat BMP in AM. Continue with midodrine. Monitor blood pressures. Patient continues to remain stable we will plan to discharge tomorrow. Patient is able to go home. Care discussed in detail with patient, family and nurse at bedside. All the questions were answered. Discussed in detail with patient's primary team. Thank you for involving us in care of Mr. Quintanilla Attestations 2 Medical Necessity Statement*: Requires further hospitalization for management of shortness of breath, severe hypoxia with respiratory failure in setting of COPD, congestive heart failure. Ischemic cardiomyopathy, CONRAD and hypokalemia Diagnoses Shortness of breath R06.02 COPD (chronic obstructive pulmonary disease) J44.9 CHF exacerbation I50.9 Ischemic cardiomyopathy I25.5 Coronary artery disease involving coronary bypass graft of [place] heart with unstable angina pectoris I25.700 Coronary Disease-Associated Artery/Lesion type: bypass graft [place] vs. transplanted heart: [place] heart Associated angina: with unstable angina Longstanding persistent atrial fibrillation I48.11 Atrial fibrillation type: longstanding persistent S/P cardiac pacemaker procedure Z95.0 Essential hypertension I10 Hypertension type: essential hypertension Anxiety F41.9 CONRAD (acute kidney injury) N17.9 Orthopnea R06.01
[2024-03-31] MEDS: ondansetron 2 mg/ML SDV 2 mL 4 MG IVP (18:23)
[2024-03-31] MEDS: atorvastatin 40 mg Tablet PO (18:23)
[2024-03-31] MEDS: duloxetine 60 mg Capsule PO (21:19)
[2024-03-31] MEDS: mirtazapine 15 mg Tablet PO (21:19)
[2024-04-01] VITALS (7 sets, daily range): BP systolic 105–131; BP diastolic 73–90; PULSE 88–96; RESP 20–24; TEMP 36.4–36.5; O2SAT 95–98
[2024-04-01] MEDS: clopidogrel 75 mg Tablet PO (06:16)
[2024-04-01] MEDS: pantoprazole DR 40 mg Tablet PO (06:16)
--- NOTE | 2024-04-01 07:45 | PC.NURSE ---
around 0600 pt accidently pulled out his iv and was bleeding all over. nurse stopped the bleeding and proceeded to clean pt up. when pt began to clean his legs nurse noticed his left knee. it has a small skin rub. nurse asked pt what had happened he stated he had fallen yesterday while using the urinal. was in the room around 615 and was talking with pt while the nurse went to get more meds to pass. when nurse returned she asked if I knew he had fallen this am. Nurse stated pt told me it was yesterday. When nurse asked pt if he was okay and if he needed further followup or care for fall he stated no, I am fine. Physician notified of fall with no further orders.
[2024-04-01] MEDS: budesonide 0.5 mg/2 mL Neb INHALATION (08:32)
[2024-04-01] MEDS: ipratropium 0.5 mg/2.5 mL Neb INHALATION (08:32)
[2024-04-01] MEDS: levalbuterol 0.63 mg/3 mL Neb 0.630000000000000004 MG INHALATION (08:32)
[2024-04-01 09:21] LABS: Basophils % 0.1 %; Hematocrit 51.7 % (37-53); Lymphocytes # 2.2 10^3/uL (0.8-4.8); Mean Corpuscular HGB Conc 31.5 g/dL (30-55); Mean Corpuscular Hemoglobin 30.8 pg (27-33); Mean Corpuscular Volume 97.7 fl (82-101); Monocytes # 1.5 10^3/uL (0.2-0.9); Monocytes % 10.4 %; Neutrophils # 10.74 10^3/uL (1.8-7.7); Neutrophils % 73.8 %; Nucleated Red Blood Cells % 0.1 %; Platelet Count 186 10^3/cmm (157-399); Red Blood Count 5.29 10^6/uL (3.85-5.65); Red Cell Distribution Width 14.2 % (12.1-15.1); White Blood Count 14.57 10^3/uL (3.29-11.43)
[2024-04-01 09:37] LABS: Magnesium 2.8 mg/dL (1.7-2.3)
[2024-04-01 09:38] LABS: Alanine Aminotransferase 94 U/L (0-41); Alkaline Phosphatase 68 U/L (40-130); Anion Gap 17.9 (5-19); Aspartate Amino Transferase 106 U/L (0-40); Blood Urea Nitrogen 59 mg/dL (8-23); Calcium 8.3 mg/dL (8.5-10.5); Carbon Dioxide 30 mmol/L (22-29); Chloride 95 mmol/L (98-107); Globulin 3.7 g/dL (1.3-4.6); Glucose 171 mg/dL (65-115); Osmolality Calculated 309 mOsm/kg (285-295); Potassium 3.9 mmol/L (3.5-5.1); Sodium 139 mmol/L (136-145); Total Bilirubin 1.3 mg/dL (0.15-1.2); Total Protein 7.7 g/dL (6.6-8.7)
[2024-04-01 09:39] LABS: Creatinine Clr Calc Pharmacy 34.6844
[2024-04-01] MEDS: metoprolol succinate ER (24 HR) 25 mg Tablet PO (09:42)
[2024-04-01] MEDS: apixaban 5 mg Tablet PO (09:42)
[2024-04-01] MEDS: midodrine 5 mg TABLET PO (09:42)
[2024-04-01] MEDS: predniSONE 20 mg Tablet 40 MG PO (09:42)
[2024-04-01] MEDS: amiodarone 200 mg Tablet PO (09:43)
[2024-04-01] MEDS: nicotine 21 mg Patch 1 PATCH TRANSDERMA (09:43)
--- NOTE | 2024-04-01 11:18 | P.DS_ITS ---
Discharge Providers Date of Admission: 03/28/24 14:02 Date of Discharge: April 01, 2024 Attending Provider at Admission: Jose Martin Chester M.D Attending Provider at Discharge: Jose Martin Chester M.D Primary Care Provider: Sunny Vega DO Diagnoses at Discharge Discharge Diagnosis (1) CHF exacerbation: Status: Resolved (2) Atrial fibrillation: Status: Acute Qualifiers: Atrial fibrillation type: longstanding persistent Qualified Code(s): I48.11 - Longstanding persistent atrial fibrillation (3) S/P cardiac pacemaker procedure: Status: Acute (4) Coronary artery disease: Status: Acute Qualifiers: Associated angina: with unstable angina Coronary Disease-Associated Artery/Lesion type: bypass graft [place] vs. transplanted heart: [place] heart Qualified Code(s): I25.700 - Atherosclerosis of coronary artery bypass graft(s), unspecified, with unstable angina pectoris Permanent problem details: Last echocardiogram 05/31/23 with EF 30% (5) Hypertension: Status: Acute Qualifiers: Hypertension type: essential hypertension Qualified Code(s): I10 - Essential (primary) hypertension (6) Hx of CABG: Status: Acute (7) COPD (chronic obstructive pulmonary disease): Status: Acute (8) CONRAD (acute kidney injury): Status: Acute Reason for Visit Reason for Visit: AFIB Brief History: 84 year old male with past medical histo ry of coronary artery disease, atrial fibrillation, has ICD in place who is directly admitted from hospital as he has been having worsening shortness of breath over the last 1 month. He is also in atrial flutter/fibrillation with RVR. Patient says he cannot walk few steps without getting out of breath. Cannot lay down flat to sleep. He also says he has been having shortness of breath. Hospital Course Hospital Course Patient was put on amiodarone and he converted back to normal sinus rhythm. He was also diuresed. Medicine team was consulted and treated him for COPD as well. With diuresis, patient developed CONRAD. Lasix was down titrated and eventually held. Gnetle fluids were also given. At time of discharge , patient feeling much better. No shortness of breath. Renal function still abnormal. Patient is eager to go home. We will discharge patient on small dose of lasix.Amiodarone to continue for now. Close outpatient labs this week and office visit with cardiology arranged, Physical Exam Narrative: GENERAL: Patient is alert, awake and oriented x3. [] NECK: No jugular vein distension. [] HEENT: No cyanosis. No icterus. No pallor. [] HEART: Tachycardia LUNGS: Clear to auscultation CENTRAL NERVOUS SYSTEM: Grossly nonfocal. [] EXTREMITIES: Lower extremities with 1+ edema bilaterally. Discharge Data Studies Completed and Pending Completed Studies During Hospitalization Category Date Time Status CT chest wo con [id number] Urgent Cat Scan 03/29/24 13:04 Completed XR chest 1V portable [id number] Routine Exams 03/28/24 16:02 Completed Radiology Impressions Chest X-Ray 03/28/24 16:02 IMPRESSION: Improving congestive heart failure. Chest CT 03/29/24 13:04 IMPRESSION: 1. Interstitial pulmonary edema and trace-small bilateral pleural effusions. 2. Severe emphysematous changes. The presence of pulmonary emphysema on CT is an independent risk factor for lung cancer. In the absence of a history or active diagnosis of lung cancer, it is recommended that this patient with emphysema be evaluated for enrollment in a low dose CT lung cancer screening program. Laboratory Results WBC 14.57 10^3/uL (3.29-11.43) H 04/01/24 08:50 RBC 5.29 10^6/uL (3.85-5.65) 04/01/24 08:50 Hgb 16.30 g/dL (11.27-16.99) 04/01/24 08:50 Hct 51.7 % (37-53) 04/01/24 08:50 MCV 97.7 fl (82-101) 04/01/24 08:50 MCH 30.8 pg (27-33) 04/01/24 08:50 MCHC 31.5 g/dL (30-55) 04/01/24 08:50 RDW 14.2 % (12.1-15.1) 04/01/24 08:50 Plt Count 186 10^3/cmm (157-399) 04/01/24 08:50 MPV 11.0 fL (7.4-10.4) H 04/01/24 08:50 Neut % (Auto) 73.8 % 04/01/24 08:50 Lymph % (Auto) 15.0 % 04/01/24 08:50 [place] % (Auto) 10.4 % 04/01/24 08:50 Eos % (Auto) 0.0 % 04/01/24 08:50 Baso % (Auto) 0.1 % 04/01/24 08:50 Neut # (Auto) 10.74 10^3/uL (1.8-7.7) H 04/01/24 08:50 Lymph # (Auto) 2.2 10^3/uL (0.8-4.8) 04/01/24 08:50 [place] # (Auto) 1.5 10^3/uL (0.2-0.9) H 04/01/24 08:50 Eos # (Auto) 0.0 10^3/uL (0.0-0.8) 04/01/24 08:50 Baso # (Auto) 0.0 10^3/uL (0.0-0.1) 04/01/24 08:50 Nucleated RBC % (auto) 0.1 % 04/01/24 08:50 Nucleated RBCs # 0.0 /100WBC 04/01/24 08:50 Specimen Type Arterial 03/29/24 12:50 Sample Site Radial, left 03/29/24 12:50 ABG pH 7.41 (7.35-7.45) 03/29/24 12:50 ABG pCO2 39.5 mmHg (35-45) 03/29/24 12:50 ABG pO2 81.6 mmHg (80.0-100.0) 03/29/24 12:50 ABG PO2/FiO2 Ratio 0 03/29/24 12:50 ABG HCO3 24.9 mmol/L (22-26) 03/29/24 12:50 ABG O2 Saturation 96.7 03/29/24 12:50 ABG Base Excess 0.3 mmol/L (-2.0-2.0) 03/29/24 12:50 Hardik Test Pos 03/29/24 12:50 A-a O2 Gradient 8.8 mmHg (5-10) 03/29/24 12:50 Hematocrit 49.6 % (42-52) 03/29/24 12:50 Hgb O2 Saturation 95.1 % (95-100) 03/29/24 12:50 Carboxyhemoglobin 1.2 %THgb (0.4-20.1) 03/29/24 12:50 Methemoglobin 0.4 % (0.4-1.5) 03/29/24 12:50 Total Hemoglobin 16.2 g/dL (14-18) 03/29/24 12:50 Sodium 137.0 mmol/L (131-143) 03/29/24 12:50 Potassium 4.5 mmol/L (3.5-5.0) 03/29/24 12:50 Glucose 215.0 mg/dL (70-115) H 03/29/24 12:50 Ionized Calcium 1.1 mmol/L (1.1-1.4) 03/29/24 12:50 O2 Delivery Device Nc 03/29/24 12:50 O2 Liters/Min 2.0 % 03/29/24 12:50 FiO2 28.0 % 03/29/24 12:50 Motor And Generator Brush Cutter ID Gd 03/29/24 12:50 Sodium 139 mmol/L (136-145) 04/01/24 08:50 Potassium 3.9 mmol/L (3.5-5.1) 04/01/24 08:50 Chloride 95 mmol/L (98-107) L 04/01/24 08:50 Carbon Dioxide 30 mmol/L (22-29) H 04/01/24 08:50 Anion Gap 17.9 (5-19) 04/01/24 08:50 BUN 59 mg/dL (8-23) H 04/01/24 08:50 Creatinine 1.6 mg/dL (0.7-1.2) H 04/01/24 08:50 GFR Calculation Not Reportable 04/01/24 08:50 Glucose 171 mg/dL (65-115) H 04/01/24 08:50 Calculated Osmolality 309 mOsm/kg (285-295) H 04/01/24 08:50 Lactic Acid 3.0 mmol/L (0.5-2.2) H 03/29/24 14:56 Lactic Acid (Sepsis) 3.0 mmol/L (0.5-2.2) H 03/29/24 17:40 Calcium 8.3 mg/dL (8.5-10.5) L 04/01/24 08:50 Magnesium 2.8 mg/dL (1.7-2.3) H 04/01/24 08:50 Iron 65 ug/dL (59-158) 03/29/24 05:06 TIBC 385 mcg/dl 03/29/24 05:06 % Saturation 16.8 % (20-50) L 03/29/24 05:06 Unsat Iron Binding 320 ug/dL (112-347) 03/29/24 05:06 Total Bilirubin 1.3 mg/dL (0.15-1.2) H 04/01/24 08:50 AST 106 U/L (0-40) H 04/01/24 08:50 ALT 94 U/L (0-41) H 04/01/24 08:50 Alkaline Phosphatase 68 U/L (40-130) 04/01/24 08:50 Troponin T 5th Gen ng/L 46 ng/L (0-15) H 03/29/24 05:06 Troponin T Baseline 34 ng/L (0-15) H 03/28/24 16:37 Troponin T 120 Minute 36.90 ng/L (0-15) H 03/28/24 20:27 Delta Troponin T 2.90 ABS# (0-10) 03/28/24 20:27 Troponin T Hi Sens 6Hr 48.27 ng/L (0-15) H 03/28/24 22:20 Troponin T Hi Sens 6Hr Delta 14.27 ng/L (0-12) H* 03/28/24 22:20 NT-Pro-B Natriuret Pep 4958 pg/mL (0-450) H 03/28/24 16:37 Total Protein 7.7 g/dL (6.6-8.7) 04/01/24 08:50 Albumin 4.0 g/dL (3.5-5.2) 04/01/24 08:50 Globulin 3.7 g/dL (1.3-4.6) 04/01/24 08:50 Vitamin B12 366 pg/mL (232-1245) 03/29/24 05:06 Folate 16.9 ng/mL (4.5-32.2) 03/30/24 04:17 Procalcitonin 0.07 ng/mL (0-0.5) 03/29/24 05:06 Urine Color Yellow (Yellow) 03/29/24 22:30 Urine Appearance Clear (CLEAR) 03/29/24 22:30 Urine pH 5 (5-7) 03/29/24 22:30 Ur Specific [place] 1.020 (1.005-1.030) 03/29/24 22:30 Urine Protein Neg (Negative) 03/29/24 22:30 Urine Glucose (UA) Norm (Normal) 03/29/24 22:30 Urine Ketones Negative (Negative) 03/29/24 22:30 Urine Blood Neg (Negative) 03/29/24 22:30 Urine Nitrate Negative (Negative) 03/29/24 22:30 Urine Bilirubin Neg (Negative) 03/29/24 22:30 Urine Urobilinogen Neg mg/dL (Negative) 03/29/24 22:30 Ur Leukocyte Esterase Negative (Negative) 03/29/24 22:30 Ur Random Sodium 17 mmol/L 03/30/24 19:55 Ur Random Potassium 86 mmol/L 03/30/24 19:55 Ur Random Chloride 66 mmol/L 03/30/24 19:55 Urine Creatinine 63 mg/dL (39-259) 03/30/24 19:55 Vitals Last Vital Signs Temp 97.5 F L 04/01/24 04:00 Pulse 92 04/01/24 08:32 Resp 20 H 04/01/24 08:32 BP 131/78 04/01/24 07:21 Pulse Ox 98 04/01/24 08:32 O2 Del Method Nasal Cannula 04/01/24 08:32 O2 Flow Rate 3 04/01/24 08:32 FiO2 40 03/29/24 14:23 Discharge Plan Discharge Patient Disposition: Home Condition: Stable Prescriptions: New Pacerone 200 mg Tablet 200 mg PO BID Qty: 60 0RF Rx Instructions: 200 mg twice daily for 3 days followed by 200 mg daily. ipratropium bromide 0.02 % Solution 0.5 mg inhalation Q8H Qty: 75 0RF levalbuterol HCl 0.63 mg/3 mL Solution For Nebulization 0.63 mg inhalation Q8H Qty: 90 0RF prednisone 10 mg tablet See Taper PO DIRECTED Qty: 42 0RF Taper: predniSONE 60-10 60 mg Daily for 2 Days and 0 Hour 50 mg Daily for 2 Days and 0 Hour 40 mg Daily for 2 Days and 0 Hour 30 mg Daily for 2 Days and 0 Hour 20 mg Daily for 2 Days and 0 Hour 10 mg Daily for 2 Days and 0 Hour Rx Instructions: see taper instructions Continued duloxetine 60 mg capsule,delayed release(DR/EC) 60 mg PO BEDTIME cholecalciferol (vitamin D3) 50 mcg (2,000 unit) capsule 50 mcg PO QPM metoprolol succinate 25 mg tablet extended release 24 hr 25 mg PO BID Qty: 180 3RF nitroglycerin [Nitrostat] 0.4 mg Tablet, Sublingual 0.4 mg SUBLINGUAL Q5M PRN (Reason: Chest Pain) Rx Instructions: do not exceed 3 doses per episode clopidogrel 75 mg tablet 75 mg PO QAM simvastatin 40 mg tablet 40 mg PO QPM pantoprazole 40 mg tablet,delayed release (DR/EC) 40 mg PO QAM fluticasone propion-salmeterol 100-50 mcg/dose Blister With Device 1 inh INHALATION BID mirtazapine 15 mg tablet 15 mg PO BEDTIME PRN (Reason: unknown) Changed midodrine 5 mg Tablet 5 mg PO TID PRN (Reason: SBP less than 100 mmhg) Qty: 45 0RF Lasix 20 mg tablet 20 mg PO BID Qty: 60 0RF potassium chloride 20 mEq tablet extended release 10 meq PO BID Qty: 60 0RF Discontinued furosemide 40 mg Tablet 40 mg PO DAILY@0800 Qty: 30 0RF No Action Eliquis 5 mg tablet 5 mg PO BID Qty: 180 3RF Discharge Orders: Discharge Order (Routine); Ordered 04/01/24 Ordered By: Roland Jara Other Ambulatory Orders: DME: Nebulizer with Neb Kit (Order) Location: None Selected Ordered By: oRland Jara DME: Oxygen (Order) Location: None Selected Ordered By: Roland Jara Basic Metabolic Panel (Routine) Timeframe: [id number] Facility: [facility] - Location: Lab - Main Lab Ordered By: Jose Martin Chester Referrals: Sunny Vega DO [Primary Care Provider] - 7-10 days (Please call for an follow-up within 4 to 7 days, thank you . ) Mirtha Hui FNP [Nurse Practitioner] - 4-7 days (We have notified your physician's clinic of the need for a follow-up appointment to be scheduled. If you have not heard from them within the next 2 business days, please call them directly. ) Discharge Diet: Cardiac Discharge Activity: Increase activity as tolerated Patient Instructions: Ipratropium (By breathing), Prednisone (By mouth), Amiodarone (By mouth) (Cordarone, Pacerone), Levalbuterol (By breathing) (Xopenex, Xopenex HFA, Xopenex Pediatric), Heart Failure (DC), Acute Kidney Injury (DC), Hypertension (DC), Anxiety (DC), CHF Stoplight, COPD Stoplight, Opioid Safety Activity Restrictions/Additional Instructions: Restrict fluid intake to less than 1500 cc, salt intake to less than 2 g daily. Advised to check his weight daily at home. Is advised that weight today would be the dry weight and if body weight increases by around 5 pounds, patient is to take an extra dose of Lasix daily till body weight comes down to weight today. If not able to come down to dry body weight in 1 week, then is to call cardiology office for further recommendations. Patient was counseled in detail to take medications regularly as prescribed. Take midodrine as needed for systolic blood pressure less than 100 mmHg. Goal blood pressure is between 100/80 mmHg to 140/90 mmHg. Amiodarone 200 mg twice daily has been added to her medication list. Take twice daily for next 3 days followed by 200 mg once daily. Discharge Attestations Time Spent in Discharge Care*: greater than 30 min Quality Metrics Clinical Quality Measures [ No reported AMI, CVA or VTE this stay] Coding Level of Care Code Acute Code for Chg Fwd Diagnoses CHF exacerbation I50.9 Longstanding persistent atrial fibrillation I48.11 Atrial fibrillation type: longstanding persistent S/P cardiac pacemaker procedure Z95.0 Coronary artery disease involving coronary bypass graft of [place] heart with unstable angina pectoris I25.700 Associated angina: with unstable angina Coronary Disease-Associated Artery/Lesion type: bypass graft [place] vs. transplanted heart: [place] heart Essential hypertension I10 Hypertension type: essential hypertension Hx of CABG Z95.1 COPD (chronic obstructive pulmonary disease) J44.9 CONRAD (acute kidney injury) N17.9
--- NOTE | 2024-04-01 12:23 | P.PN_ITS ---
Subjective 2 Subjective: No acute events overnight. Patient has remained hemodynamically stable and afebrile. Did have a slight fall while getting up from urinal today morning. Did not hit his head landed on his knees. Currently denies any new complaints. States he continues to be better. Slept well at night. Vitals/I&O/Wt Last Vital Signs Temp 97.7 F 04/01/24 11:27 Pulse 88 04/01/24 11:27 Resp 23 H 04/01/24 11:27 BP 108/73 04/01/24 11:27 Pulse Ox 98 04/01/24 08:32 O2 Del Method Nasal Cannula 04/01/24 08:32 O2 Flow Rate 3 04/01/24 08:32 FiO2 40 03/29/24 14:23 03/31/24 04/01/24 04/01/24 22:59 06:59 14:59 Intake Total 400 / 760 780 / 1540 360 / 360 Output Total 310 / 650 300 / 950 Balance 90 / 110 480 / 590 360 / 360 Weight last 48 hrs Weight 69.626 kg Weight 68.946 kg Physical Exam 2 Narrative: General: No acute distress, AO x3, HEENT: PERRLA, pupils bilaterally equal and reactive Chest: Bilateral breath Corvite sounds with occasional rhonchi CVS: S1-S2 regular, soft pansystolic murmur present at apex, no tachycardia, no gallops, no rubs Abdomen: Soft, nontender, no organomegaly, bowel sounds present Neuro: No focal deficits, no facial deformity, AO x3, power 5/5 in all limbs Data 04/01/24 08:50 04/01/24 08:50 Micro: Microbiology 03/30/24 19:55 Bacterial Antigens - Final Urine Kidney A&P Assessment and plan (1) Shortness of breath: Most likely a combination of congestive heart failure, COPD exacerbation along with ischemic cardiomyopathy with EF of 25 to 30% leading to heart failure. Keep saturation over 92%. Patient currently seems euvolemic. Symptoms might most likely be in setting of ischemic cardiomyopathy along with mild COPD. Appreciate CT chest without contrast consistent with severe emphysema. (2) COPD (chronic obstructive pulmonary disease): Chronic history of smoking. Restarted smoking over a year ago. Uses inhaler at home. Hemoglobin baseline seems to be from 15-17 even going as high as [address] chest consistent with severe emphysema. Start on Pulmicort twice daily, DuoNeb every 6 hour. Continue with prednisone 40 mg oral daily. We will most likely discharge on slow taper as an outpatient. Nicotine patch. (3) CHF exacerbation: Currently euvolemic. Was not congestive heart failure yesterday in setting of A-fib with RVR. History of ischemic cardiomyopathy with EF of 25 to 30% with last echocardiogram in the last 1 month. Continue with fluid restriction to 1500 cc. Continue with Lasix 40 mg oral twice daily. Echocardiogram done did show significant mitral regurgitation. Blood pressure tolerates might benefit with low-dose Imdur. (4) Ischemic cardiomyopathy: Continue with treatment as per cardiology team on Plavix, statin, beta-geri. Pacemaker interrogation appreciated. Goal blood pressure less than 140/90 mmHg with mean over 65. Continue with midodrine 5 mg 3 times a day. Blood pressures have remained stable. Monitor blood pressures closely. Will like to avoid high blood pressures given history of ischemic cardiomyopathy to avoid congestive heart failure. Troponin cycled negative. Patient might benefit from ACS workup going forward. (5) Coronary artery disease: Qualifiers: Coronary Disease-Associated Artery/Lesion type: bypass graft [place] vs. transplanted heart: [place] heart Associated angina: with unstable angina Qualified Code(s): I25.700 - Atherosclerosis of coronary artery bypass graft(s), unspecified, with unstable angina pectoris (6) Atrial fibrillation: Qualifiers: Atrial fibrillation type: longstanding persistent Qualified Code(s): I 48.11 - Longstanding persistent atrial fibrillation (7) S/P cardiac pacemaker procedure: (8) Hypertension: Qualifiers: Hypertension type: essential hypertension Qualified Code(s): I10 - Essential (primary) hypertension (9) Anxiety: Restart home dose of Cymbalta. Continue patch. (10) CONRAD (acute kidney injury): Baseline creatinine normal. Creatinine 1.6 today. Most likely in setting of cardiomyopathy and aggressive diuresis. Trending down currently. Blood pressure is better. Strict input output charting. Monitor BMP daily. (11) Orthopnea: Plan CODE STATUS: Discussed with patient and at bedside. They do not want any kind of resuscitation. DNR/DNI. Cardiac diet. Fluid restriction. Protonix OPD prophylaxis Eliquis will be sufficient for DVT prophylaxis. Plan for the day: Patient is stable to be discharged home from medical standpoint. Patient's creatinine has remained stable. Will be sent home from medicine standpoint on nebulization treatment. Will continue on diuretics at home along with oral amiodarone. Discussed life modification with congestive heart failure in detail along with fluid restriction and salt restriction. Also discussed about regular weight check at home. Patient will take midodrine as needed with goal blood pressure between 100/80 mmHg and 140/90 mmHg. Med rec completed. Care discussed in detail with patient, family and nurse at bedside. All the questions were answered. Discussed in detail with patient's primary team. Thank you for involving us in care of Mr. Quintanilla Attrichieations 2 Medical Necessity Statement*: As per primary team. Most likely plan to discharge today. Diagnoses Shortness of breath R06.02 COPD (chronic obstructive pulmonary disease) J44.9 CHF exacerbation I50.9 Ischemic cardiomyopathy I25.5 Coronary artery disease involving coronary bypass graft of [place] heart with unstable angina pectoris I25.700 Coronary Disease-Associated Artery/Lesion type: bypass graft [place] vs. transplanted heart: [place] heart Associated angina: with unstable angina Longstanding persistent atrial fibrillation I48.11 Atrial fibrillation type: longstanding persistent S/P cardiac pacemaker procedure Z95.0 Essential hypertension I10 Hypertension type: essential hypertension Anxiety F41.9 CONRAD (acute kidney injury) N17.9 Orthopnea R06.01
== END 2024-04-01 14:01 | disposition home or self-care (01) | DRG 291 ==
PROVIDERS: Student in an Organized Health Care Education/Training Program; Admitting Provider Internal Medicine; PCP Emergency Medicine Emergency Medical Services; Visit Provider Internal Medicine
DX: I11.0 Hypertensive heart disease with heart failure (principal); I50.23 Acute on chronic systolic (congestive) heart failure; J44.1 Chronic obstructive pulmonary disease with (acute) exacerbation; I48.20 Chronic atrial fibrillation, unspecified; N17.9 Acute kidney failure, unspecified; I25.110 Atherosclerotic heart disease of native coronary artery with unstable angina pectoris; Z95.1 Presence of aortocoronary bypass graft; F41.9 Anxiety disorder, unspecified; Z79.01 Long term (current) use of anticoagulants; Z72.0 Tobacco use; Z66 Do not resuscitate; E87.6 Hypokalemia; I25.5 Ischemic cardiomyopathy; Z95.810 Presence of automatic (implantable) cardiac defibrillator; K21.9 Gastro-esophageal reflux disease without esophagitis; E78.5 Hyperlipidemia, unspecified
CPT/HCPCS: 36415; 36600; 71045; 71250; 80048; 80051; 80053; 81003; 82330; 82436; 82570; 82607; 82746; 82805; 83540; 83550; 83605; 83735; 83880; 84133; 84145; 84300; 84484; 85025; 86403; 87449; 93005; 94640; 94760; 96376; 99215; J0283; J1940; J2405; J2919; J7040; J7512; J7614; J7626; J7644

== ENCOUNTER 2024-04-02 21:19 | Inpatient (IN) | payer OTHER, SELFPAY ==
[2024-04-02 21:20] VITALS: BP 102/66; PULSE 75; RESP 20; TEMP 36.4; O2SAT 95; BMI 23.6
--- NOTE | 2024-04-02 21:24 | XRR_ITS ---
PROCEDURE INFORMATION: Exam: XR Chest Exam date and time: 04/02/2024 9:31 PM Age: 84 years old Clinical indication: Shortness of breath; Prior surgery; Surgery date: 6+ months; Surgery type: Pacer cabg; Additional info: Chest pain TECHNIQUE: Imaging protocol: Radiologic exam of the chest. Views: 1 view. COMPARISON: CT chest con [id number] 03/29/2024 2:36 PM FINDINGS: Tubes, catheters and devices: Left-sided AICD device. Lungs: Irregular opacities right lung base with small right-sided pleural effusion. Pleural spaces: See Lungs finding. Heart/Mediastinum: Unremarkable. No cardiomegaly. Bones/joints: Prior median sternotomy and CABG. XR/XR chest 1V portable [id number] IMPRESSION: Irregular opacities right lung base with small right-sided pleural effusion.
--- NOTE | 2024-04-02 21:50 | W.ED.CHESTPA ---
HPI - Chest Pain General: Chief Complaint: Chest Pain Stated Complaint: CP, SOB, N/V Time Seen by Provider: 04/02/24 21:20 History of Present Illness: 84-year-old man with a history of coronary artery disease, ischemic congestive heart failure, with pacemaker/defibrillator placement, COPD, A-fib on Eliquis, chronic hypoxemic respiratory failure on 2 L nasal cannula at all times who presents to the emergency room by ambulance with chest pain and vomiting. He had been admitted to the hospital recently for a few days and treated for congestive heart failure. Shortly after he went home he started having some vomiting. He has been having vomiting now for about 24 hours and called an ambulance when he had some chest pain a couple of hours ago. He took a nitro and he is now chest pain-free. No fevers. No abdominal pain. No altered mental status. No focal motor deficits. Review of Systems Narrative: Constitutional symptoms: Negative except as documented in HPI. Skin symptoms: Negative except as documented in HPI. Eye symptoms: Negative except as documented in HPI. ENMT symptoms: Negative except as documented in HPI. Respiratory symptoms: Negative except as documented in HPI. Cardiovascular symptoms: Negative except as documented in HPI. Gastrointestinal symptoms: Negative except as documented in HPI. Genitourinary symptoms: Negative except as documented in HPI. Musculoskeletal symptoms: Negative except as documented in HPI. Neurologic symptoms: Negative except as documented in HPI. Psychiatric symptoms: Negative except as documented in HPI. Endocrine symptoms: Negative except as documented in HPI. [facility] PFSH: Medical History Chronic systolic CHF (congestive heart failure), NYHA class 2 Ischemic cardiomyopathy ICD (implantable cardioverter-defibrillator) in place GERD (gastroesophageal reflux disease) Sick sinus syndrome BPH (benign prostatic hyperplasia) Hyperlipidemia Hypertension Coronary artery disease Last echocardiogram 05/31/23 with EF 30% Unstable angina pectoris Atrial fibrillation Surgical History History of hemorrhoidectomy S/P cholecystectomy S/P TURP S/P CABG (coronary artery bypass graft) S/P cardiac pacemaker procedure Family History Other CAD (coronary artery disease) Social History Smoking and tobacco/nicotine status: former use of tobacco/nicotine Alcohol intake: never Substance/Drug Use: never Lives independently: Yes Household members: spouse Housing: House Marital status: Number of children: 4 Pets and animals: Yes Pets & animals: dog(s) Physical Exam Narrative: EXAM NARRATIVE: General: Alert, no acute distress. Skin: Warm, dry. Head: Normocephalic, atraumatic. Neck: Supple, trachea midline. Eye: Extraocular movements are intact. Ears, nose, mouth and throat: mucosa moist. Cardiovascular: Regular, Normal peripheral perfusion. Respiratory: Lungs are clear to auscultation, respirations are non-labored, breath sounds are equal, Symmetrical chest wall expansion. Gastrointestinal: Soft, Nontender, Non distended, Normal bowel sounds. Musculoskeletal: Normal ROM, no deformity. Neurological: Alert and oriented, No focal neurological deficit observed. Psychiatric: Cooperative, appropriate mood & affect. Course Vital Signs: Vital signs: Vital Signs Temperature 97.5 F L 04/02/24 21:20 Pulse Rate 71 04/02/24 23:42 Respiratory Rate 16 04/02/24 23:42 Blood Pressure 104/64 04/02/24 23:42 Pulse Oximetry 95 04/02/24 23:42 Oxygen Delivery Me thod Nasal Cannula 04/02/24 21:20 Oxygen Flow Rate 2 04/02/24 21:20 MDM - Chest Pain Medical Decision Making Differential diagnosis for patient with chest pain includes but is not limited to and based on the above HPI, review of systems and physical exam: Pneumonia. unstable angina. angina. Acute coronary syndrome / [place]. Pulmonary embolism. Costochondritis / musculoskeletal. Pleurisy. Pericarditis. Esophageal spasm. Pancreatis. Cholecystitis. Workup: Lab work, chest X-ray and EKG ordered to evaluate, rule in and rule out above pathologies. Lab Review: Laboratory results were reviewed and interpreted by myself the emergency room physician. Patient has mild leukocytosis at 12.5. Hemoglobin is stable at 15.4. BUN and creatinine are quite a bit elevated over previous at 99 and 3.1. Also his LFTs are elevated very significant over just a few days ago they went from 50-5000 however T. bili is not elevated. Initial troponin is up at 156 EKG: Time 2123 rate 76 normal sinus rhythm, No ST-T changes, no ectopy, right bundle branch block, left anterior fascicular block, This was reviewed and interpreted by myself the ER physician at 2125 Repeat EKG: Time 2315. Rate 76 no changes from previous EKG. Normal sinus rhythm, No ST-T changes, no ectopy, right bundle branch block, left anterior fascicular block, This was reviewed and interpreted by myself the ER physician at 2317 Chest x-ray: Chronic changes and scarring on the right. Cardiomegaly is less than it was on previous chest x-ray. Pacemaker/AICD is in place. Sternotomy wires in place. No acute process. No infiltrate. No pneumothorax. No cardiomegaly. This was reviewed and interpreted by myself the ER physician. CT of the abdomen pelvis without contrast:. No evidence of cholecystitis or appendicitis. No bowel obstructions. There is a pleural effusion. This was reviewed and interpreted by myself the emergency room physician. I also reviewed the radiology report. I reviewed the patient's medical record. Reexamination: No increased work of breathing. Vomiting seems to be improved some. No altered mental status. No focal motor deficits. Assessment and plan: Acute hepatitis/transaminitis Nausea and vomiting Dehydration Acute on chronic renal failure Chronic hypoxemic respiratory failure Congestive heart failure Atrial fibrillation - Acute hepatitis/transaminitis: No evidence of obstruction. Unclear etiology. - Nausea and vomiting: IV Zofran in the emergency room. - Dehydration/Acute on chronic renal failure: Careful hydration given his heart failure. 500 mL normal saline bolus in the emergency room. - Chronic hypoxemic respiratory failure: Stable on his home 2 L nasal cannula. - Congestive heart failure: Patient appears volume depleted today with nausea and vomiting. - Atrial fibrillation: Patient is on normal sinus rhythm. He is anticoagulated on Eliquis. -Given his. Findings and symptoms would have concern for sepsis as well. Blood cultures were drawn. Lactate was elevated. I am giving meropenem and Zyvox here given his renal failure. Limited fluids because of his heart failure. -I discussed the patient with the hospitalist on-call who is admitting the patient. - Discussed findings and plan with patient. Answered any questions. - All laboratory values were reviewed and interpreted personally by myself, the ER physician - All imaging was reviewed and interpreted personally by myself, the ER physician. - Evaluation and treatment of this problem were appropriate in the emergency setting -I spent a total of >35 minutes of critical care time managing the patient, independent of any other practitioner. -The time involved in the performance of separately reportable procedures was not counted towards critical care time. Lab Data 04/02/24 21:57 04/02/24 21:57 Radiology Impressions Chest X-Ray 04/02/24 21:24 IMPRESSION: Irregular opacities right lung base with small right-sided pleural effusion. Abdomen/Pelvis CT 04/02/24 22:41 IMPRESSION: 1. Small right-sided pleural effusion. 2. No bowel obstruction or inflammatory process associated with the bowel. 3. No free air or significant free fluid in the abdomen or pelvis. 4. The appendix is not visualized but there are no secondary signs of acute appendicitis. Laboratory Results WBC 12.51 10^3/uL (3.29-11.43) H 04/02/24 21:57 RBC 4.98 10^6/uL (3.85-5.65) 04/02/24 21:57 Hgb 15.40 g/dL (11.27-16.99) 04/02/24 21:57 Hct 47.1 % (37-53) 04/02/24 21:57 MCV 94.6 fl (82-101) 04/02/24 21:57 MCH 30.9 pg (27-33) 04/02/24 21:57 MCHC 32.7 g/dL (30-55) 04/02/24 21:57 RDW 14.0 % (12.1-15.1) 04/02/24 21:57 Plt Count 123 10^3/cmm (157-399) L 04/02/24 21:57 MPV 12.1 fL (7.4-10.4) H 04/02/24 21:57 Neut % (Auto) 83.1 % 04/02/24 21:57 Lymph % (Auto) 8.5 % 04/02/24 21:57 [place] % (Auto) 7.6 % 04/02/24 21:57 Eos % (Auto) 0.0 % 04/02/24 21:57 Baso % (Auto) 0.2 % 04/02/24 21:57 Neut # (Auto) 10.41 10^3/uL (1.8-7.7) H 04/02/24 21:57 Lymph # (Auto) 1.1 10^3/uL (0.8-4.8) 04/02/24 21:57 [place] # (Auto) 1.0 10^3/uL (0.2-0.9) H 04/02/24 21:57 Eos # (Auto) 0.0 10^3/uL (0.0-0.8) 04/02/24 21:57 Baso # (Auto) 0.0 10^3/uL (0.0-0.1) 04/02/24 21:57 Nucleated RBC % (auto) 0.7 % 04/02/24 21:57 Nucleated RBCs # 0.1 /100WBC 04/02/24 21:57 Sodium 133 mmol/L (136-145) L 04/02/24 21:57 Potassium 5.1 mmol/L (3.5-5.1) 04/02/24 21:57 Chloride 89 mmol/L (98-107) L 04/02/24 21:57 Carbon Dioxide 22 mmol/L (22-29) 04/02/24 21:57 Anion Gap 27.1 (5-19) H 04/02/24 21:57 BUN 99 mg/dL (8-23) H* D 04/02/24 21:57 Creatinine 3.1 mg/dL (0.7-1.2) H 04/02/24 21:57 GFR Calculation Not Reportable 04/02/24 21:57 Glucose 170 mg/dL (65-115) H 04/02/24 21:57 Calculated Osmolality 311 mOsm/kg (285-295) H 04/02/24 21:57 Lactic Acid 4.9 mmol/L (0.5-2.2) H* 04/02/24 21:57 Calcium 8.2 mg/dL (8.5-10.5) L 04/02/24 21:57 Total Bilirubin 1.4 mg/dL (0.15-1.2) H 04/02/24 21:57 AST 8141 U/L (0-40) H 04/02/24 21:57 ALT 4550 U/L (0-41) H 04/02/24 21:57 Alkaline Phosphatase 74 U/L (40-130) 04/02/24 21:57 Troponin T Baseline 156 ng/L (0-15) H* 04/02/24 21:57 Troponin T 120 Minute 155.6 ng/L (0-15) H 04/02/24 23:15 Delta Troponin T -0.4 ABS# (0-10) L 04/02/24 23:15 C-Reactive Protein 41.8 mg/L (0.0-4.9) H 04/02/24 21:57 Total Protein 6.6 g/dL (6.6-8.7) 04/02/24 21:57 Albumin 3.8 g/dL (3.5-5.2) 04/02/24 21:57 Globulin 2.8 g/dL (1.3-4.6) 04/02/24 21:57 Lipase 47 U/L (13-60) 04/02/24 21:57 Urine Color Yellow (Yellow) 04/02/24 22:30 Urine Appearance Cloudy (CLEAR) A 04/02/24 22:30 Urine pH 5 (5-7) 04/02/24 22:30 Ur Specific [place] 1.025 (1.005-1.030) 04/02/24 22:30 Urine Protein Trace (Negative) 04/02/24 22:30 Urine Glucose (UA) Norm (Normal) 04/02/24 22:30 Urine Ketones 1+ (Negative) H 04/02/24 22:30 Urine Blood 2+ (Negative) H 04/02/24 22:30 Urine Nitrate Negative (Negative) 04/02/24 22:30 Urine Bilirubin 1+ (Negative) H 04/02/24 22:30 Urine Urobilinogen 8 mg/dL (Negative) H 04/02/24 22:30 Ur Leukocyte Esterase Negative (Negative) 04/02/24 22:30 Urine RBC 0-4 /hpf (0-2) H 04/02/24 22:30 Urine WBC None /hpf (0-5) 04/02/24 22:30 Ur Squamous Epith Cells None /hpf (0-5) 04/02/24 22:30 Amorphous Sediment 2+ /hpf 04/02/24 22:30 Urine Bacteria 1+ /hpf (NONE) H 04/02/24 22:30 Urine Mucus 2+ /hpf 04/02/24 22:30 All radiology interpretation(s) finalized by discharge Discharge Plan Discharge Patient Disposition: Admitted As Inpatient Clinical Impression: Acute hepatitis, Nausea & vomiting, Acute on chronic renal failure, Dehydration, Chronic hypoxic respiratory failure, Congestive heart failure Condition: Stable Coding Level of Care Code ED 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
[2024-04-02 22:03] LABS: Basophils % 0.2 %; Hematocrit 47.1 % (37-53); Lymphocytes # 1.1 10^3/uL (0.8-4.8); Lymphocytes % 8.5 %; Mean Corpuscular HGB Conc 32.7 g/dL (30-55); Mean Corpuscular Hemoglobin 30.9 pg (27-33); Mean Corpuscular Volume 94.6 fl (82-101); Mean Platelet Volume 12.1 fL (7.4-10.4); Monocytes % 7.6 %; Neutrophils # 10.41 10^3/uL (1.8-7.7); Neutrophils % 83.1 %; Nucleated Red Blood Cells # 0.1 /100WBC; Nucleated Red Blood Cells % 0.7 %; Platelet Count 123 10^3/cmm (157-399); Red Blood Count 4.98 10^6/uL (3.85-5.65); White Blood Count 12.51 10^3/uL (3.29-11.43)
[2024-04-02] MEDS: ondansetron 2 mg/ML SDV 2 mL 4 MG IVP (22:04)
[2024-04-02 22:27] LABS: Albumin Level 3.8 g/dL (3.5-5.2); Alkaline Phosphatase 74 U/L (40-130); C Reactive Protein 41.8 mg/L (0.0-4.9); Calcium 8.2 mg/dL (8.5-10.5); Carbon Dioxide 22 mmol/L (22-29); Chloride 89 mmol/L (98-107); Creatinine Clr Calc Pharmacy 17.9724; Globulin 2.8 g/dL (1.3-4.6); Glucose 170 mg/dL (65-115); Lipase 47 U/L (13-60); Osmolality Calculated 311 mOsm/kg (285-295); Sodium 133 mmol/L (136-145); Total Bilirubin 1.4 mg/dL (0.15-1.2); Total Protein 6.6 g/dL (6.6-8.7)
[2024-04-02 22:32] LABS: Lactic Sepsis W/Reflex 4.9 mmol/L (0.5-2.2); Troponin(5th) Baseline 156 ng/L (0-15)
[2024-04-02 22:34] LABS: Anion Gap 27.1 (5-19); Potassium 5.1 mmol/L (3.5-5.1)
[2024-04-02 22:35] LABS: Blood Urea Nitrogen 99 mg/dL (8-23)
[2024-04-02 22:39] LABS: Alanine Aminotransferase 4550 U/L (0-41)
--- NOTE | 2024-04-02 22:41 | CTR_ITS ---
PROCEDURE INFORMATION: Exam: CT Abdomen And Pelvis Without Contrast Exam date and time: 04/02/2024 11:02 PM Age: 84 years old Clinical indication: Nausea and vomiting; Prior surgery; Surgery date: 6+ months; Surgery type: Gb, turp, cabg; Additional info: Abdominal pain TECHNIQUE: Imaging protocol: Computed tomography of the abdomen and pelvis without contrast. Radiation optimization: All CT scans at this facility use at least one of these dose optimization techniques: automated exposure control; mA and/or kV adjustment per patient size (includes targeted exams where dose is matched to clinical indication); or iterative reconstruction. COMPARISON: CR XR hip LT 2-3V wo/w pel* [id number] 10/22/2020 10:17 PM RADIATION DOSE METRICS: Total DLP (mGy-cm): 497.6 FINDINGS: Pleural spaces: Small right-sided pleural effusion. Liver: Normal. No mass. Gallbladder and bile ducts: The gallbladder is absent. Pancreas: Normal. No ductal dilation. Spleen: Normal. No splenomegaly. Adrenal glands: Normal. No mass. Kidneys and ureters: Normal. No hydronephrosis. Stomach and bowel: Unremarkable. No obstruction. No mucosal thickening. Appendix: The appendix is not visualized but there are no secondary signs of acute appendicitis. Intraperitoneal space: Unremarkable. No free air. No significant fluid collection. Vasculature: Severe atherosclerotic disease of the abdominal aorta. Lymph nodes: Unremarkable. No enlarged lymph nodes. Urinary bladder: Unremarkable as visualized. Reproductive: Unremarkable as visualized. Bones/joints: Prior median sternotomy and CABG. Soft tissues: Unremarkable. CT/CT abdomen pelvis wo con [id number] IMPRESSION: 1. Small right-sided pleural effusion. 2. No bowel obstruction or inflammatory process associated with the bowel. 3. No free air or significant free fluid in the abdomen or pelvis. 4. The appendix is not visualized but there are no secondary signs of acute appendicitis.
[2024-04-02 22:59] LABS: Add Urine Culture? No; Amorphous Sediment Urine 2+ /hpf; Bacteria Urine 1+ /hpf; Bilirubin Urine 1+ (Negative); Blood Urine 2+ (Negative); Glucose Urine UA Norm (Normal); Ketones Urine 1+ (Negative); Leukocyte Esterase Urine Negative (Negative); Mucus Urine 2+ /hpf; Nitrate Urine Negative (Negative); Protein Urine Trace (Negative); RBC Urine 0-4 /hpf (0-2); Specific Gravity, Urine 1.025 (1.005-1.030); Urine Appearance Cloudy (CLEAR); Urine Color Yellow (Yellow); Urobilinogen Urine 8 mg/dL (Negative); pH Urine 5 (5-7)
[2024-04-02] MEDS: sodium chloride 0.9% 500 ML 999 ML IV (23:16)
--- NOTE | 2024-04-02 23:25 | ECG_ITS ---
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 Measurements Intervals [place] Rate: 70 P: 24 MT: 231 QRS: -70 QRSD: 161 T: 32 QT: 533 QTc: 576 Interpretive Statements SINUS RHYTHM WITH FIRST DEGREE AV BLOCK LEFT AXIS DEVIATION [QRS AXIS < -30] RIGHT BUNDLE BRANCH BLOCK [120+ ms QRS DURATION, UPRIGHT V1, 40+ ms S IN I/aVL/V4/V5/V6] PROLONGED QT INTERVAL Compared to ECG 03/29/2024 04:03:15 First degree AV block now present Left-axis deviation now present Prolonged QT interval now present Sinus tachycardia no longer present Left anterior fascicular block no longer present Electronically Signed On 04-02-2024 23:23:29 CDT by Jose Martin Chester M.D. [email or web address]
[2024-04-02 23:42] VITALS: BP 104/64; PULSE 71; RESP 16; O2SAT 95
[2024-04-02 23:48] LABS: Reflex Lactate Order REFLEX LACTIC ORDERD
[2024-04-02 23:58] LABS: Aspartate Amino Transferase 8141 U/L (0-40)
[2024-04-03] VITALS (51 sets, daily range): BP systolic 94–119; BP diastolic 47–90; PULSE 66–71; RESP 14–34; TEMP 35.9–36.4; O2SAT 90–100
[2024-04-03 00:01] LABS: Troponin 5 2HR 155.6 ng/L (0-15); Troponin 5 2HR Delta -0.4 ABS# (0-10)
--- NOTE | 2024-04-03 00:16 | USR_ITS ---
PROCEDURE INFORMATION: Exam: US Abdomen, Limited; Right Upper Quadrant Exam date and time: 04/03/2024 1:17 AM Age: 84 years old Clinical indication: Nausea and vomiting; Prior surgery; Surgery date: 6+ months; Surgery type: [place], patient is poor histortian, cannot recall the year. ; Additional info: Acute liver failure TECHNIQUE: Imaging protocol: Real time ultrasound of the abdomen with image documentation. Limited exam focused on the right upper quadrant. COMPARISON: US abdomen complete* [id number] 05/26/2020 8:49 AM FINDINGS: Liver: Slight increased echogenicity of the liver may indicate fatty infiltration or possibly cirrhosis. 12 mm apparent cyst within the liver. There is bidirectional flow in the main portal vein. While not specific, this could indicate some portal hypertension. Gallbladder: Prior cholecystectomy. Biliary ducts: No biliary dilation, common duct measures about 6 mm. Pancreas: Visible pancreas unremarkable. Right kidney: Images of the right kidney show no hydronephrosis. Probably some diffuse parenchymal thinning involving right kidney. Stomach: There appears to be some gastric distension, please correlate clinically. Intraperitoneal space: Small amount of peritoneal fluid visible in the right upper quadrant. US/US liver [id number] IMPRESSION: 1. Prior cholecystectomy, no significant biliary tree dilation. 2. Some increased echogenicity of the liver. Bidirectional flow in the portal vein. See above discussion. 3. Small amount of right upper quadrant peritoneal fluid. 4. Suspected gastric distension. 5. Other findings discussed above.
--- NOTE | 2024-04-03 00:16 | USCV_ITS ---
Staceyottoniel Toni Age: 84 Gender: M : 1940 Exam Date: 04/03/2024 02:53 Ordering Phys: Rickey Gamboa MD Technologist: NOREEN Exam Location: [facility] [place] Indication: history of CAD, pacer/defibrillator, COPD, history of Afib, hypoxemia, respiratory failure, Chest Pain, vomiting. BP: 103 / 62 HR: 71 Rhythm: paced Technical Quality: Adequate MEASUREMENTS (Male / Female) Normal Values 2D ECHO LV Diastolic Diameter PLAX 6.5 cm 4.2 - 5.9 / 3.9 - 5.3 cm IVS Diastolic Thickness 1.3 cm 0.6 - 1.0 / 0.6 - 0.9 cm IVS Systolic Thickness 1.5 cm LVPW Diastolic Thickness 1.0 cm 0.6 - 1.0 / 0.6 - 0.9 cm LVPW Systolic Thickness 1.3 cm LVOT Diameter 2.0 cm LV Ejection Fraction 2D Teich 16.4 % LV Ejection Fraction MOD 2C 32.2 % LV Ejection Fraction 2C AL 32.5 % LA Diameter 4.4 cm LA Sys Volume AL 111.5 cm cubed LA Sys Volume Index AL 60.6 cm cubed/m squared Aorta at Sinotubular Diameter 2.9 cm IVC Diameter 2.9 cm M-MODE LA Ao Ratio MM 1.4 AV Cusp Separation MM 1.5 cm DOPPLER AV Peak Velocity 111.0 cm/s LVOT Peak Velocity 34.0 cm/s AV Area Cont Eq vti 1.4 cm squared AV Area Cont Eq pk 0.9 cm squared MV Peak Velocity 144.0 cm/s MV Area PHT 4.4 cm squared Mitral E to A Ratio 1.5 TV Peak Velocity 252.0 cm/s TR Peak Velocity 313.0 cm/s TR Peak Gradient 39.2 mmHg TV Peak E Velocity 90.0 cm/s Right Atrial Pressure 15.0 mmHg Pulmonary Artery Systolic Pressu 54.2 mmHg PV Peak Velocity 51.0 cm/s FINDINGS Left Ventricle Severe diffuse hypokinesia of the left ventricular with an ejection fraction of around 30%. Moderately dilated LV cavity Right Ventricle Normal RV size with a slightly diminished ejection fraction. Defibrillator wire in the right ventricle. Right Atrium Pacemaker /defibrillator wire is noted. Appears to be of normal size Left Atrium Severely increased left atrial volume 61 ml/m squared. Mitral Valve Severe mitral valve regurgitation. Aortic Valve Mild aortic valve regurgitation. Thickened aortic valve. Tricuspid Valve Moderate tricuspid valve regurgitation. Pulmonic Valve [id number] pulmonary valve regurgitation. Estimated pulmonary artery peak systolic pressure 54 mmHg Pericardium Normal pericardium without effusion. Aorta Normal ascending aorta dimension. IVC Dilated IVC with decreased respiratory variation. CONCLUSIONS Severe diffuse hypokinesia of the left ventricular with an ejection fraction of around 30%. Moderately dilated LV cavity. Severe mitral valve regurgitation. Severely increased left atrial volume 61 ml/m squared. Normal RV size with a slightly diminished ejection fraction. Defibrillator wire in the right ventricle. Right atrium appears to be of normal size. Mild aortic valve regurgitation. Thickened aortic valve. Moderate tricuspid valve regurgitation. Moderate pulmonary hypertension with an estimated pulmonary artery peak systolic pressure of 54 mmHg Qarx-to-srhsbqfo pulmonary valve regurgitation. Dilated IVC with decreased respiratory variation. There is no pericardial effusion. Compared to the study from 02/22/2024 there is worsening of the mitral regurgitation and moderate pulmonary hypertension Dr. Gamboa was informed about these finding Dr Hong Calhoun MD [facility] (Electronically Signed) Final Date: 03 Apr 2024 08:16 S
[2024-04-03 00:20] LABS: Lactic Acid level (Lactate) 6.2 mmol/L (0.5-2.2)
--- NOTE | 2024-04-03 00:20 | P.HP_ITS ---
Providers/Chief Complaint 2 Primary Care Provider: Sunny Vega DO Chief Complaint: CP, SOB, N/V History of Present Illness Toni Quintanilla Sr is a 84 year old male with a past medical history of ischemic cardiomyopathy, atrial fibrillation, on Eliquis, history of CAD status post CABG, history of PCI's, history of hypotension on midodrine, BPH, recent hospitalization for A-fib with RVR and CHF exacerbation, who presents to [facility], for 24-hour history of nausea, vomiting, poor appetite. Patient tells me for the last 24 hours she has had intractable nausea vomiting, no diarrhea no bloody or black stools, does have a poor appetite, denies history of food poisoning, he tells me that he really has not eaten anything since he left the hospital about 24 hours ago, does feel lightheaded, denies alcoholism, denies overdosing on Tylenol, denies any ethylene glycol or methanol poisoning, denies any flank pain, no dysuria, does report increased shortness of breath, no chest discomfort no headache, blurry vision, denies any fevers, but does have severe chills, patient appears ill, pale appearing, blood pressure 104/64, temperature 97.5, respiratory rate 16, pulse 71, normal sinus rhythm, on 2 L, does have mild mottling bilateral extremity DP PT pulses diminished, he is receiving antibiotics, has received a gentle fluid bolus, he is alert awake, following all commands prefers to lie on his side due to severe nausea vomiting is at bedside, Review of Systems 2 Const: Reports: chills, fatigue and malaise Card: Denies: chest pain Resp: Reports: dyspnea GI: Reports: nausea and vomiting; Denies: abdominal pain, diarrhea, hematochezia or melena : Denies: flank pain or difficulty urinating Musc: Denies: back pain Neuro: Denies: headache(s) Medications/Allergies Home Medications Medication Instructions Recorded Confirmed Last Taken Type cholecalciferol (vitamin D3) 50 50 mcg PO QPM 01/13/23 03/28/24 01/27/24 History mcg (2,000 unit) capsule duloxetine 60 mg capsule,delayed 60 mg PO BEDTIME 01/13/23 03/28/24 01/27/24 History release metoprolol succinate 25 mg 25 mg PO BID #180 tabs 02/14/23 03/28/24 01/27/24 Rx tablet,extended release 24 hr clopidogrel 75 mg tablet 75 mg PO QAM 03/05/24 03/28/24 Unknown History fluticasone 100 mcg-salmeterol 50 1 inh inhalation BID 03/05/24 03/28/24 Unknown History mcg/dose blistr powdr for inhalation nitroglycerin 0.4 mg sublingual 0.4 mg sublingual Q5M PRN Chest 03/05/24 03/28/24 Unknown History tablet (Nitrostat) Pain pantoprazole 40 mg tablet,delayed 40 mg PO QAM 03/05/24 03/28/24 Unknown History release simvastatin 40 mg tablet 40 mg PO QPM 03/05/24 03/28/24 Unknown History mirtazapine 15 mg tablet 15 mg PO BEDTIME PRN unknown 03/28/24 03/28/24 Unknown History amiodarone 200 mg tablet (Pacerone) 200 mg PO BID #60 tabs 04/01/24 Unknown Rx furosemide 20 mg tablet (Lasix) 20 mg PO BID #60 tabs 04/01/24 03/28/24 Unknown Rx ipratropium bromide 0.02 % 0.5 mg (2.5 mL) inhalation Q8H #75 04/01/24 Unknown Rx solution for inhalation mL levalbuterol HCl 0.63 mg/3 mL 0.63 mg (3 mL) inhalation Q8H #90 04/01/24 Unknown Rx solution for nebulization mL midodrine 5 mg tablet 5 mg PO TID PRN SBP less than 100 04/01/24 03/28/24 Unknown Rx mmhg #45 tabs potassium chloride 20 mEq 10 meq (1/2 x 20 mEq) PO BID #60 04/01/24 03/28/24 Unknown Rx tablet,extended release tabs prednisone 10 mg tablet See Taper PO DIRECTED #42 tabs 04/01/24 Unknown Rx apixaban 5 mg tablet (Eliquis) 5 mg PO BID #180 tabs 04/02/24 04/02/24 Unknown Rx Allergies Allergy/AdvReac Type Severity Reaction Status Date / Time No Known Allergies Allergy Verified 04/02/24 21:35 PFSH Acute 2 PFSH: Medical History Orthopnea Shortness of breath Chronic systolic CHF (congestive heart failure), NYHA class 2 Ischemic cardiomyopathy ICD (implantable cardioverter-defibrillator) in place GERD (gastroesophageal reflux disease) Sick sinus syndrome BPH (benign prostatic hyperplasia) Hyperlipidemia Hypertension Coronary artery disease Last echocardiogram 05/31/23 with EF 30% Unstable angina pectoris Atrial fibrillation Surgical History History of hemorrhoidectomy S/P cholecystectomy S/P TURP S/P CABG (coronary artery bypass graft) S/P cardiac pacemaker procedure Family History Other CAD (coronary artery disease) Social History Smoking and tobacco/nicotine status: former use of tobacco/nicotine Alcohol intake: never Substance/Drug Use: never Lives independently: Yes Household members: spouse Housing: House Marital status: Number of children: 4 Pets and animals: Yes Pets & animals: dog(s) Vitals/I&O/Wt Last Vital Signs Temp 97.5 F L 04/02/24 21:20 Pulse 71 04/02/24 23:42 Resp 16 04/02/24 23:42 BP 104/64 04/02/24 23:42 Pulse Ox 95 04/02/24 23:42 O2 Del Method Nasal Cannula 04/02/24 21:20 O2 Flow Rate 2 04/02/24 21:20 Weight last 48 hrs Weight 70.307 kg Physical Exam 2 Const: COMMON NORMALS: no acute distress and patient oriented x3 GENERAL APPEARANCE: ill appearing and frail appearing HENMT: COMMON NORMALS: normocephalic HEAD & SCALP: normocephalic Eye: COMMON NORMALS: Equal, round and reactive pupils present and EOMs intact bilaterally Neck/C-Spine: COMMON NORMALS: no JVD Lymph: LYMPHATIC: no lymphadenopathy noted Resp: COMMON NORMALS: normal respiratory effort, No retractions and No use of accessory muscles AUSCULTATION: crackles Cardio: COMMON NORMALS: no JVD, regular rate, regular rhythm, S1 normal heart sound present and S2 normal heart sound present RATE: regular rate RHYTHM: regular rhythm HEART SOUNDS: S1 normal heart sound present and S2 normal heart sound present GI: COMMON NORMALS: Normal to inspection, nondistended, normoactive bowel sounds present, Soft to palpation and non-tender : COMMON NORMALS: Yes no CVA tenderness Back/Pelvis: OTHER: No CVA tenderness Extremity: COMMON NORMALS: no calf tenderness and no pedal edema Neuro: COMMON NORMALS: patient oriented x3, CN's II-XII intact bilaterally and moves all extremities Psych: COMMON NORMALS: mental status grossly normal Sepsis: Is patient septic: Yes Focused sepsis exam performed: Yes F ocused sepsis exam: DP PT pulses diminished, mild mottling bilateral extremities, up to the level both ankles, capillary refill greater than 2 seconds Date exam was performed: 04/03/24 Time exam was performed: 00:26 Data 04/02/24 21:57 04/02/24 21:57 Micro: Microbiology 04/02/24 22:48 Blood Culture - Preliminary Blood SPECIMEN COLLECTED 04/02/24 22:43 Blood Culture - Preliminary Blood SPECIMEN COLLECTED A&P Assessment and plan (1) Sepsis: (2) Shock liver: (3) Acute liver failure: (4) Acute renal failure: (5) NSTEMI (non-ST elevated myocardial infarction): (6) Lactic acidosis: (7) Pneumonia: (8) Uremia: Plan Intractable nausea and vomiting ? Etiology unclear, ?Likely related to shock liver Is likely related to uremia, acute renal failure ? Component related to sepsis, lactic acidosis ? Zofran, Reglan, promethazine as needed for nausea vomiting ? Aspiration precautions ? Keep n.p.o. Right lower lobe pneumonia ? Chest x-ray shows evidence of right lower lobe pneumonia, with complaint of shortness of breath, elevated CRP ? Start broad-spectrum antibiotic therapy vancomycin, meropenem Sepsis, ? Sepsis features met, with elevated lactic acid, elevated troponins, elevated creatinine, LFTs, ? Monitor hemodynamics closely, monitor in ICU ? Will consider pressors to maintain MAP around 65 Elevated lactic acid ? Bicarb normal at 22, anion gap 27.1 ? Will get a ketone level Acute renal failure, with uremia ? No complaint of bloody or black stools, no anemia ? Potentially related to diuresis, amiodarone ? Gentle IV hydration ? Monitor urine output monitor creatinine monitor BUN Shock liver ? Etiology unclear ? Potentially related to amiodarone toxicity ? Other possibilities include hypotension, dehydration ? CT scan no acute findings ? Denies any history of Tylenol overdose will get acetaminophen level -Denies a history of alcoholism, we will get alcohol level ? Will get acute hep panel ? Recently patient was started on amiodarone, possible amiodarone toxicity -INR TSH, T3, T4, random cortisol NSTEMI ? Type I versus type II ? No chest pain complaints ? Serial EKGs, serial troponins, telemetry monitoring ? Cardiac echo Goals of care, had extensive discussion with the patient, at bedside patient is DNR/DNI ? SCDs for DVT prophylaxis, Eliquis is on hold until INR is obtained given shock liver ? Prognosis, guarded, status critical Attestations 2 Medical Necessity Statement*: Patient requires hospitalization, inpatient, greater than 2 midnights, for intractable nausea vomiting, sepsis, lactic acidosis, shock liver, acute renal failure, NSTEMI Coding Level of Care Code Critical Care >/= 30 minutes Critical care time (in minutes): 45 Diagnoses Sepsis A41.9 Shock liver K72.00 Acute liver failure K72.00 Acute renal failure N17.9 NSTEMI (non-ST elevated myocardial infarction) I21.4 Lactic acidosis E87.20 Pneumonia J18.9 Uremia N19
[2024-04-03] MEDS: meropenem 500 MG in sodium chloride 0.9% (plus) 50 ML 100 MG IV (00:27)
[2024-04-03] MEDS: linezolid premix 600 MG/300 ML PREMIX 300 MG IV ×2 (00:30→20:31)
[2024-04-03 00:55] LABS: Free T4 Free Thyroxine 1.13 ng/dL (0.82-1.77); NT Pro B Type Natriuretic Pept 18490 pg/mL (0-450); Procalcitonin 0.62 ng/mL (0-0.5); T3 Free 0.8 PG/ML (2.0-4.4); Thyroid Stimulating Hormone 1.73 uIU/mL (0.27-4.20)
[2024-04-03 00:56] LABS: Cortisol Random 28.19 ug/dL (2.47-19.5)
[2024-04-03 01:07] LABS: Creatine Phosphokinase 230 U/L (39-308); Magnesium 3.2 mg/dL (1.7-2.3); Salicylate 0.4 mg/dL (3-10)
[2024-04-03 01:11] LABS: ABG PCO2 39.7 mmHg (35-45); ABG PH Result 7.31 (7.35-7.45); Arterial Blood Gas Hematocrit 47.5 % (42-52); Base Excess ABG -5.7 mmol/L (-2.0-2.0); Blood Gas Allen Test Pos; Blood Gas Sample Site Radial, right; Blood Gas Sample Type Arterial; HCO3 ABG 20.1 mmol/L (22-26); PO2 FiO2 Ratio Arterial Blood 0
[2024-04-03 01:15] LABS: Amphetamines Screen Urine Negative (Negative); Barbiturates Screen Urine Negative (Negative); Benzodiazepines Screen Urine Negative (Negative); Cocaine Screen Urine Negative (Negative); Opiate Screen Urine Negative (Negative); PCP Screen Urine Negative (Negative); THC Screen Urine Negative (Negative)
[2024-04-03 01:36] LABS: Acetaminophen < 5.0 ug/mL (10-30); Alcohol Level < 10 mg/dL (0-10)
[2024-04-03 02:02] LABS: Gamma Glutamyl Transferase 96 U/L (8-61)
[2024-04-03 02:09] LABS: Partial Thromboplastin Time 36.2 SECONDS (23.9-36.7)
[2024-04-03 02:17] LABS: Ammonia 36 umol/L (16-60)
[2024-04-03 02:42] LABS: Ketone (Acetest) Serum Negative (Negative)
[2024-04-03] MEDS: pantoprazole 40 mg SDV IVP ×2 (02:44→14:04)
[2024-04-03] MEDS: dextrose 5%-sod chloride 0.9% 1,000 ML 30 ML IV (02:48)
[2024-04-03 03:00] LABS: INR 9.42 (0.8-1.2)
--- NOTE | 2024-04-03 04:40 | ECG_ITS ---
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 Measurements Intervals [place] Rate: 68 P: 34 HI: 246 QRS: -67 QRSD: 166 T: 61 QT: 511 QTc: 544 Interpretive Statements SINUS RHYTHM WITH FIRST DEGREE AV BLOCK LEFT AXIS DEVIATION [QRS AXIS < -30] RIGHT BUNDLE BRANCH BLOCK [120+ ms QRS DURATION, UPRIGHT V1, 40+ ms S IN I/aVL/V4/V5/V6] Compared to ECG 04/02/2024 23:16:24 Prolonged QT interval no longer present Electronically Signed On 04-03-2024 23:02:33 CDT by Hong Calhoun M.D. [id number]
[2024-04-03 05:15] LABS: Basophils % 0.2 %; Hematocrit 50.9 % (37-53); Lymphocytes # 1.2 10^3/uL (0.8-4.8); Lymphocytes % 7.6 %; Mean Corpuscular HGB Conc 30.8 g/dL (30-55); Mean Corpuscular Hemoglobin 30.8 pg (27-33); Mean Corpuscular Volume 99.8 fl (82-101); Mean Platelet Volume 12.8 fL (7.4-10.4); Monocytes # 1.3 10^3/uL (0.2-0.9); Monocytes % 8.6 %; Neutrophils # 12.77 10^3/uL (1.8-7.7); Neutrophils % 82.7 %; Nucleated Red Blood Cells # 0.2 /100WBC; Nucleated Red Blood Cells % 1.4 %; Platelet Count 94 10^3/cmm (157-399); Red Cell Distribution Width 14.1 % (12.1-15.1); White Blood Count 15.45 10^3/uL (3.29-11.43)
[2024-04-03] MEDS: clopidogrel 75 mg Tablet PO (05:40)
[2024-04-03 05:41] LABS: Chol HDL Ratio 3.03 mg/dL (1.0-5.00); Cholesterol 121 mg/dL (0-200); HDL Cholesterol 40 mg/dL (60-100); LDL Cholesterol Calculated 52 mg/dL (50-129); Triglycerides 145 mg/dL (0-150)
[2024-04-03 05:43] LABS: Albumin Level 3.9 g/dL (3.5-5.2); Alkaline Phosphatase 85 U/L (40-130); Calcium 8.2 mg/dL (8.5-10.5); Carbon Dioxide 20 mmol/L (22-29); Chloride 88 mmol/L (98-107); Glucose 160 mg/dL (65-115); Osmolality Calculated 321 mOsm/kg (285-295); Sodium 138 mmol/L (136-145); Total Bilirubin 1.9 mg/dL (0.15-1.2); Total Protein 6.9 g/dL (6.6-8.7)
[2024-04-03 05:44] LABS: Anion Gap 35.5 (5-19); Creatinine Clr Calc Pharmacy 16.1898; Potassium 5.5 mmol/L (3.5-5.1)
[2024-04-03 05:45] LABS: Blood Urea Nitrogen 102 mg/dL (8-23)
[2024-04-03 05:46] LABS: Troponin 5 6HR 152.1 ng/L (0-15); Troponin 5 6HR Delta -3.9 ng/L (0-12)
[2024-04-03 05:54] LABS: Alanine Aminotransferase 4843 U/L (0-41)
[2024-04-03 06:04] LABS: Hepatitis A Antibody IgM Non-Reactive (Nonreactive); Hepatitis B Core IgM Non-Reactive (Nonreactive); Hepatitis B Surface Antigen Non-Reactive (Nonreactive); Hepatitis C Virus Antibody Non-Reactive (Nonreactive)
--- NOTE | 2024-04-03 06:16 | PC.NURSE ---
Patient has had a total urine output of 40 mls throughout the shift. Dr. Gamboa notified and no new orders received at this time.
[2024-04-03] MEDS: phytonadione (ADULT) 10 mg/mL Ampule 1 mL SUBCUT (06:47)
[2024-04-03] MEDS: sodium polystyrene sulfonate 15 gm/60 mL Btl PO (06:47)
--- OUTSIDE RECORDS SUMMARY | 2024-04-03 06:53 | XMS_ITS | Patient Health Record ---
Author Name Unknown Organization [facility] Address [address] [place] [address] Care Team Providers Care Automotive Specialty Technician Name Role Phone Renard Bermudez Unavailable [phone] Reason For Referral No Information Medications Medication [...] W/U Status Risk Notes Problem Memory loss (32380093) Memory loss (780.93) 2014 Active confirmed [id number]- Problem Hypercholesterolemia (63499422) Hypercholesterolemia (272.0) 2008 Active confirmed [id number]- Problem Congestive heart failure (31848777) Congestive heart failure (428.0) 2016 Active confirmed [id number]- Problem Solitary nodule of lung (499810707) Lung nodule (518.89) 2015 Active confirmed [id number]- Problem Hypertension (97913130) HTN (401.1) 2015 Active confirmed Lenard-[id number]- Problem Primary atypical pneumonia (42185083) Primary atypical pneumonia (486) 2015 Active confirmed [id number]- Problem Anemia (261316248) Unspecified a nemia (285.9) 2017 Problem resolved confirmed [id number]- Problem Atrial fibrillation (14031868) Atrial fibrillation (427.31) 2003 Problem resolved confirmed [id number]- Problem Acute maxillary sinusitis (78920713) Acute maxillary sinusitis (461.0) 2017 Problem resolved confirmed [id number]- Problem Acute sinusitis (53526930) Acute sinusitis, unspecified (461.9) 2003 Problem resolved confirmed [id number]- Problem Hematuria (70287888) Hematuria (599.7) 2005 Problem resolved confirmed [id number]- Problem Actinic keratosis (693802410) Actinic keratosis (702.0) 2006 Problem resolved confirmed [id number]- Problem Seborrhea (13615415) Seborrhea (706.3) 2010 Problem resolved confirmed [id number]- Problem Headache (72634458) Headache (784.0) 01/26 Problem resolved confirmed Lenard-[id number]- Problem Shortness of breath (096871774) Shortness of breath (786.05) 2013 Problem resolved confirmed Lenard-[id number]- Problem Cough (04963046) Cough (786.2) 2012 Problem resolved confirmed [id number]- Problem Dysuria (16797822) Dysuria (788.1) 2008 Problem resolved confirmed Lenard-[id number]- Problem Urinary frequency (096423119) Urinary frequency (788.41) 2008 Problem resolved confirmed Lenard-[id number]- Problem Screening for malignant neoplasm of prostate (159233787) Screening for prostate cancer (V76.44) 2008 Problem resolved confirmed Lenard-[id number]- Problem Dizziness (465166034) Dizziness (780.4) 1 2008 Problem resolved confirmed Lenard-[id number]- Problem Low back pain (181831674) Low back pain (724.2) 2010 Problem resolved confirmed Lenard-[id number]- Problem Arthralgia of temporomandibular joint (03612579) TMJ arthralgias (524.62) 2010 Problem resolved confirmed Lenard-[id number]- Problem Mixed urinary incontinence (505259910) Mixed urinary incontinence (788.33) 2004 Problem resolved confirmed Lenard-98 [id number]- Problem Shortness of breath (052006223) Shortness of breath (786.09) 2013 Problem resolved confirmed Lenard-[id number] [id number]- Problem Shoulder pain (30182023) Shoulder pain (719.41) 2004 Problem resolved confirmed Lenard-[id number] [id number]- Problem Supraventricular tachycardia (7923435) Supraventricular tachycardia (427.0) 2003 Problem resolved confirmed Lenard-98 [id number]- Problem Right upper quadrant pain (613559756) Abdominal pain (RUQ) (789.01) 2003 Problem resolved confirmed Lenard-[id number]- Problem Inflamed seborrheic keratosis (667224379) Atypical seborrheic keratosis (702.11) 2007 Problem resolved confirmed Lenard-[id number]- Problem Disorder of hematopoietic system (26340479) Other abnormal laboratory result on blood (790.99) 2014 Problem resolved confirmed Lenard-98 [id number]- Problem Atypical mole syndrome (295944034) Atypical mole (238.2) 2003 Problem resolved confirmed Lenard-98 [id number]- Problem Carotid artery occlusion without infarction (192184155473038) Carotid artery stenosis, without cerebral infarction (433.10) 2008 Problem resolved confirmed Lenard-98 [id number]- Problem Generalized abdomina l pain (248196584) Generalized abdominal pain (789.07) 2014 Problem resolved confirmed Lenard-98 [id number]- Problem Hematochezia (120410209) Hematochezia (578.1) 2010 Problem resolved confirmed Lenard-98 [id number]- Problem Lymphadenopathy (49841790) Lymphadenopathy (785.6) 2008 Problem resolved confirmed Lenard-98 [id number]- Problem Ear ache (86500773) Ear ache (388.71) 2003 Problem resolved confirmed Lenard-98 [id number]- Problem Discharge of eye (74724739) Eye discharge (379.93) 2008 Problem resolved confirmed Lenard-[id number] [id number]- Problem Herpes simplex without complication (935040767) Herpes simplex, without complication (054.9) 2007 Problem resolved confirmed Lenard-98 [id number]- Problem Benign prostatic hypertrophy without outflow obstruction (959418545) Hypertrophy (benign) prostate, without urinary obstruction (600.00) 2004 Problem resolved confirmed Lenard-98 [id number]- Problem Lateral epicondyliti s (722731309) Lateral epicondylitis (726.32) 2013 Problem resolved confirmed Lenard-98 [id number]- Problem 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) 2007 Problem resolved confirmed Lenard-98 [id number]- Problem Precordial pain (85662558) Precordial chest pain (786.51) 2003 Problem resolved confirmed Lenard-98 [id number]- Problem Acute confusional state (9292022) Acute confusional state (293.0) 2006 Problem resolved confirmed Lenard-98 [id number]- Problem Acute sinusitis (disorder) (50736704) Acute sinusitis, other (461.8) 2003 Problem resolved confirmed Lenard-[id number]- Problem Arachnoid cyst (572557856) Arachnoid cyst (348.0) 2006 Problem resolved confirmed Lenard-98 [id number]- Problem Seborrheic dermatiti s (20318974) Seborrheic dermatitis (690.18) 2003 Problem resolved confirmed Lenard-98 [id number]- Problem Tremor (00113953) Tremor (781.0) 2014 Problem resolved confirmed Lenard-98 [id number]- Problem Needs influenza immunization (297798045) Vaccination against other viral diseases, Influenza (V04.81) 2016 Problem resolved confirmed Lenard-98 [id number]- Problem Acute upper respiratory infection (74405495) Acute upper respiratory infection (465.8) 2004 Problem resolved confirmed Lenard-98 [id number]- Problem Impacted cerumen (07013975) Cerumen impaction (380.4) 2008 Problem resolved confirmed Lenard-98 [id number]- Problem Neoplasm of uncertai n behavior of skin (37496926) Atypical skin lesion (238.2) 2011 Problem resolved confirmed Lenard-98 [id number]- Problem Constipation (32929565) Constipation (564.01) 2008 Problem resolved confirmed Lenard-98 [id number]- Problem Excessive salivation (92591870) Excessive salivation (527.7) 2007 Problem resolved confirmed Lenard-98 [id number]- Problem Pneumococcal pneumonia (737098356) Acute lobar pneumonia (481) 2016 Problem resolved confirmed Lenard-98 [id number]- Problem Urinary incontinence (219584857) urinary dribbling (788.30) 2009 Problem resolved confirmed Lenard-98 5911- Problem Wrist pain (43798655) Wrist pain (719.43) 2015 Problem resolved confirmed Lenard-98 5911- Problem Acute upper respiratory infection (42965187) Upper respiratory illness (465.8) 2007 Problem resolved confirmed Lenard-98 5911- Problem Varicose veins (440135684) Varicose veins NOS (454.9) 2010 Problem resolved confirmed Lenard-98 5911- Problem Impotence of organic origin (028997830) 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) 2003 Problem resolved confirmed Lenard-98 [id number]- Problem Leucoplakia of oral mucosa and tongue (5158544546504) 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 Problem resolved confirmed Lenard-98 5911- Problem Mouth ulcer (47451391) Mouth ulcer (528.2) 2007 Problem resolved confirmed Lenard-98 5911- Problem Atrial fibrillation (85790633) Established atrial fibrillation (427.31) 2010 Problem resolved confirmed Lenard-98 5911- Problem Impacted cerumen (51437950) External cerumen impaction (380.4) 2003 Problem resolved confirmed Lenard-98 5911- Problem 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
[2024-04-03 07:52] LABS: Aspartate Amino Transferase 7853 U/L (0-40)
--- NOTE | 2024-04-03 08:01 | PC.PHAR ---
PT IS [facility] REQUEST FOR MED LIST 8AM 04/03/24
[2024-04-03] MEDS: budesonide 0.5 mg/2 mL Neb INHALATION ×2 (08:25→20:27)
[2024-04-03] MEDS: ipratropium 0.5 mg/2.5 mL Neb INHALATION ×3 (08:25→20:27)
[2024-04-03] MEDS: levalbuterol 0.63 mg/3 mL Neb 0.630000000000000004 MG INHALATION ×3 (08:26→20:27)
[2024-04-03] MEDS: methylPREDNISolone sod succ 40 mg/mL INJ IVP (08:58)
[2024-04-03] MEDS: vancomycin 1,000 MG in sodium chloride 0.9% 250 ML 200 MG IV (08:58)
[2024-04-03] MEDS: meropenem 1,000 MG in sodium chloride 0.9% (plus) 50 ML 100 MG IV ×3 (08:59→23:51)
[2024-04-03] MEDS: morphine 4 mg/mL SDV 1 mL 2 MG IVP (10:16)
--- NOTE | 2024-04-03 12:47 | PM.MISC ---
Miscellaneous Note Note: Review of records Patient seen at the bedside family at the bedside I have allowed him to eat this morning Clinically does not look extremely fluid overloaded Currently on 4 L OxyMask Patient is awake and alert Complaining abdominal pain hypogastric region Had a bowel movement yesterday No dark-colored stools Assessment and plan Amiodarone related toxicity? Discontinue statins Continue diuresis for systolic CHF Multiorgan failure DNR/DNI Acute kidney injury Monitor urine output correlate with creatinine and adjust diuresis accordingly Continue to antibiotics for hospital-acquired pneumonia
--- NOTE | 2024-04-03 13:15 | PC.NURSE ---
Inserted pelaez catheter and when urine was flowing into the tube, I attempted to advance the catheter another couple of inces to inflate the balloon but felt that I was meeting resistance when trying to advance the catheter further. Inflated the balloon with approx 1ml of saline and asked the pt if he could feel it or was experiencing any pain and he said he thought he felt the balloon inflating. I withdrew the 1ml of NS from the balloon and called for another RN to assess. He attempted to advance and could feel the resistance as well. We were about to go get a smaller pelaez catheter when it appeared that more urine was coming into the catheter tube. I proceeded to advance the catheter approx 2 inches while the haylee RN inflated the balloon while asking the pt if he could feel the balloon inflating. The pt never winced nor c/o pain and the balloon was fully inflated and the catheter was pulled back to seat and secure it to the bladder wall. Dark tea colored urine was observed coming out of the pelaez and the pt tolerated the procedure well.
[2024-04-03] MEDS: sodium bicarbonate 650 mg Tablet PO ×2 (14:02→20:31)
[2024-04-03] MEDS: FUROsemide 10 mg/mL SDV 10mL 60 MG IVP (14:03)
--- NOTE | 2024-04-03 15:00 | PC.NURSE ---
Went to check on the pt and noticed bright red blood in the pelaez catheter urimeter. Notified the ore charger and Dept director of the findings and the issue with the insertion of the catheter. The pelaez appeared to be draining ok at this time and pt continued to deny any pain. I proceeded to notify the hospitalist as well as the family was notably concerned.
--- NOTE | 2024-04-03 19:30 | PC.NURSE ---
Notified Dr. Gamboa that patient is having pure bloody drainage from pelaez with very little output Irrigated pelaez with small amount of bloody return. Order given to check CBC and INR and bladder scan prn. Bladder scanned patient with 18mL noted in bladder.
[2024-04-03 21:07] LABS: Basophils # 0.1 10^3/uL (0.0-0.1); Basophils % 0.7 %; Eosinophils # 0.4 10^3/uL (0.0-0.8); Eosinophils % 2.3 %; Hematocrit 48.8 % (37-53); Lymphocytes # 0.7 10^3/uL (0.8-4.8); Lymphocytes % 3.8 %; Mean Corpuscular HGB Conc 30.9 g/dL (30-55); Mean Corpuscular Hemoglobin 31.5 pg (27-33); Mean Corpuscular Volume 101.9 fl (82-101); Mean Platelet Volume 12.9 fL (7.4-10.4); Monocytes # 1.4 10^3/uL (0.2-0.9); Monocytes % 8.1 %; Neutrophils # 14.78 10^3/uL (1.8-7.7); Neutrophils % 83.5 %; Nucleated Red Blood Cells # 0.4 /100WBC; Nucleated Red Blood Cells % 2.5 %; Platelet Count 77 10^3/cmm (157-399); Red Blood Count 4.79 10^6/uL (3.85-5.65); Red Cell Distribution Width 14.6 % (12.1-15.1); White Blood Count 17.69 10^3/uL (3.29-11.43)
[2024-04-03 22:33] LABS: Prothrombin Time > 120.00 SECONDS (12.1-14.9)
[2024-04-03 22:46] LABS: INR > 20.00 (0.8-1.2)
[2024-04-04] VITALS (33 sets, daily range): BP systolic 66–124; BP diastolic 42–73; PULSE 69–87; RESP 16–38; TEMP 36.1–36.6; O2SAT 86–99
--- NOTE | 2024-04-04 02:00 | PC.NURSE ---
Hematuria: Patient did not have any output in pelaez since shift assessment, bladder scan showed 458mls. Charge nurse, Deepa, attempted to irrigate and was able to expel a few small clots but pelaez was still clogged. Patient still had heidi hematuria, bright red with clots. This nurse contacted Dr. Gamboa. Dr. Gamboa stated to keep watching him. This nurse stated that the patient's pelaez was clotting off and was heidi blood and asked about starting CBI. Dr. Gamboa stated to leave it alone and not to irritate it any further and keep watching it.
[2024-04-04] MEDS: levalbuterol 0.63 mg/3 mL Neb 0.630000000000000004 MG INHALATION (02:18)
[2024-04-04] MEDS: pantoprazole 40 mg SDV IVP ×2 (02:41→17:57)
[2024-04-04] MEDS: ondansetron 2 mg/ML SDV 2 mL 4 MG IVP ×2 (04:06→11:26)
[2024-04-04 04:31] LABS: Hematocrit 36.2 % (37-53); Mean Corpuscular HGB Conc 32.3 g/dL (30-55); Mean Corpuscular Hemoglobin 30.9 pg (27-33); Mean Corpuscular Volume 95.5 fl (82-101); Mean Platelet Volume 12.9 fL (7.4-10.4); Platelet Count 80 10^3/cmm (157-399); Red Blood Count 3.79 10^6/uL (3.85-5.65); Red Cell Distribution Width 14.2 % (12.1-15.1); White Blood Count 10.85 10^3/uL (3.29-11.43)
[2024-04-04 04:56] LABS: Slide Review Slide Review Perform
[2024-04-04 04:57] LABS: Absolute Neutrophil 8.4 10^3/cmm (1.4-6.5); Absolute Segmented Neutrophil 6.1 10/cmm (1.6-7.1); Band Neutrophils Absolute 2.3 10^3/cmm (0.0-1.2); Corrected White Blood Count 10.1 10^3/cmm (4.8-10.8); Eosinophils 0 %; Lymphocytes 10 %; Monocytes Absolute 0.4 10^3/cmm (0.1-0.6); Platelet Estimate Decreased (Normal); Segmented Neutrophils 56 %; Total Cells Counted 100 (0-100); Toxic Vacuolation 1+
[2024-04-04 04:58] LABS: Albumin Level 3.1 g/dL (3.5-5.2); Alkaline Phosphatase 81 U/L (40-130); Calcium 6.4 mg/dL (8.5-10.5); Carbon Dioxide 24 mmol/L (22-29); Chloride 87 mmol/L (98-107); Globulin 2.5 g/dL (1.3-4.6); Glucose 166 mg/dL (65-115); Sodium 132 mmol/L (136-145); Total Bilirubin 2.4 mg/dL (0.15-1.2); Total Protein 5.6 g/dL (6.6-8.7)
[2024-04-04 05:09] LABS: Alanine Aminotransferase 3644 U/L (0-41)
[2024-04-04 05:19] LABS: Anion Gap 25.8 (5-19); Aspartate Amino Transferase 5836 U/L (0-40); Creatinine Clr Calc Pharmacy 16.1898; Osmolality Calculated 318 mOsm/kg (285-295); Potassium 4.8 mmol/L (3.5-5.1)
[2024-04-04 05:20] LABS: Blood Urea Nitrogen 125 mg/dL (8-23)
--- NOTE | 2024-04-04 05:25 | PC.NURSE ---
Patient had a bowel movement that was dark black with red heidi blood. Dr. Gamboa notified of this finding and ordered a protonix drip, liquid carafate 1gm Q6H, NPO, stat PT/INR, and recheck H&H at 0700.
--- NOTE | 2024-04-04 05:34 | PC.NURSE ---
Updated Urvashi Quintanilla on patients status and that he is having a lot of bleeding from his bladder and GI bleed. Questions answered and reports that she will be up here this morning.
[2024-04-04 05:38] LABS: INR 9.19 (0.8-1.2)
[2024-04-04] MEDS: pantoprazole 40 MG in sodium chloride 0.9% (plus) 100 ML 20 MG IV ×2 (05:46→09:54)
[2024-04-04] MEDS: sucralfate 1 gm/10 mL Oral Liq UDC PO ×3 (05:46→16:44)
[2024-04-04 07:10] LABS: Hematocrit 36.3 % (37-53)
[2024-04-04] MEDS: meropenem 1,000 MG in sodium chloride 0.9% (plus) 50 ML 100 MG IV ×2 (07:55→16:44)
[2024-04-04] MEDS: sodium bicarbonate 650 mg Tablet PO ×3 (09:55→21:18)
[2024-04-04] MEDS: methylPREDNISolone sod succ 40 mg/mL INJ IVP (09:58)
[2024-04-04] MEDS: linezolid premix 600 MG/300 ML PREMIX 300 MG IV ×2 (10:58→21:17)
--- NOTE | 2024-04-04 11:22 | P.PN_ITS ---
Subjective 2 Subjective: Patient is doing poorly Confused Requiring one-to-one sitter Hematuria and GI bleed Patient's family, at the bedside, has medical DPOA, she is leaning towards less aggressive measures Patient has 2 more units of FFP Blood pressure drop Will keep him in ICU for a few more hours Liver enzymes trending down Patient was asking for food, I will resume clear liquid diet, INR is 9 Currently requiring 2 L oxygen Vitals/I&O/Wt Last Vital Signs Temp 97.5 F L 04/04/24 10:00 Pulse 78 04/04/24 10:00 Resp 16 04/04/24 10:00 BP 107/73 04/04/24 10:00 Pulse Ox 95 04/04/24 10:00 O2 Del Method Nasal Cannula 04/04/24 10:00 O2 Flow Rate 2 04/04/24 10:00 04/03/24 04/04/24 04/04/24 22:59 06:59 14:59 Intake Total 1196 / 1496 684 / 2180 492.667 / 492.667 Output Total 250 / 390 400 / 790 10 / 10 Balance 946 / 1106 284 / 1390 482.667 / 482.667 Weight last 48 hrs Weight 73.845 kg Weight 73.255 kg Weight 73.255 kg Weight 70.307 kg Physical Exam 2 Narrative: Clinically does not look fluid overloaded Hypertensive Confused Oriented to himself Hematuria noted GI bleed Abdominal distention improved bloating improved no abrupt abdominal pain No sign of significant edema Able to answer simple questions Nonfocal neuroexam Currently on 2 L of oxygen S1, S2 Urinary Catheter Management: Horta: Cath Placed During This Visit: yes Reason for Continuing Indwelling Catheter: Accurate Measurement of Urinary Output in Critically Ill Patients Urinary Catheter Date of Insertion: 04/03/24 Urinary Catheter Time of Insertion: 13:15 Data 04/04/24 06:50 04/04/24 04:23 Micro: Microbiology 04/02/24 22:48 Blood Culture - Preliminary Blood NEGATIVE TO DATE 04/02/24 22:43 Blood Culture - Preliminary Blood NEGATIVE TO DATE A&P Assessment and plan (1) Nausea & vomiting: (2) Shock liver: (3) Acute liver failure: (4) CONRAD (acute kidney injury): (5) Acute on chronic renal failure: (6) Uremia: (7) Chronic hypoxic respiratory failure: (8) Pneumonia: (9) Coagulopathy: (10) Acute liver failure: (11) Hospital-acquired pneumonia: Plan Acute liver failure Confusion with coagulopathy and high INR Worsening congestive heart failure versus amiodarone toxicity Supratherapeutic INR Total 4 unit FFP administered Patient is resting GI bleed and hematuria Hospital-acquired pneumonia continue linezolid and Zosyn Avoid vancomycin because of thrombocytopenia Acute on chronic kidney disease Likely related to worsening heart failure Continue Lasix Metabolic encephalopathy with uremia Metabolic encephalopathy is multifactorial, pneumonia, liver failure, renal failure Not a good candidate to go for EGD or the dialysis Conservative management for now Acute on chronic kidney disease Monitor kidney function with diuresis Currently experiencing hematuria Diet advanced to clear liquids Patient requiring one-to-one supervision Multiorgan failure,: Guarded prognosis Family meeting conducted, is medical DPOA, patient is DNR/DNI Attestations 2 Medical Necessity Statement*: Continue ICU management Diagnoses Nausea & vomiting R11.2 Shock liver K72.00 Acute liver failure K72.00 CONRAD (acute kidney injury) N17.9 Acute on chronic renal failure N17.9; N18.9 Uremia N19 Chronic hypoxic respiratory failure J96.11 Pneumonia J18.9 Coagulopathy D68.9 Hospital-acquired pneumonia J18.9; Y95
--- NOTE | 2024-04-04 11:33 | PM.MISC ---
Miscellaneous Note Note: To whom it may concern, Mr. Quintanilla is in the ICU, he is being treated for multiorgan failure, at this point prognosis is looking very poor I have recommended family to be around him. His prognosis is guarded. I would highly encourage family members to be around him at this crucial time for his comfort. Should you have any questions please do not hesitate to contact hospitalist department of [facility] phone #[phone] Regards, [facility] hospitalist
[2024-04-04] MEDS: amiodarone 200 mg Tablet PO (12:42)
[2024-04-04] MEDS: metoclopramide 5 mg/mL SDV 2 mL IVP (12:43)
[2024-04-04] MEDS: FUROsemide 10 mg/mL SDV 10mL 60 MG IVP (16:44)
--- NOTE | 2024-04-04 18:22 | PC.NURSE ---
Shift Note: Uneventful shift. Patient remains confused, oriented to self. 2 FFP infused. Horta catheter continues to have bright red and dark red output, multiple clots. Patient advanced to clear liquid diet, upon oral intake patient experiences nausea and vomiting, small amounts of stool like liquid for emeses. Frequent loose watery brown bloody stool.
[2024-04-04] MEDS: mirtazapine 30 mg Tablet 15 MG PO (21:17)
[2024-04-04] MEDS: potassium chloride ER 10 mEq Tablet PO (21:17)
[2024-04-04] MEDS: morphine 4 mg/mL SDV 1 mL 2 MG IVP (21:57)
[2024-04-05] VITALS (53 sets, daily range): BP systolic 67–131; BP diastolic 28–105; PULSE 70–108; RESP 14–29; TEMP 36.4–37; O2SAT 87–98
[2024-04-05] MEDS: sucralfate 1 gm/10 mL Oral Liq UDC PO (00:43)
[2024-04-05] MEDS: meropenem 1,000 MG in sodium chloride 0.9% (plus) 50 ML 100 MG IV ×3 (00:43→15:57)
[2024-04-05 04:18] LABS: Basophils # 0.1 10^3/uL (0.0-0.1); Basophils % 0.6 %; Eosinophils # 0.1 10^3/uL (0.0-0.8); Eosinophils % 0.7 %; Hematocrit 32.2 % (37-53); Lymphocytes # 0.6 10^3/uL (0.8-4.8); Lymphocytes % 5.8 %; Mean Corpuscular HGB Conc 32.3 g/dL (30-55); Mean Corpuscular Hemoglobin 30.8 pg (27-33); Mean Corpuscular Volume 95.3 fl (82-101); Mean Platelet Volume 12.8 fL (7.4-10.4); Monocytes # 0.6 10^3/uL (0.2-0.9); Neutrophils # 8.87 10^3/uL (1.8-7.7); Nucleated Red Blood Cells # 0.7 /100WBC; Nucleated Red Blood Cells % 6.3 %; Platelet Count 84 10^3/cmm (157-399); Red Blood Count 3.38 10^6/uL (3.85-5.65); Red Cell Distribution Width 14.6 % (12.1-15.1); White Blood Count 10.42 10^3/uL (3.29-11.43)
[2024-04-05 04:39] LABS: Albumin Level 3.2 g/dL (3.5-5.2); Alkaline Phosphatase 94 U/L (40-130); Anion Gap 21.8 (5-19); Calcium 6.4 mg/dL (8.5-10.5); Carbon Dioxide 28 mmol/L (22-29); Chloride 92 mmol/L (98-107); Globulin 2.5 g/dL (1.3-4.6); Glucose 157 mg/dL (65-115); Potassium 3.8 mmol/L (3.5-5.1); Sodium 138 mmol/L (136-145); Total Bilirubin 2.5 mg/dL (0.15-1.2); Total Protein 5.7 g/dL (6.6-8.7)
[2024-04-05 04:50] LABS: Alanine Aminotransferase 2350 U/L (0-41)
[2024-04-05 05:04] LABS: Slide Review Slide Review Perform
[2024-04-05 05:16] LABS: Aspartate Amino Transferase 2522 U/L (0-40); Blood Urea Nitrogen 139 mg/dL (8-23); Osmolality Calculated 334 mOsm/kg (285-295)
[2024-04-05 05:40] LABS: INR 7.21 (0.8-1.2)
[2024-04-05] MEDS: ondansetron 2 mg/ML SDV 2 mL 4 MG IVP (08:18)
--- NOTE | 2024-04-05 08:39 | PC.NURSE ---
Nose bleed Patient with nose bleed. Dr. Benjamin notified, ordered to pinch nose. Patient's nose pinched and patient thrashing around in the bed and telling nurse to stop. Family at bedside and understand condition and poor prognosis. Patient cleaned up. Patient pulling off monitor wires.
[2024-04-05] MEDS: morphine 4 mg/mL SDV 1 mL 2 MG IVP ×2 (09:01→23:53)
--- NOTE | 2024-04-05 09:03 | P.PN_ITS ---
Subjective 2 Subjective: Liver enzymes are improving Afebrile Patient this morning was agitated Experienced epistaxis Hematuria has resolved Hemoglobin stable Creatinine and liver enzymes trending down Patient still oriented to himself Not able to answer simple questions Family is at the bedside Lasix on hold INR 7.2 Vitals/I&O/Wt Last Vital Signs Temp 97.5 F L 04/05/24 08:10 Pulse 84 04/05/24 08:30 Resp 20 H 04/05/24 09:01 BP 91/50 04/05/24 08:30 Pulse Ox 92 04/05/24 07:49 O2 Del Method Nasal Cannula 04/05/24 08:30 O2 Flow Rate 3 04/05/24 08:30 04/04/24 04/05/24 04/05/24 22:59 06:59 14:59 Intake Total 840 / 1782.667 50 / 1832.667 50 / 50 Output Total 1550 / 1600 850 / 2450 Balance -710 / 182.667 -800 / -617.333 50 / 50 Weight last 48 hrs Weight 74.344 kg Weight 73.845 kg Physical Exam 2 Narrative: Epistaxis Currently on 2 to 3 L GCS 15 Patient able to move all of his extremities Oriented to himself Agitated Confused S1, S2 variable Blood pressure fluctuating Family is at the bedside Patient clinically does not look fluid overloaded No abdominal pain on palpation Urinary Catheter Management: Horta: Cath Placed During This Visit: yes Reason for Continuing Indwelling Catheter: Accurate Measurement of Urinary Output in Critically Ill Patients Urinary Catheter Date of Insertion: 04/03/24 Urinary Catheter Time of Insertion: 13:15 Data 04/05/24 03:30 04/05/24 03:30 A&P Assessment and plan (1) Anxiety: (2) Chronic systolic CHF (congestive heart failure), NYHA class 2: (3) Ischemic cardiomyopathy: (4) Coronary artery disease: Qualifiers: Coronary Disease-Associated Artery/Lesion type: bypass graft [place] vs. transplanted heart: [place] heart Associated angina: with unstable angina Qualified Code(s): I25.700 - Atherosclerosis of coronary artery bypass graft(s), unspecified, with unstable angina pectoris (5) S/P cardiac pacemaker procedure: (6) Atrial fibrillation: Qualifiers: Atrial fibrillation type: longstanding persistent Qualified Code(s): I 48.11 - Longstanding persistent atrial fibrillation (7) Coagulopathy: (8) Acute liver failure: (9) Acute on chronic renal failure: (10) Dehydration: (11) Uremia: (12) Sepsis: (13) COPD (chronic obstructive pulmonary disease): (14) Pneumonia: (15) Hospital-acquired pneumonia: (16) Epistaxis: (17) Hematuria: Plan Acute liver failure Patient oriented to himself Liver induced coagulopathy Supratherapeutic INR Status post 4 unit FFP Will give vitamin K today Epistaxis with conservative management for now Hospital-acquired pneumonia continue broad-spectrum antibiotics patient is afebrile, no significant leukocytosis Metabolic encephalopathy related to pneumonia, CONRAD, liver failure Acute on chronic kidney disease: Improved with diuresis Secondary to low blood pressure I will hold Lasix for 1 day Patient currently on clear liquid diet No more signs of GI bleed Hematuria: Resolved Epistaxis today with conservative management Acute on chronic hypoxia currently on 3 L Multiorgan failure with guarded prognosis DNR/DNI Attestations 2 Medical Necessity Statement*: Continue medical management Diagnoses Anxiety F41.9 Chronic systolic CHF (congestive heart failure), NYHA class 2 I50.22 Ischemic cardiomyopathy I25.5 Coronary artery disease involving coronary bypass graft of [place] heart with unstable angina pectoris I25.700 Coronary Disease-Associated Artery/Lesion type: bypass graft [place] vs. transplanted heart: [place] heart Associated angina: with unstable angina S/P cardiac pacemaker procedure Z95.0 Longstanding persistent atrial fibrillation I48.11 Atrial fibrillation type: longstanding persistent Coagulopathy D68.9 Acute liver failure K72.00 Acute on chronic renal failure N17.9; N18.9 Dehydration E86.0 Uremia N19 Sepsis A41.9 COPD (chronic obstructive pulmonary disease) J44.9 Pneumonia J18.9 Hospital-acquired pneumonia J18.9; Y95 Epistaxis R04.0 Hematuria R31.9
[2024-04-05] MEDS: phytonadione (ADULT) 10 MG in sodium chloride 0.9% 50 ML 153 MG IV (09:31)
[2024-04-05] MEDS: pantoprazole 40 mg SDV IVP ×2 (09:44→17:20)
[2024-04-05] MEDS: linezolid premix 600 MG/300 ML PREMIX 300 MG IV ×2 (09:44→21:37)
[2024-04-05] MEDS: water for injection-sterile 10 ML (10:41)
[2024-04-05] MEDS: OLANZapine 10 mg VIAL IM ×3 (10:41→19:50)
[2024-04-05 11:42] LABS: Ammonia 40 umol/L (16-60)
--- NOTE | 2024-04-05 15:47 | PC.NURSE ---
Report called to SALVATORE Marie. Patient and belongings moved to room 260-1. Family at bedside.
--- NOTE | 2024-04-05 16:28 | PC.NURSE ---
This nurse assumed care of pt at 1620 from PARMJIT Warner. Pt was safely transported from ICU to Med Surg floor via ICU bed.
[2024-04-05] MEDS: tranexamic acid 1,000 MG/100 ML PREMIX 600 MG IV (18:14)
--- NOTE | 2024-04-05 20:29 | PC.PHAR ---
Renal dosing for Meropenem 1 gm q8h decreased to q12h based on crcl of 20 Thank you, Nyasia Bower RPh
[2024-04-06] VITALS (7 sets, daily range): BP systolic 106–125; BP diastolic 57–76; PULSE 97–115; RESP 17–21; TEMP 36.7–37.4; O2SAT 93–94
[2024-04-06 00:45] LABS: Alcohol, Methyl NONE DETECTED (NONE DETECTED); Volatile Analysis Performed On WHOLE BLOOD
[2024-04-06] MEDS: LORazepam 2 mg/mL INJ 10 mL MDV 0.5 MG IVP (00:48)
[2024-04-06] MEDS: meropenem 1,000 MG in sodium chloride 0.9% (plus) 50 ML 100 MG IV (03:06)
[2024-04-06] MEDS: OLANZapine 10 mg VIAL IM (05:21)
[2024-04-06] MEDS: morphine 4 mg/mL SDV 1 mL 2 MG IVP (09:26)
--- NOTE | 2024-04-06 09:32 | P.PN_ITS ---
Subjective 2 Subjective: Patient was evaluated the bedside, he has been confused and obtunded, not been able to eat since yesterday Not able to communicate with the family, extremely dry and encephalopathic Family is at the bedside Had extensive discussion regarding current clinical scenario, labs, prognostication, starvation, risk of bleeding, multiorgan failure, they have decided to turn off defibrillator using a magnet and go with hospice care, they would prefer hospice at home and wanting a day in the hospital to set up their home Vitals/I&O/Wt Last Vital Signs Temp 99.4 F 04/06/24 07:24 Pulse 103 H 04/06/24 07:24 Resp 21 H 04/06/24 07:24 BP 125/72 04/06/24 07:24 Pulse Ox 94 04/06/24 07:24 O2 Del Method Nasal Cannula 04/06/24 07:48 O2 Flow Rate 3 04/05/24 20:00 04/05/24 04/06/24 04/06/24 22:59 06:59 14:59 Intake Total 160 / 561 350 / 911 Output Total 1999 / 1999 250 / 2250 1000 / 1000 Balance -1840 / -1439 100 / -1339 -1000 / -1000 Weight last 48 hrs Weight 74.344 kg Physical Exam 2 Narrative: Patient not able to follow commands Patient is confused Encephalopathic Staring at the ceiling Dry mucous membranes Dried blood around nares Family is at the bedside Horta catheter in place Nasal cannula is in his mouth Urinary Catheter Management: Horta: Cath Placed During This Visit: yes Reason for Continuing Indwelling Catheter: Assist Healing of Perineal & Sacral Wounds- Incontinent Patients Urinary Catheter Date of Insertion: 04/03/24 Urinary Catheter Time of Insertion: 13:15 Data 04/05/24 03:30 04/05/24 03:30 A&P Assessment and plan (1) Goals of care, counseling/discussion: (2) Hospice care: (3) Multiorgan failure: (4) S/P cardiac pacemaker procedure: (5) Atrial fibrillation: Qualifiers: Atrial fibrillation type: longstanding persistent Qualified Code(s): I 48.11 - Longstanding persistent atrial fibrillation (6) Coagulopathy: (7) Epistaxis: (8) Acute liver failure: (9) Acute on chronic renal failure: (10) Sepsis: (11) Hospital-acquired pneumonia: Plan Had detailed discussion with the family at the bedside, present, daughter and son present as well, We discussed clinical findings, labs, prognostication, inability to eat, signs of confusion, risk of bleeding, multiorgan failure, family decided to pursue hospice care Defibrillator with a magnet, they will prefer hospice at home, nurse and charge nurse notified They need 1 more day to set up a home Discontinue antibiotics no need to repeat labs Continue Horta catheter, clear liquid diet is okay, Family has not allowed labs for today Attestations 2 Medical Necessity Statement*: Changed to comfort care Diagnoses Goals of care, counseling/discussion Z71.89 Hospice care Z51.5 Multiorgan failure S/P cardiac pacemaker procedure Z95.0 Longstanding persistent atrial fibrillation I48.11 Atrial fibrillation type: longstanding persistent Coagulopathy D68.9 Epistaxis R04.0 Acute liver failure K72.00 Acute on chronic renal failure N17.9; N18.9 Sepsis A41.9 Hospital-acquired pneumonia J18.9; Y95
[2024-04-06] MEDS: LORazepam 2 mg/mL INJ 10 mL MDV IVP ×2 (12:23→21:24)
[2024-04-06] MEDS: morphine 4 mg/mL SDV 1 mL IVP ×2 (17:04→21:23)
[2024-04-06 18:05] LABS: Ethylene Glycol <10.0 mg/L (***)
--- NOTE | 2024-04-06 21:52 | P.PN_ITS ---
Subjective 2 Subjective: Patient on hospice care Vitals/I&O/Wt Last Vital Signs Temp 99.4 F 04/06/24 07:24 Pulse 103 H 04/06/24 07:24 Resp 18 04/06/24 21:23 BP 125/72 04/06/24 07:24 Pulse Ox 94 04/06/24 17:04 O2 Del Method Nasal Cannula 04/06/24 07:48 O2 Flow Rate 3 04/05/24 20:00 04/06/24 04/06/24 04/06/24 06:59 14:59 22:59 Intake Total 350 / 911 Output Total 250 / 2250 1000 / 1000 200 / 1200 Balance 100 / -1339 -1000 / -1000 -200 / -1200 Weight last 48 hrs Weight 74.344 kg Physical Exam 2 Narrative: Patient oriented to himself Dehydrated Obtunded Requiring oxygen via nasal cannula Horta catheter in place Urinary Catheter Management: Horta: Cath Placed During This Visit: yes Reason for Continuing Indwelling Catheter: Hospice/Comfort/Palliative Care Urinary Catheter Date of Insertion: 04/03/24 Urinary Catheter Time of Insertion: 13:15 Data 04/05/24 03:30 04/05/24 03:30 A&P Assessment and plan (1) Goals of care, counseling/discussion: (2) Hospice care: Plan Hospice care to be continued We discussed with family if they are agreeable for hospice care to be continued at home Attestations 2 Medical Necessity Statement*: Possible discharge later today Diagnoses Goals of care, counseling/discussion Z71.89 Hospice care Z51.5
[2024-04-07 00:59] VITALS: RESP 22
[2024-04-07] MEDS: morphine 4 mg/mL SDV 1 mL IVP ×2 (00:59→05:57)
[2024-04-07 05:27] VITALS: PULSE 114
[2024-04-07 05:57] VITALS: RESP 20
--- NOTE | 2024-04-07 10:30 | PC.NURSE ---
Family stated no vital signs on patient this am. Patient was wiped down by staff.
--- NOTE | 2024-04-07 12:28 | PC.NURSE ---
Patient passed this morning at 0944. Dr. Joel notified. Family at bedside. Goldonna super notified as well.
--- NOTE | 2024-04-07 17:53 | P.DES_ITS ---
Discharge Providers DDS Date of Admission: 04/03/24 02:25 Date Summary Completed: 04/07/24 Attending Provider at Admission: Rickey Gamboa MD Attending Provider at Discharge: Gabriela Benjamin MD Primary Care Provider: Sunny Vega DO DS Diagnoses Hospital Diagnoses (1) Goals of care, counseling/discussion: (2) Hospice care: Reason for Visit Reason for Visit CP, SOB, N/V Summary Summary Summary: 84-year-old male who was admitted for multiorgan failure, acute liver failure, acute on chronic kidney disease, congestive heart failure exacerbation, he stopped eating, he was also suffering from DIC, coagulopathy related to liver failure, he was given 4 unit FFP, Tranxene Juan José acid he was given broad- spectrum antibiotics for healthcare acquired associated pneumonia Family decided to pursue hospice care, patient 04/07 secondary to acute liver failure Additional Data Confirmation of as documented by pronouncing clinician: no pulse, no respirations, no heart sounds and pupils fixed and dilated Family: at bedside Additional persons at bedside: nursing staff Attending/PCP notified?: I am attending Was code activated?: No Autopsy requested?: No Advance directives?: Yes Hospice patient?: Yes Discharge Plan Discharge Patient Disposition: Condition: Stable Prescriptions: No Action Eliquis 5 mg tablet 5 mg PO BID Qty: 180 3RF duloxetine 60 mg capsule,delayed release(DR/EC) 60 mg PO BEDTIME cholecalciferol (vitamin D3) 50 mcg (2,000 unit) capsule 50 mcg PO QPM metoprolol succinate 25 mg tablet extended release 24 hr 25 mg PO BID Qty: 180 3RF nitroglycerin [Nitrostat] 0.4 mg Tablet, Sublingual 0.4 mg SUBLINGUAL Q5M PRN (Reason: Chest Pain) Rx Instructions: do not exceed 3 doses per episode clopidogrel 75 mg tablet 75 mg PO QAM simvastatin 40 mg tablet 40 mg PO QPM pantoprazole 40 mg tablet,delayed release (DR/EC) 40 mg PO QAM fluticasone propion-salmeterol 100-50 mcg/dose Blister With Device 1 inh INHALATION BID ipratropium bromide 0.02 % Solution 0.5 mg inhalation Q8H Qty: 75 0RF levalbuterol HCl 0.63 mg/3 mL Solution For Nebulization 0.63 mg inhalation Q8H Qty: 90 0RF prednisone 10 mg tablet See Taper PO DIRECTED Qty: 42 0RF Taper: predniSONE 60-10 60 mg Daily for 2 Days and 0 Hour 50 mg Daily for 2 Days and 0 Hour 40 mg Daily for 2 Days and 0 Hour 30 mg Daily for 2 Days and 0 Hour 20 mg Daily for 2 Days and 0 Hour 10 mg Daily for 2 Days and 0 Hour Rx Instructions: see taper instructions midodrine 5 mg Tablet 5 mg PO TID PRN (Reason: SBP less than 100 mmhg) Qty: 45 0RF furosemide [Lasix] 20 mg tablet 20 mg PO BID Qty: 60 0RF potassium chloride 20 mEq tablet extended release 10 meq PO BID Qty: 60 0RF albuterol sulfate 2.5 mg /3 mL (0.083 %) Solution For Nebulization 2.5 mg INHALATION Q6H PRN (Reason: COPD) amiodarone 200 mg Tablet 200 mg PO DAILY mirtazapine 30 mg Tablet 15 mg PO BEDTIME Referrals: [facility] [Outside] Sunny Vega DO [Primary Care Provider] - Patient Instructions: Opioid Safety DS Attestations Time Spent in /Discharge Care*: greater than 30 min Quality - AMI: AMI present?: No Quality - Stroke: CVA present?: No Quality - VTE: VTE present?: No Coding Level of Care Code Acute Code for Chg Fwd Diagnoses Goals of care, counseling/discussion Z71.89 Hospice care Z51.5
== END 2024-04-07 13:00 | disposition expired | DRG 871 ==
LOC: ER 23:44 → ICU 04-03 00:59 → MEDSURG 04-05 16:10
PROVIDERS: Admitting Provider Family Medicine; Emergency Provider Emergency Medicine; PCP Emergency Medicine Emergency Medical Services; Visit Provider Internal Medicine
DX: A41.9 Sepsis, unspecified organism (principal); D65 Disseminated intravascular coagulation [defibrination syndrome]; K72.00 Acute and subacute hepatic failure without coma; I50.23 Acute on chronic systolic (congestive) heart failure; I21.4 Non-ST elevation (NSTEMI) myocardial infarction; J18.9 Pneumonia, unspecified organism; G93.41 Metabolic encephalopathy; J96.21 Acute and chronic respiratory failure with hypoxia; I48.11 Longstanding persistent atrial fibrillation; I13.0 Hypertensive heart and chronic kidney disease with heart failure and stage 1 through stage 4 chronic kidney disease, or unspecified chronic kidney disease; E87.20 Acidosis, unspecified; N17.9 Acute kidney failure, unspecified; K92.2 Gastrointestinal hemorrhage, unspecified; R65.20 Severe sepsis without septic shock; I25.5 Ischemic cardiomyopathy; I25.10 Atherosclerotic heart disease of native coronary artery without angina pectoris; N40.0 Benign prostatic hyperplasia without lower urinary tract symptoms; I11.0 Hypertensive heart disease with heart failure; N18.9 Chronic kidney disease, unspecified; K21.9 Gastro-esophageal reflux disease without esophagitis; I49.5 Sick sinus syndrome; Y95 Nosocomial condition; Z79.01 Long term (current) use of anticoagulants; Z95.1 Presence of aortocoronary bypass graft; Z79.02 Long term (current) use of antithrombotics/antiplatelets; Z66 Do not resuscitate; R31.9 Hematuria, unspecified; R04.0 Epistaxis; Z95.810 Presence of automatic (implantable) cardiac defibrillator
CPT/HCPCS: 36415; 36430; 36600; 51702; 51798; 71045; 74176; 76705; 80053; 80061; 80074; 80306; 80307; 80320; 81001; 82009; 82140; 82533; 82550; 82693; 82803; 82977; 83605; 83690; 83735; 83880; 84145; 84439; 84443; 84481; 84484; 85007; 85014; 85018; 85025; 85610; 85730; 86140; 86900; 86927; 87040; 93005; 93306; 94640; 94664; 96365; 96367; 96372; 96374; 96375; 96376; 99285; C9113; J1940; J2020; J2060; J2185; J2270; J2405; J2765; J2919; J3370; J3430; J3490; J7040; J7042; J7050; J7614; J7626; J7644; P9017